=== PATIENT | female | born 1955 | race Caucasian/White ===

== ENCOUNTER 2016-09-01 08:02 | Day surgery (SDC) | payer OTHER ==
[~2016-09-01] VITALS: Ht 172.7 cm; Wt 133.0 kg
[~2016-09-01 08:02] MED LIST: ATEN-51 PO; BENA40TA41 PO; CLON0.3T PO; DOCU-159 PO
[2016-09-01 08:53] VITALS: Ht 172.7 cm; Wt 133.0 kg
--- NOTE | 2016-09-01 12:07 | CONS ---
DATE OF ADMISSION: 09/01/2016 DATE OF CONSULTATION: 09/01/2016 HISTORY OF PRESENT ILLNESS: The patient is a 61-year-old female who was referred to the office for a colonoscopy. She had a strong family history of colon cancer and also personal history of colon p olyp. The patient is overweight and has high blood pressure; however, when I interviewed her and e anesthesiologist assessed the patient, patient states she was short of breath for the last 1 week even at rest. We examined the patient, she was alert, awake, sitting comfortably. LUNGS: Had bronchi and alpha bases. ABDOMEN: Benign. EXTREMITIES: There was no edema. CENTRAL NERVOUS SYSTEM: Grossly within normal limits. IMPRESSION: 1. Shortness of breath even at rest, as per the patient. 2. Obesity. 3. Hypertension. 4. Strong family history of colon cancer. 5. Personal history of colon polyp. 6. Obesity. PLAN: Because patient is short of breath at rest, the anesthesiologist and myself felt that the ris k was high to sedate this patient for both EGD and colonoscopy. We discussed with the father and to ld them to take the patient to the emergency room immediately. Patient had this same complaint 1 we ek ago and had gone to the primary care. Primary care had told the patient that they would do a ch est x-ray, but nothing was done or followed up on. Once the patient's condition is stable, then we will proceed with both EGD and colonoscopy. This is an elective procedure and not an emergency, so patient needs to be stabilized. Dictated By: THOMAS ROD/JOSH Conf#: [id number] DID#: [id number]
== END 2016-09-02 08:18 | disposition home or self-care (01) ==
LOC: GIL 08:02
PROVIDERS: ATTEND Internal Medicine Gastroenterology
DX: Z86.010 Personal history of colon polyps (principal); Z53.9 Procedure and treatment not carried out, unspecified reason; I10 Essential (primary) hypertension; Z80.0 Family history of malignant neoplasm of digestive organs; R06.02 Shortness of breath; E66.9 Obesity, unspecified; Z68.41 Body mass index [BMI] 40.0-44.9, adult

== ENCOUNTER 2016-09-01 09:14 | Inpatient (IN) | payer OTHER ==
[~2016-09-01] VITALS: Ht 172.7 cm; Wt 131.8 kg
[2016-09-01] VITALS (13 sets, daily range): BP systolic 129–220; BP diastolic 66–115; PULSE 62–83; RESP 18–24; TEMP 98.1; Ht 172.7 cm; Wt 131.8 kg
[2016-09-01] MEDS ORDERED: FUROSEMIDE 100 MG INJ IV STA (12:12)
[2016-09-01 12:32] LABS: AADO2 Arterial 30.7 mmHg (7.0-24.0); Allen Test ACCEPTAB; Arterial Base Excess 2.3 mmol/L (-3.0-3); Arterial COHb 0.8 % (0.0-3.0); Arterial Fraction of Oxyhgb 91.9 % (93.0-99.0); Arterial HCO3 26.8 mmol/L (22.0-26.0); Arterial MetHb 0.2 % (0.0-1.5); Arterial Total Hemglobin 12.1 g/dl (12.0-18.0); MODE ROOM AIR
[2016-09-01 13:01] LABS: BASOPHIL # 0.1 10^3/ul (0.0-0.1); BASOPHILS % 1.3 % (0.0-2.0); EOSINOPHILS # 0.1 10^3/ul (0.0-0.5); EOSINOPHILS % 1.2 % (0.0-7.0); HEMATOCRIT 37.1 % (37.0-47.0); HEMOGLOBIN 11.9 g/dl (12.0-16.0); LYMPHOCYTES # 1.5 10^3/ul (0.8-2.9); LYMPHOCYTES % 22.1 % (15.0-51.0); MEAN CORPUSCULAR HEMOGLOBIN 28.3 pg (29.0-33.0); MEAN CORPUSCULAR HGB CONC 32.2 g/dl (32.0-37.0); MEAN PLATELET VOLUME 8.2 fl (7.4-10.4); MONOCYTE # 0.4 10^3/ul (0.3-0.9); MONOCYTES % 6.1 % (0.0-11.0); NEUTROPHIL # 4.7 10^3/ul (1.6-7.5); NEUTROPHILS % 69.3 % (39.0-77.0); PLATELET COUNT 263 10^3/UL (140-440); RED BLOOD COUNT 4.21 10^6/ul (4.20-5.40); RED CELL DISTRIBUTION WIDTH 17.1 % (11.5-14.5); UNCORRECTED WBC 6.8 10^3/ul (4.8-10.8); WHITE BLOOD COUNT 6.8 10^3/ul (4.8-10.8)
[2016-09-01 13:05] LABS: CONDITION 1; LH ANALYZER COMMENTS 1
[2016-09-01 13:09] LABS: INR 1.09; PROTIME 14.1 Sec (12.2-14.2); PT RATIO 1.1
[2016-09-01 13:10] LABS: ALBUMIN 3.5 g/dl (3.3-4.9); CHLORIDE 99 mmol/L (97-110)
[2016-09-01 13:10] LABS: PARTIAL THROMBOPLASTIN TIME 34.9 Sec (25.0-35.0)
[2016-09-01 13:11] LABS: POTASSIUM 4.5 mmol/L (3.5-5.1); SODIUM 138 mmol/L (135-144)
[2016-09-01 13:13] LABS: ALBUMIN/GLOBULIN RATIO 0.94; ANION GAP 17 (8-16); ASPARTATE AMINO TRANSFERASE 26 IU/L (15-46); BILIRUBIN,INDIRECT 0.7 mg/dl (0-1.1); BILIRUBIN,TOTAL 0.7 mg/dl (0.2-1.3); CARBON DIOXIDE 27 mmol/L (21-31); CREATININE 1.08 mg/dl (0.44-1.00); TOTAL PROTEIN 7.2 g/dl (6.1-8.1)
[2016-09-01 13:14] LABS: ALANINE AMINOTRANSFERASE 15 IU/L (13-69); ALKALINE PHOSPHATASE 86 IU/L (42-121); BLOOD UREA NITROGEN 17 mg/dl (7-20); GLUCOSE 179 mg/dl (70-220)
--- NOTE | 2016-09-01 13:25 | ERA ---
ER Documentation Chief Complaint Date/Time DATE: 09/01/16 TIME: 13:21 Chief Complaint SOB AND COUGH FOR THE PAST 2 WKS. NO FEVERS. HPI Patient is a 61-year-old female who reports that she was drinking her GI prep all night last night for her colonoscopy today. She says she went to have her colonoscopy done and when the stock replenisher asked her if she was "breathing." She says that she told the stock replenisher she was not breathing and the stock replenisher told her to come to the emergency department to be admitted in the hospital. She says she has been short of breath and coughing for the last 2 weeks. She says the cough is nonproductive and she has not had a fever. She says she has had chronic chest pain ongoing for the last 2 weeks that has been constant and unchanged. It is in the center of her chest and does not radiate, nothing makes it better or worse. She denies any sputum production, sore throat, otalgia, rhinorrhea, dizziness, syncope, abdominal pain, vomiting, diarrhea, dysuria, or hematuria. Patient initially complained of lower extremity swelling: However, when I pointed out the chronic skin changes and asked her how long it had actually been there, she admitted it has been there for 5 years. The remainder of the systems are negative. ROS All systems reviewed and are negative except as per history of present illness. Medications Home Meds Reported Medications Clonidine Hcl* (Clonidine Hcl*) 0.3 Mg Tablet, 0.3 MG PO Q8, TAB 10/18/14 Atenolol* (Atenolol*) 25 Mg Tablet, 25 MG PO BID, TAB 10/18/14 Benazepril Hcl* (Benazepril Hcl*) 40 Mg Tablet, 40 MG PO DAILY 07/29/12 Docusate Sodium* (Docusate Sodium*) 100 Mg Capsule, 100 MG PO DAILY 07/29/12 Allergies Allergies: Coded Allergies: amlodipine (Verified Allergy, Mild, rash/nausea/vomiting., 09/01/16) codeine (Verified Allergy, Unknown, RASH, 09/01/16) milk (Verified Allergy, Unknown, RASH, 03/05/14) PMhx/Soc Medical and Surgical Hx: pt denies Surgical Hx History of Surgery: No Anesthesia Reaction: No Hx Neurological Disorder: No Hx Respiratory Disorders: No Hx Cardiac Disorders: Yes (HTN, edema ) Hx Psychiatric Problems: No Hx Miscellaneous Medical Probl: Yes (HTN, uterine CA, colon CA) Hx Alcohol Use: No Hx Substance Use: No Hx Tobacco Use: Yes (Quit 20 years ago ) Smoking Status: Former smoker FmHx Family History: coronary disease, diabetes Physical Exam Vitals Vital Signs Date Time Temp Pulse Resp B/P Pulse Ox O2 Delivery O2 Flow Rate FiO2 09/01/16 12:48 Nasal Cannula 2 09/01/16 09:23 98.5 66 20 177/89 99 Physical Exam Const: [] Well-developed morbidly obese female lying on the bed without any evidence for respiratory distress, speaking in full sentences. Head: Atraumatic normocephalic Eyes: Normal Conjunctiva ENT: Normal External Ears, Nose and Mouth. Neck: Full range of motion..~ No meningismus. Resp: Clear to auscultation bilaterally, no wheezing, or crackles Cardio: Regular rate and rhythm, no murmurs Abd: Soft, non tender, non distended. Normal bowel sounds Skin: No petechiae or rashes Back: No midline or flank tenderness Ext: No cyanosis, bilateral chronic lower extremity lymphedema which is symmetric Neur: Awake and alert oriented 3, GCS equals 15, ambulatory, moves all extremities equally Psych: Normal Mood and Affect, pleasant Result Diagram: 09/01/16 1240 09/01/16 1347 Results 24 hrs Laboratory Tests Test 09/01/16 12:12 09/01/16 12:40 09/01/16 13:47 Arterial Blood HCO3 26.8mmol/L Arterial Blood Base Excess 2.3mmol/L Arterial Blood Oxygen Saturation 92.8mmHG Giorgio Test ACCEPTAB Arterial Blood Gas Puncture Site Right Radial Arterial Blood Carboxyhemoglobin 0.8% Arterial Blood Date Drawn 09/01/2016 12:25:56 PM Arterial Blood Methemoglobin 0.2% Arterial Blood pCO2 (Temp correct) 41.2mmhg Arterial Blood pH (Temp corrected) 7.431 Arterial Blood pO2 (Temp corrected) 69.7mmHG Blood Gas A-a O2 Differential 30.7mmHg Blood Gas Modality ROOM AIR Blood Gas Notified Time 09/01/2016 12:32:43 PM Blood Gas Notified Whom ENRICO Blood Gas Specimen Source Blood arterial Blood Gas Temperature 37.0C FiO2 21.0% Oxyhemoglobin Percent 91.9% Total Hemoglobin 12.1g/dl Activated Partial Thromboplast Time 34.9Sec Basophils # 0.110^3/ul Basophils % 1.3% Blood Morphology Comment Eosinophils # 0.110^3/ul Eosinophils % 1.2% Hematocrit 37.1% Hemoglobin 11.9g/dl INR International Normalized Ratio 1.09 Lymphocytes # 1.510^3/ul Lymphocytes % 22.1% Mean Corpuscular Hemoglobin 28.3pg Mean Corpuscular Hemoglobin Concent 32.2g/dl Mean Corpuscular Volume 88.0fl Mean Platelet Volume 8.2fl Monocytes # 0.410^3/ul Monocytes % 6.1% Neutrophils # 4.710^3/ul Neutrophils % 69.3% Nucleated Red Blood Cells # 0.010^3/ul Nucleated Red Blood Cells % 0.0/100WBC Platelet Count 18449^3/UL Prothrombin Time 14.1Sec Prothrombin Time Ratio 1.1 Red Blood Count 4.2110^6/ul Red Cell Distribution Width 17.1% White Blood Count 6.810^3/ul Alanine Aminotransferase (ALT/SGPT) 15IU/L Albumin 3.5g/dl Albumin/Globulin Ratio 0.94 Alkaline Phosphatase 86IU/L Anion Gap 17 Aspartate Amino Transf (AST/SGOT) 26IU/L B-Type Natriuretic Peptide 5440PG/ML Blood Urea Nitrogen 17mg/dl Calcium Level 9.0mg/dl Carbon Dioxide Level 27mmol/L Chloride Level 99mmol/L Creatinine 1.08mg/dl Direct Bilirubin 0.00mg/dl Globulin 3.70g/dl Glucose Level 179mg/dl Indirect Bilirubin 0.7mg/dl Potassium Level 4.5mmol/L Sodium Level 138mmol/L Total Bilirubin 0.7mg/dl Total Protein 7.2g/dl Troponin I < 0.012ng/ml Current Medications Medications (Trade) Dose Ordered Sig/Alvarado Route PRN Reason Start Time Stop Time Status Last Admin Dose Admin Furosemide (Lasix) 80 mg ONCE STAT IV 09/01/16 12:12 09/01/16 12:16 DC 09/01/16 13:02 Procedures/[facility] EKG shows atrial fibrillation at 60 bpm, nonspecific ST-T wave flattening diffusely, poor R-wave progression across the precordium, Q waves noted in leads V1 V2 and V3, no evidence for acute ischemia noted, no old EKG available for comparison. Chest x-ray shows vascular congestion with pulmonary edema. 1500: Patient is beginning to diurese. There is no significant change in her examination. 1500: I have consulted the hospitalist for admission for further evaluation and treatment of her congestive heart failure. Departure Diagnosis: Primary Impression: Cough Additional Impressions: Congestive heart failure Qualified Code: I50.43 - Acute on chronic combined systolic and diastolic congestive heart failure Lymphedema of both lower extremities Hypertension Qualified Code: I10 - Essential hypertension Obesities, morbid Qualified Code: E66.01 - Morbid obesity, unspecified obesity type Condition: MICK Nance Sep 01, 2016 13:25
[2016-09-01 14:17] LABS: B-TYPE NATRIURETIC PEPTIDE 5440 PG/ML (0-125)
--- NOTE | 2016-09-01 14:18 | RADRPT ---
PROCEDURE: Chest Radiograph. CLINICAL INDICATION: Shortness of breath TECHNIQUE: Single frontal chest radiograph. COMPARISON: Chest radiograph 10/20/2014 FINDINGS: The patient is rotated which limits evaluation. Heart size is poorly evaluate. There is mild centr al vascular congestion. Diffuse interstitial opacities are nonspecific, though suggest pulmonary ed ede. Bibasilar opacities may represent atelectasis, infiltrates, or small effusions. The bones are intact IMPRESSION: 1. Suggested central vascular congestion and pulmonary edema. Recommend correlation with CHF. 2. Bibasilar opacities likely representing a combination of pleural fluid, atelectasis, and/or infi ltrates. RPTAT: KK .Rylan Campuzano MD, MD Date Time Electronically viewed and signed by .Rylan Campuzano MD, on 09/01/2016 14:18 .B/
[2016-09-01 14:35] LABS: TROPONIN-I < 0.012 ng/ml (0.00-0.12)
[2016-09-01] MEDS ORDERED: ACETAMINOPHEN 325 MG TAB PO PRN (15:30)
[2016-09-01] MEDS ORDERED: ONDANSETRON 4 MG INJ IV PRN (15:30)
[2016-09-01] MEDS ORDERED: NITROGLYCERIN (SL) 0.4 MG TAB SL PRN (16:00)
[2016-09-01] MEDS ORDERED: NACL 0.9% 3 ML SYG IV SCH ×2 (16:00)
[2016-09-01] MEDS ORDERED: ONDANSETRON 4 MG TAB PO PRN (16:00)
[2016-09-01] MEDS ORDERED: morphine 2 MG INJ IV ONE (16:00)
[2016-09-01] MEDS: NITROGLYCERIN 50 MG/D5W (PMX) 250 ML IV SCH ×2 (16:18→23:24)
[2016-09-01] MEDS ORDERED: IBUPROFEN 600 MG TAB PO ONE (18:00)
--- NOTE | 2016-09-01 18:44 | HP ---
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 CHIEF COMPLAINT: Shortness of breath and lower extremity edema. HISTORY OF PRESENT ILLNESS: This is a pleasant 61-year-old female with past medical history of esse ntial hypertension, lymphedema, morbid obesity, congestive heart failure who had an appointment for colonoscopy today with Dr. Cheney and patient was found to be fluid overloaded and the procedure was postponed. The patient was asked to come to the emergency room of [facility]. U genevieve evaluation in the ER, the patient was found to be fluid overloaded with lower extremity edema. Chest x-ray shows central vascular congestion and pulmonary edema, bibasilar opacities likely repres enting a combination of pleural fluid and atelectasis or infiltrate. The patient was also found to be in hypertensive urgency with blood pressure 234/103. She was treated with Lasix and morphine and has been placed on nitroglycerin drip at this time. The patient denies any chest pain, shortness o f breath. Positive for shortness of breath, difficulty breathing during ambulation and paroxysmal n octurnal dyspnea, lower extremity edema, difficulty with ambulation secondary to shortness of breath and weight gain. No dysuria, hematuria, urgency, incontinence. No neck pain, no restricted range of motion. No abdominal pain, no change in the color of stool or any other discomfort except what w as stated above. PAST MEDICAL AND SURGICAL HISTORY: As above per HPI. MEDICATIONS: 1. Atenolol. 2. Benazepril. 3. Clonidine. 4. Colace. ALLERGIES: 1. AMLODIPINE. 2. CODEINE. 3. MILK SOCIAL HISTORY: She lives alone and she has been having difficulty in ambulation secondary to disco mfort in her lower extremity. Negative x3 for smoking, alcohol, illicit drugs. REVIEW OF SYSTEMS: As above per HPI, otherwise 12 review of systems has been found to be negative. PHYSICAL EXAMINATION: VITAL SIGNS: Temperature 98.1, pulse 60, respirations 16, blood pressure 129/101, oxygen 99% on marsha m air. GENERAL APPEARANCE: The patient is lying in bed comfortably without any distress. She is not using any accessory muscles for breathing. Body habitus morbidly obese. EYES AND ENT: Conjunctivae and lids are normal. Pupils are normal. Extraocular normal. Hearing g rossly normal. Lips are normal. Oral mucosa is moist. NECK: Supple. Trachea is midline. No lymphadenopathy. RESPIRATORY: Effort is normal. Clear to auscultation bilaterally. CARDIOVASCULAR: Normal S1, S2. Regular rhythm and rate. No murmur, no bruits, no edema and periph eral pulses. Respiratory effort is normal. Decreased breath sounds bilateral lower lung field. CARDIOVASCULAR: Normal S1, S2. Regular rhythm and rate. Positive for lower extremity edema. GASTROINTESTINAL: Abdomen contour is morbidly obese. Bowel sounds present. No guarding, no reboun d. GENITOURINARY: Deferred. EXTREMITIES: Full range of motion. Upper extremities, decreased range of motion bilateral lower ex tremities secondary to severe lymphedema. NEUROLOGIC: Cranial nerves II through XII seem grossly normal. PSYCHIATRIC: She is awake, alert, oriented. LABORATORY WORK: WBC 6.8, hemoglobin 11.9, hematocrit 37.1, platelets 263. Sodium 138, potassium 4 .5, chloride 99, bicarbonate 27, BUN 17, creatinine 1.08. Glucose was 179. BNP 5540. ASSESSMENT AND PLAN: 1. Congestive heart failure exacerbation. The patient has been started on Lasix. We will continue benazepril and place the patient on Coreg. 2. Hypertension urgency. Restart patient's benazepril and clonidine. Place the patient on p.r.n. hydralazine. The patient has been started on nitroglycerin drip and was admitted to ICU, continue t o monitor. Cardiology has been consulted. 3. Morbid obesity. Low calorie diet has been recommended. 4. For gastrointestinal prophylaxis, the patient has been placed on Protonix. 5. For deep venous thrombosis prophylaxis on Lovenox. 5. Will continue to monitor patient closely. Further recommendations, management and treatment as per clinical course. Total amount of time was spent with patient and admission workup 40 minutes. Dictated By: AUGUSTO RICKS/JOSH Conf#: [id number] DID#: [id number]
[2016-09-01] MEDS ORDERED: BENAZEPRIL 40 MG TAB PO SCH (20:00)
--- NOTE | 2016-09-01 21:04 | CONS ---
DATE OF ADMISSION: 09/01/2016 DATE OF CONSULTATION: 09/01/2016 REASON FOR CONSULTATION: Hypertensive urgency/emergency as well as atrial fibrillation. REQUESTING PHYSICIAN: Augusto Riley MD, from the hospitalist service. HISTORY OF PRESENT ILLNESS: Ms. 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 Patient was sent here to the emerge ncy department where, upon arrival, has temperature of 98.5, blood pressure markedly elevated at 177 /89, increased to 249/101, pulse 66, respiratory rate 20, saturating 99%. The patient's labs reveal ed a white count of 6.8, hemoglobin 11.9, platelet count 263. Sodium 138, potassium 4.5, creatinine of 1.0, BUN 17, AST 26, ALT 15. BNP of 5,440; INR at 1.0. ABG revealing a pH of 7.431, PaO2 of 69 , a pCO2 of 41. Patient underwent a chest x-ray revealing central pulmonary vascular congestion and pulmonary edema, bibasilar opacities. The patient's electrocardiogram with atrial fibrillation, ra te of 62, with a left axis deviation, poor R-wave progression across the ____ leads, anteroseptal Q' s and nonspecific ST abnormalities diffusely. The patient in the emergency department has been jane aureliano with Lasix 80 mg IV x1, and then has been started on a nitroglycerin drip; continues to have crystal vated systolic blood pressure greater than 200. The patient, at this time, denies chest pain; state s she has mild shortness of breath. PAST MEDICAL HISTORY: As above in HPI. MEDICATIONS CURRENTLY IN HOSPITAL 1. Aspirin 81 mg daily. 2. Lovenox ____ subcutaneous daily. 3. Colace 100 mg a day. 4. Clonidine 0.3 mg p.o. q.8. 5. Carvedilol 3.125 mg p.o. b.i.d. 6. Benazepril 40 mg daily. 7. Lasix 20 mg p.o. b.i.d. 8. Protonix 40 mg p.o. b.i.d. 9. Hydralazine 10 mg IV q.8 p.r.n. ____ 10. Tylenol. 11. Zofran. ALLERGIES 1. NORVASC. 2. CODEINE. 3. MILK. SOCIAL HISTORY: No tobacco, EtOH, illicit drug use. FAMILY HISTORY: No history of sudden cardiac or early CAD. REVIEW OF SYSTEMS As above in HPI: CONSTITUTIONAL: No fevers, chills. PULMONARY: Positive for shortness breath. CARDIOVASCULAR: Congestive heart failure, uncontrolled systolic blood pressures. GASTROINTESTINAL: Abdominal pain. GENITOURINARY: No hematuria. MUSCULOSKELETAL: Degenerative joint disease. PSYCHIATRIC: Denies depression. NEUROLOGIC: No documented history of CVA. PHYSICAL EXAMINATION VITAL SIGNS: Temperature 98.1, blood pressure 249/101, pulse 60, respiratory rate 16, sating 95%. GENERAL: The patient is alert, awake, complaining of abdominal pain. NECK: JVP difficult to assess secondary to body habitus. HEART: Irregularly irregular, I/ systolic murmur, nondisplaced PMI. ABDOMEN: Positive bowel sounds, soft, obese. EXTREMITIES: Chronic lymphedema. Difficult to palpate distal pulses bilaterally, posterior tibial or dorsalis pedis. LABORATORIES: As above in HPI. No further labs for my review at this time. IMAGING STUDIES: As above in HPI. No further imaging studies for my review at this time. ELECTROCARDIOGRAM: As above in HPI. No further electrocardiograms for my review at this time. IMPRESSION 1. Hypertensive urgency/emergency. 2. Abnormal electrocardiogram, assess for acute coronary syndrome. 3. Atrial fibrillation. 4. Abdominal pain. 5. Increased BNP. 6. Congestive heart failure, question systolic versus diastolic, but acute given presentation. 7. Chronic lymphedema. 8. Mild anemia. RECOMMENDATIONS 1. At this time, would admit patient to telemetry monitoring versus ICU if patient remains on a nit roglycerin drip. 2. Would continue the patient's baseline antihypertensives with benazepril, carvedilol, clonidine, with up-titration as necessary to improve overall systolic blood pressure control. 3. Use IV push p.r.n. hydralazine and p.o. p.r.n. clonidine as necessary to improve systolic blood pressure control acutely. 4. Check a 2-D echo to further assess this patient's ejection fraction and wall motion to rule out any major valve abnormalities. 5. Continue patient's Lasix diuresis. 6. Continue the patient's aspirin and Lovenox for prevention of thromboembolic complications in the setting of atrial fibrillation at this time. 7. Check a fasting lipid panel for general risk stratification. Further workup and treatment of the patient's ongoing clinical issues, including abdominal pain per PMD and alternative consultations. Thank you for allowing me to take part in the care of this patient. I will continue to follow very closely with you, with further recommendations to be made as the patient progresses through her [facility] clinical course. Dictated By: ASHLEY ARSHAD/JOSH Conf#: [id number] DID#: [id number] CC: AUGUSTO RILEY MD;*End*
[2016-09-01] MEDS: FUROSEMIDE 20 MG TAB PO SCH (21:07)
[2016-09-01] MEDS: PANTOPRAZOLE (EC) 40 MG TAB PO SCH (21:07)
[2016-09-01] MEDS: ACETAMINOPHEN 325 MG TAB PO PRN (21:12)
[2016-09-01 21:23] LABS: CREATINE KINASE 22 IU/L (23-200)
[2016-09-01 21:31] LABS: CK-MB 0.68 ng/ml (0.0-2.4)
[2016-09-01 21:40] LABS: TROPONIN-I < 0.012 ng/ml (0.00-0.12)
[2016-09-01] MEDS: hydrALAzine 20 MG INJ IV PRN (21:48)
[2016-09-02] VITALS (44 sets, daily range): BP systolic 89–198; BP diastolic 52–89; PULSE 56–82; RESP 12–30
[2016-09-02 03:02] LABS: CK-MB 0.42 ng/ml (0.0-2.4)
[2016-09-02 03:06] LABS: TROPONIN-I 0.013 ng/ml (0.00-0.12)
[2016-09-02 06:28] LABS: BASOPHILS % 0.3 % (0.0-2.0); EOSINOPHILS % 0.2 % (0.0-7.0); HEMATOCRIT 31.2 % (37.0-47.0); HEMOGLOBIN 10.3 g/dl (12.0-16.0); LYMPHOCYTES # 1.2 10^3/ul (0.8-2.9); LYMPHOCYTES % 13.6 % (15.0-51.0); MEAN CORPUSCULAR HEMOGLOBIN 29.1 pg (29.0-33.0); MEAN CORPUSCULAR VOLUME 88.1 fl (82.0-101.0); MEAN PLATELET VOLUME 8.1 fl (7.4-10.4); MONOCYTE # 0.7 10^3/ul (0.3-0.9); MONOCYTES % 7.9 % (0.0-11.0); PLATELET COUNT 269 10^3/UL (140-440); RED BLOOD COUNT 3.54 10^6/ul (4.20-5.40); RED CELL DISTRIBUTION WIDTH 16.1 % (11.5-14.5)
[2016-09-02 06:31] LABS: POTASSIUM 3.6 mmol/L (3.5-5.1)
[2016-09-02 06:33] LABS: CREATININE 1.47 mg/dl (0.44-1.00)
[2016-09-02 06:34] LABS: CALCIUM 8.9 mg/dl (8.4-10.2); MAGNESIUM 1.9 mg/dl (1.7-2.5)
[2016-09-02] MEDS: PANTOPRAZOLE (EC) 40 MG TAB PO SCH ×2 (06:57→18:29)
[2016-09-02] MEDS: FUROSEMIDE 20 MG TAB PO SCH ×2 (06:57→18:30)
[2016-09-02 07:40] LABS: CONDITION 1; LH ANALYZER COMMENTS 1
[2016-09-02] MEDS: BENAZEPRIL 20 MG TAB PO SCH (08:28)
[2016-09-02] MEDS: ASPIRIN 81 MG TAB PO SCH (08:28)
[2016-09-02] MEDS: DOCUSATE SODIUM 100 MG CAP PO SCH (08:28)
[2016-09-02] MEDS: ACETAMINOPHEN 325 MG TAB PO PRN ×2 (08:29→20:39)
[2016-09-02] MEDS ORDERED: ENOXAPARIN 40 MG/0.4 ML SYG SC SCH (09:00)
--- NOTE | 2016-09-02 10:15 | PN ---
DATE: 09/02/2016 TIME OF EVALUATION: 9 a.m. SUBJECTIVE DATA: Breathing better. Heart rate controlled. Has multiple nonspecific complaints about dry skin, unhappiness about fluid restriction, etcetera. OBJECTIVE DATA: VITAL SIGNS: Temperature 98.1, pulse rate 58, respiratory rate 17, blood pressure 128/69, oxygen saturation 95% on 4 liters oxygen via nasal cannula. GENERAL: This is a notably obese female patient lying in bed, in no apparent distress. HEENT: Head normocephalic and atraumatic. Eyes, anicteric sclerae. Conjunctivae are clear. ENT: Nasal septum is midline. Oral mucosa is dry. NECK: Supple. No JVD noticed. RESPIRATORY: Bilaterally diminished breath sounds. No use of accessory muscles of respiration. CARDIAC: Irregularly irregular rhythm. ABDOMEN: Soft, nontender. Bowel sounds hypoactive in all 4 quadrants. GENITOURINARY: Deferred. EXTREMITIES: No cyanosis, no clubbing. Bilateral lower extremity lymphedema. Peripheral pulses are not palpable. NEUROLOGIC: The patient is awake, alert and oriented. Cranial nerves are grossly intact. LABORATORY AND DIAGNOSTIC DATA: WBC 9.0, hemoglobin 10.3, hematocrit 31.2, platelet count 269. Sodium 137, potassium 3.6, chloride 99, carbon dioxide 20, anion gap 13, BUN 20, creatinine 1.47, glucose 130, calcium 8.9, magnesium 1.9. ASSESSMENT AND PLAN: 1. Acute congestive heart failure exacerbation. Systolic versus diastolic. Continue diuresis. Cardiology is following. Continue supplemental oxygen. 2. Hypertensive urgency. Blood pressure is well controlled at this time. Cardiology is following. Status post nitroglycerin drip. 3. Atrial fibrillation. Rate controlled. Continue beta blockers. 4. Chronic lymphedema of the bilateral lower extremities. Monitor. 5. Acute kidney injury. Creatinine of 1.47, most probably secondary to over- diuresis. Will dose nephrotoxic medications cautiously. Will change the Lovenox to heparin. Holding the OPAL inhibitors will be deferred to cardiology. 6. Morbid obesity. Weight reduction will be advised. 7. Fluid, electrolytes and nutrition. Low cholesterol diet. Fluid restriction. 8. Deep venous thrombosis prophylaxis. Subcutaneous heparin. 9. Gastrointestinal prophylaxis. Proton pump inhibitors. PLAN: Continue the current care. Discontinue Lovenox. Start heparin because of worsening renal function. The patient may be moved out of the intensive care unit if cleared by consultants. The case was discussed with Dr. Macias. Critical care time: 35 minutes. URIEL MACIAS MD, AM/JOSH Conf#: [id number] DID#: [id number] MTDD
[2016-09-02 10:20] LABS: CK-MB 0.6 ng/ml (0.0-2.4)
[2016-09-02 10:23] LABS: TROPONIN-I 0.037 ng/ml (0.00-0.12)
[2016-09-02] MEDS ORDERED: PETROLATUM 5 GM OINT TOP SCH (11:00)
--- NOTE | 2016-09-02 11:02 | CONS ---
Date/Time of Note Date/Time of Note DATE: 09/02/16 TIME: 10:52 Assessment/Plan Assessment/Plan Chief Complaint/Hosp Course IMPRESSION 1. Hypertensive urgency/emergency-now improved on baseline oral anti- hypertensives 2. Abnormal electrocardiogram, assess for acute coronary syndrome.-negative troponin x 3 3. Atrial fibrillation-rate controlled at at times slow to high 40's 4. Abdominal pain. 5. Increased BNP. 6. Congestive heart failure, question systolic versus diastolic, but acute given presentation. 7. Chronic lymphedema. 8. Mild anemia. 9.ARF Recc: -Tele -Continue coreg/clonidine/ACEI -Continue asa -Continue lasix diuresis -OK to tele - Problems: Consultation Date/Type/Reason Admit Date/Time Sep 01, 2016 at 15:02 Initial Consult Date 09/01/2016 Type of Consultation: Cardiology Reason for Consultation CHF Referring Provider: DONOVAN MILLER MD Exam/Review of Systems Vital Signs Vitals Vital Signs Date Time Temp Pulse Resp B/P Pulse Ox O2 Delivery O2 Flow Rate FiO2 09/02/16 08:00 58 09/02/16 08:00 98.1 17 128/69 95 Nasal Cannula 4.0 Intake and Output 09/01/16 09/01/16 09/02/16 15:00 23:00 07:00 Intake Total 286 ml 270 ml Balance 286 ml 270 ml Exam Review of Systems: CONSTITUTIONAL: No fevers, chills. PULMONARY: mild sob CARDIOVASCULAR: No chest pain/palpitations GASTROINTESTINAL: No nausea/vomiting. GENITOURINARY: No hematuria/dysuria. MUSCULOSKELETAL: No myagias/arthalgias. PSYCHIATRIC: The patient denies depression. NEUROLOGIC: No weakness Constitutional: alert, oriented Psych: no complaints Head: normocephalic ENMT: mucosa pink and moist Neck: jvd (9-10 cm water), supple Respiratory: diminished breath sounds (at bases/B) Cardiovascular: regular rate and rhythm Gastrointestinal: non-tender, soft Musculoskeletal: muscle tone (normal) Extremities: edema (lymphedema) Neurological: other (No focal deficits) Results Result Diagram: 09/02/16 0535 09/02/16 0535 Results 24 hrs Laboratory Tests Test 09/01/16 12:12 09/01/16 12:40 09/01/16 13:47 09/01/16 20:45 Arterial Blood HCO3 26.8 H Arterial Blood Base Excess 2.3 Arterial Blood Oxygen Saturation 92.8 L Giorgio Test ACCEPTAB Arterial Blood Gas Puncture Site Right Radial Arterial Blood Carboxyhemoglobin 0.8 Arterial Blood Date Drawn 09/01/2016 12:25:56 PM Arterial Blood Methemoglobin 0.2 Arterial Blood pCO2 (Temp correct) 41.2 Arterial Blood pH (Temp corrected) 7.431 Arterial Blood pO2 (Temp corrected) 69.7 L Blood Gas A-a O2 Differential 30.7 H Blood Gas Modality ROOM AIR Blood Gas Notified Time 09/01/2016 12:32:43 PM Blood Gas [facility] Spec[facility] Source Blood arterial Blood Gas Temperature 37.0 FiO2 21.0 Oxyhemoglobin Percent 91.9 L Total Hemoglobin 12.1 Activated Partial Thromboplast Time 34.9 Basophils # 0.1 Basophils % 1.3 Blood Morphology Comment Eosinophils # 0.1 Eosinophils % 1.2 Hematocrit 37.1 # Hemoglobin 11.9 L INR International Normalized Ratio 1.09 Lymphocytes # 1.5 Lymphocytes % 22.1 Mean Corpuscular Hemoglobin 28.3 L Mean Corpuscular Hemoglobin Concent 32.2 Mean Corpuscular Volume 88.0 Mean Platelet Volume 8.2 # Monocytes # 0.4 Monocytes % 6.1 Neutrophils # 4.7 Neutrophils % 69.3 Nucleated Red Blood Cells # 0.0 Nucleated Red Blood Cells % 0.0 Platelet Count 263 # Prothrombin Time 14.1 Prothrombin Time Ratio 1.1 Red Blood Count 4.21 # Red Cell Distribution Width 17.1 H White Blood Count 6.8 # Alanine Aminotransferase (ALT/SGPT) 15 Albumin 3.5 Albumin/Globulin Ratio 0.94 Alkaline Phosphatase 86 Anion Gap 17 H Aspartate Amino Transf (AST/SGOT) 26 B-Type Natriuretic Peptide 5440 H Blood Urea Nitrogen 17 Calcium Level 9.0 Carbon Dioxide Level 27 Chloride Level 99 Creatinine 1.08 H Direct Bilirubin 0.00 Globulin 3.70 H Glucose Level 179 Indirect Bilirubin 0.7 Potassium Level 4.5 Sodium Level 138 Total Bilirubin 0.7 Total Protein 7.2 Troponin I < 0.012 < 0.012 Creatine Kinase 22 L Creatine Kinase Index 3.1 Creatinine Kinase MB (Mass) 0.68 Test 09/02/16 02:35 09/02/16 05:35 09/02/16 09:20 Creatine Kinase 37 27 Creatine Kinase Index 1.1 2.2 Creatinine Kinase MB (Mass) 0.42 0.60 Troponin I 0.013 0.037 Anion Gap 13 Basophils # 0.0 Basophils % 0.3 Blood Morphology Comment Blood Urea Nitrogen 20 Calcium Level 8.9 Carbon Dioxide Level 29 Chloride Level 99 Cholesterol Level 142 Cholesterol/HDL Ratio 4.0 Creatinine 1.47 H Eosinophils # 0.0 Eosinophils % 0.2 Glucose Level 134 # HDL Cholesterol 35 Hematocrit 31.2 L Hemoglobin 10.3 L LDL Cholesterol, Calculated 87 Lymphocytes # 1.2 Lymphocytes % 13.6 L Magnesium Level 1.9 Mean Corpuscular Hemoglobin 29.1 Mean Corpuscular Hemoglobin Concent 33.0 Mean Corpuscular Volume 88.1 Mean Platelet Volume 8.1 Monocytes # 0.7 Monocytes % 7.9 Neutrophils # 7.0 Neutrophils % 78.0 H Nucleated Red Blood Cells # 0.0 Nucleated Red Blood Cells % 0.0 Platelet Count 269 Potassium Level 3.6 Red Blood Count 3.54 L Red Cell Distribution Width 16.1 H Sodium Level 137 Triglycerides Level 98 White Blood Count 9.0 # Medications Medications Current Medications Nitroglycerin/ Dextrose (Nitroglycerin 50 Mg/D5W (Pmx)) 250 ml @ 1.5 mls/hr TITRATE IV Last administered on 09/01/16 23:24; Admin Dose 90 MLS/HR; Start 09/01/16 at 16:00 Ondansetron HCl (Zofran Tab) 4 mg Q6H PRN PO NAUSEA AND/OR VOMITING; Start 09/01 at 16:00 Aspirin (Aspirin) 81 mg DAILY PO Last administered on 09/02/16 08:28; Admin Dose 81 MG; Start 09/02/16 at 09:00 Nitroglycerin (Nitroglycerin (Sl Tab) 0.4 Mg) 1 tab Q5M PRN SL CHEST PAIN; Start 09/01/16 at 16:00 Acetaminophen (Tylenol Tab) 650 mg Q6H PRN PO PAIN LEVEL 1-3 OR FEVER Last administered on 09/02/16 08:29; Admin Dose 650 MG; Start 09/01/16 at 16:00 Clonidine (Catapres) 0.3 mg Q8 PO Last administered on 09/02/16 06:58; Admin Dose 0.3 MG; Start 09/01/16 at 22:00 Docusate Sodium (Colace) 100 mg DAILY PO Last administered on 09/02/16 08:28; Admin Dose 100 MG; Start 09/02/16 at 09:00 Hydralazine HCl (Apresoline) 10 mg Q8H PRN IV ELEVATED BLOOD PRESSURE Last administered on 09/01/16 21:48; Admin Dose 10 MG; Start 09/01/16 at 16:30 Carvedilol (Coreg) 3.125 mg BID PO Last administered on 09/02/16 08:28; Admin Dose 3.125 MG; Start 09/01/16 at 21:00 Pantoprazole (Protonix Tab) 40 mg BID@06,18 PO Last administered on 09/02/16 06 :57; Admin Dose 40 MG; Start 09/01/16 at 18:00 Clonidine (Catapres) 0.2 mg Q6H PRN PO SBP>170; Start 09/01/16 at 19:00 Benazepril HCl (Lotensin) 40 mg DAILY PO Last administered on 09/02/16 08:28; Admin Dose 40 MG; Start 09/02/16 at 09:00 Heparin Sodium (Porcine) (Heparin (5000 Units/0.5 ml)) 5,000 unit Q8 SC ; Start 09/02/16 at 14:00 Petrolatum (Vaseline) 1 ea DAILY TOP ; Start 09/02/16 at 11:00 Triamcinolone Acetonide (Kenalog 0.025% Lotion) 1 applic BID TOP ; Start at 11:00 Neomycin/ Polymyxin/ Bacitracin (Neosporin Topical Oint) 1 applic TID TOP ; Start 09/02/16 at 13:00 ASHLEY CONNOR Sep 02, 2016 11:02
[2016-09-02] MEDS: TRIAMCINOLONE ACET 0.025% 60 ML LOT TOP SCH ×2 (11:56→20:32)
[2016-09-02] MEDS: NEOMYC/POLYMYX/BACIT 30 GM OINT TOP SCH ×2 (13:32→14:59)
[2016-09-02] MEDS: HEPARIN 5,000 UNIT/0.5 ML SYG SC SCH ×2 (13:34→20:34)
--- NOTE | 2016-09-02 17:25 | RADRPT ---
Echocardiogram Report Patient Name: MARK HAUSER Gender: Female Date: 1955 Study Date: 02-Sep-2016 Physician'S Aide: Jesus Manuel Haas RDCS Location: I Ref. Physician: AUGUSTO RILEY Quality: Technically Difficult Study Procedures: Transthoracic echocardiogram with complete 2D, M-Mode, and doppler examination. Indications: Congential Heart Disease. 2D/M Mode Doppler Measurement Value Normal Ranges Measurement Value Normal Ranges LVIDd 2D 3.7 3.5 - 5.6 cm AV Peak Teja 1.5 m/sec LVIDs 2D 2.3 2.1 - 4.1 cm AV Peak PG 8.7 mmHg LVPWd 2D 1.6 0.6 - 1.1 cm LVOT Peak Teja 1.3 m/sec IVSd 2D 1.5 0.6 - 1.1 cm LVOT Peak PG 6.3 mmHg AoR Diam 2D 2.9 2.0 - 3.7 cm EDV 2D 56.9 cm3 ESV 2D 11.8 cm3 LA Dimen 2D 4.4 2.3 - 4.0 cm Findings Left Ventricle: Normal left ventricular systolic function. Normal left ventricular cavity size. Moderate concentric left ventricular hypertrophy. Ejection fraction is visually estimated at 65 %. Tissue Doppler/Mitral Doppler indices are consistent with impaired relaxation (Stage I diastolic dysfunction). Right Ventricle: Normal right ventricular size. Normal right ventricular systolic function. Left Atrium: There is mild enlargement of left atrium. Right Atrium: The right atrium is normal in size. Mitral Valve: Moderate mitral annular calcification. Trace mitral regurgitation. Aortic Valve: No significant aortic stenosis or insufficiency. Aortic cusps appear mildly calcified. Tricuspid Valve: Normal appearance and function of the tricuspid valve with trace physiologic regurgitation. Pericardium: Normal pericardium with no significant pericardial effusion. Left pleural effusion seen. Aorta: Normal aortic root. IVC: Dilated IVC without respiratory collapse consistent with elevated right atrial pressure. Conclusions 1.Normal left ventricular systolic function. Normal left ventricular cavity size. Moderate concentric left ventricular hypertrophy. Ejection fraction is visually estimated at 65 %. Tissue Doppler/Mitral Doppler indices are consistent with impaired relaxation (Stage I diastolic dysfunction). 2.There is mild enlargement of left atrium. 3.Moderate mitral annular calcification. Trace mitral regurgitation. 4.Normal appearance and function of the tricuspid valve with trace physiologic regurgitation. 5.Normal pericardium with no significant pericardial effusion. Left pleural effusion seen. Electronically Signed By: Scot Matos 02-Sep-2016 17:24:06 -0800 Patient Name: MARK HAUSER Study Date: 02-Sep-2016 [id number]
[2016-09-02] MEDS: hydrALAzine 20 MG INJ IV PRN (20:40)
[2016-09-02] MEDS: IBUPROFEN 600 MG TAB GTB PRN (22:08)
[2016-09-03] VITALS (12 sets, daily range): BP systolic 138–177; BP diastolic 62–90; PULSE 40–76; RESP 16–21
[2016-09-03] MEDS: MENTHOL/METH SALICYLATE 30 GM OINT TOP PRN (02:09)
[2016-09-03] MEDS: PANTOPRAZOLE (EC) 40 MG TAB PO SCH ×2 (05:53→17:55)
[2016-09-03] MEDS: FUROSEMIDE 20 MG TAB PO SCH ×2 (05:54→17:55)
[2016-09-03] MEDS: HEPARIN 5,000 UNIT/0.5 ML SYG SC SCH ×3 (05:56→21:45)
[2016-09-03] MEDS: ACETAMINOPHEN 325 MG TAB PO PRN ×2 (06:14→21:49)
[2016-09-03 07:32] LABS: ALBUMIN 2.7 g/dl (3.3-4.9); MAGNESIUM 1.9 mg/dl (1.7-2.5); PHOSPHORUS 4.5 mg/dl (2.5-4.9)
[2016-09-03 07:33] LABS: POTASSIUM 3.7 mmol/L (3.5-5.1)
[2016-09-03 07:35] LABS: BILIRUBIN,INDIRECT 0.4 mg/dl (0-1.1); BILIRUBIN,TOTAL 0.4 mg/dl (0.2-1.3); CREATININE 2.36 mg/dl (0.44-1.00)
[2016-09-03 07:36] LABS: ALBUMIN/GLOBULIN RATIO 0.9; CALCIUM 8.5 mg/dl (8.4-10.2); TOTAL PROTEIN 5.7 g/dl (6.1-8.1)
[2016-09-03] MEDS: ASPIRIN 81 MG TAB PO SCH (08:44)
[2016-09-03] MEDS: NEOMYC/POLYMYX/BACIT 30 GM OINT TOP SCH ×3 (08:44→21:43)
[2016-09-03] MEDS: DOCUSATE SODIUM 100 MG CAP PO SCH (08:44)
[2016-09-03] MEDS: IBUPROFEN 600 MG TAB GTB PRN (08:44)
[2016-09-03] MEDS: BENAZEPRIL 20 MG TAB PO SCH (08:44)
[2016-09-03] MEDS: TRIAMCINOLONE ACET 0.025% 60 ML LOT TOP SCH ×2 (08:44→21:43)
[2016-09-03] MEDS: VITAMIN A & D 5 GM OINT PACKET TOP SCH (08:45)
[2016-09-03 09:16] LABS: HEMATOCRIT 31.5 % (37.0-47.0); HEMOGLOBIN 9.6 g/dl (12.0-16.0); RED BLOOD COUNT 3.39 10^6/ul (4.20-5.40); WHITE BLOOD COUNT 7.1 10^3/ul (4.8-10.8)
[2016-09-03 09:17] LABS: BASOPHILS % 0.4 % (0.0-2.0); EOSINOPHILS % 2.4 % (0.0-7.0); LYMPHOCYTES # 1.4 10^3/ul (0.8-2.9); LYMPHOCYTES % 19.3 % (15.0-51.0); MEAN CORPUSCULAR HEMOGLOBIN 28.3 pg (29.0-33.0); MEAN CORPUSCULAR HGB CONC 30.5 g/dl (32.0-37.0); MEAN CORPUSCULAR VOLUME 92.9 fl (82.0-101.0); MEAN PLATELET VOLUME 10.6 fl (7.4-10.4); MONOCYTE # 0.6 10^3/ul (0.3-0.9); MONOCYTES % 8.4 % (0.0-11.0); NEUTROPHIL # 4.9 10^3/ul (1.6-7.5); NEUTROPHILS % 68.9 % (39.0-77.0); PLATELET COUNT 233 10^3/UL (140-440)
[2016-09-03 09:18] LABS: EOSINOPHILS # 0.2 10^3/ul (0.0-0.5)
[2016-09-03] MEDS: ALPRAZOLAM 0.5 MG TAB PO PRN (11:28)
[2016-09-03] MEDS: POLYETHYLENE GLYCOL 17 GM PACKET PO PRN (11:29)
[2016-09-03] MEDS: MINERAL OIL 30ML CUP PO PRN (11:29)
--- NOTE | 2016-09-03 17:59 | PN ---
Date/Time of Note Date/Time of Note DATE: 09/03/16 TIME: 17:56 Assessment/Plan VTE Prophylaxis VTE Prophylaxis Intervention: heparin Lines/Catheters IV [facility]ter [facility]from [facility] Saline Lock Urinary Cath still in place: No Assessment/Plan Chief Complaint/Hosp Course Assessment and plan 1. Acute CHF. Continue on diuretics. O2 as needed. Titrate down as tolerated. 2. Hypertensive urgency. Patient is status post nitro drip. Improved at present. Continue on antihypertensives 3. Atrial ablation. Continue on beta adalgisa. Supervising Bailiff following. Continue telemetry monitoring 4. History of chronic lymphedema on bilateral lower extremity is. Continue on diuretic 5. Acute kidney injury. Avoid nephrotoxic medications. Monitor renal panel. We' ll get computer technology teacher consultation 6. Morbid obesity. Weight reduction advised 7. Anxiety. We'll start on Xanax as needed Disposition and plan: We'll get nephrology consult for worsening renal function. Continue inpatient monitoring Discussed plan of care with Dr. Villalobos Problems: Subjective 24 Hr Interval Summary Free Text/Dictation Anxious. Does still have some shortness of breath Exam/Review of Systems Vital Signs Vitals Vital Signs Date Time Temp Pulse Resp B/P Pulse Ox O2 Delivery O2 Flow Rate FiO2 09/03/16 16:28 40 09/03/16 15:08 97.3 20 140/74 94 09/03/16 08:00 Nasal Cannula 2.0 Intake and Output 09/02/16 09/02/16 09/03/16 15:00 23:00 07:00 Intake Total 480 ml 220 ml 120 ml Output Total 10 ml 600 ml Balance 470 ml 220 ml -480 ml Exam General: Anxious Eyes: pupils equal round, Anicteric sclera Neck: Supple nontender, no JVD Cardiac: S1, S2 auscultated, regular rhythm and rate Pulmonary: No coarse rhonchi or breathing auscultated GI: Abdomen soft nontender nondistended, bowel sounds active Extremities: Edema bilateral lower extremities Skin: Clean dry and intact Neurologic: Alert to person place and time and situation Results Result Diagram: 09/03/16 0545 09/03/16 0545 Results 24 hrs Laboratory Tests Test 09/03/16 05:45 Alanine Aminotransferase (ALT/SGPT) 19 Albumin 2.7 L Albumin/Globulin Ratio 0.90 Alkaline Phosphatase 78 Anion Gap 16 Aspartate Amino Transf (AST/SGOT) 17 Basophils # 3.0 H Basophils % 0.4 Blood Urea Nitrogen 32 #H Calcium Level 8.5 Carbon Dioxide Level 27 Chloride Level 98 Creatinine 2.36 H Direct Bilirubin 0.00 Eosinophils # 0.2 Eosinophils % 2.4 Globulin 3.00 Glucose Level 137 Hematocrit 31.5 L Hemoglobin 9.6 L Indirect Bilirubin 0.4 Lymphocytes # 1.4 Lymphocytes % 19.3 Magnesium Level 1.9 Mean Corpuscular Hemoglobin 28.3 L Mean Corpuscular Hemoglobin Concent 30.5 L Mean Corpuscular Volume 92.9 Mean Platelet Volume 10.6 #H Monocytes # 0.6 Monocytes % 8.4 Neutrophils # 4.9 Neutrophils % 68.9 Nucleated Red Blood Cells # 0.0 Nucleated Red Blood Cells % 0.0 Phosphorus Level 4.5 Platelet Count 233 Potassium Level 3.7 Red Blood Count 3.39 L Red Cell Distribution Width 16.0 H Sodium Level 137 Total Bilirubin 0.4 Total Protein 5.7 #L White Blood Count 7.1 # Medications Medications Current Medications Nitroglycerin/ Dextrose (Nitroglycerin 50 Mg/D5W (Pmx)) 250 ml @ 1.5 mls/hr TITRATE IV Last administered on 09/01/16 23:24; Admin Dose 90 MLS/HR; Start 09/01/16 at 16:00 Ondansetron HCl (Zofran Tab) 4 mg Q6H PRN PO NAUSEA AND/OR VOMITING; Start 09/01 at 16:00 Aspirin (Aspirin) 81 mg DAILY PO Last administered on 09/03/16 08:44; Admin Dose 81 MG; Start 09/02/16 at 09:00 Nitroglycerin (Nitroglycerin (Sl Tab) 0.4 Mg) 1 tab Q5M PRN SL CHEST PAIN; Start 09/01/16 at 16:00 Acetaminophen (Tylenol Tab) 650 mg Q6H PRN PO PAIN LEVEL 1-3 OR FEVER Last administered on 09/03/16 06:14; Admin Dose 650 MG; Start 09/01/16 at 16:00 Clonidine (Catapres) 0.3 mg Q8 PO Last administered on 09/03/16 12:46; Admin Dose 0.3 MG; Start 09/01/16 at 22:00 Docusate Sodium (Colace) 100 mg DAILY PO Last administered on 09/03/16 08:44; Admin Dose 100 MG; Start 09/02/16 at 09:00 Hydralazine HCl (Apresoline) 10 mg Q8H PRN IV ELEVATED BLOOD PRESSURE Last administered on 09/02/16 20:40; Admin Dose 10 MG; Start 09/01/16 at 16:30 Carvedilol (Coreg) 3.125 mg BID PO Last administered on 09/03/16 08:44; Admin Dose 3.125 MG; Start 09/01/16 at 21:00 Pantoprazole (Protonix Tab) 40 mg BID@06,18 PO Last administered on 09/03/16 05 :53; Admin Dose 40 MG; Start 09/01/16 at 18:00 Clonidine (Catapres) 0.2 mg Q6H PRN PO SBP>170; Start 09/01/16 at 19:00 Benazepril HCl (Lotensin) 40 mg DAILY PO Last administered on 09/03/16 08:44; Admin Dose 40 MG; Start 09/02/16 at 09:00 Heparin Sodium (Porcine) (Heparin (5000 Units/0.5 ml)) 5,000 unit Q8 SC Last administered on 09/03/16 13:14; Admin Dose 5,000 UNIT; Start 09/02/16 at 14:00 Triamcinolone Acetonide (Kenalog 0.025% Lotion) 1 applic BID TOP Last administered on 09/03/16 08:44; Admin Dose 1 APPLIC; Start 09/02/16 at 11:00 Neomycin/ Polymyxin/ Bacitracin (Neosporin Topical Oint) 1 applic TID TOP Last administered on 09/03/16 12:28; Admin Dose 1 APPLIC; Start 09/02/16 at 13:00 Vitamin A/Vitamin D (Vitamin A & D Oint) 1 applic DAILY TOP Last administered on 09/03/16 08:45; Admin Dose 1 APPLIC; Start 09/03/16 at 09:00 Ibuprofen (Motrin) 600 mg Q6H PRN GTB PAIN Last administered on 09/03/16 08:44 ; Admin Dose 600 MG; Start 09/02/16 at 22:00 Menthol/Methyl Salicylate (Melchor Dupont) 1 applic QID PRN TOP PAIN Last administered on 09/03/16 02:09; Admin Dose 1 APPLIC; Start 09/03/16 at 02:00 Mineral Oil (Mineral Oil) 30 ml DAILY PRN PO CONSTIPATION Last administered on 09/03/16 11:29; Admin Dose 30 ML; Start 09/03/16 at 10:30 Alprazolam (Xanax) 0.5 mg Q8H PRN PO ANXIETY Last administered on 09/03/16 11: 28; Admin Dose 0.5 MG; Start 09/03/16 at 10:30 Polyethylene Glycol (Miralax) 17 gm BID PRN PO CONSTIPATION Last administered on 09/03/16 11:29; Admin Dose 17 GM; Start 09/03/16 at 11:00 LOAN TIRADO Sep 03, 2016 17:59
[2016-09-04] VITALS (14 sets, daily range): BP systolic 125–208; BP diastolic 67–108; PULSE 58–85; RESP 18
[2016-09-04] MEDS: PANTOPRAZOLE (EC) 40 MG TAB PO SCH ×2 (06:27→18:09)
[2016-09-04] MEDS: FUROSEMIDE 20 MG TAB PO SCH ×2 (06:27→18:10)
[2016-09-04] MEDS: HEPARIN 5,000 UNIT/0.5 ML SYG SC SCH ×4 (06:37→21:48)
[2016-09-04] MEDS: DOCUSATE SODIUM 100 MG CAP PO SCH (08:29)
[2016-09-04] MEDS: IBUPROFEN 600 MG TAB GTB PRN (08:29)
[2016-09-04] MEDS: ASPIRIN 81 MG TAB PO SCH (08:29)
[2016-09-04] MEDS: BENAZEPRIL 20 MG TAB PO SCH (08:30)
[2016-09-04] MEDS: NEOMYC/POLYMYX/BACIT 30 GM OINT TOP SCH ×3 (08:31→21:35)
[2016-09-04] MEDS: VITAMIN A & D 5 GM OINT PACKET TOP SCH (08:31)
[2016-09-04] MEDS: TRIAMCINOLONE ACET 0.025% 60 ML LOT TOP SCH ×2 (08:32→21:36)
[2016-09-04] MEDS: hydrALAzine 20 MG INJ IV PRN ×3 (08:33→16:16)
--- NOTE | 2016-09-04 09:01 | CONS ---
Date/Time of Note Date/Time of Note DATE: 09/04/16 TIME: 08:53 Assessment/Plan Assessment/Plan Chief Complaint/Hosp Course 1. Renal Failure- possible cardiorenal with increasing creat secondary to diuresis and acei. At this time will cont. to treat CHF, check echo to eval EF, cont aggressive BP control and tolerate high bun/creat with above. -will check urine studies, check for proteinuria given low albumin, r/o GN..will send Rf, MIKA, ANCA, UA, Urine eosinophils. -adjust all other meds, avoid contrast or NSAIDS. -will get renal US to r/o obstruction and eval chronicity and kidney size. -SPEP will be sent as well. 2. HTN- urgency, adjust meds, cont diuresis and afterload reduction. 3. lymphedema 4. Constipation 5. poss chf-? diastolic, carsd c.s noted Problems: Consultation Date/Type/Reason Admit Date/Time Sep 01, 2016 at 15:02 Date of Consultation: Sep 04, 2016 Reason for Consultation 61 y/o female with morbid obesity, HTN, came to ER for increasing sob,wheezing, increasing leg edema. Pt. states she has had edema x long time, poorly controlled HTN and feels like meds and colonscopy prep last week made her get sob. She was never told she has cardiac or renal problems. Says her UOP has been normal. Denies new rashes, joint pains, fevers or chills. Appetite has been normal. In er given lasix and creat has risen last few days. Constitutional: improved Eyes: no complaints ENT: no complaints Respiratory: shortness of breath, wheezing Cardiovascular: edema, orthopenea Gastrointestinal: constipation Genitourinary: no complaints Musculoskeletal: no complaints Neurologic: no complaints Endocrine: no complaints Lymphatic: lymphadema Psychological: no complaints, No anxiety, No confusion, No depression, No nl mood/affect, No other, No suicidal Immunologic: No immunodeficiency, No no complaints, No other, No pruritis, No rhinitis, No urticaria Past Medical History HTN Obesity Poss CKD Leg Lymphedema Social History Smoking Status: Former smoker Exam/Review of Systems Vital Signs Vitals Vital Signs Date Time Temp Pulse Resp B/P Pulse Ox O2 Delivery O2 Flow Rate FiO2 09/04/16 08:51 83 09/04/16 08:18 98.0 18 208/108 98 09/03/16 08:00 Nasal Cannula 2.0 Intake and Output 09/03/16 09/03/16 09/04/16 15:00 23:00 07:00 Intake Total 820 ml 300 ml Balance 820 ml 300 ml Exam Constitutional: obese, oriented Psych: No anxiety, No confusion, No depression, No nl mood/affect, No no complaints, No other, No suicidal Head: atraumatic, normocephalic Eyes: EOMI, PERRL, nl conjunctiva, nl lids, nl sclera ENMT: nl external ears & nose, nl lips & teeth, nl nasal mucosa & septum Neck: non-tender, supple Respiratory: diminished breath sounds Cardiovascular: nl pulses, regular rate and rhythm Gastrointestinal: bowel sounds, nl liver, spleen, non-tender, soft Genitourinary - Female: No CMT, No CVA tenderness, No nl adnexae, No nl external genitalia, No other, No uterus Musculoskeletal: nl extremities to inspection, nl gait and stance Extremities: calf tenderness, edema, pitting pedal edema Neurological: HAIR WEAVER II-XII intact, nl mental status, nl speech, nl strength Skin: nl turgor, No rash or lesions Results Result Diagram: 09/03/16 0545 09/03/1645 Medications Medications Current Medications Nitroglycerin/ Dextrose (Nitroglycerin 50 Mg/D5W (Pmx)) 250 ml @ 1.5 mls/hr TITRATE IV Last administered on 09/01/16 23:24; Admin Dose 90 MLS/HR; Start 09/01/16 at 16:00 Ondansetron HCl (Zofran Tab) 4 mg Q6H PRN PO NAUSEA AND/OR VOMITING; Start 09/01 at 16:00 Aspirin (Aspirin) 81 mg DAILY PO Last administered on 09/04/16 08:29; Admin Dose 81 MG; Start 09/02/16 at 09:00 Nitroglycerin (Nitroglycerin (Sl Tab) 0.4 Mg) 1 tab Q5M PRN SL CHEST PAIN; Start 09/01/16 at 16:00 Acetaminophen (Tylenol Tab) 650 mg Q6H PRN PO PAIN LEVEL 1-3 OR FEVER Last administered on 09/03/16 21:49; Admin Dose 650 MG; Start 09/01/16 at 16:00 Clonidine (Catapres) 0.3 mg Q8 PO Last administered on 09/04/16 06:27; Admin Dose 0.3 MG; Start 09/01/16 at 22:00 Docusate Sodium (Colace) 100 mg DAILY PO Last administered on 09/04/16 08:29; Admin Dose 100 MG; Start 09/02/16 at 09:00 Hydralazine HCl (Apresoline) 10 mg Q8H PRN IV ELEVATED BLOOD PRESSURE Last administered on 09/04/16 08:33; Admin Dose 10 MG; Start 09/01/16 at 16:30 Carvedilol (Coreg) 3.125 mg BID PO Last administered on 09/04/16 08:31; Admin Dose 3.125 MG; Start 09/01/16 at 21:00 Pantoprazole (Protonix Tab) 40 mg BID@18 PO Last administered on 09/04/16 06 :27; Admin Dose 40 MG; Start 09/01/16 at 18:00 Clonidine (Catapres) 0.2 mg Q6H PRN PO SBP>170; Start 09/01/16 at 19:00 Benazepril HCl (Lotensin) 40 mg DAILY PO Last administered on 09/04/16 08:30; Admin Dose 40 MG; Start 09/02/16 at 09:00 Heparin Sodium (Porcine) (Heparin (5000 Units/0.5 ml)) 5,000 unit Q8 SC Last administered on 09/04/16 06:37; Admin Dose 5,000 UNIT; Start 09/02/16 at 14:00 Triamcinolone Acetonide (Kenalog 0.025% Lotion) 1 applic BID TOP Last administered on 09/04/16 08:32; Admin Dose 1 APPLIC; Start 09/02/16 at 11:00 Neomycin/ Polymyxin/ Bacitracin (Neosporin Topical Oint) 1 applic TID TOP Last administered on 09/04/16 08:31; Admin Dose 1 APPLIC; Start 09/02/16 at 13:00 Vitamin A/Vitamin D (Vitamin A & D Oint) 1 applic DAILY TOP Last administered on 09/04/16 08:31; Admin Dose 1 APPLIC; Start 09/03/16 at 09:00 Ibuprofen (Motrin) 600 mg Q6H PRN GTB PAIN Last administered on 09/04/16 08:29 ; Admin Dose 600 MG; Start 09/02/16 at 22:00 Menthol/Methyl Salicylate (Melchor Dupont) 1 applic QID PRN TOP PAIN Last administered on 09/03/16 02:09; Admin Dose 1 APPLIC; Start 09/03/16 at 02:00 Mineral Oil (Mineral Oil) 30 ml DAILY PRN PO CONSTIPATION Last administered on 09/03/16 11:29; Admin Dose 30 ML; Start 09/03/16 at 10:30 Alprazolam (Xanax) 0.5 mg Q8H PRN PO ANXIETY Last administered on 09/03/16 11: 28; Admin Dose 0.5 MG; Start 09/03/16 at 10:30 Polyethylene Glycol (Miralax) 17 gm BID PRN PO CONSTIPATION Last administered on 09/03/16 11:29; Admin Dose 17 GM; Start 09/03/16 at 11:00 JOSE MARIA SANCHEZ MD Sep 04, 2016 09:01
[2016-09-04 09:21] LABS: ALBUMIN 3.1 g/dl (3.3-4.9); POTASSIUM 3.7 mmol/L (3.5-5.1)
[2016-09-04 09:23] LABS: ALBUMIN/GLOBULIN RATIO 0.93; BASOPHILS % 0.4 % (0.0-2.0); BILIRUBIN,INDIRECT 0.3 mg/dl (0-1.1); BILIRUBIN,TOTAL 0.3 mg/dl (0.2-1.3); CREATININE 2.37 mg/dl (0.44-1.00); EOSINOPHILS # 0.1 10^3/ul (0.0-0.5); EOSINOPHILS % 2.2 % (0.0-7.0); HEMATOCRIT 30.8 % (37.0-47.0); HEMOGLOBIN 10.1 g/dl (12.0-16.0); LYMPHOCYTES # 1.1 10^3/ul (0.8-2.9); LYMPHOCYTES % 16.9 % (15.0-51.0); MEAN CORPUSCULAR HEMOGLOBIN 28.8 pg (29.0-33.0); MEAN CORPUSCULAR HGB CONC 32.8 g/dl (32.0-37.0); MEAN CORPUSCULAR VOLUME 87.9 fl (82.0-101.0); MEAN PLATELET VOLUME 8.4 fl (7.4-10.4); MONOCYTE # 0.5 10^3/ul (0.3-0.9); MONOCYTES % 7.5 % (0.0-11.0); NEUTROPHIL # 4.9 10^3/ul (1.6-7.5); PLATELET COUNT 249 10^3/UL (140-440); RED BLOOD COUNT 3.51 10^6/ul (4.20-5.40); RED CELL DISTRIBUTION WIDTH 16.7 % (11.5-14.5); TOTAL PROTEIN 6.4 g/dl (6.1-8.1); UNCORRECTED WBC 6.7 10^3/ul (4.8-10.8); WHITE BLOOD COUNT 6.7 10^3/ul (4.8-10.8)
[2016-09-04 09:24] LABS: CALCIUM 8.7 mg/dl (8.4-10.2); CONDITION 1; LH ANALYZER COMMENTS 1
[2016-09-04 10:10] LABS: CK-MB 0.55 ng/ml (0.0-2.4)
[2016-09-04 10:32] LABS: THYROID STIMULATING HORMONE 0.343 MIU/L (0.465-4.680)
[2016-09-04 11:07] LABS: CREATINE KINASE < 20 IU/L (23-200)
[2016-09-04 11:19] LABS: TROPONIN-I 0.021 ng/ml (0.00-0.12)
--- NOTE | 2016-09-04 11:48 | RADRPT ---
PROCEDURE: Renal US. CLINICAL INDICATION: Acute renal failure. TECHNIQUE: Multiple sonographic images of the kidneys were obtained. The images were reviewed on a PACS workstation. COMPARISON: No. FINDINGS: The kidneys are well visualized. The right kidney measures 10.1 cm sagittal by 5.6 cm AP by 5.2 cm t ransverse. There is moderate hydronephrosis of the right kidney. The left kidney measures 10.1 cm sagittal by 6 cm AP by 6.4 cm transverse. The left renal cortex is of normal thickness. There are no focal areas of abnormal echogenicity involving the left kidney. T here is no evidence for obstructive involving the left kidney uropathy. A postvoid film was not performed as the patient recently voided. IMPRESSION: 1. Moderate hydronephrosis of the right kidney with normal blood flow noted on Doppler imaging. 2. No evidence of a solid mass or hydronephrosis involving the left kidney. RPTAT:AAJJ Physician Gloria Date Time Electronically viewed and signed by Physician Gloria on 09/04/2016 11:47 MATI/
[2016-09-04 12:00] LABS: ADD UMIC YES; URINE BILIRUBIN (Dip) NEGATIVE (NEGATIVE); URINE BLOOD (Dip) 3+ (NEGATIVE); URINE COLOR LT. YELLOW (YELLOW); URINE GLUCOSE (Dip) NEGATIVE (NEGATIVE); URINE KETONES (Dip) NEGATIVE (NEGATIVE); URINE LEUKOCYTE ESTERASE (Dip) 1+ (NEGATIVE); URINE NITRITE (Dip) NEGATIVE (NEGATIVE); URINE TOTAL PROTEIN (Dip) NEGATIVE (NEGATIVE); URINE UROBILINOGEN (Dip) 0.2 E.U./dL (0.1-1.0)
[2016-09-04 12:19] LABS: BACTERIA,URINE FEW; SQUAMOUS EPITHELIAL CELL,UR FEW
[2016-09-04] MEDS: ALPRAZOLAM 0.5 MG TAB PO PRN (12:35)
--- NOTE | 2016-09-04 13:59 | PN ---
Date/Time of Note Date/Time of Note DATE: 09/04/16 TIME: 13:56 Assessment/Plan VTE Prophylaxis VTE Prophylaxis Intervention: heparin Lines/Catheters IV Catheter Type (from [facility]): Saline Lock Urinary Cath still in place: No Assessment/Plan Chief Complaint/Hosp Course Assessment and plan 1. Acute CHF. Continue on diuretics per can capper for conditions. O2 as needed. Titrate down as tolerated. 2. Hypertensive urgency. Patient is status post nitro drip. Improved at present. Continue on antihypertensives. We'll adjust as needed 3. Atrial ablation. Continue on beta adalgisa. [employer] following. Continue telemetry monitoring 4. History of chronic lymphedema on bilateral lower extremity is. Continue on diuretic with careful monitoring of renal panel 5. Acute kidney injury. Avoid nephrotoxic medications. Monitor renal panel. 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 Morbid obesity. Weight reduction advised 7. Anxiety. We'll start on Xanax as needed Disposition and plan: Drawbridge [employer] following for worsening renal function. Continue renal workup. Discharge him medically stable and cleared by consultants Discussed plan of care with Dr. Villalobos Problems: Subjective 24 Hr Interval Summary Free Text/Dictation Anxious. No other specific complaints Exam/Review of Systems Vital Signs Vitals Vital Signs Date Time Temp Pulse Resp B/P Pulse Ox O2 Delivery O2 Flow Rate FiO2 09/04/16 13:17 85 09/04/16 12:48 98.0 18 178/90 98 09/03/16 08:00 Nasal Cannula 2.0 Intake and Output 09/03/16 09/03/16 09/04/16 14:59 22:59 06:59 Intake Total 820 ml 300 ml Balance 820 ml 300 ml Exam General: Anxious Eyes: pupils equal round, Anicteric sclera Neck: Supple nontender, no JVD Cardiac: S1, S2 auscultated, regular rhythm and rate Pulmonary: No coarse rhonchi or breathing auscultated GI: Abdomen soft nontender nondistended, bowel sounds active Extremities: Edema bilateral lower extremities Skin: Clean dry and intact Neurologic: Alert to person place and time and situation Results Result Diagram: 09/04/16 0825 09/04/16 0825 Results 24 hrs Laboratory Tests Test 09/04/16 08:25 09/04/16 11:15 Alanine Aminotransferase (ALT/SGPT) 19 Albumin 3.1 L Albumin/Globulin Ratio 0.93 Alkaline Phosphatase 85 Anion Gap 15 Aspartate Amino Transf (AST/SGOT) 17 Basophils # 0.0 Basophils % 0.4 Blood Morphology Comment Blood Urea Nitrogen 39 H Calcium Level 8.7 Carbon Dioxide Level 27 Chloride Level 97 Creatine Kinase < 20 L Creatine Kinase Index Creatinine 2.37 H Creatinine Kinase MB (Mass) 0.55 Direct Bilirubin 0.00 Eosinophils # 0.1 Eosinophils % 2.2 Globulin 3.30 H Glucose Level 198 Hematocrit 30.8 L Hemoglobin 10.1 L Indirect Bilirubin 0.3 Lymphocytes # 1.1 Lymphocytes % 16.9 Magnesium Level 1.9 Mean Corpuscular Hemoglobin 28.8 L Mean Corpuscular Hemoglobin Concent 32.8 Mean Corpuscular Volume 87.9 Mean Platelet Volume 8.4 # Monocytes # 0.5 Monocytes % 7.5 Neutrophils # 4.9 Neutrophils % 73.0 Nucleated Red Blood Cells # 0.0 Nucleated Red Blood Cells % 0.0 Platelet Count 249 Potassium Level 3.7 Red Blood Count 3.51 L Red Cell Distribution Width 16.7 H Sodium Level 135 Thyroid Stimulating Hormone (TSH) 0.343 L Total Bilirubin 0.3 Total Protein 6.4 Troponin I 0.021 White Blood Count 6.7 Urine Bacteria FEW Urine Bilirubin NEGATIVE Urine Clarity CLEAR Urine Color LT. YELLOW Urine Glucose NEGATIVE Urine Hemoglobin 3+ H Urine Ketones NEGATIVE Urine Leukocyte Esterase 1+ H Urine Microscopic RBC 2-5 Urine Microscopic WBC 5-10 Urine Nitrite NEGATIVE Urine Random Creatinine 27.59 Urine Random Sodium 20 L Urine Specific [place] <=1.005 L Urine Squamous Epithelial Cells FEW Urine Total Protein NEGATIVE Urine Urobilinogen 0.2 E.U./dL Urine pH 5.5 Medications Medications Current Medications Nitroglycerin/ Dextrose (Nitroglycerin 50 Mg/D5W (Pmx)) 250 ml @ 1.5 mls/hr TITRATE IV Last administered on 09/01/16 23:24; Admin Dose 90 MLS/HR; Start 09/01/16 at 16:00 Ondansetron HCl (Zofran Tab) 4 mg Q6H PRN PO NAUSEA AND/OR VOMITING; Start 09/01 at 16:00 Aspirin (Aspirin) 81 mg DAILY PO Last administered on 09/04/16 08:29; Admin Dose 81 MG; Start 09/02/16 at 09:00 Nitroglycerin (Nitroglycerin (Sl Tab) 0.4 Mg) 1 tab Q5M PRN SL CHEST PAIN; Start 09/01/16 at 16:00 Acetaminophen (Tylenol Tab) 650 mg Q6H PRN PO PAIN LEVEL 1-3 OR FEVER Last administered on 09/03/16 21:49; Admin Dose 650 MG; Start 09/01/16 at 16:00 Clonidine (Catapres) 0.3 mg Q8 PO Last administered on 09/04/16 06:27; Admin Dose 0.3 MG; Start 09/01/16 at 22:00 Docusate Sodium (Colace) 100 mg DAILY PO Last administered on 09/04/16 08:29; Admin Dose 100 MG; Start 09/02/16 at 09:00 Hydralazine HCl (Apresoline) 10 mg Q8H PRN IV ELEVATED BLOOD PRESSURE Last administered on 09/04/16 08:33; Admin Dose 10 MG; Start 09/01/16 at 16:30 Carvedilol (Coreg) 3.125 mg BID PO Last administered on 09/04/16 08:31; Admin Dose 3.125 MG; Start 09/01/16 at 21:00 Pantoprazole (Protonix Tab) 40 mg BID@06,18 PO Last administered on 09/04/16 06 :27; Admin Dose 40 MG; Start 09/01/16 at 18:00 Clonidine (Catapres) 0.2 mg Q6H PRN PO SBP>170; Start 09/01/16 at 19:00 Benazepril HCl (Lotensin) 40 mg DAILY PO Last administered on 09/04/16 08:30; Admin Dose 40 MG; Start 09/02/16 at 09:00 Heparin Sodium (Porcine) (Heparin (5000 Units/0.5 ml)) 5,000 unit Q8 SC Last administered on 09/04/16 06:37; Admin Dose 5,000 UNIT; Start 09/02/16 at 14:00 Triamcinolone Acetonide (Kenalog 0.025% Lotion) 1 applic BID TOP Last administered on 09/04/16 08:32; Admin Dose 1 APPLIC; Start 09/02/16 at 11:00 Neomycin/ Polymyxin/ Bacitracin (Neosporin Topical Oint) 1 applic TID TOP Last administered on 09/04/16 12:35; Admin Dose 1 APPLIC; Start 09/02/16 at 13:00 Vitamin A/Vitamin D (Vitamin A & D Oint) 1 applic DAILY TOP Last administered on 09/04/16 08:31; Admin Dose 1 APPLIC; Start 09/03/16 at 09:00 Menthol/Methyl Salicylate (Melchor Dupont) 1 applic QID PRN TOP PAIN Last administered on 09/03/16 02:09; Admin Dose 1 APPLIC; Start 09/03/16 at 02:00 Mineral Oil (Mineral Oil) 30 ml DAILY PRN PO CONSTIPATION Last administered on 09/03/16 11:29; Admin Dose 30 ML; Start 09/03/16 at 10:30 Alprazolam (Xanax) 0.5 mg Q8H PRN PO ANXIETY Last administered on 09/04/16 12: 35; Admin Dose 0.5 MG; Start 09/03/16 at 10:30 Polyethylene Glycol (Miralax) 17 gm BID PRN PO CONSTIPATION Last administered on 09/03/16 11:29; Admin Dose 17 GM; Start 09/03/16 at 11:00 Acetaminophen/ Butalbital/ Caffeine (Fioricet) 2 tab Q4H PRN PO PAIN; Start 09/04/16 at 12:00 LOAN TIRADO Sep 04, 2016 13:59
[2016-09-04] MEDS: ACET/BUTAL/CAFF TAB PO PRN (14:20)
[2016-09-04] MEDS: MINERAL OIL 30ML CUP PO PRN (14:31)
[2016-09-04] MEDS: POLYETHYLENE GLYCOL 17 GM PACKET PO PRN (14:31)
--- NOTE | 2016-09-04 18:33 | CONS ---
Date/Time of Note Date/Time of Note DATE: 09/04/16 TIME: 18:30 Assessment/Plan Assessment/Plan Additional Assessment/Plan Hypertensive urgency/emergency with abnormal electrocardiogram, atrial fibrillation, CHF. Anemia, ARF, lymphedema Hypertensive Increased Coreg Continue Benazepril Started on Hydralazine Continue Lasix Avoid Volume overload Consultation Date/Type/Reason Admit Date/Time Sep 01, 2016 at 15:02 Initial Consult Date 09/04/16 Type of Consultation: Cardiology Referring Provider: DONOVAN MILLER MD Exam/Review of Systems Vital Signs Vitals Vital Signs Date Time Temp Pulse Resp B/P Pulse Ox O2 Delivery O2 Flow Rate FiO2 09/04/16 17:01 58 09/04/16 15:52 98.6 18 180/72 98 09/03/16 08:00 Nasal Cannula 2.0 Intake and Output 09/03/16 09/03/16 09/04/16 15:00 23:00 07:00 Intake Total 820 ml 300 ml Balance 820 ml 300 ml Exam Head: atraumatic, normocephalic Neck: non-tender, supple Respiratory: clear to auscultation Cardiovascular: irregular rhythm Gastrointestinal: nl liver, spleen, non-tender, soft Extremities: normal pulses Results Result Diagram: 09/04/16 0825 09/04/16 0825 Results 24 hrs Laboratory Tests Test 09/04/16 08:25 09/04/16 11:15 Alanine Aminotransferase (ALT/SGPT) 19 Albumin 3.1 L Albumin/Globulin Ratio 0.93 Alkaline Phosphatase 85 Anion Gap 15 Aspartate Amino Transf (AST/SGOT) 17 Basophils # 0.0 Basophils % 0.4 Blood Morphology Comment Blood Urea Nitrogen 39 H Calcium Level 8.7 Carbon Dioxide Level 27 Chloride Level 97 Creatine Kinase < 20 L Creatine Kinase Index Creatinine 2.37 H Creatinine Kinase MB (Mass) 0.55 Direct Bilirubin 0.00 Eosinophils # 0.1 Eosinophils % 2.2 Globulin 3.30 H Glucose Level 198 Hematocrit 30.8 L Hemoglobin 10.1 L Indirect Bilirubin 0.3 Lymphocytes # 1.1 Lymphocytes % 16.9 Magnesium Level 1.9 Mean Corpuscular Hemoglobin 28.8 L Mean Corpuscular Hemoglobin Concent 32.8 Mean Corpuscular Volume 87.9 Mean Platelet Volume 8.4 # Monocytes # 0.5 Monocytes % 7.5 Neutrophils # 4.9 Neutrophils % 73.0 Nucleated Red Blood Cells # 0.0 Nucleated Red Blood Cells % 0.0 Platelet Count 249 Potassium Level 3.7 Red Blood Count 3.51 L Red Cell Distribution Width 16.7 H Sodium Level 135 Thyroid Stimulating Hormone (TSH) 0.343 L Total Bilirubin 0.3 Total Protein 6.4 Troponin I 0.021 White Blood Count 6.7 Urine Bacteria FEW Urine Bilirubin NEGATIVE Urine Clarity CLEAR Urine Color LT. YELLOW Urine Glucose NEGATIVE Urine Hemoglobin 3+ H Urine Ketones NEGATIVE Urine Leukocyte Esterase 1+ H Urine Microscopic RBC 2-5 Urine Microscopic WBC 5-10 Urine Nitrite NEGATIVE Urine Random Creatinine 27.59 Urine Random Sodium 20 L Urine Specific [place] <=1.005 L Urine Squamous Epithelial Cells FEW Urine Total Protein NEGATIVE Urine Urobilinogen 0.2 E.U./dL Urine pH 5.5 Medications Medications Current Medications Nitroglycerin/ Dextrose (Nitroglycerin 50 Mg/D5W (Pmx)) 250 ml @ 1.5 mls/hr TITRATE IV Last administered on 09/01/16 23:24; Admin Dose 90 MLS/HR; Start 09/01/16 at 16:00 Ondansetron HCl (Zofran Tab) 4 mg Q6H PRN PO NAUSEA AND/OR VOMITING; Start 09/01 at 16:00 Aspirin (Aspirin) 81 mg DAILY PO Last administered on 09/04/16 08:29; Admin Dose 81 MG; Start 09/02/16 at 09:00 Nitroglycerin (Nitroglycerin (Sl Tab) 0.4 Mg) 1 tab Q5M PRN SL CHEST PAIN; Start 09/01/16 at 16:00 Acetaminophen (Tylenol Tab) 650 mg Q6H PRN PO PAIN LEVEL 1-3 OR FEVER Last administered on 09/03/16 21:49; Admin Dose 650 MG; Start 09/01/16 at 16:00 Clonidine (Catapres) 0.3 mg Q8 PO Last administered on 09/04/16 14:20; Admin Dose 0.3 MG; Start 09/01/16 at 22:00 Docusate Sodium (Colace) 100 mg DAILY PO Last administered on 09/04/16 08:29; Admin Dose 100 MG; Start 09/02/16 at 09:00 Hydralazine HCl (Apresoline) 10 mg Q8H PRN IV ELEVATED BLOOD PRESSURE Last administered on 09/04/16 16:16; Admin Dose 10 MG; Start 09/01/16 at 16:30 Carvedilol (Coreg) 3.125 mg BID PO Last administered on 09/04/16 08:31; Admin Dose 3.125 MG; Start 09/01/16 at 21:00 Pantoprazole (Protonix Tab) 40 mg BID@06,18 PO Last administered on 09/04/16 18 :09; Admin Dose 40 MG; Start 09/01/16 at 18:00 Clonidine (Catapres) 0.2 mg Q6H PRN PO SBP>170; Start 09/01/16 at 19:00 Benazepril HCl (Lotensin) 40 mg DAILY PO Last administered on 09/04/16 08:30; Admin Dose 40 MG; Start 09/02/16 at 09:00 Heparin Sodium (Porcine) (Heparin (5000 Units/0.5 ml)) 5,000 unit Q8 SC Last administered on 09/04/16 06:37; Admin Dose 5,000 UNIT; Start 09/02/16 at 14:00 Triamcinolone Acetonide (Kenalog 0.025% Lotion) 1 applic BID TOP Last administered on 09/04/16 08:32; Admin Dose 1 APPLIC; Start 09/02/16 at 11:00 Neomycin/ Polymyxin/ Bacitracin (Neosporin Topical Oint) 1 applic TID TOP Last administered on 09/04/16 12:35; Admin Dose 1 APPLIC; Start 09/02/16 at 13:00 Vitamin A/Vitamin D (Vitamin A & D Oint) 1 applic DAILY TOP Last administered on 09/04/16 08:31; Admin Dose 1 APPLIC; Start 09/03/16 at 09:00 Menthol/Methyl Salicylate (Melchor Dupont) 1 applic QID PRN TOP PAIN Last administered on 09/03/16 02:09; Admin Dose 1 APPLIC; Start 09/03/16 at 02:00 Mineral Oil (Mineral Oil) 30 ml DAILY PRN PO CONSTIPATION Last administered on 09/04/16 14:31; Admin Dose 30 ML; Start 09/03/16 at 10:30 Alprazolam (Xanax) 0.5 mg Q8H PRN PO ANXIETY Last administered on 09/04/16 12: 35; Admin Dose 0.5 MG; Start 09/03/16 at 10:30; Stop 09/04/16 at 18:30 Polyethylene Glycol (Miralax) 17 gm BID PRN PO CONSTIPATION Last administered on 09/04/16 14:31; Admin Dose 17 GM; Start 09/03/16 at 11:00 Acetaminophen/ Butalbital/ Caffeine (Fioricet) 2 tab Q4H PRN PO PAIN Last administered on 09/04/16 14:20; Admin Dose 2 TAB; Start 09/04/16 at 12:00 Alprazolam (Xanax) 0.5 mg TID PO ; Start 09/04/16 at 21:00 SARITA DING M.D. Sep 04, 2016 18:33
[2016-09-04] MEDS: ALPRAZOLAM 0.5 MG TAB PO SCH (21:33)
[2016-09-05] VITALS (11 sets, daily range): BP systolic 131–184; BP diastolic 68–85; PULSE 60–76; RESP 18–20
[2016-09-05] MEDS: PANTOPRAZOLE (EC) 40 MG TAB PO SCH (04:53)
[2016-09-05] MEDS: FUROSEMIDE 20 MG TAB PO SCH (04:54)
[2016-09-05] MEDS: HEPARIN 5,000 UNIT/0.5 ML SYG SC SCH ×2 (05:07→15:03)
[2016-09-05 08:27] LABS: BASOPHILS % 0.3 % (0.0-2.0); EOSINOPHILS # 0.1 10^3/ul (0.0-0.5); HEMATOCRIT 31.5 % (37.0-47.0); HEMOGLOBIN 10.4 g/dl (12.0-16.0); LYMPHOCYTES # 1.1 10^3/ul (0.8-2.9); LYMPHOCYTES % 15.6 % (15.0-51.0); MEAN CORPUSCULAR VOLUME 87.9 fl (82.0-101.0); MEAN PLATELET VOLUME 8.7 fl (7.4-10.4); MONOCYTE # 0.5 10^3/ul (0.3-0.9); MONOCYTES % 7.6 % (0.0-11.0); NEUTROPHILS % 74.5 % (39.0-77.0); PLATELET COUNT 252 10^3/UL (140-440); RED BLOOD COUNT 3.58 10^6/ul (4.20-5.40); RED CELL DISTRIBUTION WIDTH 17.2 % (11.5-14.5); UNCORRECTED WBC 6.8 10^3/ul (4.8-10.8); WHITE BLOOD COUNT 6.8 10^3/ul (4.8-10.8)
[2016-09-05 08:29] LABS: CONDITION 1; LH ANALYZER COMMENTS 1
[2016-09-05 08:30] LABS: ALBUMIN 3.1 g/dl (3.3-4.9)
[2016-09-05 08:31] LABS: POTASSIUM 4.3 mmol/L (3.5-5.1)
[2016-09-05 08:33] LABS: ALBUMIN/GLOBULIN RATIO 0.91; BILIRUBIN,INDIRECT 0.2 mg/dl (0-1.1); BILIRUBIN,TOTAL 0.2 mg/dl (0.2-1.3); CREATININE 2.05 mg/dl (0.44-1.00); TOTAL PROTEIN 6.5 g/dl (6.1-8.1)
[2016-09-05] MEDS: POLYETHYLENE GLYCOL 17 GM PACKET PO PRN (09:35)
[2016-09-05] MEDS: ASPIRIN 81 MG TAB PO SCH (09:36)
[2016-09-05] MEDS: DOCUSATE SODIUM 100 MG CAP PO SCH (09:36)
[2016-09-05] MEDS: MINERAL OIL 30ML CUP PO PRN (09:36)
[2016-09-05] MEDS: ALPRAZOLAM 0.5 MG TAB PO SCH ×2 (09:37→12:57)
[2016-09-05] MEDS: NEOMYC/POLYMYX/BACIT 30 GM OINT TOP SCH ×2 (09:38→12:58)
[2016-09-05] MEDS: ACET/BUTAL/CAFF TAB PO PRN (09:38)
[2016-09-05] MEDS: MENTHOL/METH SALICYLATE 30 GM OINT TOP PRN (09:39)
[2016-09-05] MEDS: VITAMIN A & D 5 GM OINT PACKET TOP SCH (09:39)
[2016-09-05] MEDS: TRIAMCINOLONE ACET 0.025% 60 ML LOT TOP SCH (09:42)
--- NOTE | 2016-09-05 10:16 | PN ---
DATE: 09/05/2016 SUBJECTIVE: The patient is clinically stable, no acute events overnight. No fevers, chills, nausea , vomiting. The patient is asking to go home. OBJECTIVE: VITAL SIGNS: Blood pressure is 131/85, respiratory rate 20, pulse 86, temperature 98.2. I's AND O'S: The patient's I's and O's not recorded. HEENT: Head is normocephalic. NECK: Supple. HEART: Regular rate. LUNGS: Show diminished breath sounds at base. ABDOMEN: Soft, nontender to palpation without rebound or guarding. EXTREMITIES: Negative for clubbing, cyanosis. Positive edema. DERMATOLOGIC: No rashes. MUSCULOSKELETAL: No joint effusions. NEUROLOGIC: No change in exam. MEDICATIONS: The patient's medications have been reviewed. LABORATORY DATA: From this morning is pending. The patient's renal ultrasound reviewed. Urinalys is reviewed. ASSESSMENT AND PLAN: 1. Nonoliguric acute kidney injury on top of chronic kidney disease with baseline creatinine around 1.0 mg/dL. Etiology of current acute kidney injury is likely secondary to hemodynamics, OPAL inhibi tor effect, possible cardiorenal syndrome. The patient's urinalysis shows bland sediment with a FEN a less than 1%. These findings are consistent with a decreased effective arterial volume state, whi ch can be seen in hypovolemia and/or cardiorenal syndrome. The patient's renal ultrasound does show evidence of moderate right-sided hydronephrosis and therefore possible component of obstructive uro carli can be a contributing factor. Plan at this point would be to hold OPAL inhibitor in the settin g of acute kidney injury. We will follow up renal panel today. Would continue gentle diuretic ther apy due to the patient's underlying congestive heart failure. I would also consider urologic evalua tion for the right-sided hydronephrosis, as well as a CT scan of the abdomen and pelvis. Otherwise, continue supportive care, renally dose all medications, avoid nephrotoxins. 2. Hypertensive urgency. Blood pressure is improved. Continue current medical management with Cor eg, clonidine, hydralazine. Consider adding calcium channel adalgisa if needed. Hold OPAL inhibitor in the setting of acute kidney injury. 3. Volume overload secondary to acute diastolic heart failure. Continue current medical management . Continue gentle diuretic therapy at this time. 4. Mineral bone disorder, monitor calcium, phosphorus levels. No need for phosphate binders. 5. Anemia. Continue to monitor hemoglobin and hematocrit levels. 6. Lymph edema. We will continue to monitor, chronic. 7. Anxiety disorder. Continue Xanax. Dictated By: OPAL REDDY/JOSH Conf#: [id number] DID#: [id number]
[2016-09-05 10:25] LABS: FREE T3 3.55 pg/ml (2.77-5.27)
[2016-09-05] MEDS: ACETAMINOPHEN 325 MG TAB PO PRN (11:05)
--- NOTE | 2016-09-05 11:10 | PDOCDIS ---
Discharge Instructions CONDITION Patient Condition: Stable HOME CARE INSTRUCTIONS: Special Diet: LOW FAT/CHOLES 2GM NA ACTIVITY: Activity Restrictions: Slowly Increase Activity Rest between Activity Avoid heavy lifting Keep Limb Elevated FOLLOW UP/APPOINTMENTS Appointments Follow up with PCP in 3-4 days Follow up with Nephrology in 1-2 weeks Follow up with GI in 2-3 weeks AUGUSTO RILEY MD Sep 05, 2016 11:10
--- NOTE | 2016-09-05 11:14 | CONS ---
Date/Time of Note Date/Time of Note DATE: 09/05/16 TIME: 11:07 Assessment/Plan Assessment/Plan Chief Complaint/Hosp Course IMPRESSION 1. Hypertensive urgency/emergency-somewhat labile BP 2. Abnormal electrocardiogram, assess for acute coronary syndrome.-negative troponin x 3 3. Atrial fibrillation-rate controlled at at times slow to high 40's 4. Abdominal pain. 5. Increased BNP. 6. Congestive heart failure, diastolic, acute given presentation. 7. Chronic lymphedema. 8. Mild anemia. 9.ARF Recc: -Tele -Continue coreg/clonidine -ACEI held in setting of renal failure -Add CCB to improve SBP control -Continue asa -Continue lasix diuresis Problems: Consultation Date/Type/Reason Admit Date/Time Sep 01, 2016 at 15:02 Initial Consult Date 09/01/2016 Type of Consultation: Cardiology Reason for Consultation HTN/CHF Referring Provider: DONOVAN MILLER MD Exam/Review of Systems Vital Signs Vitals Vital Signs Date Time Temp Pulse Resp B/P Pulse Ox O2 Delivery O2 Flow Rate FiO2 09/05/16 09:19 76 09/05/16 08:31 98.0 18 184/82 98 09/03/16 08:00 Nasal Cannula 2.0 Intake and Output 09/04/16 09/04/16 09/05/16 15:00 23:00 07:00 Intake Total 500 ml Balance 500 ml Exam Review of Systems: CONSTITUTIONAL: No fevers, chills. PULMONARY: No sob CARDIOVASCULAR: No chest pain/palpitations GASTROINTESTINAL: No nausea/vomiting. GENITOURINARY: No hematuria/dysuria. MUSCULOSKELETAL: No myagias/arthalgias. PSYCHIATRIC: The patient denies depression. NEUROLOGIC: Mild generalized weakness Constitutional: alert, oriented Psych: no complaints Head: normocephalic ENMT: mucosa pink and moist Neck: supple Respiratory: diminished breath sounds Cardiovascular: regular rate and rhythm Gastrointestinal: non-tender, soft Musculoskeletal: muscle tone, No muscle weakness Extremities: edema (None) Neurological: other (No focal deficits) Skin: other (No focal deficits) Results Result Diagram: 09/05/16 0750 09/05/16 0750 Results 24 hrs Laboratory Tests Test 09/04/16 11:15 09/05/16 07:50 Urine Bacteria FEW Urine Bilirubin NEGATIVE Urine Clarity CLEAR Urine Color LT. YELLOW Urine Glucose NEGATIVE Urine Hemoglobin 3+ H Urine Ketones NEGATIVE Urine Leukocyte Esterase 1+ H Urine Microscopic RBC 2-5 Urine Microscopic WBC 5-10 Urine Nitrite NEGATIVE Urine Random Creatinine 27.59 Urine Random Sodium 20 L Urine Specific [place] <=1.005 L Urine Squamous Epithelial Cells FEW Urine Total Protein NEGATIVE Urine Urobilinogen 0.2 E.U./dL Urine pH 5.5 Alanine Aminotransferase (ALT/SGPT) 21 Albumin 3.1 L Albumin/Globulin Ratio 0.91 Alkaline Phosphatase 92 Anion Gap 16 Aspartate Amino Transf (AST/SGOT) 16 Basophils # 0.0 Basophils % 0.3 Blood Morphology Comment Blood Urea Nitrogen 42 H Calcium Level 9.0 Carbon Dioxide Level 30 Chloride Level 96 L Creatinine 2.05 H Direct Bilirubin 0.00 Eosinophils # 0.1 Eosinophils % 2.0 Free Thyroxine 1.29 Free Triiodothyronine (T3) pg/mL 3.55 Globulin 3.40 H Glucose Level 180 Hematocrit 31.5 L Hemoglobin 10.4 L Indirect Bilirubin 0.2 Lymphocytes # 1.1 Lymphocytes % 15.6 Magnesium Level 1.9 Mean Corpuscular Hemoglobin 29.0 Mean Corpuscular Hemoglobin Concent 33.0 Mean Corpuscular Volume 87.9 Mean Platelet Volume 8.7 Monocytes # 0.5 Monocytes % 7.6 Neutrophils # 5.0 Neutrophils % 74.5 Nucleated Red Blood Cells # 0.0 Nucleated Red Blood Cells % 0.0 Phosphorus Level 3.4 Platelet Count 252 Potassium Level 4.3 Red Blood Count 3.58 L Red Cell Distribution Width 17.2 H Sodium Level 138 Thyroxine (T4) 7.1 Total Bilirubin 0.2 Total Protein 6.5 Total Triiodothyronine 1.00 White Blood Count 6.8 Medications Medications Current Medications Nitroglycerin/ Dextrose (Nitroglycerin 50 Mg/D5W (Pmx)) 250 ml @ 1.5 mls/hr TITRATE IV Last administered on 09/01/16 23:24; Admin Dose 90 MLS/HR; Start 09/01/16 at 16:00 Ondansetron HCl (Zofran Tab) 4 mg Q6H PRN PO NAUSEA AND/OR VOMITING; Start 09/01 at 16:00 Aspirin (Aspirin) 81 mg DAILY PO Last administered on 09/05/16 09:36; Admin Dose 81 MG; Start 09/02/16 at 09:00 Nitroglycerin (Nitroglycerin (Sl Tab) 0.4 Mg) 1 tab Q5M PRN SL CHEST PAIN; Start 09/01/16 at 16:00 Acetaminophen (Tylenol Tab) 650 mg Q6H PRN PO PAIN LEVEL 1-3 OR FEVER Last administered on 09/05/16 11:05; Admin Dose 650 MG; Start 09/01/16 at 16:00 Clonidine (Catapres) 0.3 mg Q8 PO Last administered on 09/05/16 04:53; Admin Dose 0.3 MG; Start 09/01/16 at 22:00 Docusate Sodium (Colace) 100 mg DAILY PO Last administered on 09/05/16 09:36; Admin Dose 100 MG; Start 09/02/16 at 09:00 Hydralazine HCl (Apresoline) 10 mg Q8H PRN IV ELEVATED BLOOD PRESSURE Last administered on 09/04/16 16:16; Admin Dose 10 MG; Start 09/01/16 at 16:30 Pantoprazole (Protonix Tab) 40 mg BID@06,18 PO Last administered on 09/05/16 04 :53; Admin Dose 40 MG; Start 09/01/16 at 18:00 Clonidine (Catapres) 0.2 mg Q6H PRN PO SBP>170 Last administered on 09/04/16 18 :51; Admin Dose 0.2 MG; Start 09/01/16 at 19:00 Benazepril HCl (Lotensin) 40 mg DAILY PO Last administered on 09/04/16 08:30; Admin Dose 40 MG; Start 09/02/16 at 09:00; Status Future Hold Heparin Sodium (Porcine) (Heparin (5000 Units/0.5 ml)) 5,000 unit Q8 SC Last administered on 09/05/16 05:07; Admin Dose 5,000 UNIT; Start 09/02/16 at 14:00 Triamcinolone Acetonide (Kenalog 0.025% Lotion) 1 applic BID TOP Last administered on 09/05/16 09:42; Admin Dose 1 APPLIC; Start 09/02/16 at 11:00 Neomycin/ Polymyxin/ Bacitracin (Neosporin Topical Oint) 1 applic TID TOP Last administered on 09/05/16 09:38; Admin Dose 1 APPLIC; Start 09/02/16 at 13:00 Vitamin A/Vitamin D (Vitamin A & D Oint) 1 applic DAILY TOP Last administered on 09/05/16 09:39; Admin Dose 1 APPLIC; Start 09/03/16 at 09:00 Menthol/Methyl Salicylate (Melchor Dupont) 1 applic QID PRN TOP PAIN Last administered on 09/05/16 09:39; Admin Dose 1 APPLIC; Start 09/03/16 at 02:00 Mineral Oil (Mineral Oil) 30 ml DAILY PRN PO CONSTIPATION Last administered on 09/05/16 09:36; Admin Dose 30 ML; Start 09/03/16 at 10:30 Polyethylene Glycol (Miralax) 17 gm BID PRN PO CONSTIPATION Last administered on 09/05/16 09:35; Admin Dose 17 GM; Start 09/03/16 at 11:00 Acetaminophen/ Butalbital/ Caffeine (Fioricet) 2 tab Q4H PRN PO PAIN Last administered on 09/05/16 09:38; Admin Dose 2 TAB; Start 09/04/16 at 12:00 Alprazolam (Xanax) 0.5 mg TID PO Last administered on 09/05/16 09:37; Admin Dose 0.5 MG; Start 09/04/16 at 21:00 Hydralazine HCl (Apresoline) 100 mg Q8 PO Last administered on 09/05/16 04:54; Admin Dose 100 MG; Start 09/04/16 at 22:00 Carvedilol (Coreg) 25 mg BID PO Last administered on 09/05/16 09:38; Admin Dose 25 MG; Start 09/04/16 at 21:00 ASHLEY CONNOR Sep 05, 2016 11:14
[2016-09-05] MEDS ORDERED: LAS20 PO (11:16)
[2016-09-05] MEDS ORDERED: APR50 PO (11:16)
[2016-09-05] MEDS ORDERED: BENA40TA41 PO (11:16)
[2016-09-05] MEDS ORDERED: SENN-53 PO (11:16)
[2016-09-05] MEDS ORDERED: POLY17PO6 PO (11:16)
[2016-09-05] MEDS ORDERED: CLON0.3T PO (11:16)
[2016-09-05] MEDS ORDERED: CARV25TA79 PO (11:16)
[2016-09-05] MEDS ORDERED: ASPI81TA3 PO (11:16)
[2016-09-05] MEDS ORDERED: DOCU-144 PO (11:16)
[2016-09-05] MEDS ORDERED: DOCU-216 PO (11:16)
[2016-09-05] MEDS: hydrALAzine 20 MG INJ IV PRN (12:58)
[2016-09-05 14:29] LABS: PROTEIN, TOTAL 6.1 g/dL (6.1-8.1)
--- NOTE | 2016-09-06 00:30 | DS ---
DATE OF ADMISSION: 09/01/2016 DATE OF DISCHARGE: 09/05/2016 CONSULTANTS: 1. Cardiology. 2. Nephrology. DISCHARGE DIAGNOSES: 1. Hypertensive urgency. 2. History of chronic lymphedema, bilateral lower extremities. 3. Acute renal insufficiency. 4. Anxiety. 5. Morbid obesity. 6. Volume overload secondary to acute diastolic heart failure. 7. Anemia of chronic disease. 8. Chronic constipation. MEDICATIONS: 1. Aspirin 81 mg. 2. Coreg 25 mg p.o. b.i.d. 3. Colace 100 mg p.o. daily. 4. Lasix 20 mg p.o. b.i.d. 5. Hydralazine 50 mg p.o. t.i.d. 6. MiraLax 17 grams p.o. daily p.r.n. 7. Senna 1 tablet p.o. daily. 8. Benazepril 40 mg daily. 9. Clonidine 0.3 mg p.o. t.i.d. ALLERGIES: 1. AMLODIPINE. 2. CODEINE. 3. MILK. PROCEDURE: A 2D echocardiogram which demonstrated normal left ventricle systolic function. Normal left ventricle cavity size. Moderate concentric left ventricular hypertrophy. Ejection fraction 65 %. Stage I diastolic dysfunction. Mild enlargement of left atrium. Mild mitral annular calcificat ion. LABORATORY: WBC 6.8, hemoglobin 10.4, hematocrit 31.5, platelets 252. Sodium 138, potassium 4.3, c hloride 96, bicarbonate 30, BUN 42, creatinine 2.05, glucose 180, calcium 9.0, magnesium 1.9. TSH 0 .343, free T4 7.1, free T3 3.55. HOSPITAL COURSE: This is a 61-year-old female, past medical history of essential hypertension, lymp hedema, morbid obesity, congestive heart failure, chronic constipation who was seen and evaluated by dry mill worker and was prepared for colonoscopy as outpatient, although on 09/01/2016, patient was found to be fluid overloaded and procedure was postponed. The patient was asked to come to [facility] Emergency Room for further evaluation. Upon evaluation in ER, the patient was found to be fluid overloaded with lower extremity edema, although patient does have a history of chronic lymphedema. The patient was also found to have hypertensive urgency with blood pressure 234/103. T he patient was placed on nitroglycerin drip and was admitted to the ICU. Her home medication, benaz epril, clonidine, was continued, and the patient was placed on IV Lasix. The following day, patient was found to have increase in renal panel from 1.08 to 1.47 and then 2.36. This was likely seconda ry to diuresis-induced renal insufficiency. Nephrology was consulted. The patient was also seen an d evaluated by Cardiology. A 2D echocardiogram was obtained which showed normal ejection fraction w ith stage I diastolic dysfunction. She was continued on medical management. Her hypertension medic ation was evaluated by the radiation oncologist and Nephrology, and secondary to her history and new finding of acute renal insufficiency, her medication was adjusted. This morning her creatinine has been im proving mildly at 2.05, BUN of 42. The patient at this time at medical standpoint, cardiology stand point and nephrology standpoint is cleared to be discharged home with close followup with Nephrology as outpatient. The patient also has been adamant that she wants to go home because her dog is not eating well and she is worried about her dog. I have discussed the importance of close followup wit h Nephrology. I also have offered for patient to stay for another day at the hospital for re-evalua tion of her kidney panel, although she is adamant to be discharged home. Therefore, the prescriptio n has been provided. Her vital signs as follows: Temperature 98.2, pulse 87, respirations 20. Blo od pressure 131/85, also she had 1 episode at 184/82. Pulse oximetry is 96% in room air. CONDITION AT TIME OF DISCHARGE: Stable. Total amount of time spent for evaluation of patient and discharge workup was 40 minutes. Dictated By: AUGUSTO RICKS/JOSH Conf#: [id number] DID#: [id number]
[2016-09-06 14:21] LABS: ANA SCREEN POSITIVE (NEGATIVE); ANA TITER 1:40 titer
[2016-09-06 16:58] LABS: MYELOPEROXIDASE ANTIBODY <1.0 AI; PROTEINASE-3 ANTIBODY <1.0 AI
[2016-09-07 00:08] LABS: ABNORMAL PROTEIN BAND 1 0.8 g/dL (NONE DETECTED); ALBUMIN 2.8 g/dL (3.8-4.8)
== END 2016-09-05 18:25 | disposition home health service (06) | DRG 291 ==
LOC: E/R 09:14 → ICU 15:02 → TEL 09-02 14:26
PROVIDERS: ADMIT Family Medicine; ATTEND Family Medicine
DX: I13.0 Hypertensive heart and chronic kidney disease with heart failure and stage 1 through stage 4 chronic kidney disease, or unspecified chronic kidney disease (principal); I50.33 Acute on chronic diastolic (congestive) heart failure; N17.9 Acute kidney failure, unspecified; Z68.41 Body mass index [BMI] 40.0-44.9, adult; E83.9 Disorder of mineral metabolism, unspecified; I16.0 Hypertensive urgency; N18.9 Chronic kidney disease, unspecified; E66.01 Morbid (severe) obesity due to excess calories; I48.91 Unspecified atrial fibrillation; I89.0 Lymphedema, not elsewhere classified; K59.00 Constipation, unspecified; F41.9 Anxiety disorder, unspecified; D63.8 Anemia in other chronic diseases classified elsewhere
CPT/HCPCS: 36415; 36600; 71010; 76775; 80048; 80053; 80061; 81001; 81003; 82550; 82553; 82803; 83735; 83880; 84100; 84155; 84165; 84300; 84436; 84439; 84443; 84480; 84481; 84484; 85025; 85610; 85730; 86021; 86038; 87081; 93005; 93306; 96365; 96366; 96375; 97116; 97162; 97530; J0360; J1650; J2270; J2405

== ENCOUNTER 2017-02-10 19:07 | Inpatient (IN) | payer OTHER ==
[~2017-02-10] VITALS: Ht 172.7 cm; Wt 121.0 kg
[~2017-02-10 19:07] MED LIST changes: +ASPI81TA3 PO; -ATEN-51 PO; +CARV25TA79 PO; +DOCU-144 PO; -DOCU-159 PO; +DOCU-216 PO; +HYDR-3672 PO; +LAS20 PO; +POLY17PO6 PO; +SENN-53 PO
[2017-02-11] VITALS (22 sets, daily range): BP systolic 122–194; BP diastolic 63–90; PULSE 61–138; RESP 16–24; Ht 172.7 cm; Wt 121.0 kg
[2017-02-11] MEDS ORDERED: ALBUTEROL/IPRATROPIUM (NEB) 3 ML AMP HHN PRN (01:30)
[2017-02-11 02:18] LABS: AADO2 Arterial 122.7 mmHg (7.0-24.0); Allen Test ACCEPTAB; Arterial Base Excess 4.3 mmol/L (-3.0-3); Arterial COHb 0.2 % (0.0-3.0); Arterial Fraction of Oxyhgb 97.2 % (93.0-99.0); Arterial HCO3 28.6 mmol/L (22.0-26.0); Arterial MetHb 0.3 % (0.0-1.5); Blood Gas IEPAP 15/5; Blood Gas PS 10; MODE MASK - BIPAP
[2017-02-11] MEDS: ALBUTEROL/IPRATROPIUM (NEB) 3 ML AMP HHN SCH ×4 (02:26→19:59)
[2017-02-11] MEDS ORDERED: NACL 0.9% 3 ML SYG IV SCH (03:30)
[2017-02-11 03:51] LABS: ADD SCAN DIFF NO
[2017-02-11 03:55] LABS: BASOPHILS % 0.4 % (0.0-2.0); EOSINOPHILS # 0.1 10^3/ul (0.0-0.5); EOSINOPHILS % 1.6 % (0.0-7.0); HEMATOCRIT 30.5 % (37.0-47.0); HEMOGLOBIN 9.4 g/dl (12.0-16.0); LYMPHOCYTES # 1.1 10^3/ul (0.8-2.9); LYMPHOCYTES % 14.5 % (15.0-51.0); MEAN CORPUSCULAR HEMOGLOBIN 27.7 pg (29.0-33.0); MEAN CORPUSCULAR HGB CONC 30.8 g/dl (32.0-37.0); MEAN PLATELET VOLUME 10.6 fl (7.4-10.4); MONOCYTE # 0.8 10^3/ul (0.3-0.9); MONOCYTES % 10.3 % (0.0-11.0); NEUTROPHIL # 5.6 10^3/ul (1.6-7.5); NEUTROPHILS % 72.7 % (39.0-77.0); PLATELET COUNT 221 10^3/UL (140-415); RED BLOOD COUNT 3.39 10^6/ul (4.20-5.40); RED CELL DISTRIBUTION WIDTH 17.4 % (11.5-14.5); WHITE BLOOD COUNT 7.6 10^3/ul (4.8-10.8)
[2017-02-11 04:24] LABS: BILIRUBIN,INDIRECT 0.4 mg/dl (0-1.1); BILIRUBIN,TOTAL 0.4 mg/dl (0.2-1.3); CALCIUM 8.7 mg/dl (8.4-10.2); CREATININE 1.44 mg/dl (0.44-1.00); MAGNESIUM 2.1 mg/dl (1.7-2.5); POTASSIUM 3.6 mmol/L (3.5-5.1)
[2017-02-11 04:54] LABS: THYROID STIMULATING HORMONE 0.288 MIU/L (0.465-4.680)
[2017-02-11] MEDS: PANTOPRAZOLE 40 MG INJ IV SCH (05:18)
[2017-02-11] MEDS: HEPARIN 5,000 UNIT/0.5 ML VIAL SC SCH ×3 (05:30→21:52)
--- NOTE | 2017-02-11 06:42 | HP ---
Date/Time of Note Date/Time of Note DATE: 02/11/17 TIME: 06:28 Assessment/Plan VTE Prophylaxis VTE Prophylaxis Intervention: heparin Lines/Catheters IV Catheter Type (from [facility]): PICC Line Central line still needed: Yes (abx) Urinary Cath still in place: Yes (diuresis) Reason Cath still needed: other (indicate) (diuresis) Assessment/Plan Chief Complaint/Hosp Course This is a 61-year-old female being admitted to the telemetry floor for: #1 acute respiratory distress: This likely appears to be multifactorial secondary to patient's diastolic CHF and chronic lymphedema. Patient was diuresed approximately 8 L of fluid at [facility] while on a Lasix drip. Her echocardiogram showed an ejection fraction of 60-65%, did show diastolic dysfunction as well as severe pulmonary hypertension. At the current time we will consult cardiology for further evaluation. We will also consult pulmonology. #2 chronic kidney disease: Patient's latest creatinine at the transferring facility was noted to be 1.73. Will assess kidney function with repeat BMP in the a.m. Will consult nephrology for further recommendations. #3 severe pulmonary hypertension: This likely is also playing a factor in patient's acute respiratory distress as well as her issues with fluid overload. Will consult pulmonology for further treatment strategy. #4 chronic lymphedema: The etiology of this is not known at this time we will consult vascular surgery for further input and any possible treatment/ management recommendations. #6 Coagulase-negative bacteremia: Patient was treated with antibiotics however it was thought that this likely could have been a contaminant. Also she was found to have a possible vegetation during echocardiogram. Will recheck a set of blood cultures. We will also consult cardiology to see whether they would like to order a ALEXSANDRA. She does not have any fevers or orders hypotensive or has any other criteria right now that would indicate endocarditis so. #7 morbid obesity: We will check a TSH level and hemoglobin A1c #8 hypertension: We will continue patient's home medications, will hold Lasix for right now secondary to massive diuresis. Will restart as per cardio and nephro. #9 DVT and GI prophylaxis: Heparin, Protonix Further treatment strategy will be implemented as per the clinical course. Problems: HPI/ROS Admit Date/Time Admit Date/Time Feb 11, 2017 at 00:44 Hx of Present Illness Chief complaint: Shortness of breath, CHF exacerbation, possible bacteremia This is a 61-year-old female who was transferred over from [facility] after being treated for hypertensive emergency diastolic heart failure acute respiratory failure and possible bacteremia. Patient was admitted proximally on the for shortness of breath, dry cough, orthopnea 1 week. She had a complicated hospital course there which entailed her being taken to the ICU to be put on a nitro drip secondary to hypertensive emergency as well as a Lasix drip secondary to volume overload. Patient also was found to have coagulase-negative staph and was on a course of antibiotics however it was later thought that this may be could have been a contaminant. Patient also had thoracic ultrasound performed which showed an ejection fraction of 60-65% with moderate concentric hypertrophy. Of note patient also was found to have a small echodensity in the with independent motion attached to the base of the anterior mitral valve leaflet along the ventricular surface this is thought maybe to be a vegetation or calcification. Also of note patient was noted to have an R VSP at 60-65% consistent with severe pulmonary hypertension. Her blood pressure was subsequently stabilized though she remained on BiPAP. Patient was deemed stable to transfer and she was sent to [facility]. Of note patient also diuresed approximately 8 L of fluid as per [facility] documentation. At the current time patient is on BiPAP. She does not appear in any acute respiratory distress. She does have a history of chronic lymphedema for which she does not know the cause of. She does state that she previously has surgeries however this lymphedema was prior to her surgeries. Her previous surgeries consisted of hysterectomy and colon cancer tumor removal. Allergies: Amlodipine, codeine, Medications: See TYSON KOHLER Const: As per HPI Eyes : No pain discharge or redness or change in visual acuity ENT: No pain, sore throat, congestion, congestion, dysphagia or discharge Respiratory: As per HPI Cardiovascular: No chest pain, palpitation, PND, or edema GI : no change in appetite, abdominal pain, nausea, vomiting, diarrhea, constipation, or change in the color his stool Genitourinary: No dysuria, hematuria, flank pain , discharge or CVA tenderness Musculoskeletal: No joint pain, back pain, neck pain, restricted range of motion in neck or joints Skin: No rash, bruising or hives Extremities: As per HPI Neuro: No headache, dizziness, syncope, seizure, focal weakness Endocrine: No polyuria, polydipsia, temperature intolerance Psych: No hallucination, depression, anxiety or suicidal ideation PMH/Family/Social Past Medical History Diastolic heart failure, colon cancer, chronic lymphedema Past Surgical History Hysterectomy, colon tumor removal Family History Significant Family History: diabetes, hypertension Social History Alcohol Use: none Smoking Status: Former smoker (Half pack per year 11 years, she quit 20 years ago) Drug Use: none Exam/Review of Systems Vital Signs Vitals Vital Signs Date Time Temp Pulse Resp B/P Pulse Ox O2 Delivery O2 Flow Rate FiO2 02/11/17 05:26 69 25 40 02/11/17 04:45 97.9 16 138/65 02/11/17 04:12 3.0 Intake and Output 02/10/17 02/10/17 02/11/17 15:00 23:00 07:00 Intake Total 1000 ml Output Total 600 ml Balance 400 ml Exam Exam General: Patient is a morbidly obese female in no acute distress. She is currently on the BiPAP. HEENT: Atraumatic, normocephalic. The pupils are equal, round and reactive. Extraocular motor are intact, on BiPAP Neck: Supple with full range of motion. No rigidity or meningismus Lungs: Clear to auscultation bilaterally no crackles rales or wheezing Heart: Normal S1-S2, Regular rhythm and rate. No overt murmur appreciated. Abdomen: Soft , nontender, nondistended , bowel sounds are present. No guarding no rebound tenderness , No masses or organomegaly. No costovertebral temporal angle mass Extremities: Extensive elephantiasis of the bilateral lower extremities Neurologic: Normal mental status, speech normal, cranial nerves II through XII are intact, motor and sensory are intact, no focal weakness Additional Comments Please refer to HPI as well as transfer documentation for further lab work and imaging study. Labs Result Diagram: 02/11/17 0342 02/11/17 0342 Medications Medications Current Medications Acetaminophen (Tylenol Tab) 650 mg Q6H PRN PO PAIN LEVEL 1-3 OR FEVER; Start at 03:30 Pantoprazole (Protonix Iv) 40 mg DAILY@06 IV Last administered on 02/11/17t 05: 18; Admin Dose 40 MG; Start 02/11/17 at 06:00 Heparin Sodium (Porcine) (Heparin (5000 Units/0.5 ml)) 5,000 unit Q8 SC Last administered on 02/11/17t 05:30; Admin Dose 5,000 UNIT; Start 02/11/17 at 06:00 Phenol (Cepastat Lozenge) 1 lozenge Q2H PRN MT THROATE IRRITATION; Start at 04:30 REYES JUAN Feb 11, 2017 06:42
--- NOTE | 2017-02-11 10:40 | QN ---
Documentation Comment PROCEDURE: Chest Radiograph. CLINICAL INDICATION: Shortness of breath TECHNIQUE: Single frontal chest radiograph. COMPARISON: Chest radiograph 10/20/2014 FINDINGS: The patient is rotated which limits evaluation. Heart size is poorly evaluate. There is mild central vascular congestion. Diffuse interstitial opacities are nonspecific, though suggest pulmonary edema. Bibasilar opacities may represent atelectasis, infiltrates, or small effusions. The bones are intact IMPRESSION: 1. Suggested central vascular congestion and pulmonary edema. Recommend correlation with CHF. 2. Bibasilar opacities likely representing a combination of pleural fluid, atelectasis, and/or infiltrates. RPTAT: KK .Rylan Campuzano MD, MD Date Time Electronically viewed and signed by .Rylan Campuzano MD, MD on 2016 14:18 .B/ CC: MICK HIGUERA PROBLEMS: 1. Acute on chronic CHF diastolic 2. ?Subclinical hypothyroidism 3. Diffuse bronchoconstriction / wheezing: ?COPD vs asthma vs cardiac asthma 4. Obesity 5. Peripheral edema (lympheedema) Plan: Consults notifieed, meds adjusted, continue current mgt. KYLEE MORALES Feb 11, 2017 10:40
[2017-02-11] MEDS ORDERED: HYPOGLYCEMIA PROTOCOL when Glucose is <70 mg/dL or symptomatic <90 mg/dL. XX ONE (11:00)
[2017-02-11] MEDS ORDERED: GLUCOSE GEL 15 GRAM TUBE BUCCAL PRN (11:00)
[2017-02-11] MEDS ORDERED: Discontinue current oral sulfonylureas (glyburide, glipizide, and/or glimepiride) prior to XX ONE (11:00)
[2017-02-11] MEDS ORDERED: DEXTROSE 50% 50 ML SYRINGE IV PRN ×2 (11:00)
[2017-02-11] MEDS ORDERED: GLUCOSE GEL 15 GRAM TUBE PO PRN ×2 (11:00)
[2017-02-11] MEDS ORDERED: GLUCAGON 1 MG INJ IM PRN (11:00)
[2017-02-11] MEDS: FUROSEMIDE 40 MG INJ IV SCH ×2 (11:22→17:38)
--- NOTE | 2017-02-11 11:39 | CONS ---
Date/Time of Note Date/Time of Note DATE: 02/11/17 TIME: 11:24 Assessment/Plan Assessment/Plan Chief Complaint/Hosp Course #1 JOSE GUADALUPE- nonoliguric. improving despite agressive diuresis. on underlying ckd with unclear baseline. may need to tolerate some azotemia to achieve euvolemia. all meds dosed ok. avoid nephroxins. monitor serial labs. no indication for hd. #2 acute respiratory distress: This likely appears to be multifactorial secondary to patient's diastolic CHF and chronic lymphedema. Patient was diuresed approximately 8 L of fluid at [facility] while on a Lasix drip. Her echocardiogram showed an ejection fraction of 60-65%, did show diastolic dysfunction as well as severe pulmonary hypertension. At the current time we will consult cardiology for further evaluation. We will also consult pulmonology. #3 severe pulmonary hypertension: This likely is also playing a factor in patient's acute respiratory distress as well as her issues with fluid overload. Will consult pulmonology for further treatment strategy. #4 chronic lymphedema: The etiology of this is not known at this time we will consult vascular surgery for further input and any possible treatment/ management recommendations. #6 Coagulase-negative bacteremia: Patient was treated with antibiotics however it was thought that this likely could have been a contaminant. Also she was found to have a possible vegetation during echocardiogram. Will recheck a set of blood cultures. We will also consult cardiology to see whether they would like to order a ALEXSANDRA. She does not have any fevers or orders hypotensive or has any other criteria right now that would indicate endocarditis so. #7 morbid obesity: We will check a TSH level and hemoglobin A1c #8 hypertension: We will continue patient's home medications, will hold Lasix for right now secondary to massive diuresis. Will restart as per cardio and nephro. #9 DVT and GI prophylaxis: Heparin, Protonix #10 CHF #11 Subclinical hypothyroidism #12 Diffuse bronchoconstriction / wheezing: ?COPD vs asthma vs cardiac asthma #13 Obesity #14 hyponatremia- hypervolemic. mild. likely related to chf. monitor. Problems: Consultation Date/Type/Reason Admit Date/Time Feb 11, 2017 at 00:44 Hx of Present Illness Chief complaint: Shortness of breath, CHF exacerbation, possible bacteremia This is a 61-year-old female who was transferred over from [facility] after being treated for hypertensive emergency diastolic heart failure acute respiratory failure and possible bacteremia. Patient was admitted proximally on the for shortness of breath, dry cough, orthopnea 1 week. She had a complicated hospital course there which entailed her being taken to the ICU to be put on a nitro drip secondary to hypertensive emergency as well as a Lasix drip secondary to volume overload. Patient also was found to have coagulase-negative staph and was on a course of antibiotics however it was later thought that this may be could have been a contaminant. Patient also had thoracic ultrasound performed which showed an ejection fraction of 60-65% with moderate concentric hypertrophy. Of note patient also was found to have a small echodensity in the with independent motion attached to the base of the anterior mitral valve leaflet along the ventricular surface this is thought maybe to be a vegetation or calcification. Also of note patient was noted to have an R VSP at 60-65% consistent with severe pulmonary hypertension. Her blood pressure was subsequently stabilized though she remained on BiPAP. Patient was deemed stable to transfer and she was sent to [facility]. Of note patient also diuresed approximately 8 L of fluid as per [facility] documentation. At the current time patient is on BiPAP. She does not appear in any acute respiratory distress. She does have a history of chronic lymphedema for which she does not know the cause of. She does state that she previously has surgeries however this lymphedema was prior to her surgeries. Her previous surgeries consisted of hysterectomy and colon cancer tumor removal. Allergies: Amlodipine, codeine, Medications: See TYSON KOHLER Const: As per HPI Eyes : No pain discharge or redness or change in visual acuity ENT: No pain, sore throat, congestion, congestion, dysphagia or discharge Respiratory: As per HPI Cardiovascular: No chest pain, palpitation, PND, or edema GI : no change in appetite, abdominal pain, nausea, vomiting, diarrhea, constipation, or change in the color his stool Genitourinary: No dysuria, hematuria, flank pain , discharge or CVA tenderness Musculoskeletal: No joint pain, back pain, neck pain, restricted range of motion in neck or joints Skin: No rash, bruising or hives Extremities: As per HPI Neuro: No headache, dizziness, syncope, seizure, focal weakness Endocrine: No polyuria, polydipsia, temperature intolerance Psych: No hallucination, depression, anxiety or suicidal ideation PMH/Family/Social Past Medical History Diastolic heart failure, colon cancer, chronic lymphedema Past Surgical History Hysterectomy, colon tumor removal Family History Significant Family History: diabetes, hypertension Social History Alcohol Use: none Smoking Status: Former smoker (Half pack per year 11 years, she quit 20 years ago) drug use: none Social History Alcohol Use: none Smoking Status: Former smoker (Half pack per year 11 years, she quit 20 years ago) Drug Use: none Exam/Review of Systems Vital Signs Vitals Vital Signs Date Time Temp Pulse Resp B/P Pulse Ox O2 Delivery O2 Flow Rate FiO2 02/11/17 08:13 61 02/11/17 08:01 98.0 18 159/80 98 02/11/17 07:20 3.0 02/11/17 07:11 40 Intake and Output 02/10/17 02/10/17 02/11/17 15:00 23:00 07:00 Intake Total 1000 ml Output Total 600 ml Balance 400 ml Exam General: Patient is a morbidly obese female in no acute distress. She is currently on the BiPAP. HEENT: Atraumatic, normocephalic. The pupils are equal, round and reactive. Extraocular motor are intact, on BiPAP Neck: Supple with full range of motion. No rigidity or meningismus Lungs: Clear to auscultation bilaterally no crackles rales or wheezing Heart: Normal S1-S2, Regular rhythm and rate. No overt murmur appreciated. Abdomen: Soft , nontender, nondistended , bowel sounds are present. No guarding no rebound tenderness , No masses or organomegaly. No costovertebral temporal angle mass Extremities: Extensive elephantiasis of the bilateral lower extremities Neurologic: Normal mental status, speech normal, cranial nerves II through XII are intact, motor and sensory are intact, no focal weakness Results Result Diagram: 02/11/17 0342 02/11/17 0342 Results 24 hrs Laboratory Tests Test 02/11/17 02:30 02/11/17 03:42 Blood Gas Specimen Source Blood arterial Arterial Blood Date Drawn 02/11/2017 2:07:38 AM Arterial Blood pH (Temp corrected) 7.455 H Arterial Blood pCO2 (Temp correct) 41.6 Arterial Blood pO2 (Temp corrected) 114.7 H Arterial Blood HCO3 28.6 H Arterial Blood Base Excess 4.3 H Arterial Blood Oxygen Saturation 97.7 Giorgio Test ACCEPTAB Arterial Blood Gas Puncture Site Left Radial Arterial Blood Carboxyhemoglobin 0.2 Arterial Blood Methemoglobin 0.3 Blood Gas A-a O2 Differential 122.7 H Oxyhemoglobin Percent 97.2 Total Hemoglobin 11.0 L Blood Gas Temperature 37.0 Blood Gas Respiration Rate 18.0 Blood Gas Actual Respiration Rate 21 Blood Gas Modality MASK - BIPAP FiO2 40.0 Blood Gas Pressure Support 10 Blood Gas IPAP/EPAP Ratio 15/5 Blood Gas Notified Whom LW Blood Gas Notified Time 02/11/2017 2:18:14 AM White Blood Count 7.6 Red Blood Count 3.39 L Hemoglobin 9.4 L Hematocrit 30.5 L Mean Corpuscular Volume 90.0 Mean Corpuscular Hemoglobin 27.7 L Mean Corpuscular Hemoglobin Concent 30.8 L Red Cell Distribution Width 17.4 H Platelet Count 221 Mean Platelet Volume 10.6 #H Neutrophils % 72.7 Lymphocytes % 14.5 L Monocytes % 10.3 Eosinophils % 1.6 Basophils % 0.4 Nucleated Red Blood Cells % 0.0 Neutrophils # 5.6 Lymphocytes # 1.1 Monocytes # 0.8 Eosinophils # 0.1 Basophils # 0.0 Nucleated Red Blood Cells # 0.0 Sodium Level 131 L Potassium Level 3.6 Chloride Level 87 L Carbon Dioxide Level 33 H Anion Gap 15 Blood Urea Nitrogen 49 H Creatinine 1.44 H Glucose Level 150 Hemoglobin A1c 7.1 H Calcium Level 8.7 Magnesium Level 2.1 Total Bilirubin 0.4 Direct Bilirubin 0.00 Indirect Bilirubin 0.4 Aspartate Amino Transf (AST/SGOT) 14 L Alanine Aminotransferase (ALT/SGPT) 22 Alkaline Phosphatase 72 B-Type Natriuretic Peptide 5140 H Total Protein 6.0 L Albumin 3.0 L Globulin 3.00 Albumin/Globulin Ratio 1.00 Thyroid Stimulating Hormone (TSH) 0.288 L Medications Medications Current Medications Acetaminophen (Tylenol Tab) 650 mg Q6H PRN PO PAIN LEVEL 1-3 OR FEVER; Start at 03:30 Pantoprazole (Protonix Iv) 40 mg DAILY@06 IV Last administered on 02/11/17 05: 18; Admin Dose 40 MG; Start 02/11/17 at 06:00 Heparin Sodium (Porcine) (Heparin (5000 Units/0.5 ml)) 5,000 unit Q8 SC Last administered on 02/11/17 05:30; Admin Dose 5,000 UNIT; Start 02/11/17 at 06:00 Phenol (Cepastat Lozenge) 1 lozenge Q2H PRN MT THROATE IRRITATION; Start at 04:30 Diagnostic Test (Pha) (Accu-Chek) 1 ea 02 XX ; Start 02/12/17 at 02:00 Diagnostic Test (Pha) (Accu-Chek) 1 ea 02 XX ; Start 02/12/17 at 02:00 Miscellaneous Information 1 ea NOTE XX ; Start 02/11/17 at 11:00 Glucose (Glutose) 15 gm Q15M PRN PO DECREASED GLUCOSE; Start 02/11/17 at 11:00 Glucose (Glutose) 22.5 gm Q15M PRN PO DECREASED GLUCOSE; Start 02/11/17 at 11: 00 Dextrose (D50w Syringe) 25 ml Q15M PRN IV DECREASED GLUCOSE; Start 02/11/17 at 11:00 Dextrose (D50w Syringe) 50 ml Q15M PRN IV DECREASED GLUCOSE; Start 02/11/17 at 11:00 Glucagon (Glucagen) 1 mg Q15M PRN IM DECREASED GLUCOSE; Start 02/11/17 at 11:00 Glucose (Glutose) 15 gm Q15M PRN BUCCAL DECREASED GLUCOSE; Start 02/11/17 at 11 :00 JH MIRZA MD Feb 11, 2017 11:37
[2017-02-11] MEDS: INSULIN ASPART [NOVOLOG] 3 ML PEN SC SCH ×3 (12:37→21:52)
[2017-02-11] MEDS: CEPASTAT LOZENGE MT PRN ×2 (12:46→17:37)
[2017-02-11] MEDS: ACETAMINOPHEN 325 MG TAB PO PRN ×2 (12:51→17:38)
--- NOTE | 2017-02-11 13:01 | CONS ---
Date/Time of Note Date/Time of Note DATE: 02/11/17 TIME: 12:56 Assessment/Plan Assessment/Plan Chief Complaint/Hosp Course Assessment 1. Hypoxemic respiratory failure Multifactorial likely secondary to diastolic dysfunction with pulmonary edema and underlying pulmonary hypertension. Cardiology consult. 2. Chronic kidney disease with unclear etiology Renal recommendations. 3. Severe pulmonary hypertension likely combination of sleep apnea and possible valvular heart disease. Unlikely primary pulmonary hypertension. 4. Coag negative bacteremia currently on antibiotics consider ID consult. 5. DVT GI prophylaxis Problems: Consultation Date/Type/Reason Admit Date/Time Feb 11, 2017 at 00:44 Date of Consultation: Feb 11, 2017 Type of Consultation: Pulmonary Reason for Consultation Hypoxemic respiratory failure Hx of Present Illness 61-year-old lady transferred from [facility] where she was admitted for hypertensive urgency requiring emergent diuresis for diastolic heart failure. In addition she was treated for hypoxemia with noninvasive positive pressure ventilation. Her course was complicated by severe persistent hypertension which required management in the intensive care unit with nitroglycerin intravenously. She has a preserved ejection fraction on echocardiogram and severe pulmonary hypertension. Upon arrival from [facility] she remains BiPAP dependent. This morning she is awake and alert on BiPAP however desaturates quickly off noninvasive positive pressure ventilation. Past Medical History Diastolic heart failure Pulmonary hypertension Probable obstructive sleep apnea Hypoxemic respiratory failure Social History Alcohol Use: none Smoking Status: Former smoker (Half pack per year 11 years, she quit 20 years ago) Drug Use: none Exam/Review of Systems Vital Signs Vitals Vital Signs Date Time Temp Pulse Resp B/P Pulse Ox O2 Delivery O2 Flow Rate FiO2 02/11/17 12:14 98.0 72 18 194/90 98 02/11/17 07:20 3.0 02/11/17 07:11 40 Intake and Output 02/10/17 02/10/17 02/11/17 15:00 23:00 07:00 Intake Total 1000 ml Output Total 600 ml Balance 400 ml Exam GENERAL: Morbidly obese lady on BiPAP. VITAL SIGNS: per chart NECK: Supple. No JVD or lymphadenopathy. CARDIAC EXAM: S1, S2. No added sounds or murmurs. CHEST: Diminished air entry bilaterally ABDOMEN: Soft, nontender. No guarding or rebound. EXTREMITIES: No cyanosis, clubbing or edema. NEUROLOGIC: Generalized weakness. No focal deficits. Results Result Diagram: 02/11/17 0342 02/11/17 034 Results 24 hrs Laboratory Tests Test 02/11/17 02:30 02/11/17 03:42 02/11/17 12:18 Blood Gas Specimen Source Blood arterial Arterial Blood Date Drawn 02/11/2017 2:07:38 AM Arterial Blood pH (Temp corrected) 7.455 H Arterial Blood pCO2 (Temp correct) 41.6 Arterial Blood pO2 (Temp corrected) 114.7 H Arterial Blood HCO3 28.6 H Arterial Blood Base Excess 4.3 H Arterial Blood Oxygen Saturation 97.7 Giorgio Test ACCEPTAB Arterial Blood Gas Puncture Site Left Radial Arterial Blood Carboxyhemoglobin 0.2 Arterial Blood Methemoglobin 0.3 Blood Gas A-a O2 Differential 122.7 H Oxyhemoglobin Percent 97.2 Total Hemoglobin 11.0 L Blood Gas Temperature 37.0 Blood Gas Respiration Rate 18.0 Blood Gas Actual Respiration Rate 21 Blood Gas Modality MASK - BIPAP FiO2 40.0 Blood Gas Pressure Support 10 Blood Gas IPAP/EPAP Ratio 15 Blood Gas Notified Whom LW Blood Gas Notified Time 02/11/2017 2:18:14 AM White Blood Count 7.6 Red Blood Count 3.39 L Hemoglobin 9.4 L Hematocrit 30.5 L Mean Corpuscular Volume 90.0 Mean Corpuscular Hemoglobin 27.7 L Mean Corpuscular Hemoglobin Concent 30.8 L Red Cell Distribution Width 17.4 H Platelet Count 221 Mean Platelet Volume 10.6 #H Neutrophils % 72.7 Lymphocytes % 14.5 L Monocytes % 10.3 Eosinophils % 1.6 Basophils % 0.4 Nucleated Red Blood Cells % 0.0 Neutrophils # 5.6 Lymphocytes # 1.1 Monocytes # 0.8 Eosinophils # 0.1 Basophils # 0.0 Nucleated Red Blood Cells # 0.0 Sodium Level 131 L Potassium Level 3.6 Chloride Level 87 L Carbon Dioxide Level 33 H Anion Gap 15 Blood Urea Nitrogen 49 H Creatinine 1.44 H Glucose Level 150 Hemoglobin A1c 7.1 H Calcium Level 8.7 Magnesium Level 2.1 Total Bilirubin 0.4 Direct Bilirubin 0.00 Indirect Bilirubin 0.4 Aspartate Amino Transf (AST/SGOT) 14 L Alanine Aminotransferase (ALT/SGPT) 22 Alkaline Phosphatase 72 B-Type Natriuretic Peptide 5140 H Total Protein 6.0 L Albumin 3.0 L Globulin 3.00 Albumin/Globulin Ratio 1.00 Thyroid Stimulating Hormone (TSH) 0.288 L Bedside Glucose 187 Medications Medications Current Medications Acetaminophen (Tylenol Tab) 650 mg Q6H PRN PO PAIN LEVEL 1-3 OR FEVER Last administered on 02/11/17 12:51; Admin Dose 650 MG; Start 02/11/17 at 03:30 Pantoprazole (Protonix Iv) 40 mg DAILY@06 IV Last administered on 02/11/17 05: 18; Admin Dose 40 MG; Start 02/11/17 at 06:00 Heparin Sodium (Porcine) (Heparin (5000 Units/0.5 ml)) 5,000 unit Q8 SC Last administered on 02/11/17 05:30; Admin Dose 5,000 UNIT; Start 02/11/17 at 06:00 Phenol (Cepastat Lozenge) 1 lozenge Q2H PRN MT THROATE IRRITATION Last administered on 02/11/17 12:46; Admin Dose 1 LOZENGE; Start 02/11/17 at 04:30 Diagnostic Test (Pha) (Accu-Chek) 1 ea 02 XX ; Start 02/12/17 at 02:00 Diagnostic Test (Pha) (Accu-Chek) 1 ea 02 XX ; Start 02/12/17 at 02:00 Miscellaneous Information 1 ea NOTE XX ; Start 02/11/17 at 11:00 Glucose (Glutose) 15 gm Q15M PRN PO DECREASED GLUCOSE; Start 02/11/17 at 11:00 Glucose (Glutose) 22.5 gm Q15M PRN PO DECREASED GLUCOSE; Start 02/11/17 at 11: 00 Dextrose (D50w Syringe) 25 ml Q15M PRN IV DECREASED GLUCOSE; Start 02/11/17 at 11:00 Dextrose (D50w Syringe) 50 ml Q15M PRN IV DECREASED GLUCOSE; Start 02/11/17 at 11:00 Glucagon (Glucagen) 1 mg Q15M PRN IM DECREASED GLUCOSE; Start 02/11/17 at 11:00 Glucose (Glutose) 15 gm Q15M PRN BUCCAL DECREASED GLUCOSE; Start 02/11/17 at 11 :00 GLEN BUSTILLOS MD[facility] Feb 11, 2017 13:01
[2017-02-11] MEDS ORDERED: NITROGLYCERIN (SL) 0.4 MG TAB SL PRN (14:30)
[2017-02-11] MEDS: hydrALAzine 20 MG INJ IV PRN ×2 (15:19→23:28)
[2017-02-11] MEDS ORDERED: CLONIDINE 0.2 MG/24 HR PATCH TRANSDERM SCH (16:00)
[2017-02-11] MEDS ORDERED: POLYETHYLENE GLYCOL 3350 119 GM POWDER PO ONE (17:00)
[2017-02-11] MEDS: DOCUSATE SODIUM 100 MG CAP PO SCH (17:37)
[2017-02-11 19:35] LABS: ADD UMIC YES; UR ASCORBIC ACID NEGATIVE (NEGATIVE); UR BACTERIA FEW /HPF (NONE SEEN); UR BILIRUBIN (Dip) NEGATIVE (NEGATIVE); UR BLOOD (Dip) 2+ mg/dL (NEGATIVE); UR CLARITY CLEAR (CLEAR); UR COLOR STRAW (YELLOW); UR GLUCOSE (Dip) NEGATIVE (NEGATIVE); UR KETONES (Dip) NEGATIVE (NEGATIVE); UR LEUKOCYTE ESTERASE (Dip) 1+ Leu/ul (NEGATIVE); UR NITRITE (Dip) NEGATIVE (NEGATIVE); UR RBC 5 /HPF (0-5); UR SPECIFIC GRAVITY (Dip) 1.004 (1.003-1.030); UR SQUAMOUS EPITHELIAL CELL FEW /HPF (FEW); UR TOTAL PROTEIN (Dip) NEGATIVE (NEGATIVE); UR UROBILINOGEN (Dip) NEGATIVE (NEGATIVE)
[2017-02-11 19:47] LABS: CREATINE KINASE < 20 IU/L (23-200)
[2017-02-11 19:58] LABS: CK-MB 0.37 ng/ml (0.0-2.4); TROPONIN-I 0.014 ng/ml (0.00-0.12)
[2017-02-12] VITALS (28 sets, daily range): BP systolic 157–222; BP diastolic 77–107; PULSE 75–97; RESP 18–24
[2017-02-12] MEDS: HYDROCODONE/APAP (5/325) TAB PO PRN ×4 (00:13→21:55)
[2017-02-12] MEDS: ALBUTEROL/IPRATROPIUM (NEB) 3 ML AMP HHN SCH ×4 (01:53→19:18)
[2017-02-12] MEDS ORDERED: ACCU-CHEK XX SCH (02:00)
[2017-02-12] MEDS: ACCU-CHEK XX SCH (02:00)
[2017-02-12 02:03] LABS: CREATINE KINASE < 20 IU/L (23-200)
[2017-02-12 02:14] LABS: CK-MB 0.51 ng/ml (0.0-2.4); TROPONIN-I 0.032 ng/ml (0.00-0.12)
[2017-02-12] MEDS: FUROSEMIDE 40 MG INJ IV SCH ×2 (05:17→17:23)
[2017-02-12] MEDS: PANTOPRAZOLE 40 MG INJ IV SCH (05:17)
[2017-02-12] MEDS: HEPARIN 5,000 UNIT/0.5 ML VIAL SC SCH ×3 (05:18→21:10)
[2017-02-12 07:24] LABS: ADD SCAN DIFF NO
[2017-02-12 07:27] LABS: BASOPHILS % 0.4 % (0.0-2.0); EOSINOPHILS % 0.5 % (0.0-7.0); HEMATOCRIT 35.3 % (37.0-47.0); HEMOGLOBIN 10.7 g/dl (12.0-16.0); LYMPHOCYTES # 0.9 10^3/ul (0.8-2.9); LYMPHOCYTES % 12.2 % (15.0-51.0); MEAN CORPUSCULAR HEMOGLOBIN 27.5 pg (29.0-33.0); MEAN CORPUSCULAR HGB CONC 30.3 g/dl (32.0-37.0); MEAN CORPUSCULAR VOLUME 90.7 fl (82.0-101.0); MEAN PLATELET VOLUME 10.8 fl (7.4-10.4); MONOCYTE # 0.9 10^3/ul (0.3-0.9); MONOCYTES % 12.3 % (0.0-11.0); NEUTROPHIL # 5.4 10^3/ul (1.6-7.5); NEUTROPHILS % 74.1 % (39.0-77.0); PLATELET COUNT 252 10^3/UL (140-415); RED BLOOD COUNT 3.89 10^6/ul (4.20-5.40); RED CELL DISTRIBUTION WIDTH 17.5 % (11.5-14.5); WHITE BLOOD COUNT 7.3 10^3/ul (4.8-10.8)
[2017-02-12] MEDS: hydrALAzine 20 MG INJ IV PRN ×3 (07:27→22:54)
[2017-02-12 07:38] LABS: CREATINE KINASE < 20 IU/L (23-200)
[2017-02-12 07:42] LABS: CHOL/HDL RATIO 4.4 RATIO
[2017-02-12 07:47] LABS: CALCIUM 9.2 mg/dl (8.4-10.2); CREATININE 1.27 mg/dl (0.44-1.00); MAGNESIUM 2.1 mg/dl (1.7-2.5); POTASSIUM 3.5 mmol/L (3.5-5.1)
[2017-02-12 07:49] LABS: TROPONIN-I 0.033 ng/ml (0.00-0.12)
[2017-02-12] MEDS: INSULIN ASPART [NOVOLOG] 3 ML PEN SC SCH ×4 (08:20→20:58)
[2017-02-12] MEDS: DOCUSATE SODIUM 100 MG CAP PO SCH (08:21)
[2017-02-12] MEDS: ACETAMINOPHEN 325 MG TAB PO PRN (08:21)
--- NOTE | 2017-02-12 09:48 | CONS ---
Date/Time of Note Date/Time of Note DATE: 02/12/17 TIME: 09:39 Consult Date/Type/Reason Admit Date/Time Feb 11, 2017 at 00:44 Initial Consult Date 02/11/17 Type of Consultation: neph Subjective This is a 61-year-old female who was transferred over from [facility] after being treated for hypertensive emergency diastolic heart failure acute respiratory failure and possible bacteremia. Patient was admitted proximally on the for shortness of breath, dry cough, orthopnea 1 week. She had a complicated hospital course there which entailed her being taken to the ICU to be put on a nitro drip secondary to hypertensive emergency as well as a Lasix drip secondary to volume overload. Patient also was found to have coagulase-negative staph and was on a course of antibiotics however it was later thought that this may be could have been a contaminant. Patient also had thoracic ultrasound performed which showed an ejection fraction of 60-65% with moderate concentric hypertrophy. Of note patient also was found to have a small echodensity in the with independent motion attached to the base of the anterior mitral valve leaflet along the ventricular surface this is thought maybe to be a vegetation or calcification. Also of note patient was noted to have an R VSP at 60-65% consistent with severe pulmonary hypertension. Her blood pressure was subsequently stabilized though she remained on BiPAP. Patient was deemed stable to transfer and she was sent to [facility]. Of note patient also diuresed approximately 8 L of fluid as per [facility] documentation. At the current time patient is on BiPAP. She does not appear in any acute respiratory distress. She does have a history of chronic lymphedema for which she does not know the cause of. she co joint pains. noted severe hypertension. Allergies: Amlodipine, codeine, Medications: reviewed ROS Const: As per HPI Eyes : No pain discharge or redness or change in visual acuity ENT: No pain, sore throat, congestion, congestion, dysphagia or discharge Respiratory: As per HPI Cardiovascular: No chest pain, palpitation, PND, or edema GI : no change in appetite, abdominal pain, nausea, vomiting, diarrhea, constipation, or change in the color his stool Genitourinary: No dysuria, hematuria, flank pain , discharge or CVA tenderness Musculoskeletal: No joint pain, back pain, neck pain, restricted range of motion in neck or joints Skin: No rash, bruising or hives Extremities: As per HPI Neuro: No headache, dizziness, syncope, seizure, focal weakness Endocrine: No polyuria, polydipsia, temperature intolerance Psych: No hallucination, depression, anxiety or suicidal ideation PMH/Family/Social Past Medical History Diastolic heart failure, colon cancer, chronic lymphedema Exam General: Patient is a morbidly obese female in no acute distress. She is currently on the BiPAP. HEENT: Atraumatic, normocephalic. The pupils are equal, round and reactive. Extraocular motor are intact, on BiPAP Neck: Supple with full range of motion. No rigidity or meningismus Lungs: Clear to auscultation bilaterally no crackles rales or wheezing Heart: Normal S1-S2, Regular rhythm and rate. No overt murmur appreciated. Abdomen: Soft , nontender, nondistended , bowel sounds are present. No guarding no rebound tenderness , No masses or organomegaly. No costovertebral temporal angle mass Extremities: Extensive elephantiasis of the bilateral lower extremities Neurologic: Normal mental status, speech normal, cranial nerves II through XII are intact, motor and sensory are intact, no focal weakness Objective Vital Signs Date Time Temp Pulse Resp B/P Pulse Ox O2 Delivery O2 Flow Rate FiO2 02/12/17 08:50 217/91 02/12/17 08:19 98.5 82 24 98 02/12/17 07:56 40 02/12/17 07:54 Nasal Cannula 4.0 Intake and Output 02/11/17 02/11/17 02/12/17 15:00 23:00 07:00 Intake Total 750 ml 700 ml Output Total 2300 ml 2100 ml Balance -1550 ml -1400 ml Results/Medications Result Diagram: 02/12/17 0639 02/12/17 0641 Results 24 hrs Laboratory Tests Test 02/11/17 12:18 02/11/17 15:45 02/11/17 17:24 02/11/17 18:37 Bedside Glucose 187 165 Urine Color STRAW Urine Clarity CLEAR Urine pH 6.0 Urine Specific [place] 1.004 Urine Ketones NEGATIVE Urine Nitrite NEGATIVE Urine Bilirubin NEGATIVE Urine Urobilinogen NEGATIVE Urine Leukocyte Esterase 1+ H Urine Microscopic RBC 5 Urine Microscopic WBC 7 H Urine Squamous Epithelial Cells FEW Urine Bacteria FEW A Urine Eosinophils % 0.0 Urine Hemoglobin 2+ H Urine Random Creatinine 17.62 L Urine Random Sodium 13 L Urine Glucose NEGATIVE Urine Total Protein 40.0 H Creatine Kinase < 20 L Creatine Kinase Index Creatinine Kinase MB (Mass) 0.37 Troponin I 0.014 Test 02/11/17 21:25 02/12/17 00:38 02/12/17 02:16 02/12/17 06:39 Bedside Glucose 186 180 Creatine Kinase < 20 L < 20 L Creatine Kinase Index Creatinine Kinase MB (Mass) 0.51 0.60 Troponin I 0.032 0.033 White Blood Count 7.3 Red Blood Count 3.89 L Hemoglobin 10.7 L Hematocrit 35.3 L Mean Corpuscular Volume 90.7 Mean Corpuscular Hemoglobin 27.5 L Mean Corpuscular Hemoglobin Concent 30.3 L Red Cell Distribution Width 17.5 H Platelet Count 252 Mean Platelet Volume 10.8 H Neutrophils % 74.1 Lymphocytes % 12.2 L Monocytes % 12.3 H Eosinophils % 0.5 Basophils % 0.4 Nucleated Red Blood Cells % 0.0 Neutrophils # 5.4 Lymphocytes # 0.9 Monocytes # 0.9 Eosinophils # 0.0 Basophils # 0.0 Nucleated Red Blood Cells # 0.0 Test 02/12/17 06:40 02/12/17 06:41 02/12/17 08:19 Triglycerides Level 93 Cholesterol Level 151 LDL Cholesterol, Calculated 98 HDL Cholesterol 34 L Cholesterol/HDL Ratio 4.4 Sodium Level 138 Potassium Level 3.5 Chloride Level 89 L Carbon Dioxide Level 33 H Anion Gap 20 H Blood Urea Nitrogen 42 H Creatinine 1.27 H Glucose Level 159 Calcium Level 9.2 Phosphorus Level 4.0 Magnesium Level 2.1 Bedside Glucose 168 Medications Current Medications Acetaminophen (Tylenol Tab) 650 mg Q6H PRN PO PAIN LEVEL 1-3 OR FEVER Last administered on 02/12/17 08:21; Admin Dose 650 MG; Start 02/11/17 at 03:30 Pantoprazole (Protonix Iv) 40 mg DAILY@06 IV Last administered on 02/12/17 05: 17; Admin Dose 40 MG; Start 02/11/17 at 06:00 Heparin Sodium (Porcine) (Heparin (5000 Units/0.5 ml)) 5,000 unit Q8 SC Last administered on 02/12/17 05:18; Admin Dose 5,000 UNIT; Start 02/11/17 at 06:00 Phenol (Cepastat Lozenge) 1 lozenge Q2H PRN MT THROATE IRRITATION Last administered on 02/11/17 17:37; Admin Dose 1 LOZENGE; Start 02/11/17 at 04:30 Diagnostic Test (Pha) (Accu-Chek) 1 ea 02 XX ; Start 02/12/17 at 02:00 Diagnostic Test (Pha) (Accu-Chek) 1 ea 02 XX ; Start 02/12/17 at 02:00 Miscellaneous Information 1 ea NOTE XX ; Start 02/11/17 at 11:00 Glucose (Glutose) 15 gm Q15M PRN PO DECREASED GLUCOSE; Start 02/11/17 at 11:00 Glucose (Glutose) 22.5 gm Q15M PRN PO DECREASED GLUCOSE; Start 02/11/17 at 11: 00 Dextrose (D50w Syringe) 25 ml Q15M PRN IV DECREASED GLUCOSE; Start 02/11/17 at 11:00 Dextrose (D50w Syringe) 50 ml Q15M PRN IV DECREASED GLUCOSE; Start 02/11/17 at 11:00 Glucagon (Glucagen) 1 mg Q15M PRN IM DECREASED GLUCOSE; Start 02/11/17 at 11:00 Glucose (Glutose) 15 gm Q15M PRN BUCCAL DECREASED GLUCOSE; Start 02/11/17 at 11 :00 Hydralazine HCl (Apresoline) 25 mg Q8 PO Last administered on 02/12/17 05:17; Admin Dose 25 MG; Start 02/11/17 at 14:00 Clonidine HCl (Catapres-Tts 2 Patch) 1 patch Q7D TRANSDERM Last administered on 02/11/17 15:42; Admin Dose 1 PATCH; Start 02/11/17 at 16:00 Nitroglycerin (Nitroglycerin (Sl Tab) 0.4 Mg) 1 tab Q5M PRN SL CHEST PAIN; Start 02/11/17 at 14:30 Hydralazine HCl (Apresoline) 20 mg Q6H PRN IV ELEVATED BLOOD PRESSURE Last administered on 02/12/17 07:27; Admin Dose 20 MG; Start 02/11/17 at 15:00 Docusate Sodium (Colace) 100 mg DAILY PO Last administered on 02/12/17 08:21; Admin Dose 100 MG; Start 02/11/17 at 16:30 Acetaminophen/ Hydrocodone Bitart ([place] (5/325)) 1 tab Q6H PRN PO PAIN LEVEL 8 -10 Last administered on 02/12/17t 06:40; Admin Dose 1 TAB; Start 02/12/17 at 00 :30 Assessment/Plan Chief Complaint/Hosp Course #1 JOSE GUADALUPE- nonoliguric. improving despite agressive diuresis. on underlying ckd with unclear baseline. may need to tolerate some azotemia to achieve euvolemia. all meds dosed ok. avoid nephroxins. monitor serial labs. no indication for hd. ok to restart brendan inhibitor. #2 acute respiratory distress: This likely appears to be multifactorial secondary to patient's diastolic CHF and chronic lymphedema. Patient was diuresed approximately 8 L of fluid at [facility] while on a Lasix drip. Her echocardiogram showed an ejection fraction of 60-65%, did show diastolic dysfunction as well as severe pulmonary hypertension. At the current time we will consult cardiology for further evaluation. We will also consult pulmonology. #3 severe pulmonary hypertension: This likely is also playing a factor in patient's acute respiratory distress as well as her issues with fluid overload. Will consult pulmonology for further treatment strategy. #4 chronic lymphedema: The etiology of this is not known at this time we will consult vascular surgery for further input and any possible treatment/ management recommendations. #6 Coagulase-negative bacteremia: Patient was treated with antibiotics however it was thought that this likely could have been a contaminant. Also she was found to have a possible vegetation during echocardiogram. Will recheck a set of blood cultures. We will also consult cardiology to see whether they would like to order a ALEXSANDRA. She does not have any fevers or orders hypotensive or has any other criteria right now that would indicate endocarditis so. #7 morbid obesity: We will check a TSH level and hemoglobin A1c #8 hypertension: markedly elevated. We will continue patient's home medications , will diurese aggressively. noted ccb allergy. add nitrate. #9 DVT and GI prophylaxis: Heparin, Protonix #10 CHF #11 Subclinical hypothyroidism #12 Diffuse bronchoconstriction / wheezing: ?COPD vs asthma vs cardiac asthma #13 Obesity #14 hyponatremia- hypervolemic. mild. likely related to chf. monitor. Problems: JH MIRZA MD Feb 12, 2017 09:47
[2017-02-12] MEDS: LISINOPRIL 10 MG TAB PO SCH (09:57)
[2017-02-12] MEDS ORDERED: ISOSORBIDE MONONITRATE(SR)30 MG TAB PO SCH (10:00)
--- NOTE | 2017-02-12 10:05 | RADRPT ---
PROCEDURE: XR Chest. CLINICAL INDICATION: Shortness of breath. TECHNIQUE: Single frontal view. COMPARISON: 09/01/2016. FINDINGS: The right arm PICC line is in satisfactory position with the tip in the lower superior vena cava. T here is bilateral interstitial pulmonary disease and right basilar atelectasis, unchanged. The heart is enlarged. There is calcification in the aorta consistent with atherosclerosis. There are small bilateral pleural effusions. There is no pneumothorax. IMPRESSION: 1. Right arm PICC line in satisfactory position. 2. Unchanged appearance of the lungs. RPTAT: QQ .Avinash Kinney MD, MD Date Time Electronically viewed and signed by .Avinash Kinney MD, MD on 02/12/2017 10:05 .R/
--- NOTE | 2017-02-12 10:40 | PN ---
Date/Time of Note Date/Time of Note DATE: 02/12/17 TIME: 10:23 Assessment/Plan VTE Prophylaxis VTE Prophylaxis Intervention: heparin Lines/Catheters IV Catheter Type (from Nrsg): PICC Line Central line still needed: Yes Urinary Cath still in place: Yes Reason Cath still needed: other (indicate) Assessment/Plan Assessment/Plan 61 yo F transferred from [place] for continued mgt for SOB. Was in the ICU there for a few days and transferred once stable. 1. Acute respiratory failure secondary to #2 on bipap 2. Acute severe diastolic congestive heart failure 3. Reported severe pulmonary hypertension ?cause, ?primary or secondary 4. Chronic kidney disease rule out AKA 5. Coagulase-negative bacteremia per reports with report with possible vegetation on echo 6. Morbid obesity 7. Possible sleep apnea versus OHS 8. Resistant hypertension 9. Chronic lymphedema ?cause 9. Subclinical hypothyroidism 10. Diffuse bronchoconstriction / wheezing: ?COPD vs asthma vs cardiac asthma PLAN: * Continue resp support with bipap and scheduled bronchodilator therapy * Continue aggressive diuresis with lasix / appreciate Nephrology input / CXR still showing congestion * try to obtain cultures and last echo report from [place], if not consider repeat Echo here * Chest CT still pending, patient would have benfitted from contrast CT, but unable to do that 2/2 renal function * Aggressively manage BP and continue to titrate for improved control * Await endocrinology recs regarding consistently low TSH * Continue to patient financial counselor on need for weight loss once stable * Continue supportive care * Further interventions per clinical course Prophylaxis: Heparin / PPI Subjective 24 Hr Interval Summary Free Text/Dictation patient still requiring bipap No chest pain case discussed in depth with nephrology Exam/Review of Systems Vital Signs Vitals Vital Signs Date Time Temp Pulse Resp B/P Pulse Ox O2 Delivery O2 Flow Rate FiO2 02/12/17 09:55 90 96 40 02/12/17 08:50 217/91 02/12/17 08:19 98.5 24 02/12/17 07:54 Nasal Cannula 4.0 Intake and Output 02/11/17 02/11/17 02/12/17 15:00 23:00 07:00 Intake Total 750 ml 700 ml Output Total 2300 ml 2100 ml Balance -1550 ml -1400 ml Exam Constitutional: alert, obese, oriented, other (Bipap mask) Psych: anxiety Head: normocephalic Eyes: PERRL Respiratory: diminished breath sounds, wheezing (improved), No crackles/rales Cardiovascular: irregular rhythm, murmurs/extra sounds Gastrointestinal: bowel sounds, non-tender, other (obese), soft Extremities: edema (severe chronic bilateral lymphedema) Results Result Diagram: 02/12/17 0639 02/12/17 0641 Results 24 hrs Laboratory Tests Test 02/11/17 12:18 02/11/17 15:45 02/11/17 17:24 02/11/17 18:37 Bedside Glucose 187 165 Urine Color STRAW Urine Clarity CLEAR Urine pH 6.0 Urine Specific [place] 1.004 Urine Ketones NEGATIVE Urine Nitrite NEGATIVE Urine Bilirubin NEGATIVE Urine Urobilinogen NEGATIVE Urine Leukocyte Esterase 1+ H Urine Microscopic RBC 5 Urine Microscopic WBC 7 H Urine Squamous Epithelial Cells FEW Urine Bacteria FEW A Urine Eosinophils % 0.0 Urine Hemoglobin 2+ H Urine Random Creatinine 17.62 L Urine Random Sodium 13 L Urine Glucose NEGATIVE Urine Total Protein 40.0 H Creatine Kinase < 20 L Creatine Kinase Index Creatinine Kinase MB (Mass) 0.37 Troponin I 0.014 Test 02/11/17 21:25 02/12/17 00:38 02/12/17 02:16 02/12/17 06:39 Bedside Glucose 186 180 Creatine Kinase < 20 L < 20 L Creatine Kinase Index Creatinine Kinase MB (Mass) 0.51 0.60 Troponin I 0.032 0.033 White Blood Count 7.3 Red Blood Count 3.89 L Hemoglobin 10.7 L Hematocrit 35.3 L Mean Corpuscular Volume 90.7 Mean Corpuscular Hemoglobin 27.5 L Mean Corpuscular Hemoglobin Concent 30.3 L Red Cell Distribution Width 17.5 H Platelet Count 252 Mean Platelet Volume 10.8 H Neutrophils % 74.1 Lymphocytes % 12.2 L Monocytes % 12.3 H Eosinophils % 0.5 Basophils % 0.4 Nucleated Red Blood Cells % 0.0 Neutrophils # 5.4 Lymphocytes # 0.9 Monocytes # 0.9 Eosinophils # 0.0 Basophils # 0.0 Nucleated Red Blood Cells # 0.0 Test 02/12/17 06:40 02/12/17 06:41 02/12/17 08:19 Triglycerides Level 93 Cholesterol Level 151 LDL Cholesterol, Calculated 98 HDL Cholesterol 34 L Cholesterol/HDL Ratio 4.4 Sodium Level 138 Potassium Level 3.5 Chloride Level 89 L Carbon Dioxide Level 33 H Anion Gap 20 H Blood Urea Nitrogen 42 H Creatinine 1.27 H Glucose Level 159 Calcium Level 9.2 Phosphorus Level 4.0 Magnesium Level 2.1 Bedside Glucose 168 Medications Medications Current Medications Acetaminophen (Tylenol Tab) 650 mg Q6H PRN PO PAIN LEVEL 1-3 OR FEVER Last administered on 02/12/17 08:21; Admin Dose 650 MG; Start 02/11/17 at 03:30 Pantoprazole (Protonix Iv) 40 mg DAILY@06 IV Last administered on 02/12/17 05: 17; Admin Dose 40 MG; Start 02/11/17 at 06:00 Heparin Sodium (Porcine) (Heparin (5000 Units/0.5 ml)) 5,000 unit Q8 SC Last administered on 02/12/17 05:18; Admin Dose 5,000 UNIT; Start 02/11/17 at 06:00 Phenol (Cepastat Lozenge) 1 lozenge Q2H PRN MT THROATE IRRITATION Last administered on 02/11/17 17:37; Admin Dose 1 LOZENGE; Start 02/11/17 at 04:30 Diagnostic Test (Pha) (Accu-Chek) 1 ea 02 XX ; Start 02/12/17 at 02:00 Miscellaneous Information 1 ea NOTE XX ; Start 02/11/17 at 11:00 Glucose (Glutose) 15 gm Q15M PRN PO DECREASED GLUCOSE; Start 02/11/17 at 11:00 Glucose (Glutose) 22.5 gm Q15M PRN PO DECREASED GLUCOSE; Start 02/11/17 at 11: 00 Dextrose (D50w Syringe) 25 ml Q15M PRN IV DECREASED GLUCOSE; Start 02/11/17 at 11:00 Dextrose (D50w Syringe) 50 ml Q15M PRN IV DECREASED GLUCOSE; Start 02/11/17 at 11:00 Glucagon (Glucagen) 1 mg Q15M PRN IM DECREASED GLUCOSE; Start 02/11/17 at 11:00 Glucose (Glutose) 15 gm Q15M PRN BUCCAL DECREASED GLUCOSE; Start 02/11/17 at 11 :00 Clonidine HCl (Catapres-Tts 2 Patch) 1 patch Q7D TRANSDERM Last administered on 02/11/17 15:42; Admin Dose 1 PATCH; Start 02/11/17 at 16:00 Nitroglycerin (Nitroglycerin (Sl Tab) 0.4 Mg) 1 tab Q5M PRN SL CHEST PAIN; Start 02/11/17 at 14:30 Hydralazine HCl (Apresoline) 20 mg Q6H PRN IV ELEVATED BLOOD PRESSURE Last administered on 02/12/17 07:27; Admin Dose 20 MG; Start 02/11/17 at 15:00 Docusate Sodium (Colace) 100 mg DAILY PO Last administered on 02/12/17 08:21; Admin Dose 100 MG; Start 02/11/17 at 16:30 Acetaminophen/ Hydrocodone Bitart ([place] (5/325)) 1 tab Q6H PRN PO PAIN LEVEL 8 -10 Last administered on 02/12/17 06:40; Admin Dose 1 TAB; Start 02/12/17 at 00 :30 Hydralazine HCl (Apresoline) 50 mg Q8 PO ; Start 02/12/17 at 14:00 Isosorbide Mononitrate (Imdur) 30 mg BID PO Last administered on 02/12/17 09: 56; Admin Dose 30 MG; Start 02/12/17 at 10:00 Lisinopril (Zestril) 10 mg DAILY PO Last administered on 02/12/17 09:57; Admin Dose 10 MG; Start 02/12/17 at 10:00 Clonidine (Catapres) 0.1 mg Q4H PRN PO ELEVATED SYSTOLIC BP; Start 02/12/17 at 11:00 Procedures Procedures Echocardiogram Report Patient Name: MARK HAUSER Gender: Female Date: 1955 Study Date: 02-Sep-2016 Principal Bioinformatics Specialist: Jesus Manuel Haas RDCS Location: I Ref. Physician: AUGUSTO RILEY Quality: Technically Difficult Study Procedures: Transthoracic echocardiogram with complete 2D, M-Mode, and doppler examination. Indications: Congential Heart Disease. 2D/M Mode Doppler Measurement Value Normal Ranges Measurement Value Normal Ranges LVIDd 2D 3.7 3.5 - 5.6 cm AV Peak Teja 1.5 m/sec LVIDs 2D 2.3 2.1 - 4.1 cm AV Peak PG 8.7 mmHg LVPWd 2D 1.6 0.6 - 1.1 cm LVOT Peak Teja 1.3 m/sec IVSd 2D 1.5 0.6 - 1.1 cm LVOT Peak PG 6.3 mmHg AoR Diam 2D 2.9 2.0 - 3.7 cm EDV 2D 56.9 cm3 ESV 2D 11.8 cm3 LA Dimen 2D 4.4 2.3 - 4.0 cm Findings Left Ventricle: Normal left ventricular systolic function. Normal left ventricular cavity size. Moderate concentric left ventricular hypertrophy. Ejection fraction is visually estimated at 65 %. Tissue Doppler/Mitral Doppler indices are consistent with impaired relaxation (Stage I diastolic dysfunction). Right Ventricle: Normal right ventricular size. Normal right ventricular systolic function. Left Atrium: There is mild enlargement of left atrium. Right Atrium: The right atrium is normal in size. Mitral Valve: Moderate mitral annular calcification. Trace mitral regurgitation. Aortic Valve: No significant aortic stenosis or insufficiency. Aortic cusps appear mildly calcified. Tricuspid Valve: Normal appearance and function of the tricuspid valve with trace physiologic regurgitation. Pericardium: Normal pericardium with no significant pericardial effusion. Left pleural effusion seen. Aorta: Normal aortic root. IVC: Dilated IVC without respiratory collapse consistent with elevated right atrial pressure. Conclusions 1. Normal left ventricular systolic function. Normal left ventricular cavity size. Moderate concentric left ventricular hypertrophy. Ejection fraction is visually estimated at 65 %. Tissue Doppler/Mitral Doppler indices are consistent with impaired relaxation (Stage I diastolic dysfunction). 2. There is mild enlargement of left atrium. 3. Moderate mitral annular calcification. Trace mitral regurgitation. 4. Normal appearance and function of the tricuspid valve with trace physiologic regurgitation. 5. Normal pericardium with no significant pericardial effusion. Left pleural effusion seen. Electronically Signed By: Scot Matos 02-Sep-2016 17:24:06 -0800 Patient Name: MARK HAUSER Study Date: 02-Sep-2016 [id number] ROCEDURE: XR Chest. CLINICAL INDICATION: Shortness of breath. TECHNIQUE: Single frontal view. COMPARISON: 09/01/2016. FINDINGS: The right arm PICC line is in satisfactory position with the tip in the lower superior vena cava. There is bilateral interstitial pulmonary disease and right basilar atelectasis, unchanged. The heart is enlarged. There is calcification in the aorta consistent with atherosclerosis. There are small bilateral pleural effusions. There is no pneumothorax. IMPRESSION: 1. Right arm PICC line in satisfactory position. 2. Unchanged appearance of the lungs. RPTAT: QQ .Avinash Kinney MD, MD Date Time Electronically viewed and signed by .Avinash Kinney MD, MD on 02/12/2017 10:05 .R/ CC: GLEN BUSTILLOS MD, [facility] KYLEE MORALES Feb 12, 2017 10:37
[2017-02-12 12:22] LABS: AADO2 Arterial 140.8 mmHg (7.0-24.0); Allen Test ACCEPTAB; Arterial Base Excess 6.3 mmol/L (-3.0-3); Arterial COHb 0.6 % (0.0-3.0); Arterial Fraction of Oxyhgb 96.2 % (93.0-99.0); Arterial HCO3 30.7 mmol/L (22.0-26.0); Arterial MetHb 0 % (0.0-1.5); Arterial Total Hemglobin 12.3 g/dl (12.0-18.0); Blood Gas IEPAP 15/5; MODE MASK - BIPAP
--- NOTE | 2017-02-12 13:18 | CONS ---
Date/Time of Note Date/Time of Note DATE: 02/12/17 TIME: :17 Consult Date/Type/Reason Admit Date/Time Feb 11, 2017 at 00:44 Initial Consult Date 02/11/17 Type of Consultation: Pulmonary Subjective Off BiPAP this morning appears comfortable at rest no acute distress still has significant shortness of breath on minimal exertion Objective Vital Signs Date Time Temp Pulse Resp B/P Pulse Ox O2 Delivery O2 Flow Rate FiO2 02/12/17 12:56 222/98 02/12/17 12:16 86 02/12/17 11:58 98.2 21 97 02/12/17 09:55 40 02/12/17 07:54 Nasal Cannula 4.0 Intake and Output 02/11/17 02/11/17 02/12/17 15:00 23:00 07:00 Intake Total 750 ml 700 ml Output Total 2300 ml 2100 ml Balance -1550 ml -1400 ml Exam GENERAL: Morbidly obese lady on nasal cannula oxygen VITAL SIGNS: per chart NECK: Supple. No JVD or lymphadenopathy. CARDIAC EXAM: S1, S2. No added sounds or murmurs. CHEST: Diminished air entry bilaterally ABDOMEN: Soft, nontender. No guarding or rebound. EXTREMITIES: No cyanosis, clubbing or edema. NEUROLOGIC: Generalized weakness. No focal deficits. Results/Medications Result Diagram: 02/12/17 0639 02/12/17 0641 Results 24 hrs Laboratory Tests Test 02/11/17 15:45 02/11/17 17:24 02/11/17 18:37 02/11/17 21:25 Urine Color STRAW Urine Clarity CLEAR Urine pH 6.0 Urine Specific [place] 1.004 Urine Ketones NEGATIVE Urine Nitrite NEGATIVE Urine Bilirubin NEGATIVE Urine Urobilinogen NEGATIVE Urine Leukocyte Esterase 1+ H Urine Microscopic RBC 5 Urine Microscopic WBC 7 H Urine Squamous Epithelial Cells FEW Urine Bacteria FEW A Urine Eosinophils % 0.0 Urine Hemoglobin 2+ H Urine Random Creatinine 17.62 L Urine Random Sodium 13 L Urine Glucose NEGATIVE Urine Total Protein 40.0 H Bedside Glucose 165 186 Creatine Kinase < 20 L Creatine Kinase Index Creatinine Kinase MB (Mass) 0.37 Troponin I 0.014 Test 02/12/17 00:38 02/12/17 02:16 02/12/17 06:39 02/12/17 06:40 Creatine Kinase < 20 L < 20 L Creatine Kinase Index Creatinine Kinase MB (Mass) 0.51 0.60 Troponin I 0.032 0.033 Bedside Glucose 180 White Blood Count 7.3 Red Blood Count 3.89 L Hemoglobin 10.7 L Hematocrit 35.3 L Mean Corpuscular Volume 90.7 Mean Corpuscular Hemoglobin 27.5 L Mean Corpuscular Hemoglobin Concent 30.3 L Red Cell Distribution Width 17.5 H Platelet Count 252 Mean Platelet Volume 10.8 H Neutrophils % 74.1 Lymphocytes % 12.2 L Monocytes % 12.3 H Eosinophils % 0.5 Basophils % 0.4 Nucleated Red Blood Cells % 0.0 Neutrophils # 5.4 Lymphocytes # 0.9 Monocytes # 0.9 Eosinophils # 0.0 Basophils # 0.0 Nucleated Red Blood Cells # 0.0 Triglycerides Level 93 Cholesterol Level 151 LDL Cholesterol, Calculated 98 HDL Cholesterol 34 L Cholesterol/HDL Ratio 4.4 Test 02/12/17 06:41 02/12/17 07:00 02/12/17 08:19 02/12/17 12:12 Sodium Level 138 Potassium Level 3.5 Chloride Level 89 L Carbon Dioxide Level 33 H Anion Gap 20 H Blood Urea Nitrogen 42 H Creatinine 1.27 H Glucose Level 159 Calcium Level 9.2 Phosphorus Level 4.0 Magnesium Level 2.1 Blood Gas Specimen Source Blood arterial Arterial Blood Date Drawn 02/12/2017 8:21:08 AM Arterial Blood pH (Temp corrected) 7.464 H Arterial Blood pCO2 (Temp correct) 43.8 Arterial Blood pO2 (Temp corrected) 94.0 Arterial Blood HCO3 30.7 H Arterial Blood Base Excess 6.3 H Arterial Blood Oxygen Saturation 96.8 Giorgio Test ACCEPTAB Arterial Blood Gas Puncture Site Right Radial Arterial Blood Carboxyhemoglobin 0.6 Arterial Blood Methemoglobin 0 Blood Gas A-a O2 Differential 140.8 H Oxyhemoglobin Percent 96.2 Total Hemoglobin 12.3 Blood Gas Temperature 37.0 Blood Gas Respiration Rate 18.0 Blood Gas Actual Respiration Rate 32 Blood Gas Modality MASK - BIPAP FiO2 40.0 Blood Gas IPAP/EPAP Ratio 12/12 Blood Gas Notified Whom SM Blood Gas Notified Time 02/12/2017 8:26:47 AM Bedside Glucose 168 186 Medications Current Medications Acetaminophen (Tylenol Tab) 650 mg Q6H PRN PO PAIN LEVEL 1-3 OR FEVER Last administered on 02/12/17t 08:21; Admin Dose 650 MG; Start 02/11/17 at 03:30 Pantoprazole (Protonix Iv) 40 mg DAILY@06 IV Last administered on 02/12/17 05: 17; Admin Dose 40 MG; Start 02/11/17 at 06:00 Heparin Sodium (Porcine) (Heparin (5000 Units/0.5 ml)) 5,000 unit Q8 SC Last administered on 02/12/17 05:18; Admin Dose 5,000 UNIT; Start 02/11/17 at 06:00 Phenol (Cepastat Lozenge) 1 lozenge Q2H PRN MT THROATE IRRITATION Last administered on 02/11/17 17:37; Admin Dose 1 LOZENGE; Start 02/11/17 at 04:30 Diagnostic Test (Pha) (Accu-Chek) 1 ea 02 XX ; Start 02/12/17 at 02:00 Miscellaneous Information 1 ea NOTE XX ; Start 02/11/17 at 11:00 Glucose (Glutose) 15 gm Q15M PRN PO DECREASED GLUCOSE; Start 02/11/17 at 11:00 Glucose (Glutose) 22.5 gm Q15M PRN PO DECREASED GLUCOSE; Start 02/11/17 at 11: 00 Dextrose (D50w Syringe) 25 ml Q15M PRN IV DECREASED GLUCOSE; Start 02/11/17 at 11:00 Dextrose (D50w Syringe) 50 ml Q15M PRN IV DECREASED GLUCOSE; Start 02/11/17 at 11:00 Glucagon (Glucagen) 1 mg Q15M PRN IM DECREASED GLUCOSE; Start 02/11/17 at 11:00 Glucose (Glutose) 15 gm Q15M PRN BUCCAL DECREASED GLUCOSE; Start 02/11/17 at 11 :00 Clonidine HCl (Catapres-Tts 2 Patch) 1 patch Q7D TRANSDERM Last administered on 02/11/17 15:42; Admin Dose 1 PATCH; Start 02/11/17 at 16:00 Nitroglycerin (Nitroglycerin (Sl Tab) 0.4 Mg) 1 tab Q5M PRN SL CHEST PAIN; Start 02/11/17 at 14:30 Docusate Sodium (Colace) 100 mg DAILY PO Last administered on 02/12/17 08:21; Admin Dose 100 MG; Start 02/11/17 at 16:30 Acetaminophen/ Hydrocodone Bitart ([place] (5/325)) 1 tab Q6H PRN PO PAIN LEVEL 8 -10 Last administered on 02/12/17 06:40; Admin Dose 1 TAB; Start 02/12/17 at 00 :30 Isosorbide Mononitrate (Imdur) 30 mg BID PO Last administered on 02/12/17 09: 56; Admin Dose 30 MG; Start 02/12/17 at 10:00 Lisinopril (Zestril) 10 mg DAILY PO Last administered on 02/12/17 09:57; Admin Dose 10 MG; Start 02/12/17 at 10:00 Clonidine (Catapres) 0.1 mg Q4H PRN PO ELEVATED SYSTOLIC BP Last administered on 02/12/17 11:09; Admin Dose 0.1 MG; Start 02/12/17 at 11:00 Hydralazine HCl (Apresoline) 75 mg Q8 PO ; Start 02/12/17 at 14:00 Hydralazine HCl (Apresoline) 10 mg Q4H PRN IV ELEVATED BLOOD PRESSURE Last administered on 02/12/17 12:08; Admin Dose 10 MG; Start 02/12/17 at 13:00 Enalaprilat (Vasotec Iv) 1.25 mg ONCE ONCE IV ; Start 02/12/17 at 13:30; Stop 02/12/17 at 13:31 Assessment/Plan Chief Complaint/Hosp Course Assessment 1. Hypoxemic respiratory failure Multifactorial likely secondary to diastolic dysfunction with pulmonary edema and underlying pulmonary hypertension. Cardiology consult. Trial of BiPAP as tolerated 2. Chronic kidney disease with unclear etiology Renal recommendations. 3. Severe pulmonary hypertension likely combination of sleep apnea and possible valvular heart disease. Unlikely primary pulmonary hypertension. 4. Coag negative bacteremia currently on antibiotics consider ID consult. 5. Severe systemic hypertension. Blood pressure continues to remain significantly elevated. Patient may require transfer to intensive care unit for intravenous therapy. We will defer to cardiology. Problems: GLEN BUSTILLOS MD, [facility] Feb 12, 2017 13:18
[2017-02-12] MEDS ORDERED: ENALAPRILAT 1.25 MG INJ IV ONE (13:30)
--- NOTE | 2017-02-12 15:06 | CONS ---
Date/Time of Note Date/Time of Note DATE: 02/12/17 TIME: 14:58 Assessment/Plan Assessment/Plan Chief Complaint/Hosp Course IMP: 1.CHF-Diastolic acute on chronic by most recent echo 2.PHTN 3.Resp failure on BIPAP 4. Bacteremia at OSH. Bld cultures thus far here negative 5.lymphedema 6.chest pain-negative trop x 3 7. AF-mainly rate controlled 8. HTN-urgency/emergency-? component of discomfort REcc: -Tele -serial ecg's -Will f/u echo to assess for any possible vegetations and reassess EF -Continue abx's and f/u cx data -Continue hydralazine/clonidine TTS/zestril with uptitration to improve overall BP control -Use PRN anti-hypertensives as necessary -Contnue lasix diuresis and follow creatnine closely -Continue BIPAP as necessary Problems: Consultation Date/Type/Reason Admit Date/Time Feb 11, 2017 at 00:44 Initial Consult Date 02/11/17 Type of Consultation: cardiology Reason for Consultation HTN/CHF Referring Provider: KYLEE MORALES Exam/Review of Systems Vital Signs Vitals Vital Signs Date Time Temp Pulse Resp B/P Pulse Ox O2 Delivery O2 Flow Rate FiO2 02/12/17 14:31 97 186/77 02/12/17 13:54 97 40 02/12/17 13:45 24 Nasal Cannula 4.0 02/12/17 11:58 98.2 Intake and Output 02/11/17 02/11/17 02/12/17 15:00 23:00 07:00 Intake Total 750 ml 700 ml Output Total 2300 ml 2100 ml Balance -1550 ml -1400 ml Exam Review of Systems: CONSTITUTIONAL: No fevers, chills. PULMONARY: No sob CARDIOVASCULAR: No chest pain/palpitations GASTROINTESTINAL: No nausea/vomiting. GENITOURINARY: No hematuria/dysuria. MUSCULOSKELETAL: No myagias/arthalgias. PSYCHIATRIC: The patient denies depression. NEUROLOGIC: No weakness Constitutional: alert Psych: no complaints Head: normocephalic ENMT: mucosa pink and moist Neck: jvd (9 cm water), supple Respiratory: other (upper airway rhoncherous sounds on BIPAP) Cardiovascular: regular rate and rhythm Gastrointestinal: non-tender, soft Musculoskeletal: muscle tone (normal) Extremities: edema (none) Neurological: other (NO focal deficits) Results Result Diagram: 02/12/17 0639 02/12/17 0641 Results 24 hrs Laboratory Tests Test 02/11/17 15:45 02/11/17 17:24 02/11/17 18:37 02/11/17 21:25 Urine Color STRAW Urine Clarity CLEAR Urine pH 6.0 Urine Specific [place] 1.004 Urine Ketones NEGATIVE Urine Nitrite NEGATIVE Urine Bilirubin NEGATIVE Urine Urobilinogen NEGATIVE Urine Leukocyte Esterase 1+ H Urine Microscopic RBC 5 Urine Microscopic WBC 7 H Urine Squamous Epithelial Cells FEW Urine Bacteria FEW A Urine Eosinophils % 0.0 Urine Hemoglobin 2+ H Urine Random Creatinine 17.62 L Urine Random Sodium 13 L Urine Glucose NEGATIVE Urine Total Protein 40.0 H Bedside Glucose 165 186 Creatine Kinase < 20 L Creatine Kinase Index Creatinine Kinase MB (Mass) 0.37 Troponin I 0.014 Test 02/12/17 00:38 02/12/17 02:16 02/12/17 06:39 02/12/17 06:40 Creatine Kinase < 20 L < 20 L Creatine Kinase Index Creatinine Kinase MB (Mass) 0.51 0.60 Troponin I 0.032 0.033 Bedside Glucose 180 White Blood Count 7.3 Red Blood Count 3.89 L Hemoglobin 10.7 L Hematocrit 35.3 L Mean Corpuscular Volume 90.7 Mean Corpuscular Hemoglobin 27.5 L Mean Corpuscular Hemoglobin Concent 30.3 L Red Cell Distribution Width 17.5 H Platelet Count 252 Mean Platelet Volume 10.8 H Neutrophils % 74.1 Lymphocytes % 12.2 L Monocytes % 12.3 H Eosinophils % 0.5 Basophils % 0.4 Nucleated Red Blood Cells % 0.0 Neutrophils # 5.4 Lymphocytes # 0.9 Monocytes # 0.9 Eosinophils # 0.0 Basophils # 0.0 Nucleated Red Blood Cells # 0.0 Triglycerides Level 93 Cholesterol Level 151 LDL Cholesterol, Calculated 98 HDL Cholesterol 34 L Cholesterol/HDL Ratio 4.4 Test 02/12/17 06:41 02/12/17 07:00 02/12/17 08:19 02/12/17 12:12 Sodium Level 138 Potassium Level 3.5 Chloride Level 89 L Carbon Dioxide Level 33 H Anion Gap 20 H Blood Urea Nitrogen 42 H Creatinine 1.27 H Glucose Level 159 Calcium Level 9.2 Phosphorus Level 4.0 Magnesium Level 2.1 Blood Gas Specimen Source Blood arterial Arterial Blood Date Drawn 02/12/2017 8:21:08 AM Arterial Blood pH (Temp corrected) 7.464 H Arterial Blood pCO2 (Temp correct) 43.8 Arterial Blood pO2 (Temp corrected) 94.0 Arterial Blood HCO3 30.7 H Arterial Blood Base Excess 6.3 H Arterial Blood Oxygen Saturation 96.8 Giorgio Test ACCEPTAB Arterial Blood Gas Puncture Site Right Radial Arterial Blood Carboxyhemoglobin 0.6 Arterial Blood Methemoglobin 0 Blood Gas A-a O2 Differential 140.8 H Oxyhemoglobin Percent 96.2 Total Hemoglobin 12.3 Blood Gas Temperature 37.0 Blood Gas Respiration Rate 18.0 Blood Gas Actual Respiration Rate 32 Blood Gas Modality MASK - BIPAP FiO2 40.0 Blood Gas IPAP/EPAP Ratio 12/12 Blood Gas Notified Whom SM Blood Gas Notified Time 02/12/2017 8:26:47 AM Bedside Glucose 168 186 Medications Medications Current Medications Acetaminophen (Tylenol Tab) 650 mg Q6H PRN PO PAIN LEVEL 1-3 OR FEVER Last administered on 02/12/17 08:21; Admin Dose 650 MG; Start 02/11/17 at 03:30 Pantoprazole (Protonix Iv) 40 mg DAILY@06 IV Last administered on 02/12/17 05: 17; Admin Dose 40 MG; Start 02/11/17 at 06:00 Heparin Sodium (Porcine) (Heparin (5000 Units/0.5 ml)) 5,000 unit Q8 SC Last administered on 02/12/17 13:18; Admin Dose 5,000 UNIT; Start 02/11/17 at 06:00 Phenol (Cepastat Lozenge) 1 lozenge Q2H PRN MT THROATE IRRITATION Last administered on 02/11/17 17:37; Admin Dose 1 LOZENGE; Start 02/11/17 at 04:30 Diagnostic Test (Pha) (Accu-Chek) 1 ea 02 XX ; Start 02/12/17 at 02:00 Miscellaneous Information 1 ea NOTE XX ; Start 02/11/17 at 11:00 Glucose (Glutose) 15 gm Q15M PRN PO DECREASED GLUCOSE; Start 02/11/17 at 11:00 Glucose (Glutose) 22.5 gm Q15M PRN PO DECREASED GLUCOSE; Start 02/11/17 at 11: 00 Dextrose (D50w Syringe) 25 ml Q15M PRN IV DECREASED GLUCOSE; Start 02/11/17 at 11:00 Dextrose (D50w Syringe) 50 ml Q15M PRN IV DECREASED GLUCOSE; Start 02/11/17 at 11:00 Glucagon (Glucagen) 1 mg Q15M PRN IM DECREASED GLUCOSE; Start 02/11/17 at 11:00 Glucose (Glutose) 15 gm Q15M PRN BUCCAL DECREASED GLUCOSE; Start 02/11/17 at 11 :00 Clonidine HCl (Catapres-Tts 2 Patch) 1 patch Q7D TRANSDERM Last administered on 02/11/17 15:42; Admin Dose 1 PATCH; Start 02/11/17 at 16:00 Nitroglycerin (Nitroglycerin (Sl Tab) 0.4 Mg) 1 tab Q5M PRN SL CHEST PAIN; Start 02/11/17 at 14:30 Docusate Sodium (Colace) 100 mg DAILY PO Last administered on 02/12/17 08:21; Admin Dose 100 MG; Start 02/11/17 at 16:30 Acetaminophen/ Hydrocodone Bitart ([place] (5/325)) 1 tab Q6H PRN PO PAIN LEVEL 8 -10 Last administered on 02/12/17 13:17; Admin Dose 1 TAB; Start 02/12/17 at 00 :30 Isosorbide Mononitrate (Imdur) 30 mg BID PO Last administered on 02/12/17 09: 56; Admin Dose 30 MG; Start 02/12/17 at 10:00 Lisinopril (Zestril) 10 mg DAILY PO Last administered on 02/12/17 09:57; Admin Dose 10 MG; Start 02/12/17 at 10:00 Clonidine (Catapres) 0.1 mg Q4H PRN PO ELEVATED SYSTOLIC BP Last administered on 02/12/17 11:09; Admin Dose 0.1 MG; Start 02/12/17 at 11:00 Hydralazine HCl (Apresoline) 75 mg Q8 PO Last administered on 02/12/17 13:18; Admin Dose 75 MG; Start 02/12/17 at 14:00 Hydralazine HCl (Apresoline) 10 mg Q4H PRN IV ELEVATED BLOOD PRESSURE Last administered on 02/12/17 12:08; Admin Dose 10 MG; Start 02/12/17 at 13:00 ASHLEY CONNOR Feb 12, 2017 15:06
--- NOTE | 2017-02-12 16:00 | RADRPT ---
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 Physician: KYLEE MORALES Quality: Technically Difficult Study Procedures: Transthoracic echocardiogram with complete 2D, M-Mode, and doppler examination. Indications: Congestive Heart Failure. 2D/M Mode Doppler Measurement Value Normal Ranges Measurement Value Normal Ranges LVIDd 2D 4.3 3.5 - 5.6 cm ALMA Vmax 1.7 cm2 LVIDs 2D 2.7 2.1 - 4.1 cm ALMA VTI 1.8 cm2 FS 2D 36.5 % AV Mean Teja 1.7 m/sec LVPWd 2D 1.6 0.6 - 1.1 cm AV Mean PG 14.0 mmHg IVSd 2D 1.6 0.6 - 1.1 cm AV Peak Teja 2.5 m/sec IVS/LVPW 2D 1.0 AV Peak PG 24.0 mmHg AoR Diam 2D 3.0 2.0 - 3.7 cm AV VTI 36.2 cm LA/Ao 2D 2 0 - 1 LVOT Peak Teja 1.9 m/sec EDV 2D 77.9 cm3 LVOT Peak PG 14.0 mmHg ESV 2D 19.9 cm3 MV E Peak Teja 1.6 m/sec LA Dimen 2D 4.5 2.3 - 4.0 cm MV PHT 72.0 msec LVOT Diam 1.7 cm MV Peak Teja 1.5 m/sec LVOT Area 2.3 cm2 MV Peak PG 9.0 mmHg RVOT Diam 1.8 cm MV Mean Teja 1.0 m/sec MV Mean PG 5.0 mmHg MV Decel Morrill 6 MV PHT Peak Teja 1.5 m/sec MV PHT 72.0 msec MV VTI 39.0 cm MVA PHT 3.1 cm2 MVA VTI 1.7 cm TR Peak Teja 2.7 m/sec TR Peak PG 28.0 mmHg Findings Left Ventricle: Normal left ventricular systolic function. Normal left ventricular cavity size. Moderate concentric left ventricular hypertrophy. Ejection fraction is visually estimated at 60 %. Abnormal Diastolic Function. Right Ventricle: Normal right ventricular size. Normal right ventricular systolic function. Left Atrium: There is mild enlargement of left atrium. Right Atrium: The right atrium is normal in size. Mitral Valve: Mitral valve leaflets appear moderately thickened. Moderate mitral annular calcification. Trace mitral regurgitation. Mild to moderate mitral stenosis. Mitral valve Max Velocity 1.50 m/sec. MaxPG 9.00 mmHg. MeanPG 5.00 mmHg. Mitral Valve Area by PHT3.06 cm2. Mitral Valve Area by Continuity1.71 cm2. Aortic Valve: Mild aortic stenosis. Mean PG 14.0 mmHg. Aortic valve area 1.84 cm2. Tricuspid Valve: Normal appearance of the tricuspid valve. Estimated peak PA systolic pressure 28 mmHg. There is mild tricuspid regurgitation. Pulmonic Valve: Pulmonic valve not well visualized. There is trace pulmonic regurgitation. Pericardium: Normal pericardium with no significant pericardial effusion. Aorta: Normal aortic root. IVC: Dilated IVC without respiratory collapse consistent with elevated right atrial pressure. Conclusions 1.Normal left ventricular systolic function. Normal left ventricular cavity size. Moderate concentric left ventricular hypertrophy. Ejection fraction is visually estimated at 60-65 %. Abnormal Diastolic Function. 2.There is mild enlargement of left atrium. 3.Mitral valve leaflets appear moderately thickened. Moderate mitral annular calcification. Trace mitral regurgitation. Mild to moderate mitral stenosis. mmHg. MeanPG 5.00 mmHg. Mitral Valve Area by Continuity1.71 cm2. 4.There is mild tricuspid regurgitation. 5.There is trace pulmonic regurgitation. 6.Normal pericardium with no significant pericardial effusion. 7.Mild aortic stenosis. Electronically Signed By: Scot Matos 12-Feb-2017 16:00:05 -0700 Patient Name: MARK HAUSER Study Date: 12-Feb-2017 [id number]
[2017-02-12] MEDS: CLONIDINE 0.3 MG/24 HR PATCH TRANSDERM SCH (16:44)
[2017-02-13] VITALS (25 sets, daily range): BP systolic 136–233; BP diastolic 65–102; PULSE 69–105; RESP 19–20
[2017-02-13] MEDS: ALBUTEROL/IPRATROPIUM (NEB) 3 ML AMP HHN SCH ×4 (01:00→19:39)
[2017-02-13] MEDS: ACCU-CHEK XX SCH (02:00)
[2017-02-13] MEDS: PANTOPRAZOLE 40 MG INJ IV SCH (05:30)
[2017-02-13] MEDS: FUROSEMIDE 40 MG INJ IV SCH ×3 (05:30→22:45)
[2017-02-13] MEDS: HYDROCODONE/APAP (5/325) TAB PO PRN ×3 (05:31→20:14)
[2017-02-13] MEDS: HEPARIN 5,000 UNIT/0.5 ML VIAL SC SCH ×2 (05:32→14:18)
[2017-02-13 07:36] LABS: ADD SCAN DIFF NO
[2017-02-13 07:39] LABS: BASOPHILS % 0.4 % (0.0-2.0); EOSINOPHILS # 0.1 10^3/ul (0.0-0.5); EOSINOPHILS % 0.9 % (0.0-7.0); HEMOGLOBIN 10.9 g/dl (12.0-16.0); MEAN CORPUSCULAR HEMOGLOBIN 28.2 pg (29.0-33.0); MEAN CORPUSCULAR HGB CONC 30.3 g/dl (32.0-37.0); MEAN CORPUSCULAR VOLUME 93.3 fl (82.0-101.0); MEAN PLATELET VOLUME 10.9 fl (7.4-10.4); MONOCYTE # 0.9 10^3/ul (0.3-0.9); MONOCYTES % 11.5 % (0.0-11.0); NEUTROPHIL # 5.9 10^3/ul (1.6-7.5); NEUTROPHILS % 73.6 % (39.0-77.0); PLATELET COUNT 275 10^3/UL (140-415); RED BLOOD COUNT 3.86 10^6/ul (4.20-5.40); RED CELL DISTRIBUTION WIDTH 17.2 % (11.5-14.5)
[2017-02-13 07:55] LABS: CALCIUM 9.3 mg/dl (8.4-10.2); CREATININE 1.22 mg/dl (0.44-1.00); POTASSIUM 3.3 mmol/L (3.5-5.1)
[2017-02-13] MEDS: ISOSORBIDE MONONITRATE(SR)60 MG TAB PO SCH (08:05)
[2017-02-13] MEDS: LISINOPRIL 10 MG TAB PO SCH (08:05)
[2017-02-13] MEDS: DOCUSATE SODIUM 100 MG CAP PO SCH (08:05)
[2017-02-13] MEDS: INSULIN ASPART [NOVOLOG] 3 ML PEN SC SCH ×4 (08:51→20:26)
[2017-02-13] MEDS: hydrALAzine 20 MG INJ IV PRN ×2 (10:08→16:45)
[2017-02-13] MEDS ORDERED: POTASSIUM CHLORIDE (SR) 20 MEQ TAB PO STA (10:46)
--- NOTE | 2017-02-13 10:55 | PN ---
Date/Time of Note Date/Time of Note DATE: 02/13/17 TIME: 10:46 Assessment/Plan VTE Prophylaxis VTE Prophylaxis Intervention: other Lines/Catheters IV Catheter Type (from Nrs): PICC Line Central line still needed: Yes Urinary Cath still in place: Yes Reason Cath still needed: other (indicate) Assessment/Plan Chief Complaint/Hosp Course Nonoliguric acute kidney with baseline creatinine of 1.0 mg/dL -Etiology of AK likely hemodynamics, questionable obstructive uropathy -Renal ultrasound shows right-sided hydronephrosis -Recommend getting urology evaluation CT scan of the abdomen pelvis Renal function has been improving with supportive care Continue current treatment plan, renally dose all meds Hypokalemia -We will replace with potassium chloride acute respiratory distress: This likely appears to be multifactorial secondary to patient's diastolic CHF -Continue diuretic regimen -Continue BiPAP #3 severe pulmonary hypertension: -Follow-up with pulmonary #4 chronic lymphedema: The etiology of this is not known at this time we will consult vascular surgery for further input and any possible treatment/ management recommendations. #6 Coagulase-negative bacteremia: Patient was treated with antibiotics -Cultures reviewed #7 morbid obesity: We will check a TSH level and hemoglobin A1c #8 hypertension: markedly elevated. -Continue medical management. -Medications being adjusted by cardiology #9 DVT and GI prophylaxis: Heparin, Protonix #10 CHF #11 Subclinical hypothyroidism #12 Diffuse bronchoconstriction / wheezing: ?COPD vs asthma vs cardiac asthma #13 Obesity Problems: Subjective 24 Hr Interval Summary Free Text/Dictation Patient hypertensive this morning Patient scheduled for CT scan of the chest Exam/Review of Systems Vital Signs Vitals Vital Signs Date Time Temp Pulse Resp B/P Pulse Ox O2 Delivery O2 Flow Rate FiO2 02/13/17 08:05 89 98 40 02/13/17 08:01 98.4 19 208/98 02/12/17 23:00 4.0 02/12/17 19:19 Nasal Cannula Intake and Output 02/12/17 02/12/17 02/13/17 15:00 23:00 07:00 Intake Total 840 ml 800 ml Output Total 900 ml 550 ml 950 ml Balance -900 ml 290 ml -150 ml Exam General: Patient is a morbidly obese female in no acute distress. HEENT: Atraumatic, normocephalic. The pupils are equal, round and reactive. Neck: Supple with full range of motion. No rigidity or meningismus Lungs: Clear to auscultation bilaterally no crackles rales or wheezing Heart: Normal S1-S2, Regular rhythm and rate. No overt murmur appreciated. Abdomen: Soft , nontender, nondistended , bowel sounds are present. No guarding no rebound tenderness , No masses or organomegaly. No costovertebral temporal angle mass Extremities: Extensive elephantiasis of the bilateral lower extremities Neurologic: Normal mental status, speech normal, cranial nerves II through XII are intact, motor and sensory are intact, no focal weakness Results Result Diagram: 02/13/17 0610 02/13/17609 Results 24 hrs Laboratory Tests Test 02/12/17 12:12 02/12/17 17:22 02/12/17 20:56 02/13/17 06:07 Bedside Glucose 186 173 180 Phosphorus Level 4.0 Magnesium Level 2.0 Test 02/13/17 06:10 02/13/17 08:08 White Blood Count 8.0 Red Blood Count 3.86 L Hemoglobin 10.9 L Hematocrit 36.0 L Mean Corpuscular Volume 93.3 Mean Corpuscular Hemoglobin 28.2 L Mean Corpuscular Hemoglobin Concent 30.3 L Red Cell Distribution Width 17.2 H Platelet Count 275 Mean Platelet Volume 10.9 H Neutrophils % 73.6 Lymphocytes % 13.0 L Monocytes % 11.5 H Eosinophils % 0.9 Basophils % 0.4 Nucleated Red Blood Cells % 0.0 Neutrophils # 5.9 Lymphocytes # 1.0 Monocytes # 0.9 Eosinophils # 0.1 Basophils # 0.0 Nucleated Red Blood Cells # 0.0 Sodium Level 139 Potassium Level 3.3 L Chloride Level 90 L Carbon Dioxide Level 34 H Anion Gap 18 H Blood Urea Nitrogen 41 H Creatinine 1.22 H Glucose Level 156 Calcium Level 9.3 Bedside Glucose 177 Medications Medications Current Medications Acetaminophen (Tylenol Tab) 650 mg Q6H PRN PO PAIN LEVEL 1-3 OR FEVER Last administered on 02/12/17 08:21; Admin Dose 650 MG; Start 02/11/17 at 03:30 Pantoprazole (Protonix Iv) 40 mg DAILY@06 IV Last administered on 02/13/17 05: 30; Admin Dose 40 MG; Start 02/11/17 at 06:00 Heparin Sodium (Porcine) (Heparin (5000 Units/0.5 ml)) 5,000 unit Q8 SC Last administered on 02/13/17 05:32; Admin Dose 5,000 UNIT; Start 02/11/17 at 06:00 Phenol (Cepastat Lozenge) 1 lozenge Q2H PRN MT THROATE IRRITATION Last administered on 02/11/17 17:37; Admin Dose 1 LOZENGE; Start 02/11/17 at 04:30 Diagnostic Test (Pha) (Accu-Chek) 1 ea 02 XX ; Start 02/12/17 at 02:00 Miscellaneous Information 1 ea NOTE XX ; Start 02/11/17 at 11:00 Glucose (Glutose) 15 gm Q15M PRN PO DECREASED GLUCOSE; Start 02/11/17 at 11:00 Glucose (Glutose) 22.5 gm Q15M PRN PO DECREASED GLUCOSE; Start 02/11/17 at 11: 00 Dextrose (D50w Syringe) 25 ml Q15M PRN IV DECREASED GLUCOSE; Start 02/11/17 at 11:00 Dextrose (D50w Syringe) 50 ml Q15M PRN IV DECREASED GLUCOSE; Start 02/11/17 at 11:00 Glucagon (Glucagen) 1 mg Q15M PRN IM DECREASED GLUCOSE; Start 02/11/17 at 11:00 Glucose (Glutose) 15 gm Q15M PRN BUCCAL DECREASED GLUCOSE; Start 02/11/17 at 11 :00 Nitroglycerin (Nitroglycerin (Sl Tab) 0.4 Mg) 1 tab Q5M PRN SL CHEST PAIN; Start 02/11/17 at 14:30 Docusate Sodium (Colace) 100 mg DAILY PO Last administered on 02/13/17 08:05; Admin Dose 100 MG; Start 02/11/17 at 16:30 Acetaminophen/ Hydrocodone Bitart ([place] (5/325)) 1 tab Q6H PRN PO PAIN LEVEL 8 -10 Last administered on 02/13/17 05:31; Admin Dose 1 TAB; Start 02/12/17 at 00 :30 Lisinopril (Zestril) 10 mg DAILY PO Last administered on 02/13/17 08:05; Admin Dose 10 MG; Start 02/12/17 at 10:00 Hydralazine HCl (Apresoline) 10 mg Q4H PRN IV ELEVATED BLOOD PRESSURE Last administered on 02/13/17 10:08; Admin Dose 10 MG; Start 02/12/17 at 13:00 Hydralazine HCl (Apresoline) 100 mg Q8 PO Last administered on 02/13/17 05:31 ; Admin Dose 100 MG; Start 02/12/17 at 22:00 Clonidine HCl (Catapres-Tts 3 Patch) 1 patch Q7D TRANSDERM Last administered on 02/12/17 16:44; Admin Dose 1 PATCH; Start 02/12/17 at 17:00 Clonidine (Catapres) 0.2 mg Q4H PRN PO ELEVATED SYSTOLIC BP; Start 02/12/17 at 19:00 Isosorbide Mononitrate (Imdur) 60 mg DAILY PO Last administered on 02/13/17 08 :05; Admin Dose 60 MG; Start 02/13/17 at 09:00 OPAL ESCALANTE DO Feb 13, 2017 10:55
[2017-02-13] MEDS ORDERED: LORAZEPAM 2 MG INJ IM ONE (11:30)
[2017-02-13] MEDS ORDERED: KETOROLAC 15 MG INJ IV PRN (11:30)
[2017-02-13] MEDS ORDERED: VITAMIN A & D 5 GM OINT PACKET TOP ONE (11:58)
[2017-02-13] MEDS ORDERED: KETOROLAC 30 MG INJ IV PRN (14:00)
--- NOTE | 2017-02-13 14:12 | PN ---
Date/Time of Note Date/Time of Note DATE: 02/13/17 TIME: 13:59 Assessment/Plan VTE Prophylaxis VTE Prophylaxis Intervention: heparin Assessment/Plan Chief Complaint/Hosp Course 1. Acute respiratory failure secondary to #2 and deconditioning- bipap as needed 2. Acute severe diastolic congestive heart failure 3. Reported severe pulmonary hypertension 4. Chronic kidney disease rule out AKA 5. Coagulase-negative bacteremia per reports with report with possible vegetation on echo 6. Morbid obesity with debility 7. Possible sleep apnea versus OHS 8. Resistant hypertension 9. Chronic lymphedema ?cause 9. Subclinical hypothyroidism 10. Diffuse bronchoconstriction / wheezing: ?COPD vs asthma PLAN: * Continue resp support with bipap and scheduled bronchodilator therapy * Continue aggressive diuresis with lasix / appreciate Nephrology input / CXR still showing congestion * try to obtain cultures and last echo report from [place], if not consider repeat Echo here * Chest CT still pending, patient would have benfitted from contrast CT, but unable to do that 2/2 renal function * Aggressively manage BP and continue to titrate for improved control, resume home Coreg and start Procardia, continue lisinopril, Imdur hydralazine and clonidine * Continue to senior counsel on need for weight loss once stable * Continue supportive care * Further interventions per clinical course Prophylaxis: Heparin / PPI Problems: Subjective 24 Hr Interval Summary Neurologic: headache Exam/Review of Systems Vital Signs Vitals Vital Signs Date Time Temp Pulse Resp B/P Pulse Ox O2 Delivery O2 Flow Rate FiO2 02/13/17 12:31 97.6 99 19 211/98 98 02/13/17 08:05 40 02/12/17 23:00 4.0 02/12/17 19:19 Nasal Cannula Intake and Output 02/12/17 02/12/17 02/13/17 15:00 23:00 07:00 Intake Total 840 ml 800 ml Output Total 900 ml 550 ml 950 ml Balance -900 ml 290 ml -150 ml Exam Constitutional: alert Respiratory: clear to auscultation Cardiovascular: regular rate and rhythm Gastrointestinal: soft, No distended Musculoskeletal: No nl extremities to inspection Results Result Diagram: 02/13/17 0610 02/13/17 0610 Results 24 hrs Laboratory Tests Test 02/12/17 17:22 02/12/17 20:56 02/13/17 06:07 02/13/17 06:10 Bedside Glucose 173 180 Phosphorus Level 4.0 Magnesium Level 2.0 White Blood Count 8.0 Red Blood Count 3.86 L Hemoglobin 10.9 L Hematocrit 36.0 L Mean Corpuscular Volume 93.3 Mean Corpuscular Hemoglobin 28.2 L Mean Corpuscular Hemoglobin Concent 30.3 L Red Cell Distribution Width 17.2 H Platelet Count 275 Mean Platelet Volume 10.9 H Neutrophils % 73.6 Lymphocytes % 13.0 L Monocytes % 11.5 H Eosinophils % 0.9 Basophils % 0.4 Nucleated Red Blood Cells % 0.0 Neutrophils # 5.9 Lymphocytes # 1.0 Monocytes # 0.9 Eosinophils # 0.1 Basophils # 0.0 Nucleated Red Blood Cells # 0.0 Sodium Level 139 Potassium Level 3.3 L Chloride Level 90 L Carbon Dioxide Level 34 H Anion Gap 18 H Blood Urea Nitrogen 41 H Creatinine 1.22 H Glucose Level 156 Calcium Level 9.3 Test 02/13/17 08:08 02/13/17 11:56 Bedside Glucose 177 176 Medications Medications Current Medications Acetaminophen (Tylenol Tab) 650 mg Q6H PRN PO PAIN LEVEL 1-3 OR FEVER Last administered on 02/12/17 08:21; Admin Dose 650 MG; Start 02/11/17 at 03:30 Pantoprazole (Protonix Iv) 40 mg DAILY@06 IV Last administered on 02/13/17 05: 30; Admin Dose 40 MG; Start 02/11/17 at 06:00 Heparin Sodium (Porcine) (Heparin (5000 Units/0.5 ml)) 5,000 unit Q8 SC Last administered on 02/13/17 05:32; Admin Dose 5,000 UNIT; Start 02/11/17 at 06:00 Phenol (Cepastat Lozenge) 1 lozenge Q2H PRN MT THROATE IRRITATION Last administered on 02/11/17 17:37; Admin Dose 1 LOZENGE; Start 02/11/17 at 04:30 Diagnostic Test (Pha) (Accu-Chek) 1 ea 02 XX ; Start 02/12/17 at 02:00 Miscellaneous Information 1 ea NOTE XX ; Start 02/11/17 at 11:00 Glucose (Glutose) 15 gm Q15M PRN PO DECREASED GLUCOSE; Start 02/11/17 at 11:00 Glucose (Glutose) 22.5 gm Q15M PRN PO DECREASED GLUCOSE; Start 02/11/17 at 11: 00 Dextrose (D50w Syringe) 25 ml Q15M PRN IV DECREASED GLUCOSE; Start 02/11/17 at 11:00 Dextrose (D50w Syringe) 50 ml Q15M PRN IV DECREASED GLUCOSE; Start 02/11/17 at 11:00 Glucagon (Glucagen) 1 mg Q15M PRN IM DECREASED GLUCOSE; Start 02/11/17 at 11:00 Glucose (Glutose) 15 gm Q15M PRN BUCCAL DECREASED GLUCOSE; Start 02/11/17 at 11 :00 Nitroglycerin (Nitroglycerin (Sl Tab) 0.4 Mg) 1 tab Q5M PRN SL CHEST PAIN; Start 02/11/17 at 14:30 Docusate Sodium (Colace) 100 mg DAILY PO Last administered on 02/13/17 08:05; Admin Dose 100 MG; Start 02/11/17 at 16:30 Acetaminophen/ Hydrocodone Bitart ([place] (5/325)) 1 tab Q6H PRN PO PAIN LEVEL 8 -10 Last administered on 02/13/17 11:17; Admin Dose 1 TAB; Start 02/12/17 at 00 :30 Lisinopril (Zestril) 10 mg DAILY PO Last administered on 02/13/17 08:05; Admin Dose 10 MG; Start 02/12/17 at 10:00 Hydralazine HCl (Apresoline) 10 mg Q4H PRN IV ELEVATED BLOOD PRESSURE Last administered on 02/13/17 10:08; Admin Dose 10 MG; Start 02/12/17 at 13:00 Hydralazine HCl (Apresoline) 100 mg Q8 PO Last administered on 02/13/17 05:31 ; Admin Dose 100 MG; Start 02/12/17 at 22:00 Clonidine HCl (Catapres-Tts 3 Patch) 1 patch Q7D TRANSDERM Last administered on 02/12/17 16:44; Admin Dose 1 PATCH; Start 02/12/17 at 17:00 Clonidine (Catapres) 0.2 mg Q4H PRN PO ELEVATED SYSTOLIC BP Last administered on 02/13/17 11:38; Admin Dose 0.2 MG; Start 02/12/17 at 19:00 Isosorbide Mononitrate (Imdur) 60 mg DAILY PO Last administered on 02/13/17t 08 :05; Admin Dose 60 MG; Start 02/13/17 at 09:00 Ketorolac Tromethamine (Toradol) 15 mg Q6H PRN IV PAIN; Start 02/13/17 at 14:00 ; Stop 02/16/17 at 13:59 BENOIT PARISI Feb 13, 2017 14:09
[2017-02-13] MEDS ORDERED: ONDANSETRON 4 MG INJ IV PRN (15:00)
--- NOTE | 2017-02-13 15:25 | CONS ---
Date/Time of Note Date/Time of Note DATE: 02/13/17 TIME: 15:20 Consult Date/Type/Reason Admit Date/Time Feb 11, 2017 at 00:44 Initial Consult Date 02/11/17 Type of Consultation: Pulmonary Ordering Provider: KYLEE MORALES Subjective Patient better this morning off BiPAP saturating well on 6 L nasal cannula. No respiratory distress. Still has significant anxiety improved with Ativan. Objective Vital Signs Date Time Temp Pulse Resp B/P Pulse Ox O2 Delivery O2 Flow Rate FiO2 02/13/17 14:23 100 191/99 02/13/17 12:31 97.6 19 98 02/13/17 09:30 40 02/12/17 23:00 4.0 02/12/17 19:19 Nasal Cannula Intake and Output 02/12/17 02/12/17 02/13/17 14:59 22:59 06:59 Intake Total 840 ml 800 ml Output Total 900 ml 550 ml 950 ml Balance -900 ml 290 ml -150 ml Exam GENERAL: Morbidly obese lady on nasal cannula oxygen VITAL SIGNS: per chart NECK: Supple. No JVD or lymphadenopathy. CARDIAC EXAM: S1, S2. No added sounds or murmurs. CHEST: Diminished air entry bilaterally ABDOMEN: Soft, nontender. No guarding or rebound. EXTREMITIES: No cyanosis, clubbing or edema. NEUROLOGIC: Generalized weakness. No focal deficits. Results/Medications Result Diagram: 02/13/17 0610 02/13/17 0610 Results 24 hrs Laboratory Tests Test 02/12/17 17:22 02/12/17 20:56 02/13/17 06:07 02/13/17 06:10 Bedside Glucose 173 180 Phosphorus Level 4.0 Magnesium Level 2.0 White Blood Count 8.0 Red Blood Count 3.86 L Hemoglobin 10.9 L Hematocrit 36.0 L Mean Corpuscular Volume 93.3 Mean Corpuscular Hemoglobin 28.2 L Mean Corpuscular Hemoglobin Concent 30.3 L Red Cell Distribution Width 17.2 H Platelet Count 275 Mean Platelet Volume 10.9 H Neutrophils % 73.6 Lymphocytes % 13.0 L Monocytes % 11.5 H Eosinophils % 0.9 Basophils % 0.4 Nucleated Red Blood Cells % 0.0 Neutrophils # 5.9 Lymphocytes # 1.0 Monocytes # 0.9 Eosinophils # 0.1 Basophils # 0.0 Nucleated Red Blood Cells # 0.0 Sodium Level 139 Potassium Level 3.3 L Chloride Level 90 L Carbon Dioxide Level 34 H Anion Gap 18 H Blood Urea Nitrogen 41 H Creatinine 1.22 H Glucose Level 156 Calcium Level 9.3 Test 02/13/17 08:08 02/13/17 11:56 Bedside Glucose 177 176 Medications Current Medications Acetaminophen (Tylenol Tab) 650 mg Q6H PRN PO PAIN LEVEL 1-3 OR FEVER Last administered on 02/12/17 08:21; Admin Dose 650 MG; Start 02/11/17 at 03:30 Pantoprazole (Protonix Iv) 40 mg DAILY@06 IV Last administered on 02/13/17 05: 30; Admin Dose 40 MG; Start 02/11/17 at 06:00 Heparin Sodium (Porcine) (Heparin (5000 Units/0.5 ml)) 5,000 unit Q8 SC Last administered on 02/13/17 14:18; Admin Dose 5,000 UNIT; Start 02/11/17 at 06:00 Phenol (Cepastat Lozenge) 1 lozenge Q2H PRN MT THROATE IRRITATION Last administered on 02/11/17 17:37; Admin Dose 1 LOZENGE; Start 02/11/17 at 04:30 Diagnostic Test (Pha) (Accu-Chek) 1 ea 02 XX ; Start 02/12/17 at 02:00 Miscellaneous Information 1 ea NOTE XX ; Start 02/11/17 at 11:00 Glucose (Glutose) 15 gm Q15M PRN PO DECREASED GLUCOSE; Start 02/11/17 at 11:00 Glucose (Glutose) 22.5 gm Q15M PRN PO DECREASED GLUCOSE; Start 02/11/17 at 11: 00 Dextrose (D50w Syringe) 25 ml Q15M PRN IV DECREASED GLUCOSE; Start 02/11/17 at 11:00 Dextrose (D50w Syringe) 50 ml Q15M PRN IV DECREASED GLUCOSE; Start 02/11/17 at 11:00 Glucagon (Glucagen) 1 mg Q15M PRN IM DECREASED GLUCOSE; Start 02/11/17 at 11:00 Glucose (Glutose) 15 gm Q15M PRN BUCCAL DECREASED GLUCOSE; Start 02/11/17 at 11 :00 Nitroglycerin (Nitroglycerin (Sl Tab) 0.4 Mg) 1 tab Q5M PRN SL CHEST PAIN; Start 02/11/17 at 14:30 Docusate Sodium (Colace) 100 mg DAILY PO Last administered on 02/13/17 08:05; Admin Dose 100 MG; Start 02/11/17 at 16:30 Acetaminophen/ Hydrocodone Bitart ([place] (5/325)) 1 tab Q6H PRN PO PAIN LEVEL 8 -10 Last administered on 02/13/17 11:17; Admin Dose 1 TAB; Start 02/12/17 at 00 :30 Lisinopril (Zestril) 10 mg DAILY PO Last administered on 02/13/17 08:05; Admin Dose 10 MG; Start 02/12/17 at 10:00 Hydralazine HCl (Apresoline) 10 mg Q4H PRN IV ELEVATED BLOOD PRESSURE Last administered on 02/13/17 10:08; Admin Dose 10 MG; Start 02/12/17 at 13:00 Hydralazine HCl (Apresoline) 100 mg Q8 PO Last administered on 02/13/17 14:13 ; Admin Dose 100 MG; Start 02/12/17 at 22:00 Clonidine HCl (Catapres-Tts 3 Patch) 1 patch Q7D TRANSDERM Last administered on 02/12/17 16:44; Admin Dose 1 PATCH; Start 02/12/17 at 17:00 Clonidine (Catapres) 0.2 mg Q4H PRN PO ELEVATED SYSTOLIC BP Last administered on 02/13/17 11:38; Admin Dose 0.2 MG; Start 02/12/17 at 19:00 Isosorbide Mononitrate (Imdur) 60 mg DAILY PO Last administered on 02/13/17 08 :05; Admin Dose 60 MG; Start 02/13/17 at 09:00 Ketorolac Tromethamine (Toradol) 15 mg Q6H PRN IV PAIN Last administered on 14:12; Admin Dose 15 MG; Start 02/13/17 at 14:00; Stop 02/16/17 at 13:59 Carvedilol (Coreg) 25 mg BID PO Last administered on 02/13/17 14:22; Admin Dose 25 MG; Start 02/13/17 at 14:30 Nifedipine (Procardia Xl) 30 mg BID PO ; Start 7/17/17 at 21:00 Ondansetron HCl (Zofran Inj) 4 mg Q6H PRN IV NAUSEA AND/OR VOMITING; Start at 15:00 Assessment/Plan Chief Complaint/Hosp Course Assessment 1. Hypoxemic respiratory failure Multifactorial likely secondary to diastolic dysfunction with pulmonary edema and underlying pulmonary hypertension. Cardiology consult. Remain off BiPAP for possible Outpatient sleep study Outpatient pulmonary function testing 2. Chronic kidney disease with unclear etiology Renal recommendations. 3. Severe pulmonary hypertension likely combination of sleep apnea and possible valvular heart disease. Unlikely primary pulmonary hypertension. Will discuss with cardiology consider trial of sildenafil. 4. Coag negative bacteremia currently on antibiotics consider ID consult. 5. Severe systemic hypertension. Blood pressure continues to remain significantly elevated. Patient may require transfer to intensive care unit for intravenous therapy. We will defer to cardiology. Problems: GLEN BUSTILLOS MD, [facility] Feb 13, 2017 15:25
--- NOTE | 2017-02-13 18:33 | CONS ---
Date/Time of Note Date/Time of Note DATE: 02/13/17 TIME: 18:23 Assessment/Plan Assessment/Plan Chief Complaint/Hosp Course IMP: 1.CHF-Diastolic acute on chronic by most recent echo 2.PHTN 3.Resp failure on BIPAP 4. Bacteremia at OSH. Bld cultures thus far here negative. No definite vegetations by echo done here this admit 5.lymphedema 6.chest pain-negative trop x 3 7. AF-mainly rate controlled 8. HTN-urgency/emergency-? component of discomfort 9. H/O PHTN-not significantly elevated by most recent echo REcc: -Tele -serial ecg's -Continue abx's and f/u cx data -Continue hydralazine/clonidine TTS/zestril -Now also started procardia xl/coreg-? allergy to CCB as has one to norvasc -Use PRN anti-hypertensives as necessary -Contnue lasix diuresis with slight increase and follow creatnine closely -Continue BIPAP as necessary -F/U Chest CT Problems: Consultation Date/Type/Reason Admit Date/Time Feb 11, 2017 at 00:44 Initial Consult Date 02/11/17 Type of Consultation: cardiology Reason for Consultation HTN Referring Provider: KYLEE MORALES Exam/Review of Systems Vital Signs Vitals Vital Signs Date Time Temp Pulse Resp B/P Pulse Ox O2 Delivery O2 Flow Rate FiO2 02/13/17 17:07 4.0 02/13/17 16:40 100 199/97 02/13/17 15:51 97.5 19 97 Room Air 02/13/17 09:30 40 Intake and Output 02/12/17 02/12/17 02/13/17 15:00 23:00 07:00 Intake Total 840 ml 800 ml Output Total 900 ml 550 ml 950 ml Balance -900 ml 290 ml -150 ml Exam Review of Systems: CONSTITUTIONAL: No fevers, chills. PULMONARY: No sob CARDIOVASCULAR: No chest pain/palpitations GASTROINTESTINAL: No nausea/vomiting. GENITOURINARY: No hematuria/dysuria. MUSCULOSKELETAL: No myagias/arthalgias. PSYCHIATRIC: The patient denies depression. NEUROLOGIC: No weakness Constitutional: alert, oriented Psych: no complaints Head: normocephalic ENMT: mucosa pink and moist Neck: jvd (9 cm water), supple Respiratory: diminished breath sounds (at bases/B) Cardiovascular: irregular rhythm Gastrointestinal: non-tender, soft Musculoskeletal: muscle weakness (generalized) Extremities: other (Lymphedema) Neurological: other (lethargic) Results Result Diagram: 02/13/17 0610 02/13/17 0610 Results 24 hrs Laboratory Tests Test 02/12/17 20:56 02/13/17 06:07 02/13/17 06:10 02/13/17 08:08 Bedside Glucose 180 177 Phosphorus Level 4.0 Magnesium Level 2.0 White Blood Count 8.0 Red Blood Count 3.86 L Hemoglobin 10.9 L Hematocrit 36.0 L Mean Corpuscular Volume 93.3 Mean Corpuscular Hemoglobin 28.2 L Mean Corpuscular Hemoglobin Concent 30.3 L Red Cell Distribution Width 17.2 H Platelet Count 275 Mean Platelet Volume 10.9 H Neutrophils % 73.6 Lymphocytes % 13.0 L Monocytes % 11.5 H Eosinophils % 0.9 Basophils % 0.4 Nucleated Red Blood Cells % 0.0 Neutrophils # 5.9 Lymphocytes # 1.0 Monocytes # 0.9 Eosinophils # 0.1 Basophils # 0.0 Nucleated Red Blood Cells # 0.0 Sodium Level 139 Potassium Level 3.3 L Chloride Level 90 L Carbon Dioxide Level 34 H Anion Gap 18 H Blood Urea Nitrogen 41 H Creatinine 1.22 H Glucose Level 156 Calcium Level 9.3 Test 02/13/17 11:56 02/13/17 16:59 Bedside Glucose 176 176 Medications Medications Current Medications Acetaminophen (Tylenol Tab) 650 mg Q6H PRN PO PAIN LEVEL 1-3 OR FEVER Last administered on 02/12/17 08:21; Admin Dose 650 MG; Start 02/11/17 at 03:30 Pantoprazole (Protonix Iv) 40 mg DAILY@06 IV Last administered on 02/13/17 05: 30; Admin Dose 40 MG; Start 02/11/17 at 06:00 Heparin Sodium (Porcine) (Heparin (5000 Units/0.5 ml)) 5,000 unit Q8 SC Last administered on 02/13/17 14:18; Admin Dose 5,000 UNIT; Start 02/11/17 at 06:00 Phenol (Cepastat Lozenge) 1 lozenge Q2H PRN MT THROATE IRRITATION Last administered on 02/11/17 17:37; Admin Dose 1 LOZENGE; Start 02/11/17 at 04:30 Diagnostic Test (Pha) (Accu-Chek) 1 ea 02 XX ; Start 02/12/17 at 02:00 Miscellaneous Information 1 ea NOTE XX ; Start 02/11/17 at 11:00 Glucose (Glutose) 15 gm Q15M PRN PO DECREASED GLUCOSE; Start 02/11/17 at 11:00 Glucose (Glutose) 22.5 gm Q15M PRN PO DECREASED GLUCOSE; Start 02/11/17 at 11: 00 Dextrose (D50w Syringe) 25 ml Q15M PRN IV DECREASED GLUCOSE; Start 02/11/17 at 11:00 Dextrose (D50w Syringe) 50 ml Q15M PRN IV DECREASED GLUCOSE; Start 02/11/17 at 11:00 Glucagon (Glucagen) 1 mg Q15M PRN IM DECREASED GLUCOSE; Start 02/11/17 at 11:00 Glucose (Glutose) 15 gm Q15M PRN BUCCAL DECREASED GLUCOSE; Start 02/11/17 at 11 :00 Nitroglycerin (Nitroglycerin (Sl Tab) 0.4 Mg) 1 tab Q5M PRN SL CHEST PAIN; Start 02/11/17 at 14:30 Docusate Sodium (Colace) 100 mg DAILY PO Last administered on 02/13/17 08:05; Admin Dose 100 MG; Start 02/11/17 at 16:30 Acetaminophen/ Hydrocodone Bitart ([place] (5/325)) 1 tab Q6H PRN PO PAIN LEVEL 8 -10 Last administered on 02/13/17 11:17; Admin Dose 1 TAB; Start 02/12/17 at 00 :30 Lisinopril (Zestril) 10 mg DAILY PO Last administered on 02/13/17 08:05; Admin Dose 10 MG; Start 02/12/17 at 10:00 Hydralazine HCl (Apresoline) 10 mg Q4H PRN IV ELEVATED BLOOD PRESSURE Last administered on 02/13/17 16:45; Admin Dose 10 MG; Start 02/12/17 at 13:00 Hydralazine HCl (Apresoline) 100 mg Q8 PO Last administered on 02/13/17 14:13 ; Admin Dose 100 MG; Start 02/12/17 at 22:00 Clonidine HCl (Catapres-Tts 3 Patch) 1 patch Q7D TRANSDERM Last administered on 02/12/17 16:44; Admin Dose 1 PATCH; Start 02/12/17 at 17:00 Clonidine (Catapres) 0.2 mg Q4H PRN PO ELEVATED SYSTOLIC BP Last administered on 02/13/17 11:38; Admin Dose 0.2 MG; Start 02/12/17 at 19:00 Isosorbide Mononitrate (Imdur) 60 mg DAILY PO Last administered on 02/13/17 08 :05; Admin Dose 60 MG; Start 02/13/17 at 09:00 Ketorolac Tromethamine (Toradol) 15 mg Q6H PRN IV PAIN Last administered on 14:12; Admin Dose 15 MG; Start 02/13/17 at 14:00; Stop 02/16/17 at 13:59 Carvedilol (Coreg) 25 mg BID PO Last administered on 02/13/17 14:22; Admin Dose 25 MG; Start 02/13/17 at 14:30 Nifedipine (Procardia Xl) 30 mg BID PO ; Start 02/13/17 at 21:00 Ondansetron HCl (Zofran Inj) 4 mg Q6H PRN IV NAUSEA AND/OR VOMITING; Start at 15:00 ASHLEY CONNOR Feb 13, 2017 18:33
[2017-02-13] MEDS: NIFEdipine (XL) 30 MG TAB PO SCH (20:14)
[2017-02-13] MEDS: ENOXAPARIN 60 MG/0.6 ML SYG SC SCH (20:18)
--- NOTE | 2017-02-13 23:29 | RADRPT ---
PROCEDURE: CT Chest without contrast. CLINICAL INDICATION: Respiratory failure. Shortness of breath. TECHNIQUE: Helical axial sections were obtained through the chest without intravenous contrast enh ancement. Coronal and sagittal reformatted images were obtained from the axial source images. Total exam DLP is 655.28 mGy-cm. CTDIvol is 16.60 mGy. One or more of the following dose reduction roderick hniques were used: Automated exposure control, adjustment of the mA and/or kV according to patient s ize, use of iterative reconstruction technique. COMPARISON: Chest x-ray dated 02/12/2017. FINDINGS: There is extensive bilateral pulmonary interstitial disease consistent with pulmonary edema. Atelec tasis is present bilaterally in the mid and lower lung zones posteriorly. Superimposed pneumonia ca nnot be excluded. There is no pulmonary nodule or mass lesion. There is enlargement of the right lobe of thyroid and a right lobe partially calcified nodule is not ed measuring 3.2 cm. There is a superior anterior right mediastinal lymphadenopathy measuring 2.3 x 2.2 cm. Multiple sma ller mediastinal lymph nodes are noted with the left para-aortic lymph nodes measuring 1.3 x 1.5 cm and right paratracheal lymph nodes measuring up to 2.2 x 2.7 cm. Precarinal lymphadenopathy measure s up to 2.3 x 2.0 cm. There is no axillary, supraclavicular, or internal mammary lymphadenopathy. The thoracic aorta is not dilated. There is calcification in the aorta consistent with atherosclero sis. The central pulmonary arteries are enlarged consistent with pulmonary artery hypertension. The heart is mildly enlarged. There is extensive calcification of the mitral valve annulus. There are moderate bilateral pleural effusions. There is no pericardial effusion. Images through the upper abdomen demonstrate normal visualized portions of the liver, spleen, and ad renals. There are degenerative changes of the spine. There is no fracture or lytic lesion. There is mild t horacic scoliosis convex right. IMPRESSION: 1. Extensive bilateral pulmonary edema and atelectasis in the mid and lower lung zones posteriorly. Superimposed pneumonia cannot be excluded. 2. Enlarged right lobe of thyroid. Right lobe thyroid nodule measuring 3.2 cm. 3. Anterior and middle mediastinal lymphadenopathy which may be reactive or neoplastic. 4. Mild cardiomegaly. 5. Extensive calcification of the mitral valve annulus. 6. Degenerative changes of the spine. 7. Mild thoracic scoliosis convex right. RPTAT: QQ .Avinash Kinney MD, MD Date Time Electronically viewed and signed by .Avinash Kinney MD, MD on 02/13/2017 23:29 .R/
[2017-02-14] VITALS (21 sets, daily range): BP systolic 126–173; BP diastolic 60–79; PULSE 74–154; RESP 18–21
[2017-02-14] MEDS: ALBUTEROL/IPRATROPIUM (NEB) 3 ML AMP HHN SCH ×4 (01:18→20:00)
[2017-02-14] MEDS: ACCU-CHEK XX SCH (01:36)
[2017-02-14] MEDS ORDERED: VITAMIN A & D 5 GM OINT PACKET TOP ONE (01:57)
[2017-02-14] MEDS: ACETAMINOPHEN 325 MG TAB PO PRN ×2 (01:58→20:53)
[2017-02-14] MEDS: PANTOPRAZOLE 40 MG INJ IV SCH (06:09)
[2017-02-14] MEDS: FUROSEMIDE 40 MG INJ IV SCH ×2 (06:10→13:14)
[2017-02-14] MEDS: CEPASTAT LOZENGE MT PRN (06:29)
[2017-02-14 07:59] LABS: ADD SCAN DIFF NO
[2017-02-14 08:17] LABS: CALCIUM 9.5 mg/dl (8.4-10.2); CREATININE 1.28 mg/dl (0.44-1.00); POTASSIUM 3.4 mmol/L (3.5-5.1)
[2017-02-14 08:36] LABS: PHOSPHORUS 3.8 mg/dl (2.5-4.9)
[2017-02-14] MEDS: INSULIN ASPART [NOVOLOG] 3 ML PEN SC SCH ×4 (08:43→20:51)
[2017-02-14] MEDS ORDERED: POTASSIUM CHLORIDE (SR) 20 MEQ TAB PO STA (09:32)
[2017-02-14] MEDS: LISINOPRIL 10 MG TAB PO SCH (09:46)
[2017-02-14] MEDS: DOCUSATE SODIUM 100 MG CAP PO SCH ×2 (09:46→20:52)
[2017-02-14] MEDS: ISOSORBIDE MONONITRATE(SR)60 MG TAB PO SCH (09:46)
[2017-02-14] MEDS: NIFEdipine (XL) 30 MG TAB PO SCH ×2 (09:46→20:52)
[2017-02-14] MEDS: ENOXAPARIN 60 MG/0.6 ML SYG SC SCH ×2 (09:47→20:55)
[2017-02-14 10:10] LABS: BASOPHIL # 0.1 10^3/ul (0.0-0.1); BASOPHILS % 0.8 % (0.0-2.0); EOSINOPHILS # 0.1 10^3/ul (0.0-0.5); EOSINOPHILS % 1.6 % (0.0-7.0); HEMATOCRIT 37.9 % (37.0-47.0); HEMOGLOBIN 11.3 g/dl (12.0-16.0); LYMPHOCYTES # 1.1 10^3/ul (0.8-2.9); LYMPHOCYTES % 14.5 % (15.0-51.0); MEAN CORPUSCULAR HEMOGLOBIN 27.6 pg (29.0-33.0); MEAN CORPUSCULAR HGB CONC 29.8 g/dl (32.0-37.0); MEAN CORPUSCULAR VOLUME 92.7 fl (82.0-101.0); MEAN PLATELET VOLUME 10.7 fl (7.4-10.4); MONOCYTE # 0.7 10^3/ul (0.3-0.9); MONOCYTES % 9.3 % (0.0-11.0); NEUTROPHIL # 5.4 10^3/ul (1.6-7.5); PLATELET COUNT 277 10^3/UL (140-415); RED BLOOD COUNT 4.09 10^6/ul (4.20-5.40); RED CELL DISTRIBUTION WIDTH 17.2 % (11.5-14.5); WHITE BLOOD COUNT 7.4 10^3/ul (4.8-10.8)
[2017-02-14] MEDS: CEFTRIAXONE 1 GM/50 ML (PMX) 50 ML IVPB SCH (12:40)
--- NOTE | 2017-02-14 13:47 | RADRPT ---
Vent Rate: 77 bpm RR Interval: 0 msec VT Interval: 0 msec QRS Duration: 110 msec QT Interval: 420 msec QTC Interval: 475 msec P-R-T [place]: 0 - -3 - 7 degrees Atrial fibrillation Anterior infarct , age undetermined Abnormal ECG Electronically Signed By: Johnnie Roca [id number]
--- NOTE | 2017-02-14 13:51 | RADRPT ---
Vent Rate: 91 bpm RR Interval: 0 msec SD Interval: 0 msec QRS Duration: 110 msec QT Interval: 376 msec QTC Interval: 462 msec P-R-T [place]: 0 - -35 - 80 degrees Atrial fibrillation Left axis deviation Anterior infarct , age undetermined Abnormal ECG Electronically Signed By: Johnnie Roca [id number]
--- NOTE | 2017-02-14 15:27 | CONS ---
Date/Time of Note Date/Time of Note DATE: 02/14/17 TIME: 15:26 Consult Date/Type/Reason Admit Date/Time Feb 11, 2017 at 00:44 Initial Consult Date 02/11/17 Type of Consultation: Pulmonary Ordering Provider: KYLEE MORALES Subjective Patient better today sitting up in chair on nasal cannula no respiratory distress Objective Vital Signs Date Time Temp Pulse Resp B/P Pulse Ox O2 Delivery O2 Flow Rate FiO2 02/14/17 13:34 4.0 02/14/17 13:34 96 20 96 Nasal Cannula 02/14/17 11:43 98.5 167/79 02/14/17 05:10 40 Intake and Output 02/13/17 02/13/17 02/14/17 14:59 22:59 06:59 Intake Total 420 ml Output Total 1420 ml Balance -1000 ml Exam GENERAL: Morbidly obese lady on nasal cannula oxygen VITAL SIGNS: per chart NECK: Supple. No JVD or lymphadenopathy. CARDIAC EXAM: S1, S2. No added sounds or murmurs. CHEST: Diminished air entry bilaterally ABDOMEN: Soft, nontender. No guarding or rebound. EXTREMITIES: No cyanosis, clubbing or edema. NEUROLOGIC: Generalized weakness. No focal deficits. Results/Medications Result Diagram: 02/14/17 0702 02/14/17 0702 Results 24 hrs Laboratory Tests Test 02/13/17 16:59 02/13/17 20:25 02/14/17 07:02 02/14/17 08:37 Bedside Glucose 176 165 163 White Blood Count 7.4 Red Blood Count 4.09 L Hemoglobin 11.3 L Hematocrit 37.9 Mean Corpuscular Volume 92.7 Mean Corpuscular Hemoglobin 27.6 L Mean Corpuscular Hemoglobin Concent 29.8 L Red Cell Distribution Width 17.2 H Platelet Count 277 Mean Platelet Volume 10.7 H Neutrophils % 73.0 Lymphocytes % 14.5 L Monocytes % 9.3 Eosinophils % 1.6 Basophils % 0.8 Nucleated Red Blood Cells % 0.0 Neutrophils # 5.4 Lymphocytes # 1.1 Monocytes # 0.7 Eosinophils # 0.1 Basophils # 0.1 Nucleated Red Blood Cells # 0.0 Sodium Level 137 Potassium Level 3.4 L Chloride Level 89 L Carbon Dioxide Level 33 H Anion Gap 18 H Blood Urea Nitrogen 47 H Creatinine 1.28 H Glucose Level 143 Calcium Level 9.5 Phosphorus Level 3.8 Magnesium Level 2.0 Test 02/14/17 12:01 Bedside Glucose 174 Medications Current Medications Acetaminophen (Tylenol Tab) 650 mg Q6H PRN PO PAIN LEVEL 1-3 OR FEVER Last administered on 02/14/17 01:58; Admin Dose 650 MG; Start 02/11/17 at 03:30 Pantoprazole (Protonix Iv) 40 mg DAILY@06 IV Last administered on 02/14/17 06: 09; Admin Dose 40 MG; Start 02/11/17 at 06:00 Phenol (Cepastat Lozenge) 1 lozenge Q2H PRN MT THROATE IRRITATION Last administered on 02/14/17 06:29; Admin Dose 1 LOZENGE; Start 02/11/17 at 04:30 Diagnostic Test (Pha) (Accu-Chek) 1 ea 02 XX ; Start 02/12/17 at 02:00 Miscellaneous Information 1 ea NOTE XX ; Start 02/11/17 at 11:00 Glucose (Glutose) 15 gm Q15M PRN PO DECREASED GLUCOSE; Start 02/11/17 at 11:00 Glucose (Glutose) 22.5 gm Q15M PRN PO DECREASED GLUCOSE; Start 02/11/17 at 11: 00 Dextrose (D50w Syringe) 25 ml Q15M PRN IV DECREASED GLUCOSE; Start 02/11/17 at 11:00 Dextrose (D50w Syringe) 50 ml Q15M PRN IV DECREASED GLUCOSE; Start 02/11/17 at 11:00 Glucagon (Glucagen) 1 mg Q15M PRN IM DECREASED GLUCOSE; Start 02/11/17 at 11:00 Glucose (Glutose) 15 gm Q15M PRN BUCCAL DECREASED GLUCOSE; Start 02/11/17 at 11 :00 Nitroglycerin (Nitroglycerin (Sl Tab) 0.4 Mg) 1 tab Q5M PRN SL CHEST PAIN; Start 02/11/17 at 14:30 Docusate Sodium (Colace) 100 mg DAILY PO Last administered on 02/14/17 09:46; Admin Dose 100 MG; Start 02/11/17 at 16:30 Acetaminophen/ Hydrocodone Bitart ([place] (5/325)) 1 tab Q6H PRN PO PAIN LEVEL 8 -10 Last administered on 02/13/17 20:14; Admin Dose 1 TAB; Start 02/12/17 at 00 :30 Hydralazine HCl (Apresoline) 10 mg Q4H PRN IV ELEVATED BLOOD PRESSURE Last administered on 02/13/17 16:45; Admin Dose 10 MG; Start 02/12/17 at 13:00 Hydralazine HCl (Apresoline) 100 mg Q8 PO Last administered on 02/14/17 13:13 ; Admin Dose 100 MG; Start 02/12/17 at 22:00 Clonidine HCl (Catapres-Tts 3 Patch) 1 patch Q7D TRANSDERM Last administered on 02/12/17 16:44; Admin Dose 1 PATCH; Start 02/12/17 at 17:00 Clonidine (Catapres) 0.2 mg Q4H PRN PO ELEVATED SYSTOLIC BP Last administered on 02/13/17 11:38; Admin Dose 0.2 MG; Start 02/12/17 at 19:00 Isosorbide Mononitrate (Imdur) 60 mg DAILY PO Last administered on 02/14/17 09 :46; Admin Dose 60 MG; Start 02/13/17 at 09:00 Ketorolac Tromethamine (Toradol) 15 mg Q6H PRN IV PAIN Last administered on 14:12; Admin Dose 15 MG; Start 02/13/17 at 14:00; Stop 02/16/17 at 13:59 Carvedilol (Coreg) 25 mg BID PO Last administered on 02/14/17 09:46; Admin Dose 25 MG; Start 02/13/17 at 14:30 Nifedipine (Procardia Xl) 30 mg BID PO Last administered on 02/14/17 09:46; Admin Dose 30 MG; Start 02/13/17 at 21:00 Ondansetron HCl (Zofran Inj) 4 mg Q6H PRN IV NAUSEA AND/OR VOMITING; Start at 15:00 Furosemide (Lasix) 40 mg Q8 IV Last administered on 02/14/17 13:14; Admin Dose 40 MG; Start 02/13/17 at 22:00 Enoxaparin Sodium 60 mg 60 mg BID SC Last administered on 02/14/17 09:47; Admin Dose 60 MG; Start 02/13/17 at 21:00 Ceftriaxone Sodium (Rocephin) 50 ml @ 100 mls/hr Q24H IVPB Last administered on 02/14/17t 12:40; Admin Dose 100 MLS/HR; Start 02/14/17 at 11:00 Lisinopril (Zestril) 20 mg DAILY PO ; Start 02/15/17 at 09:00 Lisinopril (Zestril) 10 mg ONCE ONCE PO ; Start 02/14/17 at 15:30; Stop at 15:31 Assessment/Plan Chief Complaint/Hosp Course assessment 1. Hypoxemic respiratory failure Multifactorial likely secondary to diastolic dysfunction with pulmonary edema and underlying pulmonary hypertension. Cardiology consult. Remain off BiPAP for possible Outpatient sleep study Outpatient pulmonary function testing 2. Chronic kidney disease with unclear etiology Renal recommendations. Creatinine currently stable 3. Severe pulmonary hypertension likely combination of sleep apnea and possible valvular heart disease. Unlikely primary pulmonary hypertension. Will discuss with cardiology consider trial of sildenafil. 4. Coag negative bacteremia currently on antibiotics 5. Severe systemic hypertension. Blood pressure continues to remain significantly elevated. Patient may require transfer to intensive care unit for intravenous therapy. We will defer to cardiology. Improved at present. Will likely need alf facility. Problems: GLEN BUSTILLOS MD, [facility] Feb 14, 2017 15:27
[2017-02-14] MEDS ORDERED: LISINOPRIL 10 MG TAB PO ONE (15:30)
--- NOTE | 2017-02-14 15:33 | PN ---
Date/Time of Note Date/Time of Note DATE: 02/14/17 TIME: 15:11 Assessment/Plan VTE Prophylaxis VTE Prophylaxis Intervention: heparin Assessment/Plan Chief Complaint/Hosp Course 1. Acute respiratory failure secondary to pulmonary edema from normal and deconditioning- bipap as needed CT chest does show extensive bilateral pulmonary edema, continue diuresis Pulmonology and cardiology following 2. Acute severe decompensated diastolic congestive heart failure Echo shows normal EF Continue diuresis 3. Reported severe pulmonary hypertension 4. Acute kidney injury secondary to possible obstructive uropathy Patient has history of hematuria but left AMA prior to cystoscopy in 2014, patient also has a history of hydronephrosis of the right kidney noted on ultrasound in August of this year Reconsult Dr. Cadet CT abdomen pelvis without contrast to evaluate for possible bladder cancer and hydronephrosis Renal following 5. Constipation Start Colace and senna 6. Morbid obesity with debility and likely sleep apnea Lifestyle changes advised Pulmonology following 7. Thyroid nodule noted on CT chest Follow-up and ultrasound of thyroid 8. Resistant hypertension-BP still elevated Increase lisinopril dose as creatinine stable, continue Coreg, Procardia, Imdur hydralazine and clonidine Cardiology and nephrology following 9. Chronic lymphedema secondary to obesity and deconditioning 9. Subclinical hypothyroidism 10. Diffuse bronchoconstriction / wheezing-resolved Prophylaxis: Heparin / PPI Problems: Subjective 24 Hr Interval Summary Respiratory: shortness of breath Gastrointestinal: constipation Exam/Review of Systems Vital Signs Vitals Vital Signs Date Time Temp Pulse Resp B/P Pulse Ox O2 Delivery O2 Flow Rate FiO2 02/14/17 13:34 4.0 02/14/17 13:34 96 20 96 Nasal Cannula 02/14/17 11:43 98.5 167/79 02/14/17 05:10 40 Intake and Output 02/13/17 02/13/17 02/14/17 15:00 23:00 07:00 Intake Total 420 ml Output Total 1420 ml Balance -1000 ml Exam Constitutional: alert Respiratory: clear to auscultation Cardiovascular: regular rate and rhythm Gastrointestinal: soft, No distended Musculoskeletal: No nl extremities to inspection Results Result Diagram: 02/14/17 0702 02/14/17 0702 Results 24 hrs Laboratory Tests Test 02/13/17 16:59 02/13/17 20:25 02/14/17 07:02 02/14/17 08:37 Bedside Glucose 176 165 163 White Blood Count 7.4 Red Blood Count 4.09 L Hemoglobin 11.3 L Hematocrit 37.9 Mean Corpuscular Volume 92.7 Mean Corpuscular Hemoglobin 27.6 L Mean Corpuscular Hemoglobin Concent 29.8 L Red Cell Distribution Width 17.2 H Platelet Count 277 Mean Platelet Volume 10.7 H Neutrophils % 73.0 Lymphocytes % 14.5 L Monocytes % 9.3 Eosinophils % 1.6 Basophils % 0.8 Nucleated Red Blood Cells % 0.0 Neutrophils # 5.4 Lymphocytes # 1.1 Monocytes # 0.7 Eosinophils # 0.1 Basophils # 0.1 Nucleated Red Blood Cells # 0.0 Sodium Level 137 Potassium Level 3.4 L Chloride Level 89 L Carbon Dioxide Level 33 H Anion Gap 18 H Blood Urea Nitrogen 47 H Creatinine 1.28 H Glucose Level 143 Calcium Level 9.5 Phosphorus Level 3.8 Magnesium Level 2.0 Test 02/14/17 12:01 Bedside Glucose 174 Medications Medications Current Medications Acetaminophen (Tylenol Tab) 650 mg Q6H PRN PO PAIN LEVEL 1-3 OR FEVER Last administered on 02/14/17 01:58; Admin Dose 650 MG; Start 02/11/17 at 03:30 Pantoprazole (Protonix Iv) 40 mg DAILY@06 IV Last administered on 02/14/17 06: 09; Admin Dose 40 MG; Start 02/11/17 at 06:00 Phenol (Cepastat Lozenge) 1 lozenge Q2H PRN MT THROATE IRRITATION Last administered on 02/14/17 06:29; Admin Dose 1 LOZENGE; Start 02/11/17 at 04:30 Diagnostic Test (Pha) (Accu-Chek) 1 ea 02 XX ; Start 02/12/17 at 02:00 Miscellaneous Information 1 ea NOTE XX ; Start 02/11/17 at 11:00 Glucose (Glutose) 15 gm Q15M PRN PO DECREASED GLUCOSE; Start 02/11/17 at 11:00 Glucose (Glutose) 22.5 gm Q15M PRN PO DECREASED GLUCOSE; Start 02/11/17 at 11: 00 Dextrose (D50w Syringe) 25 ml Q15M PRN IV DECREASED GLUCOSE; Start 02/11/17 at 11:00 Dextrose (D50w Syringe) 50 ml Q15M PRN IV DECREASED GLUCOSE; Start 02/11/17 at 11:00 Glucagon (Glucagen) 1 mg Q15M PRN IM DECREASED GLUCOSE; Start 02/11/17 at 11:00 Glucose (Glutose) 15 gm Q15M PRN BUCCAL DECREASED GLUCOSE; Start 02/11/17 at 11 :00 Nitroglycerin (Nitroglycerin (Sl Tab) 0.4 Mg) 1 tab Q5M PRN SL CHEST PAIN; Start 02/11/17 at 14:30 Docusate Sodium (Colace) 100 mg DAILY PO Last administered on 02/14/17 09:46; Admin Dose 100 MG; Start 02/11/17 at 16:30 Acetaminophen/ Hydrocodone Bitart ([place] (5/325)) 1 tab Q6H PRN PO PAIN LEVEL 8 -10 Last administered on 02/13/17 20:14; Admin Dose 1 TAB; Start 02/12/17 at 00 :30 Lisinopril (Zestril) 10 mg DAILY PO Last administered on 02/14/17 09:46; Admin Dose 10 MG; Start 02/12/17 at 10:00 Hydralazine HCl (Apresoline) 10 mg Q4H PRN IV ELEVATED BLOOD PRESSURE Last administered on 02/13/17 16:45; Admin Dose 10 MG; Start 02/12/17 at 13:00 Hydralazine HCl (Apresoline) 100 mg Q8 PO Last administered on 02/14/17 13:13 ; Admin Dose 100 MG; Start 02/12/17 at 22:00 Clonidine HCl (Catapres-Tts 3 Patch) 1 patch Q7D TRANSDERM Last administered on 02/12/17 16:44; Admin Dose 1 PATCH; Start 02/12/17 at 17:00 Clonidine (Catapres) 0.2 mg Q4H PRN PO ELEVATED SYSTOLIC BP Last administered on 02/13/17 11:38; Admin Dose 0.2 MG; Start 02/12/17 at 19:00 Isosorbide Mononitrate (Imdur) 60 mg DAILY PO Last administered on 02/14/17 09 :46; Admin Dose 60 MG; Start 02/13/17 at 09:00 Ketorolac Tromethamine (Toradol) 15 mg Q6H PRN IV PAIN Last administered on 7/ 17/17at 14:12; Admin Dose 15 MG; Start 02/13/17 at 14:00; Stop 02/16/17 at 13:59 Carvedilol (Coreg) 25 mg BID PO Last administered on 02/14/17 09:46; Admin Dose 25 MG; Start 02/13/17 at 14:30 Nifedipine (Procardia Xl) 30 mg BID PO Last administered on 02/14/17 09:46; Admin Dose 30 MG; Start 02/13/17 at 21:00 Ondansetron HCl (Zofran Inj) 4 mg Q6H PRN IV NAUSEA AND/OR VOMITING; Start at 15:00 Furosemide (Lasix) 40 mg Q8 IV Last administered on 02/14/17 13:14; Admin Dose 40 MG; Start 02/13/17 at 22:00 Enoxaparin Sodium 60 mg 60 mg BID SC Last administered on 02/14/17 09:47; Admin Dose 60 MG; Start 02/13/17 at 21:00 Ceftriaxone Sodium (Rocephin) 50 ml @ 100 mls/hr Q24H IVPB Last administered on 02/14/17 12:40; Admin Dose 100 MLS/HR; Start 02/14/17 at 11:00 BENOIT PARISI Feb 14, 2017 15:22
[2017-02-14] MEDS ORDERED: MAGNESIUM HYDROXIDE 30ML CUP PO PRN (16:00)
--- NOTE | 2017-02-14 16:49 | CONS ---
Date/Time of Note Date/Time of Note DATE: 02/14/17 TIME: 16:46 Assessment/Plan Assessment/Plan Chief Complaint/Hosp Course IMP: 1.CHF-Diastolic acute on chronic by most recent echo 2.PHTN 3.Resp failure on BIPAP 4. Bacteremia at OSH. Bld cultures thus far here negative. No definite vegetations by echo done here this admit 5.lymphedema 6.chest pain-negative trop x 3 7. AF-mainly rate controlled 8. HTN-urgency/emergency-? component of discomfort-improving on oral anti- hypertensives 9. H/O PHTN-not significantly elevated by most recent echo REcc: -Tele -serial ecg's -Continue abx's and f/u cx data -Continue hydralazine/clonidine TTS/zestril -Continue hydralazine -Now also started procardia xl follow for side effects -Use PRN anti-hypertensives as necessary -Continue lasix diuresis with slight increase and follow creatnine closely -Continue BIPAP as necessary Problems: Consultation Date/Type/Reason Admit Date/Time Feb 11, 2017 at 00:44 Initial Consult Date 02/11/17 Type of Consultation: cardiology Reason for Consultation CHF Referring Provider: KYLEE MORALES Exam/Review of Systems Vital Signs Vitals Vital Signs Date Time Temp Pulse Resp B/P Pulse Ox O2 Delivery O2 Flow Rate FiO2 02/14/17 16:23 89 02/14/17 16:14 97.9 18 136/66 98 02/14/17 13:34 4.0 02/14/17 13:34 Nasal Cannula 02/14/17 05:10 40 Intake and Output 02/13/17 02/13/17 02/14/17 15:00 23:00 07:00 Intake Total 420 ml Output Total 1420 ml Balance -1000 ml Exam Review of Systems: CONSTITUTIONAL: No fevers, chills. PULMONARY: moderate sob CARDIOVASCULAR: No chest pain/palpitations GASTROINTESTINAL: No nausea/vomiting. GENITOURINARY: No hematuria/dysuria. MUSCULOSKELETAL: No myagias/arthalgias. PSYCHIATRIC: The patient denies depression. NEUROLOGIC: No weakness Constitutional: alert Psych: no complaints Head: normocephalic ENMT: mucosa pink and moist Neck: jvd (10 cm water), supple Respiratory: diminished breath sounds (at bases/B) Cardiovascular: regular rate and rhythm Gastrointestinal: non-tender, soft Musculoskeletal: muscle weakness (generalized) Extremities: edema (Lymphedema bilateral) Results Result Diagram: 02/14/17 0702 02/14/17 0702 Results 24 hrs Laboratory Tests Test 02/13/17 16:59 02/13/17 20:25 02/14/17 07:02 02/14/17 08:37 Bedside Glucose 176 165 163 White Blood Count 7.4 Red Blood Count 4.09 L Hemoglobin 11.3 L Hematocrit 37.9 Mean Corpuscular Volume 92.7 Mean Corpuscular Hemoglobin 27.6 L Mean Corpuscular Hemoglobin Concent 29.8 L Red Cell Distribution Width 17.2 H Platelet Count 277 Mean Platelet Volume 10.7 H Neutrophils % 73.0 Lymphocytes % 14.5 L Monocytes % 9.3 Eosinophils % 1.6 Basophils % 0.8 Nucleated Red Blood Cells % 0.0 Neutrophils # 5.4 Lymphocytes # 1.1 Monocytes # 0.7 Eosinophils # 0.1 Basophils # 0.1 Nucleated Red Blood Cells # 0.0 Sodium Level 137 Potassium Level 3.4 L Chloride Level 89 L Carbon Dioxide Level 33 H Anion Gap 18 H Blood Urea Nitrogen 47 H Creatinine 1.28 H Glucose Level 143 Calcium Level 9.5 Phosphorus Level 3.8 Magnesium Level 2.0 Test 02/14/17 12:01 Bedside Glucose 174 Medications Medications Current Medications Acetaminophen (Tylenol Tab) 650 mg Q6H PRN PO PAIN LEVEL 1-3 OR FEVER Last administered on 02/14/17 01:58; Admin Dose 650 MG; Start 02/11/17 at 03:30 Pantoprazole (Protonix Iv) 40 mg DAILY@06 IV Last administered on 02/14/17 06: 09; Admin Dose 40 MG; Start 02/11/17 at 06:00 Phenol (Cepastat Lozenge) 1 lozenge Q2H PRN MT THROATE IRRITATION Last administered on 02/14/17 06:29; Admin Dose 1 LOZENGE; Start 02/11/17 at 04:30 Diagnostic Test (Pha) (Accu-Chek) 1 ea 02 XX ; Start 02/12/17 at 02:00 Miscellaneous Information 1 ea NOTE XX ; Start 02/11/17 at 11:00 Glucose (Glutose) 15 gm Q15M PRN PO DECREASED GLUCOSE; Start 02/11/17 at 11:00 Glucose (Glutose) 22.5 gm Q15M PRN PO DECREASED GLUCOSE; Start 02/11/17 at 11: 00 Dextrose (D50w Syringe) 25 ml Q15M PRN IV DECREASED GLUCOSE; Start 02/11/17 at 11:00 Dextrose (D50w Syringe) 50 ml Q15M PRN IV DECREASED GLUCOSE; Start 02/11/17 at 11:00 Glucagon (Glucagen) 1 mg Q15M PRN IM DECREASED GLUCOSE; Start 02/11/17 at 11:00 Glucose (Glutose) 15 gm Q15M PRN BUCCAL DECREASED GLUCOSE; Start 02/11/17 at 11 :00 Nitroglycerin (Nitroglycerin (Sl Tab) 0.4 Mg) 1 tab Q5M PRN SL CHEST PAIN; Start 02/11/17 at 14:30 Acetaminophen/ Hydrocodone Bitart ([place] (5/325)) 1 tab Q6H PRN PO PAIN LEVEL 8 -10 Last administered on 02/13/17 20:14; Admin Dose 1 TAB; Start 02/12/17 at 00 :30 Hydralazine HCl (Apresoline) 10 mg Q4H PRN IV ELEVATED BLOOD PRESSURE Last administered on 02/13/17 16:45; Admin Dose 10 MG; Start 02/12/17 at 13:00 Hydralazine HCl (Apresoline) 100 mg Q8 PO Last administered on 02/14/17 13:13 ; Admin Dose 100 MG; Start 02/12/17 at 22:00 Clonidine HCl (Catapres-Tts 3 Patch) 1 patch Q7D TRANSDERM Last administered on 02/12/17 16:44; Admin Dose 1 PATCH; Start 02/12/17 at 17:00 Clonidine (Catapres) 0.2 mg Q4H PRN PO ELEVATED SYSTOLIC BP Last administered on 02/13/17 11:38; Admin Dose 0.2 MG; Start 02/12/17 at 19:00 Isosorbide Mononitrate (Imdur) 60 mg DAILY PO Last administered on 02/14/17 09 :46; Admin Dose 60 MG; Start 02/13/17 at 09:00 Ketorolac Tromethamine (Toradol) 15 mg Q6H PRN IV PAIN Last administered on 14:12; Admin Dose 15 MG; Start 02/13/17 at 14:00; Stop 02/16/17 at 13:59 Carvedilol (Coreg) 25 mg BID PO Last administered on 02/14/17 09:46; Admin Dose 25 MG; Start 02/13/17 at 14:30 Nifedipine (Procardia Xl) 30 mg BID PO Last administered on 02/14/17 09:46; Admin Dose 30 MG; Start 02/13/17 at 21:00 Ondansetron HCl (Zofran Inj) 4 mg Q6H PRN IV NAUSEA AND/OR VOMITING; Start at 15:00 Furosemide (Lasix) 40 mg Q8 IV Last administered on 02/14/17 13:14; Admin Dose 40 MG; Start 02/13/17 at 22:00 Enoxaparin Sodium 60 mg 60 mg BID SC Last administered on 02/14/17 09:47; Admin Dose 60 MG; Start 02/13/17 at 21:00 Ceftriaxone Sodium (Rocephin) 50 ml @ 100 mls/hr Q24H IVPB Last administered on 02/14/17 12:40; Admin Dose 100 MLS/HR; Start 02/14/17 at 11:00 Lisinopril (Zestril) 20 mg DAILY PO ; Start 02/15/17 at 09:00 Docusate Sodium (Colace) 200 mg BID PO ; Start 02/14/17 at 21:00 Senna (Senokot) 1 tab BID PO ; Start 02/14/17 at 21:00 Magnesium Hydroxide (Milk Of Mag) 30 ml DAILY PRN PO CONSTIPATION; Start at 16:00 ASHLEY CONNOR Feb 14, 2017 16:49
--- NOTE | 2017-02-14 17:28 | RADRPT ---
PROCEDURE: Renal US. CLINICAL INDICATION: Hydronephrosis. TECHNIQUE: Multiple sonographic images of the kidneys and urinary bladder were obtained. The imag es were reviewed on a PACS workstation. COMPARISON: Renal ultrasound dated 09/04/2016. FINDINGS: The right kidney measures 10.7 x 5.0 x 4.6 cm. The left kidney measures 10.1 x 5.1 x 5.7 cm. There is no renal mass. There is severe right hydronephrosis and thinning of the right renal parenchyma. There is no left h ydronephrosis. Left renal parenchyma is normal. There is no renal calculus. Echogenicity is normal bilaterally. The perirenal regions are normal with no fluid collection or mass. There is a Benjamin catheter in the urinary bladder. IMPRESSION: 1. Severe right hydronephrosis and thinning of the right renal parenchyma. 2. No left hydronephrosis. Normal left kidney. 3. Benjamin catheter in the bladder. RPTAT: QQ .Avinash Kinney MD, MD Date Time Electronically viewed and signed by .Avinash Kinney MD, MD on 02/14/2017 17:28 .R/
--- NOTE | 2017-02-14 17:44 | RADRPT ---
PROCEDURE: US Thyroid. CLINICAL INDICATION: Enlarged thyroid. TECHNIQUE: High-resolution sonography of the thyroid was performed in the axial and sagittal plane s. COMPARISON: None. FINDINGS: The right lobe measures 8.0 x 4.2 x 4.7 cm. The left lobe measures 4.5 x 2.2 x 1.5 cm. The isthmus measures 0.5 cm. The thyroid is enlarged and diffusely heterogeneous. On the right side, there is a mass measuring 3.4 x 3.0 x 5.2 cm. In the left lobe, there is a benig n cystic nodule measuring 0.4 x 0.3 x 0.5 cm. There is no other thyroid nodule. IMPRESSION: 1. Large mass in the right lobe measuring 3.4 x 3.0 x 5.2 cm. Ultrasound-guided biopsy should be c onsidered. 2. Benign cyst in the left lobe measuring 0.5 cm. 3. Enlarged thyroid. 4. Otherwise unremarkable study. RPTAT: QQ .Avinash Kinney MD, MD Date Time Electronically viewed and signed by .Avinash Kinney MD, on 02/14/2017 17:44 .R/
--- NOTE | 2017-02-14 19:34 | CONS ---
Date/Time of Note Date/Time of Note DATE: 02/14/17 TIME: 19:11 Assessment/Plan Assessment/Plan Chief Complaint/Hosp Course 61-year-old female morbidly obese has severe right hydronephrosis which is chronic. Prior CT scan in 2014 showed the kidney to be dilated and the upper ureter dilated down to the L5 level. Patient does have multiple other significant medical problems consistent of acute respiratory distress severe pulmonary hypertension chronic lymphedema coagulase-negative bacteremia hypertension and morbid obesity. CT scan of the abdomen and pelvis has been ordered and is still pending Problems: Additional Assessment/Plan Severe right hydronephrosis with thinning of the renal parenchyma on the right side, normal left kidney. Patient is supposed to have CT scan of the abdomen and pelvis to check for any obstruction. If there is no obstructing lesion or stone most likely will leave her alone as the right kidney is unlikely to regain any additional function I will send urine for cytology 3 to check for. cancer cells in her urine Consultation Date/Type/Reason Admit Date/Time Feb 11, 2017 at 00:44 Date of Consultation: Feb 14, 2017 Type of Consultation: Urology Reason for Consultation Right renal hydronephrosis Hx of Present Illness 61-year-old female morbidly obese presented to [facility] because of shortness of breath, congestive heart failure and possible bacteremia. While at [place] she had hypertensive crisis and was treated for it. Once is stable the patient was transferred to [facility] because of her insurance. Patient is known to have a history of gross hematuria in 2014. At that time CT scan showed right hydronephrosis and the patient was supposed to have a cystoscopy to check for bladder tumor or obstruction but she left AGAINST MEDICAL ADVICE. The patient had renal ultrasound and that showed right hydronephrosis with thinning of the renal parenchyma. Therefore a urological consultation was requested. Patient denies any recent hematuria and denies any dysuria, she lives at home alone but she has in home services Constitutional: no complaints, requiring O2 Eyes: no complaints ENT: no complaints Respiratory: shortness of breath Cardiovascular: No chest pain Gastrointestinal: constipation, No nausea, No pain, No vomiting Genitourinary: No bleeding, No hematuria Musculoskeletal: no complaints Skin: no complaints Neurologic: headache Endocrine: no complaints Lymphatic: lymphadema Psychological: no complaints Past Medical History Medical History: cancer, congestive heart failure, hypertension, other (Right hydronephrosis, chronic kidney disease, pulmonary hypertension, morbid obesity) Past Surgical History Past Surgical Hx: bowel resection, other (Hysterectomy followed by radiation, colon resection for cancer) Family History Significant Family History: diabetes, hypertension Social History Alcohol Use: none Smoking Status: Former smoker (Half pack per year 11 years, she quit 20 years ago) Drug Use: none Exam/Review of Systems Vital Signs Vitals Vital Signs Date Time Temp Pulse Resp B/P Pulse Ox O2 Delivery O2 Flow Rate FiO2 02/14/17 16:23 89 02/14/17 16:14 97.9 18 136/66 98 02/14/17 13:34 4.0 02/14/17 13:34 Nasal Cannula 02/14/17 05:10 40 Intake and Output 02/13/17 02/13/17 02/14/17 15:00 23:00 07:00 Intake Total 420 ml Output Total 1420 ml Balance -1000 ml Exam Constitutional: alert, oriented Psych: no complaints Head: normocephalic Eyes: nl conjunctiva ENMT: nl external ears & nose Neck: supple Respiratory: normal air movement Cardiovascular: regular rate and rhythm Gastrointestinal: other (Very obese abdomen), soft, surgical scars Genitourinary - Female: other (Pelvic exam no mass no discharge no bleeding), uterus (Absent, patient status post hysterectomy), No CVA tenderness Musculoskeletal: other (Edema of lower extremities), swelling Extremities: edema, other (It appears the swelling of the lower extremities have decreased with the diuresis), No calf tenderness Skin: nl turgor Results Result Diagram: 02/14/17 0702 02/14/17 0702 Results 24 hrs Laboratory Tests Test 02/13/17 20:25 02/14/17 07:02 02/14/17 08:37 02/14/17 12:01 Bedside Glucose 165 163 174 White Blood Count 7.4 Red Blood Count 4.09 L Hemoglobin 11.3 L Hematocrit 37.9 Mean Corpuscular Volume 92.7 Mean Corpuscular Hemoglobin 27.6 L Mean Corpuscular Hemoglobin Concent 29.8 L Red Cell Distribution Width 17.2 H Platelet Count 277 Mean Platelet Volume 10.7 H Neutrophils % 73.0 Lymphocytes % 14.5 L Monocytes % 9.3 Eosinophils % 1.6 Basophils % 0.8 Nucleated Red Blood Cells % 0.0 Neutrophils # 5.4 Lymphocytes # 1.1 Monocytes # 0.7 Eosinophils # 0.1 Basophils # 0.1 Nucleated Red Blood Cells # 0.0 Sodium Level 137 Potassium Level 3.4 L Chloride Level 89 L Carbon Dioxide Level 33 H Anion Gap 18 H Blood Urea Nitrogen 47 H Creatinine 1.28 H Glucose Level 143 Calcium Level 9.5 Phosphorus Level 3.8 Magnesium Level 2.0 Test 02/14/17 17:04 Bedside Glucose 139 Medications Medications Current Medications Acetaminophen (Tylenol Tab) 650 mg Q6H PRN PO PAIN LEVEL 1-3 OR FEVER Last administered on 02/14/17 01:58; Admin Dose 650 MG; Start 02/11/17 at 03:30 Pantoprazole (Protonix Iv) 40 mg DAILY@06 IV Last administered on 02/14/17 06: 09; Admin Dose 40 MG; Start 02/11/17 at 06:00 Phenol (Cepastat Lozenge) 1 lozenge Q2H PRN MT THROATE IRRITATION Last administered on 02/14/17 06:29; Admin Dose 1 LOZENGE; Start 02/11/17 at 04:30 Diagnostic Test (Pha) (Accu-Chek) 1 ea 02 XX ; Start 02/12/17 at 02:00 Miscellaneous Information 1 ea NOTE XX ; Start 02/11/17 at 11:00 Glucose (Glutose) 15 gm Q15M PRN PO DECREASED GLUCOSE; Start 02/11/17 at 11:00 Glucose (Glutose) 22.5 gm Q15M PRN PO DECREASED GLUCOSE; Start 02/11/17 at 11: 00 Dextrose (D50w Syringe) 25 ml Q15M PRN IV DECREASED GLUCOSE; Start 02/11/17 at 11:00 Dextrose (D50w Syringe) 50 ml Q15M PRN IV DECREASED GLUCOSE; Start 02/11/17 at 11:00 Glucagon (Glucagen) 1 mg Q15M PRN IM DECREASED GLUCOSE; Start 02/11/17 at 11:00 Glucose (Glutose) 15 gm Q15M PRN BUCCAL DECREASED GLUCOSE; Start 02/11/17 at 11 :00 Nitroglycerin (Nitroglycerin (Sl Tab) 0.4 Mg) 1 tab Q5M PRN SL CHEST PAIN; Start 02/11/17 at 14:30 Acetaminophen/ Hydrocodone Bitart ([place] (5/325)) 1 tab Q6H PRN PO PAIN LEVEL 8 -10 Last administered on 02/13/17 20:14; Admin Dose 1 TAB; Start 02/12/17 at 00 :30 Hydralazine HCl (Apresoline) 10 mg Q4H PRN IV ELEVATED BLOOD PRESSURE Last administered on 02/13/17 16:45; Admin Dose 10 MG; Start 02/12/17 at 13:00 Hydralazine HCl (Apresoline) 100 mg Q8 PO Last administered on 02/14/17 13:13 ; Admin Dose 100 MG; Start 02/12/17 at 22:00 Clonidine HCl (Catapres-Tts 3 Patch) 1 patch Q7D TRANSDERM Last administered on 02/12/17 16:44; Admin Dose 1 PATCH; Start 02/12/17 at 17:00 Clonidine (Catapres) 0.2 mg Q4H PRN PO ELEVATED SYSTOLIC BP Last administered on 02/13/17 11:38; Admin Dose 0.2 MG; Start 02/12/17 at 19:00 Isosorbide Mononitrate (Imdur) 60 mg DAILY PO Last administered on 02/14/17 09 :46; Admin Dose 60 MG; Start 02/13/17 at 09:00 Ketorolac Tromethamine (Toradol) 15 mg Q6H PRN IV PAIN Last administered on 14:12; Admin Dose 15 MG; Start 02/13/17 at 14:00; Stop 02/16/17 at 13:59 Carvedilol (Coreg) 25 mg BID PO Last administered on 02/14/17 09:46; Admin Dose 25 MG; Start 02/13/17 at 14:30 Nifedipine (Procardia Xl) 30 mg BID PO Last administered on 02/14/17 09:46; Admin Dose 30 MG; Start 02/13/17 at 21:00 Ondansetron HCl (Zofran Inj) 4 mg Q6H PRN IV NAUSEA AND/OR VOMITING; Start at 15:00 Enoxaparin Sodium 60 mg 60 mg BID SC Last administered on 02/14/17 09:47; Admin Dose 60 MG; Start 02/13/17 at 21:00 Ceftriaxone Sodium (Rocephin) 50 ml @ 100 mls/hr Q24H IVPB Last administered on 02/14/17t 12:40; Admin Dose 100 MLS/HR; Start 02/14/17 at 11:00 Lisinopril (Zestril) 20 mg DAILY PO ; Start 02/15/17 at 09:00 Docusate Sodium (Colace) 200 mg BID PO ; Start 02/14/17 at 21:00 Senna (Senokot) 1 tab BID PO ; Start 02/14/17 at 21:00 Magnesium Hydroxide (Milk Of Mag) 30 ml DAILY PRN PO CONSTIPATION; Start at 16:00 Furosemide (Lasix) 60 mg Q8 IV ; Start 02/14/17 at 22:00 LAURA ZULETA MD Feb 14, 2017 19:23
[2017-02-14] MEDS: SENNA TAB PO SCH (20:52)
[2017-02-14] MEDS: FUROSEMIDE 20 MG INJ IV SCH (22:12)
[2017-02-15] VITALS (18 sets, daily range): BP systolic 122–152; BP diastolic 58–74; PULSE 60–112; RESP 19–20
[2017-02-15] MEDS: ALBUTEROL/IPRATROPIUM (NEB) 3 ML AMP HHN SCH ×4 (01:39→19:43)
[2017-02-15] MEDS: ACCU-CHEK XX SCH (02:00)
--- NOTE | 2017-02-15 03:43 | CONS ---
DATE OF ADMISSION: 02/11/2017 DATE OF CONSULTATION: 02/11/2017 Vascular Surgery Consultation Dear Doctors, Ms. Deleon is a 61-year-old female, whom was transferred over from [facility] secondary to having hypertensive emergency, in addition to having diastolic heart failure and acute respiratory failure. During her evaluation, patient has had also a long-standing history of bilateral lower extremity lymphedema, in which the right lower extremity is worse than the left. The patient currently on a Lasix drip and is on BiPAP, not able to fully communicate but we are asking her as many questions as possible. During our conversation the patient has had a long- standing history of her lymphedema for many years and has been ambulatory despite of that. She does not currently have any sort of conservative management or compression dressing recommendations other than having help with massage support. She currently denies chest pain. She does have shortness of breath. Denies lower extremity claudication or rest pain like symptoms. Denies nausea, vomiting. REVIEW OF SYSTEMS: Fourteen point review performed negative except as was mentioned in HPI. PAST MEDICAL HISTORY: 1. Morbidly obese. 2. Diastolic heart failure. 3. Colon cancer. 4. Chronic bilateral lower extremity lymphedema. 5. Hypertension. 6. Hypercholesterolemia. 7. History of bilateral lower extremity cellulitis. 8. BMI of 40.6. PAST SURGICAL HISTORY: 1. Hysterectomy. 2. History of colon resection. FAMILY HISTORY: Positive for diabetes and hypertension. SOCIAL HISTORY: Previous smoker for many years. Denies current tobacco, alcohol, or illicit drug use. PHYSICAL EXAMINATION: GENERAL APPEARANCE: She is alert, oriented x3. HEENT: Normocephalic, atraumatic. PERRLA. EOMI. Mucosa moist. NECK: Supple. No carotid bruit. LUNGS: Coarse breath sounds bilaterally with crackles at the bases. The patient currently on BiPAP. HEART: S1, S2 present. No murmurs. ABDOMEN: Soft, nontender, nondistended. Bowel sounds positive. Large truncal obesity. Large pannus. EXTREMITIES: Unable to palpate a femoral pulse secondary to body habitus. Unable to palpate the pedal pulse secondary to edema. Motor and sensory seemed to be intact. Capillary refill about 3 seconds. The patient has bilateral large legs, near elephantiasis, and has edema that is 4+, extends all the way up to the thigh. ASSESSMENT AND PLAN: Bilateral lower extremity atherosclerosis: It seems the patient has some component of infrainguinal atherosclerotic disease, although the patient has significant edema it is difficult to ascertain her pedal pulses is contributed to that. We will plan to obtain arterial ultrasound to further evaluate our findings and for a possible vascular observation surveillance. Bilateral lower extremity lymphedema: It seems the patient has a chronic history of lymphedema, would like to further evaluate this as the patient may have venous insufficiency and would require further compression dressing changes. Will plan to provide a two-layer compression dressings, one extremity at a time, as the patient has congestive heart failure and would like to prevent making the matters worse. Optimize vascular status (blood pressure medications, diet, nutrition, exercise, sugar control, antiplatelets). Discussed findings, plan and management with the patient. She understands. Thank you for allowing us to partake in the care of your patient. Please call with any questions. Dictated By: Jordy Ford MD /liv/zane /Document#: [id number]
[2017-02-15] MEDS: PANTOPRAZOLE 40 MG INJ IV SCH (05:52)
[2017-02-15] MEDS: FUROSEMIDE 20 MG INJ IV SCH ×3 (05:53→20:41)
[2017-02-15] MEDS: ACETAMINOPHEN 325 MG TAB PO PRN (05:56)
[2017-02-15] MEDS: INSULIN ASPART [NOVOLOG] 3 ML PEN SC SCH ×4 (08:25→20:37)
[2017-02-15] MEDS: DOCUSATE SODIUM 100 MG CAP PO SCH ×2 (08:27→20:24)
[2017-02-15] MEDS: LISINOPRIL 20 MG TAB PO SCH (08:28)
[2017-02-15] MEDS: SENNA TAB PO SCH ×2 (08:29→20:28)
[2017-02-15] MEDS: NIFEdipine (XL) 30 MG TAB PO SCH ×2 (08:29→20:27)
[2017-02-15 08:31] LABS: ADD SCAN DIFF NO
[2017-02-15] MEDS: ENOXAPARIN 60 MG/0.6 ML SYG SC SCH ×2 (08:37→20:31)
[2017-02-15] MEDS: ISOSORBIDE MONONITRATE(SR)60 MG TAB PO SCH (08:40)
[2017-02-15 08:41] LABS: HEMATOCRIT 26.7 % (37.0-47.0); HEMOGLOBIN 8.1 g/dl (12.0-16.0); MEAN CORPUSCULAR HEMOGLOBIN 28.4 pg (29.0-33.0); MEAN CORPUSCULAR HGB CONC 30.3 g/dl (32.0-37.0); MEAN CORPUSCULAR VOLUME 93.7 fl (82.0-101.0); MEAN PLATELET VOLUME 11.6 fl (7.4-10.4); RED BLOOD COUNT 2.85 10^6/ul (4.20-5.40); WHITE BLOOD COUNT 5.5 10^3/ul (4.8-10.8)
[2017-02-15 08:54] LABS: PLATELET COUNT 133 10^3/UL (140-415)
[2017-02-15 09:12] LABS: CALCIUM 7.3 mg/dl (8.4-10.2); CREATININE 1.08 mg/dl (0.44-1.00); MAGNESIUM 1.6 mg/dl (1.7-2.5)
[2017-02-15 10:09] LABS: POTASSIUM 2.7 mmol/L (3.5-5.1)
[2017-02-15] MEDS: CEFTRIAXONE 1 GM/50 ML (PMX) 50 ML IVPB SCH (11:00)
[2017-02-15 12:36] LABS: BASOPHIL # 0.1 10^3/ul (0.0-0.1); EOSINOPHILS # 0.2 10^3/ul (0.0-0.5); LYMPHOCYTES # 1.3 10^3/ul (0.8-2.9); MONOCYTE # 0.3 10^3/ul (0.3-0.9); NEUTROPHIL # 3.7 10^3/ul (1.6-7.5); OVALOCYTES 1+; PLATELET ESTIMATE PLT APPEAR DECREASED
--- NOTE | 2017-02-15 14:25 | CONS ---
Date/Time of Note Date/Time of Note DATE: 02/15/17 TIME: 14:23 Consult Date/Type/Reason Admit Date/Time Feb 11, 2017 at 00:44 Initial Consult Date 02/11/17 Type of Consultation: Pulmonary Ordering Provider: KYLEE MORALES Subjective Patient remains stable no new events Objective Vital Signs Date Time Temp Pulse Resp B/P Pulse Ox O2 Delivery O2 Flow Rate FiO2 02/15/17 14:11 83 20 98 Nasal Cannula 4.0 02/15/17 11:50 98.0 135/62 02/15/17 05:20 40 Intake and Output 02/14/17 02/14/17 02/15/17 14:59 22:59 06:59 Intake Total 500 ml 1100 ml 600 ml Output Total 600 ml 1200 ml 700 ml Balance -100 ml -100 ml -100 ml Exam GENERAL: Morbidly obese lady on nasal cannula oxygen VITAL SIGNS: per chart NECK: Supple. No JVD or lymphadenopathy. CARDIAC EXAM: S1, S2. No added sounds or murmurs. CHEST: Diminished air entry bilaterally ABDOMEN: Soft, nontender. No guarding or rebound. EXTREMITIES: No cyanosis, clubbing or edema. NEUROLOGIC: Generalized weakness. No focal deficits. Results/Medications Result Diagram: 02/15/17 0749 02/15/17 0749 Results 24 hrs Laboratory Tests Test 02/14/17 17:04 02/14/17 20:50 02/15/17 07:49 02/15/17 08:22 Bedside Glucose 139 145 158 White Blood Count 5.5 # Red Blood Count 2.85 #L Hemoglobin 8.1 #L Hematocrit 26.7 #L Mean Corpuscular Volume 93.7 Mean Corpuscular Hemoglobin 28.4 L Mean Corpuscular Hemoglobin Concent 30.3 L Red Cell Distribution Width 17.0 H Platelet Count 133 #L Mean Platelet Volume 11.6 H Neutrophils % 67.0 Lymphocytes % 23.0 Monocytes % 6.0 Eosinophils % 3.0 Basophils % 1.0 Neutrophils # 3.7 Lymphocytes # 1.3 Monocytes # 0.3 Eosinophils # 0.2 Basophils # 0.1 Platelet Estimate PLT APPEAR DECREASED Ovalocytes 1+ Sodium Level 140 Potassium Level 2.7 *L Chloride Level 100 # Carbon Dioxide Level 29 Anion Gap 14 Blood Urea Nitrogen 42 H Creatinine 1.08 H Glucose Level 116 Calcium Level 7.3 L Phosphorus Level 3.0 Magnesium Level 1.6 L Test 02/15/17 12:27 Bedside Glucose 203 Medications Current Medications Acetaminophen (Tylenol Tab) 650 mg Q6H PRN PO PAIN LEVEL 1-3 OR FEVER Last administered on 02/15/17 05:56; Admin Dose 650 MG; Start 02/11/17 at 03:30 Pantoprazole (Protonix Iv) 40 mg DAILY@06 IV Last administered on 02/15/17 05: 52; Admin Dose 40 MG; Start 02/11/17 at 06:00 Phenol (Cepastat Lozenge) 1 lozenge Q2H PRN MT THROATE IRRITATION Last administered on 02/14/17 06:29; Admin Dose 1 LOZENGE; Start 02/11/17 at 04:30 Diagnostic Test (Pha) (Accu-Chek) 1 ea 02 XX ; Start 02/12/17 at 02:00 Miscellaneous Information 1 ea NOTE XX ; Start 02/11/17 at 11:00 Glucose (Glutose) 15 gm Q15M PRN PO DECREASED GLUCOSE; Start 02/11/17 at 11:00 Glucose (Glutose) 22.5 gm Q15M PRN PO DECREASED GLUCOSE; Start 02/11/17 at 11: 00 Dextrose (D50w Syringe) 25 ml Q15M PRN IV DECREASED GLUCOSE; Start 02/11/17 at 11:00 Dextrose (D50w Syringe) 50 ml Q15M PRN IV DECREASED GLUCOSE; Start 02/11/17 at 11:00 Glucagon (Glucagen) 1 mg Q15M PRN IM DECREASED GLUCOSE; Start 02/11/17 at 11:00 Glucose (Glutose) 15 gm Q15M PRN BUCCAL DECREASED GLUCOSE; Start 02/11/17 at 11 :00 Nitroglycerin (Nitroglycerin (Sl Tab) 0.4 Mg) 1 tab Q5M PRN SL CHEST PAIN; Start 02/11/17 at 14:30 Acetaminophen/ Hydrocodone Bitart ([place] (5/325)) 1 tab Q6H PRN PO PAIN LEVEL 8 -10 Last administered on 02/13/17 20:14; Admin Dose 1 TAB; Start 02/12/17 at 00 :30 Hydralazine HCl (Apresoline) 10 mg Q4H PRN IV ELEVATED BLOOD PRESSURE Last administered on 02/13/17 16:45; Admin Dose 10 MG; Start 02/12/17 at 13:00 Hydralazine HCl (Apresoline) 100 mg Q8 PO Last administered on 02/15/17 05:53 ; Admin Dose 100 MG; Start 02/12/17 at 22:00 Clonidine HCl (Catapres-Tts 3 Patch) 1 patch Q7D TRANSDERM Last administered on 02/12/17 16:44; Admin Dose 1 PATCH; Start 02/12/17 at 17:00 Clonidine (Catapres) 0.2 mg Q4H PRN PO ELEVATED SYSTOLIC BP Last administered on 02/13/17 11:38; Admin Dose 0.2 MG; Start 02/12/17 at 19:00 Isosorbide Mononitrate (Imdur) 60 mg DAILY PO Last administered on 02/15/17 08 :40; Admin Dose 60 MG; Start 02/13/17 at 09:00 Ketorolac Tromethamine (Toradol) 15 mg Q6H PRN IV PAIN Last administered on 14:12; Admin Dose 15 MG; Start 02/13/17 at 14:00; Stop 02/16/17 at 13:59 Carvedilol (Coreg) 25 mg BID PO Last administered on 02/15/17 08:29; Admin Dose 25 MG; Start 02/13/17 at 14:30 Nifedipine (Procardia Xl) 30 mg BID PO Last administered on 02/15/17 08:29; Admin Dose 30 MG; Start 02/13/17 at 21:00 Ondansetron HCl (Zofran Inj) 4 mg Q6H PRN IV NAUSEA AND/OR VOMITING; Start at 15:00 Enoxaparin Sodium 60 mg 60 mg BID SC Last administered on 02/15/17 08:37; Admin Dose 60 MG; Start 02/13/17 at 21:00 Ceftriaxone Sodium (Rocephin) 50 ml @ 100 mls/hr Q24H IVPB Last administered on 02/15/17 11:00; Admin Dose 100 MLS/HR; Start 02/14/17 at 11:00 Lisinopril (Zestril) 20 mg DAILY PO Last administered on 02/15/17 08:28; Admin Dose 20 MG; Start 02/15/17 at 09:00 Docusate Sodium (Colace) 200 mg BID PO Last administered on 02/15/17 08:27; Admin Dose 200 MG; Start 02/14/17 at 21:00 Senna (Senokot) 1 tab BID PO Last administered on 02/15/17 08:29; Admin Dose 1 TAB; Start 02/14/17 at 21:00 Magnesium Hydroxide (Milk Of Mag) 30 ml DAILY PRN PO CONSTIPATION; Start at 16:00 Furosemide 60 mg 60 mg Q8 IV Last administered on 02/15/17 05:53; Admin Dose 60 MG; Start 02/14/17 at 22:00 Potassium Chloride (KCl 40 MEQ/250 ML NS) 250 ml @ 62.5 mls/hr Q4H IVPB ; Start 02/15/17 at 14:30; Stop 02/15/17 at 22:29 Assessment/Plan Chief Complaint/Hosp Course assessment 1. Hypoxemic respiratory failure, clinically improved Multifactorial likely secondary to diastolic dysfunction with pulmonary edema and underlying pulmonary hypertension. Cardiology consult. Remain off BiPAP for possible Outpatient sleep study Outpatient pulmonary function testing 2. Chronic kidney disease with unclear etiology Renal recommendations. Creatinine currently stable, correct hypokalemia 3. Severe pulmonary hypertension likely combination of sleep apnea and possible valvular heart disease. Unlikely primary pulmonary hypertension. Likely multifactorial secondary to underlying chronic lung disease and obstructive sleep apnea in addition to structural heart disease. 4. Coag negative bacteremia currently on antibiotics consider de-escalation 5. Severe systemic hypertension. Blood pressure continues to remain significantly elevated. Patient may require transfer to intensive care unit for intravenous therapy. We will defer to cardiology. Improved at present. Patient requesting to go home with home health. Problems: GLEN BUSTILLOS MD, [facility] Feb 15, 2017 14:25
--- NOTE | 2017-02-15 14:48 | CONS ---
Date/Time of Note Date/Time of Note DATE: 02/15/17 TIME: 14:44 Assessment/Plan Assessment/Plan Chief Complaint/Hosp Course IMP: 1.CHF-Diastolic acute on chronic by most recent echo 2.PHTN 3.Resp failure on BIPAP 4. Bacteremia at OSH. Bld cultures thus far here negative. No definite vegetations by echo done here this admit 5.lymphedema 6.chest pain-negative trop x 3 7. AF-rate controlled 8. HTN-urgency/emergency-? component of discomfort-improving on oral anti- hypertensives 9. H/O PHTN-not significantly elevated by most recent echo 10.REnal failure -improving 11.hydronephrosis 12. NSVT-NL EF by echo REcc: -Tele -serial ecg's -Continue abx's and f/u cx data -Continue hydralazine/clonidine TTS/zestril -Now also started procardia xl follow for side effects -Use PRN anti-hypertensives as necessary -Continue lasix diuresis and follow creatnine closely -Continue BIPAP as necessary -Replete K>4.0 and mg>2.0 Problems: Consultation Date/Type/Reason Admit Date/Time Feb 11, 2017 at 00:44 Initial Consult Date 02/11/17 Type of Consultation: cardiology Reason for Consultation CHF Referring Provider: KYLEE MORALES Exam/Review of Systems Vital Signs Vitals Vital Signs Date Time Temp Pulse Resp B/P Pulse Ox O2 Delivery O2 Flow Rate FiO2 02/15/17 14:11 83 20 98 Nasal Cannula 4.0 02/15/17 11:50 98.0 135/62 02/15/17 05:20 40 Intake and Output 02/14/17 02/14/17 02/15/17 15:00 23:00 07:00 Intake Total 500 ml 1100 ml 600 ml Output Total 600 ml 1200 ml 700 ml Balance -100 ml -100 ml -100 ml Exam Review of Systems: CONSTITUTIONAL: No fevers, chills. PULMONARY: improving sob CARDIOVASCULAR: No chest pain/palpitations GASTROINTESTINAL: No nausea/vomiting. GENITOURINARY: No hematuria/dysuria. MUSCULOSKELETAL: No myagias/arthalgias. PSYCHIATRIC: The patient denies depression. NEUROLOGIC: No weakness Psych: no complaints Head: normocephalic ENMT: mucosa pink and moist Neck: jvd (9-10 cm water), supple Respiratory: diminished breath sounds (at bases/B) Cardiovascular: irregular rhythm Gastrointestinal: non-tender, soft Musculoskeletal: muscle weakness (generalized) Extremities: other (lymphedema) Neurological: other (No focal deficits) Results Result Diagram: 02/15/17 0749 02/15/17 0749 Results 24 hrs Laboratory Tests Test 02/14/17 17:04 02/14/17 20:50 02/15/17 07:49 02/15/17 08:22 Bedside Glucose 139 145 158 White Blood Count 5.5 # Red Blood Count 2.85 #L Hemoglobin 8.1 #L Hematocrit 26.7 #L Mean Corpuscular Volume 93.7 Mean Corpuscular Hemoglobin 28.4 L Mean Corpuscular Hemoglobin Concent 30.3 L Red Cell Distribution Width 17.0 H Platelet Count 133 #L Mean Platelet Volume 11.6 H Neutrophils % 67.0 Lymphocytes % 23.0 Monocytes % 6.0 Eosinophils % 3.0 Basophils % 1.0 Neutrophils # 3.7 Lymphocytes # 1.3 Monocytes # 0.3 Eosinophils # 0.2 Basophils # 0.1 Platelet Estimate PLT APPEAR DECREASED Ovalocytes 1+ Sodium Level 140 Potassium Level 2.7 *L Chloride Level 100 # Carbon Dioxide Level 29 Anion Gap 14 Blood Urea Nitrogen 42 H Creatinine 1.08 H Glucose Level 116 Calcium Level 7.3 L Phosphorus Level 3.0 Magnesium Level 1.6 L Test 02/15/17 12:27 Bedside Glucose 203 Medications Medications Current Medications Acetaminophen (Tylenol Tab) 650 mg Q6H PRN PO PAIN LEVEL 1-3 OR FEVER Last administered on 02/15/17 05:56; Admin Dose 650 MG; Start 02/11/17 at 03:30 Pantoprazole (Protonix Iv) 40 mg DAILY@06 IV Last administered on 02/15/17 05: 52; Admin Dose 40 MG; Start 02/11/17 at 06:00 Phenol (Cepastat Lozenge) 1 lozenge Q2H PRN MT THROATE IRRITATION Last administered on 02/14/17 06:29; Admin Dose 1 LOZENGE; Start 02/11/17 at 04:30 Diagnostic Test (Pha) (Accu-Chek) 1 ea 02 XX ; Start 02/12/17 at 02:00 Miscellaneous Information 1 ea NOTE XX ; Start 02/11/17 at 11:00 Glucose (Glutose) 15 gm Q15M PRN PO DECREASED GLUCOSE; Start 02/11/17 at 11:00 Glucose (Glutose) 22.5 gm Q15M PRN PO DECREASED GLUCOSE; Start 02/11/17 at 11: 00 Dextrose (D50w Syringe) 25 ml Q15M PRN IV DECREASED GLUCOSE; Start 02/11/17 at 11:00 Dextrose (D50w Syringe) 50 ml Q15M PRN IV DECREASED GLUCOSE; Start 02/11/17 at 11:00 Glucagon (Glucagen) 1 mg Q15M PRN IM DECREASED GLUCOSE; Start 02/11/17 at 11:00 Glucose (Glutose) 15 gm Q15M PRN BUCCAL DECREASED GLUCOSE; Start 02/11/17 at 11 :00 Nitroglycerin (Nitroglycerin (Sl Tab) 0.4 Mg) 1 tab Q5M PRN SL CHEST PAIN; Start 02/11/17 at 14:30 Acetaminophen/ Hydrocodone Bitart ([place] (5/325)) 1 tab Q6H PRN PO PAIN LEVEL 8 -10 Last administered on 02/13/17 20:14; Admin Dose 1 TAB; Start 02/12/17 at 00 :30 Hydralazine HCl (Apresoline) 10 mg Q4H PRN IV ELEVATED BLOOD PRESSURE Last administered on 02/13/17 16:45; Admin Dose 10 MG; Start 02/12/17 at 13:00 Hydralazine HCl (Apresoline) 100 mg Q8 PO Last administered on 02/15/17 05:53 ; Admin Dose 100 MG; Start 02/12/17 at 22:00 Clonidine HCl (Catapres-Tts 3 Patch) 1 patch Q7D TRANSDERM Last administered on 02/12/17 16:44; Admin Dose 1 PATCH; Start 02/12/17 at 17:00 Clonidine (Catapres) 0.2 mg Q4H PRN PO ELEVATED SYSTOLIC BP Last administered on 02/13/17 11:38; Admin Dose 0.2 MG; Start 02/12/17 at 19:00 Isosorbide Mononitrate (Imdur) 60 mg DAILY PO Last administered on 02/15/17 08 :40; Admin Dose 60 MG; Start 02/13/17 at 09:00 Ketorolac Tromethamine (Toradol) 15 mg Q6H PRN IV PAIN Last administered on 14:12; Admin Dose 15 MG; Start 02/13/17 at 14:00; Stop 02/16/17 at 13:59 Carvedilol (Coreg) 25 mg BID PO Last administered on 02/15/17 08:29; Admin Dose 25 MG; Start 02/13/17 at 14:30 Nifedipine (Procardia Xl) 30 mg BID PO Last administered on 02/15/17 08:29; Admin Dose 30 MG; Start 02/13/17 at 21:00 Ondansetron HCl (Zofran Inj) 4 mg Q6H PRN IV NAUSEA AND/OR VOMITING; Start at 15:00 Enoxaparin Sodium 60 mg 60 mg BID SC Last administered on 02/15/17 08:37; Admin Dose 60 MG; Start 02/13/17 at 21:00 Ceftriaxone Sodium (Rocephin) 50 ml @ 100 mls/hr Q24H IVPB Last administered on 02/15/17 11:00; Admin Dose 100 MLS/HR; Start 02/14/17 at 11:00 Lisinopril (Zestril) 20 mg DAILY PO Last administered on 02/15/17 08:28; Admin Dose 20 MG; Start 02/15/17 at 09:00 Docusate Sodium (Colace) 200 mg BID PO Last administered on 02/15/17 08:27; Admin Dose 200 MG; Start 02/14/17 at 21:00 Senna (Senokot) 1 tab BID PO Last administered on 02/15/17 08:29; Admin Dose 1 TAB; Start 02/14/17 at 21:00 Magnesium Hydroxide (Milk Of Mag) 30 ml DAILY PRN PO CONSTIPATION; Start at 16:00 Furosemide 60 mg 60 mg Q8 IV Last administered on 02/15/17 05:53; Admin Dose 60 MG; Start 02/14/17 at 22:00 Potassium Chloride (KCl 40 MEQ/250 ML NS) 250 ml @ 62.5 mls/hr Q4H IVPB ; Start 02/15/17 at 14:30; Stop 02/15/17 at 22:29 ASHLEY CONNOR 19, 2017 14:47
[2017-02-15] MEDS: POTASSIUM CHLORIDE 250 ML IVPB SCH ×2 (15:49→17:24)
[2017-02-15] MEDS ORDERED: MAGNESIUM SULFATE 3 GM in SOD CHLORIDE 0.9% 100 ML IVPB ONE (16:00)
--- NOTE | 2017-02-15 16:47 | RADRPT ---
PROCEDURE: CT Abdomen and Pelvis without contrast. CLINICAL INDICATION: Evaluate for bladder cancer and hydronephrosis. TECHNIQUE: CT scan of the abdomen and pelvis without contrast was performed on a multidetector hig h-resolution CT scanner. The patient was scanned without intravenous contrast. Coronal and sagittal reformatted images were obtained from the axial source images. Images were reviewed on a high-resol [employer] PACS workstation. The total exam CTDI equals 23.04 mGy and the total exam DLP equals 1393.81 m Gy-cm. One or more of the following dose reduction techniques were used: Automated exposure control. Adjustment of the mA and/or kV according to patient size. Use of iterative reconstruction technique. COMPARISON: CT chest 02/13/2017. Outside CT abdomen and pelvis 10/17/2014 FINDINGS: CT abdomen: The lung bases are remarkable for moderate to large right and small to moderate left pleural effusio ns . There is partial atelectasis of bilateral lower lobes. There has been interval improvement of i nterstitial edema with persistent patchy airspace disease in the anterior left lower lobe. There is subsegmental atelectasis in the posterior right middle lobe. The heart size is enlarged without per icardial thickening or effusion. There is mild hiatal hernia. Enlarged tubular structures are seen around the GE junction suggesting present pharyngeal/perigastric varices. There is severe right hydroureteronephrosis with diffuse co rtical thinning of the right kidney. There is hyperdense material in the proximal right ureter jan ures up to 2.2 cm in AP dimension. Mid distal ureter is not enlarged. Multiple surgical clips are s een in the retroperitoneal space. There is mildly enlarged aortocaval lymphadenopathy measures up t o 1.3 cm in short axis. The left kidney is unremarkable. There is no urolithiasis. There is a fat- containing small periumbilical hernia. The liver is normal in size and density without focal mass or intrahepatic biliary dilatation. The spleen is normal in size and homogeneous in density. The stomach is partially collapsed, but is curtis ssly unremarkable. The pancreas as visualized is normal. The gallbladder is unremarkable. There is no evidence for biliary dilatation. There is approximately 1.6 cm left adrenal adenoma, unchanged. The right adrenal gland is unremarkable. The aorta is of normal caliber. Aortic vascular calcifications are present. There is no retroperit walters lymphadenopathy. The will hepatis region is clear. The bowel and mesentery, as visualized, are equally unremarkable. CT pelvis: The small bowel loops situated within the pelvis are unremarkable. The urinary bladder is decompres sed with Benjamin catheter in place. The uterus is absent. The pelvic sidewalls and inguinal regions are clear. The sigmoid colon and rectum are unremarkable. No mass, lymphadenopathy, or free fluid is seen. No acute inflammation is seen. The surrounding osseous structures are remarkable for degen erative spondylosis of the spine. No osteolytic or osteoblastic lesion is detected. IMPRESSION: 1. Severe right hydroureteronephrosis with diffuse cortical thinning of the right kidney. Hyperden se material is identified in the right proximal ureter measures up to 2.2 cm in AP dimension. This could represent a mass versus hemorrhage. Mid/distal right ureter is not distended. Consider CT IV P for further evaluation. 2. Mildly enlarged aortocaval lymphadenopathy measures up to 1.3 cm in short axis. 3. Tubular structures at the GE junction suggesting para esophageal varices versus enlarged lymph n odes. This can also be further evaluated on the contrast study. 4. Unchanged left adrenal adenoma. 5. Fat containing periumbilical hernia. 6. Moderate to large right and small to moderate left pleural effusions with partial lower lobe ate lectasis. Improved interstitial pulmonary edema. Persistent patchy airspace disease in the anterio r left lower lobe which could represent resolving confluent pulmonary edema versus pneumonia. 7. Aortoiliac atherosclerosis. RPTAT: [facility] .Mychal Benson MD, MD Date Time Electronically viewed and signed by .Mychal Benson MD, on 02/15/2017 16:46 .O/
--- NOTE | 2017-02-15 17:10 | PN ---
Date/Time of Note Date/Time of Note DATE: 02/15/17 TIME: 17:06 Assessment/Plan VTE Prophylaxis VTE Prophylaxis Intervention: heparin Assessment/Plan Chief Complaint/Hosp Course 1. Acute respiratory failure secondary to pulmonary edema from normal and deconditioning- bipap as needed CT chest does show extensive bilateral pulmonary edema, continue diuresis Pulmonology and cardiology following 2. Acute severe decompensated diastolic congestive heart failure Echo shows normal EF Continue diuresis 3. Reported severe pulmonary hypertension 4. Acute kidney injury secondary to possible obstructive uropathy Patient has history of hematuria but left AMA prior to cystoscopy in 2014, patient also has a history of hydronephrosis of the right kidney noted on ultrasound in August of this year Consult with Dr. Cadet appreciated CT abdomen pelvis shows severe right-sided hydronephrosis, follow-up with urology recommendations Renal following 5. Constipation Continue Colace and senna 6. Morbid obesity with debility and likely sleep apnea Lifestyle changes advised Pulmonology following 7. Thyroid nodule noted on CT chest Ultrasound of thyroid shows mass recommendation is for biopsy, discuss option of biopsy with patient as she is not wanting to do any procedures at this time 8. Resistant hypertension-BP improved Continue lisinopril, Coreg, Procardia, Imdur hydralazine and clonidine Cardiology and nephrology following 9. Chronic lymphedema secondary to obesity and deconditioning 10. Subclinical hypothyroidism 11. Diffuse bronchoconstriction / wheezing-resolved Prophylaxis: Heparin / PPI Problems: Subjective 24 Hr Interval Summary Respiratory: shortness of breath Exam/Review of Systems Vital Signs Vitals Vital Signs Date Time Temp Pulse Resp B/P Pulse Ox O2 Delivery O2 Flow Rate FiO2 02/15/17 16:08 77 02/15/17 15:39 98.0 19 150/74 98 02/15/17 14:11 Nasal Cannula 4.0 02/15/17 05:20 40 Intake and Output 02/14/17 02/14/17 02/15/17 15:00 23:00 07:00 Intake Total 500 ml 1100 ml 600 ml Output Total 600 ml 1200 ml 700 ml Balance -100 ml -100 ml -100 ml Exam Constitutional: alert Respiratory: clear to auscultation Cardiovascular: regular rate and rhythm Gastrointestinal: soft, No distended Extremities: edema Results Result Diagram: 02/15/17 0749 02/15/17 0749 Results 24 hrs Laboratory Tests Test 02/14/17 20:50 02/15/17 07:49 02/15/17 08:22 02/15/17 12:27 Bedside Glucose 145 158 203 White Blood Count 5.5 # Red Blood Count 2.85 #L Hemoglobin 8.1 #L Hematocrit 26.7 #L Mean Corpuscular Volume 93.7 Mean Corpuscular Hemoglobin 28.4 L Mean Corpuscular Hemoglobin Concent 30.3 L Red Cell Distribution Width 17.0 H Platelet Count 133 #L Mean Platelet Volume 11.6 H Neutrophils % 67.0 Lymphocytes % 23.0 Monocytes % 6.0 Eosinophils % 3.0 Basophils % 1.0 Neutrophils # 3.7 Lymphocytes # 1.3 Monocytes # 0.3 Eosinophils # 0.2 Basophils # 0.1 Platelet Estimate PLT APPEAR DECREASED Ovalocytes 1+ Sodium Level 140 Potassium Level 2.7 *L Chloride Level 100 # Carbon Dioxide Level 29 Anion Gap 14 Blood Urea Nitrogen 42 H Creatinine 1.08 H Glucose Level 116 Calcium Level 7.3 L Phosphorus Level 3.0 Magnesium Level 1.6 L Medications Medications Current Medications Acetaminophen (Tylenol Tab) 650 mg Q6H PRN PO PAIN LEVEL 1-3 OR FEVER Last administered on 02/15/17 05:56; Admin Dose 650 MG; Start 02/11/17 at 03:30 Pantoprazole (Protonix Iv) 40 mg DAILY@06 IV Last administered on 02/15/17 05: 52; Admin Dose 40 MG; Start 02/11/17 at 06:00 Phenol (Cepastat Lozenge) 1 lozenge Q2H PRN MT THROATE IRRITATION Last administered on 02/14/17 06:29; Admin Dose 1 LOZENGE; Start 02/11/17 at 04:30 Diagnostic Test (Pha) (Accu-Chek) 1 ea 02 XX ; Start 02/12/17 at 02:00 Miscellaneous Information 1 ea NOTE XX ; Start 02/11/17 at 11:00 Glucose (Glutose) 15 gm Q15M PRN PO DECREASED GLUCOSE; Start 02/11/17 at 11:00 Glucose (Glutose) 22.5 gm Q15M PRN PO DECREASED GLUCOSE; Start 02/11/17 at 11: 00 Dextrose (D50w Syringe) 25 ml Q15M PRN IV DECREASED GLUCOSE; Start 02/11/17 at 11:00 Dextrose (D50w Syringe) 50 ml Q15M PRN IV DECREASED GLUCOSE; Start 02/11/17 at 11:00 Glucagon (Glucagen) 1 mg Q15M PRN IM DECREASED GLUCOSE; Start 02/11/17 at 11:00 Glucose (Glutose) 15 gm Q15M PRN BUCCAL DECREASED GLUCOSE; Start 02/11/17 at 11 :00 Nitroglycerin (Nitroglycerin (Sl Tab) 0.4 Mg) 1 tab Q5M PRN SL CHEST PAIN; Start 02/11/17 at 14:30 Acetaminophen/ Hydrocodone Bitart ([place] (5/325)) 1 tab Q6H PRN PO PAIN LEVEL 8 -10 Last administered on 02/13/17 20:14; Admin Dose 1 TAB; Start 02/12/17 at 00 :30 Hydralazine HCl (Apresoline) 10 mg Q4H PRN IV ELEVATED BLOOD PRESSURE Last administered on 02/13/17 16:45; Admin Dose 10 MG; Start 02/12/17 at 13:00 Hydralazine HCl (Apresoline) 100 mg Q8 PO Last administered on 02/15/17 15:51 ; Admin Dose 100 MG; Start 02/12/17 at 22:00 Clonidine HCl (Catapres-Tts 3 Patch) 1 patch Q7D TRANSDERM Last administered on 02/12/17 16:44; Admin Dose 1 PATCH; Start 02/12/17 at 17:00 Clonidine (Catapres) 0.2 mg Q4H PRN PO ELEVATED SYSTOLIC BP Last administered on 02/13/17 11:38; Admin Dose 0.2 MG; Start 02/12/17 at 19:00 Isosorbide Mononitrate (Imdur) 60 mg DAILY PO Last administered on 02/15/17 08 :40; Admin Dose 60 MG; Start 02/13/17 at 09:00 Ketorolac Tromethamine (Toradol) 15 mg Q6H PRN IV PAIN Last administered on 14:12; Admin Dose 15 MG; Start 02/13/17 at 14:00; Stop 02/16/17 at 13:59 Carvedilol (Coreg) 25 mg BID PO Last administered on 02/15/17 08:29; Admin Dose 25 MG; Start 02/13/17 at 14:30 Nifedipine (Procardia Xl) 30 mg BID PO Last administered on 02/15/17 08:29; Admin Dose 30 MG; Start 02/13/17 at 21:00 Ondansetron HCl (Zofran Inj) 4 mg Q6H PRN IV NAUSEA AND/OR VOMITING; Start at 15:00 Enoxaparin Sodium 60 mg 60 mg BID SC Last administered on 02/15/17 08:37; Admin Dose 60 MG; Start 02/13/17 at 21:00 Ceftriaxone Sodium (Rocephin) 50 ml @ 100 mls/hr Q24H IVPB Last administered on 02/15/17 11:00; Admin Dose 100 MLS/HR; Start 02/14/17 at 11:00 Lisinopril (Zestril) 20 mg DAILY PO Last administered on 02/15/17 08:28; Admin Dose 20 MG; Start 02/15/17 at 09:00 Docusate Sodium (Colace) 200 mg BID PO Last administered on 02/15/17 08:27; Admin Dose 200 MG; Start 02/14/17 at 21:00 Senna (Senokot) 1 tab BID PO Last administered on 02/15/17 08:29; Admin Dose 1 TAB; Start 02/14/17 at 21:00 Magnesium Hydroxide (Milk Of Mag) 30 ml DAILY PRN PO CONSTIPATION; Start at 16:00 Furosemide 60 mg 60 mg Q8 IV Last administered on 02/15/17 15:52; Admin Dose 60 MG; Start 02/14/17 at 22:00 Potassium Chloride 250 ml @ 62.5 mls/hr Q4H IVPB Last administered on 15:49; Admin Dose 62.5 MLS/HR; Start 02/15/17 at 14:30; Stop 02/15/17 at 22 :29 Magnesium Sulfate/ Sodium Chloride (Magnesium Sulfate/NS) 106 ml @ 35.333 mls/ hr ONCE ONCE IVPB ; Start 02/15/17 at 16:00; Stop 02/15/17 at 18:59 BENOIT PARISI Feb 15, 2017 17:10
--- NOTE | 2017-02-15 19:30 | PN ---
Date/Time of Note Date/Time of Note DATE: 02/15/17 TIME: 19:22 Assessment/Plan VTE Prophylaxis VTE Prophylaxis Intervention: LMWH Assessment/Plan Chief Complaint/Hosp Course 61-year-old female morbidly obese has severe right hydronephrosis which is chronic. Prior CT scan in 2014 showed the kidney to be dilated and the upper ureter dilated down to the L5 level. Patient does have multiple other significant medical problems consistent of acute respiratory distress ,severe pulmonary hypertension, chronic lymphedema , coagulase-negative bacteremia, hypertension and morbid obesity. CT scan of abdomen and pelvis: IMPRESSION: 1. Severe right hydroureteronephrosis with diffuse cortical thinning of the right kidney. Hyperdense material is identified in the right proximal ureter measures up to 2.2 cm in AP dimension. This could represent a mass versus hemorrhage. Mid/distal right ureter is not distended. Consider CT IVP for further evaluation. 2. Mildly enlarged aortocaval lymphadenopathy measures up to 1.3 cm in short axis. 3. Tubular structures at the GE junction suggesting para esophageal varices versus enlarged lymph nodes. This can also be further evaluated on the contrast study. 4. Unchanged left adrenal adenoma. 5. Fat containing periumbilical hernia. 6. Moderate to large right and small to moderate left pleural effusions with partial lower lobe atelectasis. Improved interstitial pulmonary edema. Persistent patchy airspace disease in the anterior left lower lobe which could represent resolving confluent pulmonary edema versus pneumonia. 7. Aortoiliac atherosclerosis. Problems: Subjective 24 Hr Interval Summary Free Text/Dictation Patient states she is feeling better. However she is asking about the dural effusions and if the fluid is going to be drained out Constitutional: no complaints Eyes: no complaints ENT: no complaints Respiratory: shortness of breath Cardiovascular: No chest pain, No edema Gastrointestinal: no complaints, No nausea, No vomiting Genitourinary: no complaints Musculoskeletal: no complaints Skin: no complaints Neurologic: No confusion, No headache, No syncope Endocrine: no complaints Lymphatic: no complaints Psychological: no complaints Exam/Review of Systems Vital Signs Vitals Vital Signs Date Time Temp Pulse Resp B/P Pulse Ox O2 Delivery O2 Flow Rate FiO2 02/15/17 16:08 77 02/15/17 15:39 98.0 19 150/74 98 02/15/17 14:11 Nasal Cannula 4.0 02/15/17 05:20 40 Intake and Output 02/14/17 02/14/17 02/15/17 15:00 23:00 07:00 Intake Total 500 ml 1100 ml 600 ml Output Total 600 ml 1200 ml 700 ml Balance -100 ml -100 ml -100 ml Exam Constitutional: alert, oriented Psych: no complaints Head: normocephalic Eyes: nl conjunctiva ENMT: nl external ears & nose Neck: non-tender, supple Respiratory: normal air movement Gastrointestinal: other (Very obese abdomen), soft Genitourinary - Female: No CVA tenderness Musculoskeletal: swelling Extremities: edema Skin: nl turgor Results CT scan of abdomen and pelvis without contrast: IMPRESSION: 1. Severe right hydroureteronephrosis with diffuse cortical thinning of the right kidney. Hyperdense material is identified in the right proximal ureter measures up to 2.2 cm in AP dimension. This could represent a mass versus hemorrhage. Mid/distal right ureter is not distended. Consider CT IVP for further evaluation. 2. Mildly enlarged aortocaval lymphadenopathy measures up to 1.3 cm in short axis. 3. Tubular structures at the GE junction suggesting para esophageal varices versus enlarged lymph nodes. This can also be further evaluated on the contrast study. 4. Unchanged left adrenal adenoma. 5. Fat containing periumbilical hernia. 6. Moderate to large right and small to moderate left pleural effusions with partial lower lobe atelectasis. Improved interstitial pulmonary edema. Persistent patchy airspace disease in the anterior left lower lobe which could represent resolving confluent pulmonary edema versus pneumonia. 7. Aortoiliac atherosclerosis. Result Diagram: 02/15/17 0749 02/15/17 0749 Results 24 hrs Laboratory Tests Test 02/14/17 20:50 02/15/17 07:49 02/15/17 08:22 02/15/17 12:27 Bedside Glucose 145 158 203 White Blood Count 5.5 # Red Blood Count 2.85 #L Hemoglobin 8.1 #L Hematocrit 26.7 #L Mean Corpuscular Volume 93.7 Mean Corpuscular Hemoglobin 28.4 L Mean Corpuscular Hemoglobin Concent 30.3 L Red Cell Distribution Width 17.0 H Platelet Count 133 #L Mean Platelet Volume 11.6 H Neutrophils % 67.0 Lymphocytes % 23.0 Monocytes % 6.0 Eosinophils % 3.0 Basophils % 1.0 Neutrophils # 3.7 Lymphocytes # 1.3 Monocytes # 0.3 Eosinophils # 0.2 Basophils # 0.1 Platelet Estimate PLT APPEAR DECREASED Ovalocytes 1+ Sodium Level 140 Potassium Level 2.7 *L Chloride Level 100 # Carbon Dioxide Level 29 Anion Gap 14 Blood Urea Nitrogen 42 H Creatinine 1.08 H Glucose Level 116 Calcium Level 7.3 L Phosphorus Level 3.0 Magnesium Level 1.6 L Test 02/15/17 17:19 Bedside Glucose 124 Medications Medications Current Medications Acetaminophen (Tylenol Tab) 650 mg Q6H PRN PO PAIN LEVEL 1-3 OR FEVER Last administered on 02/15/17 05:56; Admin Dose 650 MG; Start 02/11/17 at 03:30 Pantoprazole (Protonix Iv) 40 mg DAILY@06 IV Last administered on 02/15/17 05: 52; Admin Dose 40 MG; Start 02/11/17 at 06:00 Phenol (Cepastat Lozenge) 1 lozenge Q2H PRN MT THROATE IRRITATION Last administered on 02/14/17 06:29; Admin Dose 1 LOZENGE; Start 02/11/17 at 04:30 Diagnostic Test (Pha) (Accu-Chek) 1 ea 02 XX ; Start 02/12/17 at 02:00 Miscellaneous Information 1 ea NOTE XX ; Start 02/11/17 at 11:00 Glucose (Glutose) 15 gm Q15M PRN PO DECREASED GLUCOSE; Start 02/11/17 at 11:00 Glucose (Glutose) 22.5 gm Q15M PRN PO DECREASED GLUCOSE; Start 02/11/17 at 11: 00 Dextrose (D50w Syringe) 25 ml Q15M PRN IV DECREASED GLUCOSE; Start 02/11/17 at 11:00 Dextrose (D50w Syringe) 50 ml Q15M PRN IV DECREASED GLUCOSE; Start 02/11/17 at 11:00 Glucagon (Glucagen) 1 mg Q15M PRN IM DECREASED GLUCOSE; Start 02/11/17 at 11:00 Glucose (Glutose) 15 gm Q15M PRN BUCCAL DECREASED GLUCOSE; Start 02/11/17 at 11 :00 Nitroglycerin (Nitroglycerin (Sl Tab) 0.4 Mg) 1 tab Q5M PRN SL CHEST PAIN; Start 02/11/17 at 14:30 Acetaminophen/ Hydrocodone Bitart ([place] (5/325)) 1 tab Q6H PRN PO PAIN LEVEL 8 -10 Last administered on 02/13/17 20:14; Admin Dose 1 TAB; Start 02/12/17 at 00 :30 Hydralazine HCl (Apresoline) 10 mg Q4H PRN IV ELEVATED BLOOD PRESSURE Last administered on 02/13/17 16:45; Admin Dose 10 MG; Start 02/12/17 at 13:00 Hydralazine HCl (Apresoline) 100 mg Q8 PO Last administered on 02/15/17 15:51 ; Admin Dose 100 MG; Start 02/12/17 at 22:00 Clonidine HCl (Catapres-Tts 3 Patch) 1 patch Q7D TRANSDERM Last administered on 02/12/17 16:44; Admin Dose 1 PATCH; Start 02/12/17 at 17:00 Clonidine (Catapres) 0.2 mg Q4H PRN PO ELEVATED SYSTOLIC BP Last administered on 02/13/17 11:38; Admin Dose 0.2 MG; Start 02/12/17 at 19:00 Isosorbide Mononitrate (Imdur) 60 mg DAILY PO Last administered on 02/15/17 08 :40; Admin Dose 60 MG; Start 02/13/17 at 09:00 Ketorolac Tromethamine (Toradol) 15 mg Q6H PRN IV PAIN Last administered on 14:12; Admin Dose 15 MG; Start 02/13/17 at 14:00; Stop 02/16/17 at 13:59 Carvedilol (Coreg) 25 mg BID PO Last administered on 02/15/17 08:29; Admin Dose 25 MG; Start 02/13/17 at 14:30 Nifedipine (Procardia Xl) 30 mg BID PO Last administered on 02/15/17 08:29; Admin Dose 30 MG; Start 02/13/17 at 21:00 Ondansetron HCl (Zofran Inj) 4 mg Q6H PRN IV NAUSEA AND/OR VOMITING; Start at 15:00 Enoxaparin Sodium (Lovenox) 60 mg BID SC Last administered on 02/15/17 08:37; Admin Dose 60 MG; Start 02/13/17 at 21:00 Lisinopril (Zestril) 20 mg DAILY PO Last administered on 02/15/17 08:28; Admin Dose 20 MG; Start 02/15/17 at 09:00 Docusate Sodium (Colace) 200 mg BID PO Last administered on 02/15/17 08:27; Admin Dose 200 MG; Start 02/14/17 at 21:00 Senna (Senokot) 1 tab BID PO Last administered on 02/15/17 08:29; Admin Dose 1 TAB; Start 02/14/17 at 21:00 Magnesium Hydroxide (Milk Of Mag) 30 ml DAILY PRN PO CONSTIPATION; Start at 16:00 Furosemide 60 mg 60 mg Q8 IV Last administered on 02/15/17 15:52; Admin Dose 60 MG; Start 02/14/17 at 22:00 Potassium Chloride (KCl 40 MEQ/250 ML NS) 250 ml @ 62.5 mls/hr Q4H IVPB Last administered on 02/15/17 15:49; Admin Dose 62.5 MLS/HR; Start 02/15/17 at 14:30 ; Stop 02/15/17 at 22:29 LAURA ZULETA MD Feb 15, 2017 19:30
[2017-02-16] VITALS (18 sets, daily range): BP systolic 122–147; BP diastolic 59–72; PULSE 71–87; RESP 16–22
[2017-02-16] MEDS: ACCU-CHEK XX SCH (01:33)
[2017-02-16] MEDS: ALBUTEROL/IPRATROPIUM (NEB) 3 ML AMP HHN SCH ×4 (01:49→20:09)
[2017-02-16] MEDS: CEPASTAT LOZENGE MT PRN (04:54)
[2017-02-16] MEDS: FUROSEMIDE 20 MG INJ IV SCH ×3 (04:55→20:39)
[2017-02-16] MEDS: PANTOPRAZOLE 40 MG INJ IV SCH (04:57)
[2017-02-16 07:02] LABS: ADD SCAN DIFF NO
[2017-02-16 07:06] LABS: BASOPHILS % 0.5 % (0.0-2.0); EOSINOPHILS # 0.1 10^3/ul (0.0-0.5); EOSINOPHILS % 1.7 % (0.0-7.0); HEMATOCRIT 30.8 % (37.0-47.0); HEMOGLOBIN 9.4 g/dl (12.0-16.0); LYMPHOCYTES % 17.4 % (15.0-51.0); MEAN CORPUSCULAR HEMOGLOBIN 28.1 pg (29.0-33.0); MEAN CORPUSCULAR HGB CONC 30.5 g/dl (32.0-37.0); MEAN CORPUSCULAR VOLUME 92.2 fl (82.0-101.0); MONOCYTE # 0.6 10^3/ul (0.3-0.9); NEUTROPHILS % 69.1 % (39.0-77.0); PLATELET COUNT 244 10^3/UL (140-415); RED BLOOD COUNT 3.34 10^6/ul (4.20-5.40); WHITE BLOOD COUNT 5.8 10^3/ul (4.8-10.8)
[2017-02-16 07:34] LABS: CALCIUM 9.1 mg/dl (8.4-10.2); CREATININE 1.41 mg/dl (0.44-1.00); MAGNESIUM 2.3 mg/dl (1.7-2.5); PHOSPHORUS 3.5 mg/dl (2.5-4.9); POTASSIUM 3.8 mmol/L (3.5-5.1)
[2017-02-16] MEDS: DOCUSATE SODIUM 100 MG CAP PO SCH ×2 (08:30→20:35)
[2017-02-16] MEDS: SENNA TAB PO SCH ×2 (08:30→20:36)
[2017-02-16] MEDS: NIFEdipine (XL) 30 MG TAB PO SCH ×2 (08:31→20:37)
[2017-02-16] MEDS: LISINOPRIL 20 MG TAB PO SCH (08:32)
[2017-02-16] MEDS: ISOSORBIDE MONONITRATE(SR)60 MG TAB PO SCH (08:32)
[2017-02-16] MEDS: INSULIN ASPART [NOVOLOG] 3 ML PEN SC SCH ×4 (08:33→20:42)
[2017-02-16] MEDS: ENOXAPARIN 60 MG/0.6 ML SYG SC SCH ×2 (09:03→20:41)
--- NOTE | 2017-02-16 11:30 | CONS ---
Date/Time of Note Date/Time of Note DATE: 02/16/17 TIME: 11:27 Consult Date/Type/Reason Admit Date/Time Feb 11, 2017 at 00:44 Initial Consult Date 02/11/17 Type of Consultation: Pulmonary Ordering Provider: KYLEE MORALES Subjective Patient slowly improving. Still has shortness of breath on exertion. Objective Vital Signs Date Time Temp Pulse Resp B/P Pulse Ox O2 Delivery O2 Flow Rate FiO2 02/16/17 08:09 72 02/16/17 08:04 20 95 Nasal Cannula 4.0 02/16/17 08:02 97.9 147/71 02/16/17 07:20 40 Intake and Output 02/15/17 02/15/17 02/16/17 14:59 22:59 06:59 Intake Total 500 ml 600 ml Output Total 800 ml 1400 ml Balance -300 ml -800 ml Exam GENERAL: Morbidly obese lady on nasal cannula oxygen VITAL SIGNS: per chart NECK: Supple. No JVD or lymphadenopathy. CARDIAC EXAM: S1, S2. No added sounds or murmurs. CHEST: Diminished air entry bilaterally ABDOMEN: Soft, nontender. No guarding or rebound. EXTREMITIES: No cyanosis, clubbing or edema. NEUROLOGIC: Generalized weakness. No focal deficits. Results/Medications Result Diagram: 02/16/17 0630 02/16/[address] abdomen pelvis IMPRESSION: 1. Severe right hydroureteronephrosis with diffuse cortical thinning of the right kidney. Hyperdense material is identified in the right proximal ureter measures up to 2.2 cm in AP dimension. This could represent a mass versus hemorrhage. Mid/distal right ureter is not distended. Consider CT IVP for further evaluation. 2. Mildly enlarged aortocaval lymphadenopathy measures up to 1.3 cm in short axis. 3. Tubular structures at the GE junction suggesting para esophageal varices versus enlarged lymph nodes. This can also be further evaluated on the contrast study. 4. Unchanged left adrenal adenoma. 5. Fat containing periumbilical hernia. 6. Moderate to large right and small to moderate left pleural effusions with partial lower lobe atelectasis. Improved interstitial pulmonary edema. Persistent patchy airspace disease in the anterior left lower lobe which could represent resolving confluent pulmonary edema versus pneumonia. 7. Aortoiliac atherosclerosis. Laboratory Tests Test 02/15/17 12:27 02/15/17 17:19 02/15/17 20:36 02/16/17 06:30 Bedside Glucose 203 124 146 White Blood Count 5.8 Red Blood Count 3.34 L Hemoglobin 9.4 L Hematocrit 30.8 L Mean Corpuscular Volume 92.2 Mean Corpuscular Hemoglobin 28.1 L Mean Corpuscular Hemoglobin Concent 30.5 L Red Cell Distribution Width 17.0 H Platelet Count 244 # Mean Platelet Volume 11.0 H Neutrophils % 69.1 Lymphocytes % 17.4 Monocytes % 11.0 Eosinophils % 1.7 Basophils % 0.5 Nucleated Red Blood Cells % 0.0 Neutrophils # 4.0 Lymphocytes # 1.0 Monocytes # 0.6 Eosinophils # 0.1 Basophils # 0.0 Nucleated Red Blood Cells # 0.0 Sodium Level 137 Potassium Level 3.8 Chloride Level 90 #L Carbon Dioxide Level 33 H Anion Gap 18 H Blood Urea Nitrogen 49 H Creatinine 1.41 H Glucose Level 167 Calcium Level 9.1 Phosphorus Level 3.5 Magnesium Level 2.3 Test 02/16/17 08:28 Bedside Glucose 157 Medications Current Medications Acetaminophen (Tylenol Tab) 650 mg Q6H PRN PO PAIN LEVEL 1-3 OR FEVER Last administered on 02/15/17 05:56; Admin Dose 650 MG; Start 02/11/17 at 03:30 Pantoprazole (Protonix Iv) 40 mg DAILY@06 IV Last administered on 02/16/17 04: 57; Admin Dose 40 MG; Start 02/11/17 at 06:00 Phenol (Cepastat Lozenge) 1 lozenge Q2H PRN MT THROATE IRRITATION Last administered on 02/16/17 04:54; Admin Dose 1 LOZENGE; Start 02/11/17 at 04:30 Diagnostic Test (Pha) (Accu-Chek) 1 ea 02 XX ; Start 02/12/17 at 02:00 Miscellaneous Information 1 ea NOTE XX ; Start 02/11/17 at 11:00 Glucose (Glutose) 15 gm Q15M PRN PO DECREASED GLUCOSE; Start 02/11/17 at 11:00 Glucose (Glutose) 22.5 gm Q15M PRN PO DECREASED GLUCOSE; Start 02/11/17 at 11: 00 Dextrose (D50w Syringe) 25 ml Q15M PRN IV DECREASED GLUCOSE; Start 02/11/17 at 11:00 Dextrose (D50w Syringe) 50 ml Q15M PRN IV DECREASED GLUCOSE; Start 02/11/17 at 11:00 Glucagon (Glucagen) 1 mg Q15M PRN IM DECREASED GLUCOSE; Start 02/11/17 at 11:00 Glucose (Glutose) 15 gm Q15M PRN BUCCAL DECREASED GLUCOSE; Start 02/11/17 at 11 :00 Nitroglycerin (Nitroglycerin (Sl Tab) 0.4 Mg) 1 tab Q5M PRN SL CHEST PAIN; Start 02/11/17 at 14:30 Acetaminophen/ Hydrocodone Bitart ([place] (5/325)) 1 tab Q6H PRN PO PAIN LEVEL 8 -10 Last administered on 02/13/17 20:14; Admin Dose 1 TAB; Start 02/12/17 at 00 :30 Hydralazine HCl (Apresoline) 10 mg Q4H PRN IV ELEVATED BLOOD PRESSURE Last administered on 02/13/17 16:45; Admin Dose 10 MG; Start 02/12/17 at 13:00 Hydralazine HCl (Apresoline) 100 mg Q8 PO Last administered on 02/16/17 04:57 ; Admin Dose 100 MG; Start 02/12/17 at 22:00 Clonidine HCl (Catapres-Tts 3 Patch) 1 patch Q7D TRANSDERM Last administered on 02/12/17 16:44; Admin Dose 1 PATCH; Start 02/12/17 at 17:00 Clonidine (Catapres) 0.2 mg Q4H PRN PO ELEVATED SYSTOLIC BP Last administered on 02/13/17 11:38; Admin Dose 0.2 MG; Start 02/12/17 at 19:00 Isosorbide Mononitrate (Imdur) 60 mg DAILY PO Last administered on 02/16/17 08 :32; Admin Dose 60 MG; Start 02/13/17 at 09:00 Ketorolac Tromethamine (Toradol) 15 mg Q6H PRN IV PAIN Last administered on 14:12; Admin Dose 15 MG; Start 02/13/17 at 14:00; Stop 02/16/17 at 13:59 Carvedilol (Coreg) 25 mg BID PO Last administered on 02/16/17 08:31; Admin Dose 25 MG; Start 02/13/17 at 14:30 Nifedipine (Procardia Xl) 30 mg BID PO Last administered on 02/16/17 08:31; Admin Dose 30 MG; Start 02/13/17 at 21:00 Ondansetron HCl (Zofran Inj) 4 mg Q6H PRN IV NAUSEA AND/OR VOMITING; Start at 15:00 Enoxaparin Sodium (Lovenox) 60 mg BID SC Last administered on 02/16/17 09:03; Admin Dose 60 MG; Start 02/13/17 at 21:00 Lisinopril (Zestril) 20 mg DAILY PO Last administered on 02/16/17 08:32; Admin Dose 20 MG; Start 02/15/17 at 09:00 Docusate Sodium (Colace) 200 mg BID PO Last administered on 02/16/17 08:30; Admin Dose 200 MG; Start 02/14/17 at 21:00 Senna (Senokot) 1 tab BID PO Last administered on 02/16/17 08:30; Admin Dose 1 TAB; Start 02/14/17 at 21:00 Magnesium Hydroxide (Milk Of Mag) 30 ml DAILY PRN PO CONSTIPATION; Start at 16:00 Furosemide (Lasix) 60 mg Q8 IV Last administered on 02/16/17 04:55; Admin Dose 60 MG; Start 02/14/17 at 22:00 Assessment/Plan Chief Complaint/Hosp Course assessment 1. Hypoxemic respiratory failure, clinically improved Multifactorial likely secondary to diastolic dysfunction with pulmonary edema and underlying pulmonary hypertension. Cardiology consult. Remain off BiPAP for possible Outpatient sleep study Outpatient pulmonary function testing 2. Chronic kidney disease with unclear etiology Renal recommendations. Creatinine currently stable, correct hypokalemia 3. Severe pulmonary hypertension likely combination of sleep apnea and possible valvular heart disease. Unlikely primary pulmonary hypertension. Likely multifactorial secondary to underlying chronic lung disease and obstructive sleep apnea in addition to structural heart disease. 4. Coag negative bacteremia currently on antibiotics consider de-escalation 5. Severe systemic hypertension. Blood pressure continues to remain significantly elevated. Patient may require transfer to intensive care unit for intravenous therapy. We will defer to cardiology. Improved at present. 6. Severe obstructive uropathy. CT abdomen pelvis noted. Urology recommendations. Improved from pulmonary standpoint for urological procedures. Ultimately patient may require transfer to assisted facility when she stabilizes. Problems: GLEN BUSTILLOS MD, [facility] Feb 16, 2017 11:30
--- NOTE | 2017-02-16 12:36 | RADRPT ---
PROCEDURE: XR Chest 1 view. CLINICAL INDICATION: Shortness of breath. TECHNIQUE: AP views of the chest were obtained. COMPARISON: February 12, [address] February 13, 2017 FINDINGS: The heart is large. Calcified atherosclerosis is noted in the aorta. Right-sided PICC line is stabl e. Central pulmonary vascular congestion and interstitial prominence in both lungs is unchanged. P atchy infiltrates throughout both lungs, combined small to moderate pleural effusions are stable. T he osseous structures are stable. IMPRESSION: Cardiomegaly with calcified atherosclerosis in the aorta. Stable central pulmonary vascular congestion and interstitial prominence in both lungs. Stable patchy infiltrates in both lungs, combined with mild to moderate pleural effusions. RPTAT: AA .Jose Ramos MD, MD Date Time Electronically viewed and signed by .Jose Ramos MD, on 02/16/2017 12:36 .P/
--- NOTE | 2017-02-16 14:35 | PN ---
Date/Time of Note Date/Time of Note DATE: 02/16/17 TIME: 14:32 Assessment/Plan VTE Prophylaxis VTE Prophylaxis Intervention: heparin Assessment/Plan Chief Complaint/Hosp Course 1. Acute respiratory failure secondary to pulmonary edema from normal and deconditioning- bipap as needed CT chest does show extensive bilateral pulmonary edema, continue diuresis Pulmonology and cardiology following 2. Acute severe decompensated diastolic congestive heart failure Echo shows normal EF Continue diuresis 3. Reported severe pulmonary hypertension 4. Acute kidney injury secondary to possible obstructive uropathy Patient has history of hematuria but left AMA prior to cystoscopy in 2014, patient also has a history of hydronephrosis of the right kidney noted on ultrasound in August of this year Consult with Dr. Cadet appreciated, follow-up with recommendations Currently patient is anxious about any procedures being done CT abdomen pelvis shows severe right-sided hydronephrosis, follow-up with urology recommendations Renal following 5. Constipation Continue Colace and senna 6. Morbid obesity with debility and likely sleep apnea Lifestyle changes advised Pulmonology following 7. Thyroid nodule noted on CT chest Ultrasound of thyroid shows mass recommendation is for biopsy, discussed option of biopsy with patient states that she does not want any procedures done at this time, patient understands the risk that this mass may be a malignancy and hence the risk of but she still does not want to proceed with biopsy of the thyroid mass 8. Resistant hypertension-BP improved Continue lisinopril, Coreg, Procardia, Imdur hydralazine and clonidine Cardiology and nephrology following 9. Chronic lymphedema secondary to obesity and deconditioning 10. Subclinical hypothyroidism 11. Diffuse bronchoconstriction / wheezing-resolved Prophylaxis: Heparin / PPI Problems: Subjective 24 Hr Interval Summary Respiratory: shortness of breath Exam/Review of Systems Vital Signs Vitals Vital Signs Date Time Temp Pulse Resp B/P Pulse Ox O2 Delivery O2 Flow Rate FiO2 02/16/17 12:03 77 02/16/17 11:59 98.3 18 122/72 99 02/16/17 08:04 Nasal Cannula 4.0 02/16/17 07:20 40 Intake and Output 02/15/17 02/15/17 02/16/17 15:00 23:00 07:00 Intake Total 500 ml 600 ml Output Total 800 ml 1400 ml Balance -300 ml -800 ml Exam Constitutional: alert Respiratory: clear to auscultation Cardiovascular: regular rate and rhythm Gastrointestinal: soft, No distended Musculoskeletal: No nl extremities to inspection Results Result Diagram: 02/16/17 0630 02/16/17 0630 Results 24 hrs Laboratory Tests Test 02/15/17 17:19 02/15/17 20:36 02/16/17 06:30 02/16/17 08:28 Bedside Glucose 124 146 157 White Blood Count 5.8 Red Blood Count 3.34 L Hemoglobin 9.4 L Hematocrit 30.8 L Mean Corpuscular Volume 92.2 Mean Corpuscular Hemoglobin 28.1 L Mean Corpuscular Hemoglobin Concent 30.5 L Red Cell Distribution Width 17.0 H Platelet Count 244 # Mean Platelet Volume 11.0 H Neutrophils % 69.1 Lymphocytes % 17.4 Monocytes % 11.0 Eosinophils % 1.7 Basophils % 0.5 Nucleated Red Blood Cells % 0.0 Neutrophils # 4.0 Lymphocytes # 1.0 Monocytes # 0.6 Eosinophils # 0.1 Basophils # 0.0 Nucleated Red Blood Cells # 0.0 Sodium Level 137 Potassium Level 3.8 Chloride Level 90 #L Carbon Dioxide Level 33 H Anion Gap 18 H Blood Urea Nitrogen 49 H Creatinine 1.41 H Glucose Level 167 Calcium Level 9.1 Phosphorus Level 3.5 Magnesium Level 2.3 Test 02/16/17 12:03 Bedside Glucose 177 Medications Medications Current Medications Acetaminophen (Tylenol Tab) 650 mg Q6H PRN PO PAIN LEVEL 1-3 OR FEVER Last administered on 02/15/17 05:56; Admin Dose 650 MG; Start 02/11/17 at 03:30 Pantoprazole (Protonix Iv) 40 mg DAILY@06 IV Last administered on 02/16/17 04: 57; Admin Dose 40 MG; Start 02/11/17 at 06:00 Phenol (Cepastat Lozenge) 1 lozenge Q2H PRN MT THROATE IRRITATION Last administered on 02/16/17 04:54; Admin Dose 1 LOZENGE; Start 02/11/17 at 04:30 Diagnostic Test (Pha) (Accu-Chek) 1 ea 02 XX ; Start 02/12/17 at 02:00 Miscellaneous Information 1 ea NOTE XX ; Start 02/11/17 at 11:00 Glucose (Glutose) 15 gm Q15M PRN PO DECREASED GLUCOSE; Start 02/11/17 at 11:00 Glucose (Glutose) 22.5 gm Q15M PRN PO DECREASED GLUCOSE; Start 02/11/17 at 11: 00 Dextrose (D50w Syringe) 25 ml Q15M PRN IV DECREASED GLUCOSE; Start 02/11/17 at 11:00 Dextrose (D50w Syringe) 50 ml Q15M PRN IV DECREASED GLUCOSE; Start 02/11/17 at 11:00 Glucagon (Glucagen) 1 mg Q15M PRN IM DECREASED GLUCOSE; Start 02/11/17 at 11:00 Glucose (Glutose) 15 gm Q15M PRN BUCCAL DECREASED GLUCOSE; Start 02/11/17 at 11 :00 Nitroglycerin (Nitroglycerin (Sl Tab) 0.4 Mg) 1 tab Q5M PRN SL CHEST PAIN; Start 02/11/17 at 14:30 Acetaminophen/ Hydrocodone Bitart ([place] (5/325)) 1 tab Q6H PRN PO PAIN LEVEL 8 -10 Last administered on 02/13/17 20:14; Admin Dose 1 TAB; Start 02/12/17 at 00 :30 Hydralazine HCl (Apresoline) 10 mg Q4H PRN IV ELEVATED BLOOD PRESSURE Last administered on 02/13/17 16:45; Admin Dose 10 MG; Start 02/12/17 at 13:00 Hydralazine HCl (Apresoline) 100 mg Q8 PO Last administered on 02/16/17 04:57 ; Admin Dose 100 MG; Start 02/12/17 at 22:00 Clonidine HCl (Catapres-Tts 3 Patch) 1 patch Q7D TRANSDERM Last administered on 02/12/17 16:44; Admin Dose 1 PATCH; Start 02/12/17 at 17:00 Clonidine (Catapres) 0.2 mg Q4H PRN PO ELEVATED SYSTOLIC BP Last administered on 02/13/17 11:38; Admin Dose 0.2 MG; Start 02/12/17 at 19:00 Isosorbide Mononitrate (Imdur) 60 mg DAILY PO Last administered on 02/16/17 08 :32; Admin Dose 60 MG; Start 02/13/17 at 09:00 Carvedilol (Coreg) 25 mg BID PO Last administered on 02/16/17 08:31; Admin Dose 25 MG; Start 02/13/17 at 14:30 Nifedipine (Procardia Xl) 30 mg BID PO Last administered on 02/16/17 08:31; Admin Dose 30 MG; Start 02/13/17 at 21:00 Ondansetron HCl (Zofran Inj) 4 mg Q6H PRN IV NAUSEA AND/OR VOMITING; Start at 15:00 Enoxaparin Sodium (Lovenox) 60 mg BID SC Last administered on 02/16/17 09:03; Admin Dose 60 MG; Start 02/13/17 at 21:00 Lisinopril (Zestril) 20 mg DAILY PO Last administered on 02/16/17 08:32; Admin Dose 20 MG; Start 02/15/17 at 09:00 Docusate Sodium (Colace) 200 mg BID PO Last administered on 02/16/17 08:30; Admin Dose 200 MG; Start 02/14/17 at 21:00 Senna (Senokot) 1 tab BID PO Last administered on 02/16/17 08:30; Admin Dose 1 TAB; Start 02/14/17 at 21:00 Magnesium Hydroxide (Milk Of Mag) 30 ml DAILY PRN PO CONSTIPATION; Start at 16:00 Furosemide (Lasix) 60 mg Q8 IV Last administered on 02/16/17 04:55; Admin Dose 60 MG; Start 02/14/17 at 22:00 BENOIT PARISI Feb 16, 2017 14:35
--- NOTE | 2017-02-16 18:10 | CONS ---
Date/Time of Note Date/Time of Note DATE: 02/16/17 TIME: 18:07 Assessment/Plan Assessment/Plan Chief Complaint/Hosp Course IMP: 1.CHF-Diastolic acute on chronic by most recent echo 2.PHTN 3.Resp failure on BIPAP 4. Bacteremia at OSH. Bld cultures thus far here negative. No definite vegetations by echo done here this admit 5.lymphedema 6.chest pain-negative trop x 3 7. AF-rate controlled 8. HTN-urgency/emergency-? component of discomfort-improving on oral anti- hypertensives 9. H/O PHTN-not significantly elevated by most recent echo 10.REnal failure -improving 11.hydronephrosis 12. NSVT-NL EF by echo REcc: -Tele -serial ecg's -Continue abx's and f/u cx data -Continue hydralazine/clonidine TTS/zestril/procardia xl -Use PRN anti-hypertensives as necessary -Continue lasix diuresis and follow creatnine closely with eri need to decrease dose given creatnine starting to increase -Continue BIPAP as necessary -Replete K>4.0 and mg>2.0 Problems: Consultation Date/Type/Reason Admit Date/Time Feb 11, 2017 at 00:44 Initial Consult Date 02/11/17 Type of Consultation: cardiology Reason for Consultation CHF Referring Provider: KYLEE MORALES Exam/Review of Systems Vital Signs Vitals Vital Signs Date Time Temp Pulse Resp B/P Pulse Ox O2 Delivery O2 Flow Rate FiO2 02/16/17 16:04 79 02/16/17 15:48 98.0 16 124/59 97 02/16/17 15:42 40 02/16/17 14:53 4.0 02/16/17 14:52 Nasal Cannula Intake and Output 02/15/17 02/15/17 02/16/17 15:00 23:00 07:00 Intake Total 500 ml 600 ml Output Total 800 ml 1400 ml Balance -300 ml -800 ml Exam Review of Systems: CONSTITUTIONAL: No fevers, chills. PULMONARY: mild sob-improving CARDIOVASCULAR: No chest pain/palpitations GASTROINTESTINAL: No nausea/vomiting. GENITOURINARY: No hematuria/dysuria. MUSCULOSKELETAL: No myagias/arthalgias. PSYCHIATRIC: The patient denies depression. NEUROLOGIC: No weakness Constitutional: alert Psych: no complaints Head: normocephalic ENMT: mucosa pink and moist Neck: jvd (9 cm water), supple Respiratory: diminished breath sounds (at bases/B) Cardiovascular: regular rate and rhythm Gastrointestinal: non-tender, soft Musculoskeletal: muscle tone (normal) Extremities: edema (none) Neurological: other (No focal deficits) Results Result Diagram: 02/16/17 0630 02/16/17 0630 Results 24 hrs Laboratory Tests Test 02/15/17 20:36 02/16/17 06:30 02/16/17 08:28 02/16/17 12:03 Bedside Glucose 146 157 177 White Blood Count 5.8 Red Blood Count 3.34 L Hemoglobin 9.4 L Hematocrit 30.8 L Mean Corpuscular Volume 92.2 Mean Corpuscular Hemoglobin 28.1 L Mean Corpuscular Hemoglobin Concent 30.5 L Red Cell Distribution Width 17.0 H Platelet Count 244 # Mean Platelet Volume 11.0 H Neutrophils % 69.1 Lymphocytes % 17.4 Monocytes % 11.0 Eosinophils % 1.7 Basophils % 0.5 Nucleated Red Blood Cells % 0.0 Neutrophils # 4.0 Lymphocytes # 1.0 Monocytes # 0.6 Eosinophils # 0.1 Basophils # 0.0 Nucleated Red Blood Cells # 0.0 Sodium Level 137 Potassium Level 3.8 Chloride Level 90 #L Carbon Dioxide Level 33 H Anion Gap 18 H Blood Urea Nitrogen 49 H Creatinine 1.41 H Glucose Level 167 Calcium Level 9.1 Phosphorus Level 3.5 Magnesium Level 2.3 Test 02/16/17 17:21 Bedside Glucose 129 Medications Medications Current Medications Acetaminophen (Tylenol Tab) 650 mg Q6H PRN PO PAIN LEVEL 1-3 OR FEVER Last administered on 02/15/17 05:56; Admin Dose 650 MG; Start 02/11/17 at 03:30 Pantoprazole (Protonix Iv) 40 mg DAILY@06 IV Last administered on 02/16/17 04: 57; Admin Dose 40 MG; Start 02/11/17 at 06:00 Phenol (Cepastat Lozenge) 1 lozenge Q2H PRN MT THROATE IRRITATION Last administered on 02/16/17 04:54; Admin Dose 1 LOZENGE; Start 02/11/17 at 04:30 Diagnostic Test (Pha) (Accu-Chek) 1 ea 02 XX ; Start 02/12/17 at 02:00 Miscellaneous Information 1 ea NOTE XX ; Start 02/11/17 at 11:00 Glucose (Glutose) 15 gm Q15M PRN PO DECREASED GLUCOSE; Start 02/11/17 at 11:00 Glucose (Glutose) 22.5 gm Q15M PRN PO DECREASED GLUCOSE; Start 02/11/17 at 11: 00 Dextrose (D50w Syringe) 25 ml Q15M PRN IV DECREASED GLUCOSE; Start 02/11/17 at 11:00 Dextrose (D50w Syringe) 50 ml Q15M PRN IV DECREASED GLUCOSE; Start 02/11/17 at 11:00 Glucagon (Glucagen) 1 mg Q15M PRN IM DECREASED GLUCOSE; Start 02/11/17 at 11:00 Glucose (Glutose) 15 gm Q15M PRN BUCCAL DECREASED GLUCOSE; Start 02/11/17 at 11 :00 Nitroglycerin (Nitroglycerin (Sl Tab) 0.4 Mg) 1 tab Q5M PRN SL CHEST PAIN; Start 02/11/17 at 14:30 Acetaminophen/ Hydrocodone Bitart ([place] (5/325)) 1 tab Q6H PRN PO PAIN LEVEL 8 -10 Last administered on 02/13/17 20:14; Admin Dose 1 TAB; Start 02/12/17 at 00 :30 Hydralazine HCl (Apresoline) 10 mg Q4H PRN IV ELEVATED BLOOD PRESSURE Last administered on 02/13/17 16:45; Admin Dose 10 MG; Start 02/12/17 at 13:00 Hydralazine HCl (Apresoline) 100 mg Q8 PO Last administered on 02/16/17 14:48 ; Admin Dose 100 MG; Start 02/12/17 at 22:00 Clonidine HCl (Catapres-Tts 3 Patch) 1 patch Q7D TRANSDERM Last administered on 02/12/17 16:44; Admin Dose 1 PATCH; Start 02/12/17 at 17:00 Clonidine (Catapres) 0.2 mg Q4H PRN PO ELEVATED SYSTOLIC BP Last administered on 02/13/17 11:38; Admin Dose 0.2 MG; Start 02/12/17 at 19:00 Isosorbide Mononitrate (Imdur) 60 mg DAILY PO Last administered on 02/16/17 08 :32; Admin Dose 60 MG; Start 02/13/17 at 09:00 Carvedilol (Coreg) 25 mg BID PO Last administered on 02/16/17 08:31; Admin Dose 25 MG; Start 02/13/17 at 14:30 Nifedipine (Procardia Xl) 30 mg BID PO Last administered on 02/16/17 08:31; Admin Dose 30 MG; Start 02/13/17 at 21:00 Ondansetron HCl (Zofran Inj) 4 mg Q6H PRN IV NAUSEA AND/OR VOMITING; Start at 15:00 Enoxaparin Sodium (Lovenox) 60 mg BID SC Last administered on 02/16/17 09:03; Admin Dose 60 MG; Start 02/13/17 at 21:00 Lisinopril (Zestril) 20 mg DAILY PO Last administered on 02/16/17 08:32; Admin Dose 20 MG; Start 02/15/17 at 09:00 Docusate Sodium (Colace) 200 mg BID PO Last administered on 02/16/17 08:30; Admin Dose 200 MG; Start 02/14/17 at 21:00 Senna (Senokot) 1 tab BID PO Last administered on 02/16/17 08:30; Admin Dose 1 TAB; Start 02/14/17 at 21:00 Magnesium Hydroxide (Milk Of Mag) 30 ml DAILY PRN PO CONSTIPATION; Start at 16:00 Furosemide (Lasix) 60 mg Q8 IV Last administered on 02/16/17 14:49; Admin Dose 60 MG; Start 02/14/17 at 22:00 ASHLEY CONNOR Feb 16, 2017 18:09
[2017-02-16] MEDS: HYDROCODONE/APAP (5/325) TAB PO PRN (22:29)
[2017-02-17] VITALS (13 sets, daily range): BP systolic 125–164; BP diastolic 59–79; PULSE 65–87; RESP 16–19
[2017-02-17] MEDS: ACCU-CHEK XX SCH (01:22)
[2017-02-17] MEDS: ALBUTEROL/IPRATROPIUM (NEB) 3 ML AMP HHN SCH ×4 (01:39→20:17)
[2017-02-17] MEDS: PANTOPRAZOLE (EC) 40 MG TAB PO SCH (05:18)
[2017-02-17] MEDS: FUROSEMIDE 20 MG INJ IV SCH ×3 (05:19→20:58)
[2017-02-17 08:16] LABS: CALCIUM 9.3 mg/dl (8.4-10.2); CREATININE 1.38 mg/dl (0.44-1.00); MAGNESIUM 2.2 mg/dl (1.7-2.5); PHOSPHORUS 4.2 mg/dl (2.5-4.9); POTASSIUM 3.8 mmol/L (3.5-5.1)
[2017-02-17] MEDS: LISINOPRIL 20 MG TAB PO SCH (08:49)
[2017-02-17] MEDS: DOCUSATE SODIUM 100 MG CAP PO SCH ×2 (08:49→20:46)
[2017-02-17] MEDS: ISOSORBIDE MONONITRATE(SR)60 MG TAB PO SCH (08:50)
[2017-02-17] MEDS: SENNA TAB PO SCH ×2 (08:50→20:45)
[2017-02-17] MEDS: NIFEdipine (XL) 30 MG TAB PO SCH ×2 (08:50→20:46)
[2017-02-17] MEDS: ENOXAPARIN 60 MG/0.6 ML SYG SC SCH ×2 (08:51→20:48)
[2017-02-17] MEDS: INSULIN ASPART [NOVOLOG] 3 ML PEN SC SCH ×4 (08:54→20:50)
[2017-02-17] MEDS: CEPASTAT LOZENGE MT PRN (08:57)
[2017-02-17] MEDS: HYDROCODONE/APAP (5/325) TAB PO PRN ×3 (09:09→22:47)
--- NOTE | 2017-02-17 10:44 | PN ---
Date/Time of Note Date/Time of Note DATE: 02/17/17 TIME: 10:40 Assessment/Plan Lines/Catheters IV C[facility]ter Type (from [facility]): PICC Line Urinary Cath still in place: Yes Assessment/Plan Chief Complaint/Hosp Course Nonoliguric acute kidney with baseline creatinine of 1.0 mg/dL -Etiology of AK likely hemodynamics, obstructive uropathy -Renal ultrasound shows right-sided hydronephrosis Renal function has been fluctuating likely from diuretic therapy Urology's evaluated patient recommending eventual cystoscopy Continue current treatment plan, renally dose all meds Right-sided hydronephrosis Was evaluated by urology Pending cystoscopy once clinically stable Hypokalemia Improved Continue to monitor acute respiratory distress secondary CHF Improving Continue diuretics #3 severe pulmonary hypertension: -Follow-up with pulmonary #4 chronic lymphedema: T Continue medical manage #6 Coagulase-negative bacteremia: Patient was treated with antibiotics -Cultures reviewed #7 morbid obesity: #8 hypertension: -Continue medical management. -Medications being adjusted by cardiology #9 DVT and GI prophylaxis: Heparin, Protonix # Problems: Subjective 24 Hr Interval Summary Free Text/Dictation Patient seen and examined. No acute events overnight Patient continues to diurese well Exam/Review of Systems Vital Signs Vitals Vital Signs Date Time Temp Pulse Resp B/P Pulse Ox O2 Delivery O2 Flow Rate FiO2 02/17/17 08:28 76 18 98 Nasal Cannula 3.0 02/17/17 08:14 98.7 145/68 02/17/17 05:04 40 Intake and Output 02/16/17 02/16/17 02/17/17 15:00 23:00 07:00 Intake Total 1080 ml 600 ml Output Total 1450 ml 1800 ml Balance -370 ml -1200 ml Exam General: Patient is a morbidly obese female in no acute distress. HEENT: Atraumatic, normocephalic. The pupils are equal, round and reactive. Neck: Supple with full range of motion. No rigidity or meningismus Lungs: Clear to auscultation bilaterally no crackles rales or wheezing Heart: Normal S1-S2, Regular rhythm and rate. No overt murmur appreciated. Abdomen: Soft , nontender, nondistended , bowel sounds are present. No guarding no rebound tenderness , No masses or organomegaly. No costovertebral temporal angle mass Extremities: Extensive elephantiasis of the bilateral lower extremities Neurologic: Normal mental status, speech normal, cranial nerves II through XII are intact, motor and sensory are intact, no focal weakness Results Result Diagram: 02/16/17 0630 02/17/17 0658 Results 24 hrs Laboratory Tests Test 02/16/17 12:03 02/16/17 17:21 02/16/17 20:22 02/17/17 06:58 Bedside Glucose 177 129 165 Sodium Level 138 Potassium Level 3.8 Chloride Level 91 L Carbon Dioxide Level 34 H Anion Gap 17 H Blood Urea Nitrogen 52 H Creatinine 1.38 H Glucose Level 138 Calcium Level 9.3 Phosphorus Level 4.2 Magnesium Level 2.2 Test 02/17/17 07:47 Bedside Glucose 155 Medications Medications Current Medications Acetaminophen (Tylenol Tab) 650 mg Q6H PRN PO PAIN LEVEL 1-3 OR FEVER Last administered on 02/15/17 05:56; Admin Dose 650 MG; Start 02/11/17 at 03:30 Phenol (Cepastat Lozenge) 1 lozenge Q2H PRN MT THROATE IRRITATION Last administered on 02/17/17 08:57; Admin Dose 1 LOZENGE; Start 02/11/17 at 04:30 Diagnostic Test (Pha) (Accu-Chek) 1 ea 02 XX ; Start 02/12/17 at 02:00 Miscellaneous Information 1 ea NOTE XX ; Start 02/11/17 at 11:00 Glucose (Glutose) 15 gm Q15M PRN PO DECREASED GLUCOSE; Start 02/11/17 at 11:00 Glucose (Glutose) 22.5 gm Q15M PRN PO DECREASED GLUCOSE; Start 02/11/17 at 11: 00 Dextrose (D50w Syringe) 25 ml Q15M PRN IV DECREASED GLUCOSE; Start 02/11/17 at 11:00 Dextrose (D50w Syringe) 50 ml Q15M PRN IV DECREASED GLUCOSE; Start 02/11/17 at 11:00 Glucagon (Glucagen) 1 mg Q15M PRN IM DECREASED GLUCOSE; Start 02/11/17 at 11:00 Glucose (Glutose) 15 gm Q15M PRN BUCCAL DECREASED GLUCOSE; Start 02/11/17 at 11 :00 Nitroglycerin (Nitroglycerin (Sl Tab) 0.4 Mg) 1 tab Q5M PRN SL CHEST PAIN; Start 02/11/17 at 14:30 Acetaminophen/ Hydrocodone Bitart ([place] (5/325)) 1 tab Q6H PRN PO PAIN LEVEL 8 -10 Last administered on 02/17/17 09:09; Admin Dose 1 TAB; Start 02/12/17 at 00 :30 Hydralazine HCl (Apresoline) 10 mg Q4H PRN IV ELEVATED BLOOD PRESSURE Last administered on 02/13/17 16:45; Admin Dose 10 MG; Start 02/12/17 at 13:00 Hydralazine HCl (Apresoline) 100 mg Q8 PO Last administered on 02/17/17 05:19 ; Admin Dose 100 MG; Start 02/12/17 at 22:00 Clonidine HCl (Catapres-Tts 3 Patch) 1 patch Q7D TRANSDERM Last administered on 02/12/17 16:44; Admin Dose 1 PATCH; Start 02/12/17 at 17:00 Clonidine (Catapres) 0.2 mg Q4H PRN PO ELEVATED SYSTOLIC BP Last administered on 02/13/17 11:38; Admin Dose 0.2 MG; Start 02/12/17 at 19:00 Isosorbide Mononitrate (Imdur) 60 mg DAILY PO Last administered on 02/17/17 08 :50; Admin Dose 60 MG; Start 02/13/17 at 09:00 Carvedilol (Coreg) 25 mg BID PO Last administered on 02/17/17 08:50; Admin Dose 25 MG; Start 02/13/17 at 14:30 Nifedipine (Procardia Xl) 30 mg BID PO Last administered on 02/17/17 08:50; Admin Dose 30 MG; Start 02/13/17 at 21:00 Ondansetron HCl (Zofran Inj) 4 mg Q6H PRN IV NAUSEA AND/OR VOMITING; Start at 15:00 Enoxaparin Sodium (Lovenox) 60 mg BID SC Last administered on 02/17/17 08:51; Admin Dose 60 MG; Start 02/13/17 at 21:00 Lisinopril (Zestril) 20 mg DAILY PO Last administered on 02/17/17 08:49; Admin Dose 20 MG; Start 02/15/17 at 09:00 Docusate Sodium (Colace) 200 mg BID PO Last administered on 02/17/17 08:49; Admin Dose 200 MG; Start 02/14/17 at 21:00 Senna (Senokot) 1 tab BID PO Last administered on 02/17/17 08:50; Admin Dose 1 TAB; Start 02/14/17 at 21:00 Magnesium Hydroxide (Milk Of Mag) 30 ml DAILY PRN PO CONSTIPATION; Start at 16:00 Furosemide (Lasix) 60 mg Q8 IV Last administered on 02/17/17 05:19; Admin Dose 60 MG; Start 02/14/17 at 22:00 Pantoprazole (Protonix Tab) 40 mg DAILY@06 PO Last administered on 02/17/17 05 :18; Admin Dose 40 MG; Start 02/17/17 at 06:00 OPAL ESCALANTE DO Feb 17, 2017 10:43
--- NOTE | 2017-02-17 14:42 | CONS ---
Date/Time of Note Date/Time of Note DATE: 02/17/17 TIME: 14:40 Assessment/Plan Assessment/Plan Additional Assessment/Plan Assessment and recommendations; 1. Patient admitted for for CHF with interval improvement. 2. History of hypertension. 3. Renal insufficiency. 4. Possible underlying sleep apnea. 5. Improvement in oxygenation. 6. Right hydro-ureteronephrosis. Continue current supportive care. Consultation Date/Type/Reason Admit Date/Time Feb 11, 2017 at 00:44 Initial Consult Date 02/14/17 Type of Consultation: Pulmonary Referring Provider: KYLEE MORALES 24 HR Interval Summary Free Text/Dictation Patient condition is gradually improving. She still complains of shortness of breath but according to her that has improved over the last few days. Still complains of significant lower extremity swelling. Denies any chest pain, wheezing but complains of occasional cough. General exam; elderly woman, obese, currently in no distress. Awake and alert. Exam/Review of Systems Vital Signs Vitals Vital Signs Date Time Temp Pulse Resp B/P Pulse Ox O2 Delivery O2 Flow Rate FiO2 02/17/17 14:28 65 20 96 Nasal Cannula 4.0 02/17/17 12:06 98.7 125/59 02/17/17 05:04 40 Intake and Output 02/16/17 02/16/17 02/17/17 15:00 23:00 07:00 Intake Total 1080 ml 600 ml Output Total 1450 ml 1800 ml Balance -370 ml -1200 ml Exam HEENT exam; supple neck, positive JVD. No lymphadenopathy. Midline trachea. No thyromegaly. Patient has fair dentition. Pupils are midsize and reactive to light bilaterally. No thyromegaly. Chest exam; diminished breath on lung bases. Upper lobes are clear to auscultation. S1-S2 audible, no murmurs. Regular rhythm. Abdomen exam; protuberant. Nontender. No organomegaly. Bowel sounds audible. Extremity exam; 3+ pitting edema involving both lower extremities. SLACKLINE OPERATOR exam; no focal deficit. Results Result Diagram: 02/16/17 0630 02/17/17 0658 Results 24 hrs Laboratory Tests Test 02/16/17 17:21 02/16/17 20:22 02/17/17 06:58 02/17/17 07:47 Bedside Glucose 129 165 155 Sodium Level 138 Potassium Level 3.8 Chloride Level 91 L Carbon Dioxide Level 34 H Anion Gap 17 H Blood Urea Nitrogen 52 H Creatinine 1.38 H Glucose Level 138 Calcium Level 9.3 Phosphorus Level 4.2 Magnesium Level 2.2 Test 02/17/17 12:24 Bedside Glucose 199 Medications Medications Current Medications Acetaminophen (Tylenol Tab) 650 mg Q6H PRN PO PAIN LEVEL 1-3 OR FEVER Last administered on 02/15/17 05:56; Admin Dose 650 MG; Start 02/11/17 at 03:30 Phenol (Cepastat Lozenge) 1 lozenge Q2H PRN MT THROATE IRRITATION Last administered on 02/17/17 08:57; Admin Dose 1 LOZENGE; Start 02/11/17 at 04:30 Diagnostic Test (Pha) (Accu-Chek) 1 ea 02 XX ; Start 02/12/17 at 02:00 Miscellaneous Information 1 ea NOTE XX ; Start 02/11/17 at 11:00 Glucose (Glutose) 15 gm Q15M PRN PO DECREASED GLUCOSE; Start 02/11/17 at 11:00 Glucose (Glutose) 22.5 gm Q15M PRN PO DECREASED GLUCOSE; Start 02/11/17 at 11: 00 Dextrose (D50w Syringe) 25 ml Q15M PRN IV DECREASED GLUCOSE; Start 02/11/17 at 11:00 Dextrose (D50w Syringe) 50 ml Q15M PRN IV DECREASED GLUCOSE; Start 02/11/17 at 11:00 Glucagon (Glucagen) 1 mg Q15M PRN IM DECREASED GLUCOSE; Start 02/11/17 at 11:00 Glucose (Glutose) 15 gm Q15M PRN BUCCAL DECREASED GLUCOSE; Start 02/11/17 at 11 :00 Nitroglycerin (Nitroglycerin (Sl Tab) 0.4 Mg) 1 tab Q5M PRN SL CHEST PAIN; Start 02/11/17 at 14:30 Acetaminophen/ Hydrocodone Bitart ([place] (5/325)) 1 tab Q6H PRN PO PAIN LEVEL 8 -10 Last administered on 02/17/17 12:49; Admin Dose 1 TAB; Start 02/12/17 at 00 :30 Hydralazine HCl (Apresoline) 10 mg Q4H PRN IV ELEVATED BLOOD PRESSURE Last administered on 02/13/17 16:45; Admin Dose 10 MG; Start 02/12/17 at 13:00 Hydralazine HCl (Apresoline) 100 mg Q8 PO Last administered on 02/17/17 14:22 ; Admin Dose 100 MG; Start 02/12/17 at 22:00 Clonidine HCl (Catapres-Tts 3 Patch) 1 patch Q7D TRANSDERM Last administered on 02/12/17 16:44; Admin Dose 1 PATCH; Start 02/12/17 at 17:00 Clonidine (Catapres) 0.2 mg Q4H PRN PO ELEVATED SYSTOLIC BP Last administered on 02/13/17 11:38; Admin Dose 0.2 MG; Start 02/12/17 at 19:00 Isosorbide Mononitrate (Imdur) 60 mg DAILY PO Last administered on 02/17/17 08 :50; Admin Dose 60 MG; Start 02/13/17 at 09:00 Carvedilol (Coreg) 25 mg BID PO Last administered on 02/17/17 08:50; Admin Dose 25 MG; Start 02/13/17 at 14:30 Nifedipine (Procardia Xl) 30 mg BID PO Last administered on 02/17/17 08:50; Admin Dose 30 MG; Start 02/13/17 at 21:00 Ondansetron HCl (Zofran Inj) 4 mg Q6H PRN IV NAUSEA AND/OR VOMITING; Start at 15:00 Enoxaparin Sodium (Lovenox) 60 mg BID SC Last administered on 02/17/17 08:51; Admin Dose 60 MG; Start 02/13/17 at 21:00 Lisinopril (Zestril) 20 mg DAILY PO Last administered on 02/17/17 08:49; Admin Dose 20 MG; Start 02/15/17 at 09:00 Docusate Sodium (Colace) 200 mg BID PO Last administered on 02/17/17 08:49; Admin Dose 200 MG; Start 02/14/17 at 21:00 Senna (Senokot) 1 tab BID PO Last administered on 02/17/17 08:50; Admin Dose 1 TAB; Start 02/14/17 at 21:00 Magnesium Hydroxide (Milk Of Mag) 30 ml DAILY PRN PO CONSTIPATION; Start at 16:00 Furosemide (Lasix) 60 mg Q8 IV Last administered on 02/17/17 14:22; Admin Dose 60 MG; Start 02/14/17 at 22:00 Pantoprazole (Protonix Tab) 40 mg DAILY@06 PO Last administered on 02/17/17 05 :18; Admin Dose 40 MG; Start 02/17/17 at 06:00 SARA NATARAJAN Feb 17, 2017 14:42
--- NOTE | 2017-02-17 15:46 | PN ---
Date/Time of Note Date/Time of Note DATE: 02/17/17 TIME: 15:43 Assessment/Plan VTE Prophylaxis VTE Prophylaxis Intervention: heparin Assessment/Plan Chief Complaint/Hosp Course 1. Acute respiratory failure secondary to pulmonary edema from normal and deconditioning- bipap as needed CT chest does show extensive bilateral pulmonary edema, continue diuresis Pulmonology and cardiology following 2. Acute severe decompensated diastolic congestive heart failure Echo shows normal EF Continue diuresis 3. Reported severe pulmonary hypertension 4. Acute kidney injury secondary to possible obstructive uropathy Patient has history of hematuria but left AMA prior to cystoscopy in 2014, patient also has a history of hydronephrosis of the right kidney noted on ultrasound in August of this year Consult with Dr. Cadet appreciated, follow-up with recommendations Currently patient is anxious about any procedures being done CT abdomen pelvis shows severe right-sided hydronephrosis, follow-up with urology recommendations Renal following 5. Constipation Continue Colace and senna 6. Morbid obesity with debility and likely sleep apnea Lifestyle changes advised Pulmonology following 7. Thyroid nodule noted on CT chest Ultrasound of thyroid shows mass recommendation is for biopsy, discussed option of biopsy with patient states that she does not want any procedures done at this time, patient understands the risk that this mass may be a malignancy and hence the risk of but she still does not want to proceed with biopsy of the thyroid mass 8. Resistant hypertension-BP improved Continue lisinopril, Coreg, Procardia, Imdur hydralazine and clonidine Cardiology and nephrology following 9. Chronic lymphedema secondary to obesity and deconditioning 10. Subclinical hypothyroidism 11. Diffuse bronchoconstriction / wheezing-resolved Prophylaxis: Heparin / PPI Problems: Subjective 24 Hr Interval Summary Respiratory: shortness of breath Exam/Review of Systems Vital Signs Vitals Vital Signs Date Time Temp Pulse Resp B/P Pulse Ox O2 Delivery O2 Flow Rate FiO2 02/17/17 14:28 65 20 96 Nasal Cannula 4.0 02/17/17 12:06 98.7 125/59 02/17/17 05:04 40 Intake and Output 02/16/17 02/16/17 02/17/17 15:00 23:00 07:00 Intake Total 1080 ml 600 ml Output Total 1450 ml 1800 ml Balance -370 ml -1200 ml Exam Constitutional: alert Respiratory: clear to auscultation Cardiovascular: regular rate and rhythm Gastrointestinal: soft, No distended Musculoskeletal: nl extremities to inspection Results Result Diagram: 02/16/17 0630 02/17/17 0658 Results 24 hrs Laboratory Tests Test 02/16/17 17:21 02/16/17 20:22 02/17/17 06:58 02/17/17 07:47 Bedside Glucose 129 165 155 Sodium Level 138 Potassium Level 3.8 Chloride Level 91 L Carbon Dioxide Level 34 H Anion Gap 17 H Blood Urea Nitrogen 52 H Creatinine 1.38 H Glucose Level 138 Calcium Level 9.3 Phosphorus Level 4.2 Magnesium Level 2.2 Test 02/17/17 12:24 Bedside Glucose 199 Medications Medications Current Medications Acetaminophen (Tylenol Tab) 650 mg Q6H PRN PO PAIN LEVEL 1-3 OR FEVER Last administered on 02/15/17 05:56; Admin Dose 650 MG; Start 02/11/17 at 03:30 Phenol (Cepastat Lozenge) 1 lozenge Q2H PRN MT THROATE IRRITATION Last administered on 02/17/17 08:57; Admin Dose 1 LOZENGE; Start 02/11/17 at 04:30 Diagnostic Test (Pha) (Accu-Chek) 1 ea 02 XX ; Start 02/12/17 at 02:00 Miscellaneous Information 1 ea NOTE XX ; Start 02/11/17 at 11:00 Glucose (Glutose) 15 gm Q15M PRN PO DECREASED GLUCOSE; Start 02/11/17 at 11:00 Glucose (Glutose) 22.5 gm Q15M PRN PO DECREASED GLUCOSE; Start 02/11/17 at 11: 00 Dextrose (D50w Syringe) 25 ml Q15M PRN IV DECREASED GLUCOSE; Start 02/11/17 at 11:00 Dextrose (D50w Syringe) 50 ml Q15M PRN IV DECREASED GLUCOSE; Start 02/11/17 at 11:00 Glucagon (Glucagen) 1 mg Q15M PRN IM DECREASED GLUCOSE; Start 02/11/17 at 11:00 Glucose (Glutose) 15 gm Q15M PRN BUCCAL DECREASED GLUCOSE; Start 02/11/17 at 11 :00 Nitroglycerin (Nitroglycerin (Sl Tab) 0.4 Mg) 1 tab Q5M PRN SL CHEST PAIN; Start 02/11/17 at 14:30 Acetaminophen/ Hydrocodone Bitart ([place] (5/325)) 1 tab Q6H PRN PO PAIN LEVEL 8 -10 Last administered on 02/17/17 12:49; Admin Dose 1 TAB; Start 02/12/17 at 00 :30 Hydralazine HCl (Apresoline) 10 mg Q4H PRN IV ELEVATED BLOOD PRESSURE Last administered on 02/13/17 16:45; Admin Dose 10 MG; Start 02/12/17 at 13:00 Hydralazine HCl (Apresoline) 100 mg Q8 PO Last administered on 02/17/17 14:22 ; Admin Dose 100 MG; Start 02/12/17 at 22:00 Clonidine HCl (Catapres-Tts 3 Patch) 1 patch Q7D TRANSDERM Last administered on 02/12/17 16:44; Admin Dose 1 PATCH; Start 02/12/17 at 17:00 Clonidine (Catapres) 0.2 mg Q4H PRN PO ELEVATED SYSTOLIC BP Last administered on 02/13/17 11:38; Admin Dose 0.2 MG; Start 02/12/17 at 19:00 Isosorbide Mononitrate (Imdur) 60 mg DAILY PO Last administered on 02/17/17 08 :50; Admin Dose 60 MG; Start 02/13/17 at 09:00 Carvedilol (Coreg) 25 mg BID PO Last administered on 02/17/17 08:50; Admin Dose 25 MG; Start 02/13/17 at 14:30 Nifedipine (Procardia Xl) 30 mg BID PO Last administered on 02/17/17 08:50; Admin Dose 30 MG; Start 02/13/17 at 21:00 Ondansetron HCl (Zofran Inj) 4 mg Q6H PRN IV NAUSEA AND/OR VOMITING; Start at 15:00 Enoxaparin Sodium (Lovenox) 60 mg BID SC Last administered on 02/17/17 08:51; Admin Dose 60 MG; Start 02/13/17 at 21:00 Lisinopril (Zestril) 20 mg DAILY PO Last administered on 02/17/17 08:49; Admin Dose 20 MG; Start 02/15/17 at 09:00 Docusate Sodium (Colace) 200 mg BID PO Last administered on 02/17/17 08:49; Admin Dose 200 MG; Start 02/14/17 at 21:00 Senna (Senokot) 1 tab BID PO Last administered on 02/17/17 08:50; Admin Dose 1 TAB; Start 02/14/17 at 21:00 Magnesium Hydroxide (Milk Of Mag) 30 ml DAILY PRN PO CONSTIPATION; Start at 16:00 Furosemide (Lasix) 60 mg Q8 IV Last administered on 02/17/17 14:22; Admin Dose 60 MG; Start 02/14/17 at 22:00 Pantoprazole (Protonix Tab) 40 mg DAILY@06 PO Last administered on 02/17/17 05 :18; Admin Dose 40 MG; Start 02/17/17 at 06:00 BENOIT PARISI Feb 17, 2017 15:46
--- NOTE | 2017-02-17 17:52 | CONS ---
Date/Time of Note Date/Time of Note DATE: 02/17/17 TIME: 17:50 Assessment/Plan Assessment/Plan Chief Complaint/Hosp Course IMP: 1.CHF-Diastolic acute on chronic by most recent echo 2.PHTN 3.Resp failure on BIPAP 4. Bacteremia at OSH. Bld cultures thus far here negative. No definite vegetations by echo done here this admit 5.lymphedema 6.chest pain-negative trop x 3 7. AF-rate controlled 8. HTN-urgency/emergency-? component of discomfort-improving on oral anti- hypertensives 9. H/O PHTN-not significantly elevated by most recent echo 10.REnal failure -improving 11.hydronephrosis 12. NSVT-NL EF by echo REcc: -Tele -serial ecg's -Continue abx's and f/u cx data -Continue hydralazine/clonidine TTS/zestril/procardia xl -Use PRN anti-hypertensives as necessary -Continue lasix diuresis and follow creatnine closely -Continue BIPAP as necessary -Replete K>4.0 and mg>2.0 Problems: Consultation Date/Type/Reason Admit Date/Time Feb 11, 2017 at 00:44 Initial Consult Date 02/11/17 Type of Consultation: Cardiology Reason for Consultation CHF Referring Provider: KYLEE MORALES Exam/Review of Systems Vital Signs Vitals Vital Signs Date Time Temp Pulse Resp B/P Pulse Ox O2 Delivery O2 Flow Rate FiO2 02/17/17 16:00 73 02/17/17 15:48 98.1 18 135/69 92 02/17/17 14:28 Nasal Cannula 4.0 02/17/17 05:04 40 Intake and Output 02/16/17 02/16/17 02/17/17 15:00 23:00 07:00 Intake Total 1080 ml 600 ml Output Total 1450 ml 1800 ml Balance -370 ml -1200 ml Exam Review of Systems: CONSTITUTIONAL: No fevers, chills. PULMONARY: mild sob CARDIOVASCULAR: No chest pain/palpitations GASTROINTESTINAL: No nausea/vomiting. GENITOURINARY: No hematuria/dysuria. MUSCULOSKELETAL: No myagias/arthalgias. PSYCHIATRIC: The patient denies depression. NEUROLOGIC: No weakness Constitutional: alert Psych: no complaints Head: normocephalic ENMT: mucosa pink and moist Neck: jvd (9 cm water), supple Respiratory: diminished breath sounds Cardiovascular: regular rate and rhythm Gastrointestinal: non-tender, soft Musculoskeletal: muscle tone (normal) Extremities: edema (none) Neurological: lethargic Results Result Diagram: 02/16/17 0630 02/17/17 0658 Results 24 hrs Laboratory Tests Test 02/16/17 20:22 02/17/17 06:58 02/17/17 07:47 02/17/17 12:24 Bedside Glucose 165 155 199 Sodium Level 138 Potassium Level 3.8 Chloride Level 91 L Carbon Dioxide Level 34 H Anion Gap 17 H Blood Urea Nitrogen 52 H Creatinine 1.38 H Glucose Level 138 Calcium Level 9.3 Phosphorus Level 4.2 Magnesium Level 2.2 Test 02/17/17 17:08 Bedside Glucose 132 Medications Medications Current Medications Acetaminophen (Tylenol Tab) 650 mg Q6H PRN PO PAIN LEVEL 1-3 OR FEVER Last administered on 02/15/17 05:56; Admin Dose 650 MG; Start 02/11/17 at 03:30 Phenol (Cepastat Lozenge) 1 lozenge Q2H PRN MT THROATE IRRITATION Last administered on 02/17/17 08:57; Admin Dose 1 LOZENGE; Start 02/11/17 at 04:30 Diagnostic Test (Pha) (Accu-Chek) 1 ea 02 XX ; Start 02/12/17 at 02:00 Miscellaneous Information 1 ea NOTE XX ; Start 02/11/17 at 11:00 Glucose (Glutose) 15 gm Q15M PRN PO DECREASED GLUCOSE; Start 02/11/17 at 11:00 Glucose (Glutose) 22.5 gm Q15M PRN PO DECREASED GLUCOSE; Start 02/11/17 at 11: 00 Dextrose (D50w Syringe) 25 ml Q15M PRN IV DECREASED GLUCOSE; Start 02/11/17 at 11:00 Dextrose (D50w Syringe) 50 ml Q15M PRN IV DECREASED GLUCOSE; Start 02/11/17 at 11:00 Glucagon (Glucagen) 1 mg Q15M PRN IM DECREASED GLUCOSE; Start 02/11/17 at 11:00 Glucose (Glutose) 15 gm Q15M PRN BUCCAL DECREASED GLUCOSE; Start 02/11/17 at 11 :00 Nitroglycerin (Nitroglycerin (Sl Tab) 0.4 Mg) 1 tab Q5M PRN SL CHEST PAIN; Start 02/11/17 at 14:30 Acetaminophen/ Hydrocodone Bitart ([place] (5/325)) 1 tab Q6H PRN PO PAIN LEVEL 8 -10 Last administered on 02/17/17 12:49; Admin Dose 1 TAB; Start 02/12/17 at 00 :30 Hydralazine HCl (Apresoline) 10 mg Q4H PRN IV ELEVATED BLOOD PRESSURE Last administered on 02/13/17 16:45; Admin Dose 10 MG; Start 02/12/17 at 13:00 Hydralazine HCl (Apresoline) 100 mg Q8 PO Last administered on 02/17/17 14:22 ; Admin Dose 100 MG; Start 02/12/17 at 22:00 Clonidine HCl (Catapres-Tts 3 Patch) 1 patch Q7D TRANSDERM Last administered on 02/12/17 16:44; Admin Dose 1 PATCH; Start 02/12/17 at 17:00 Clonidine (Catapres) 0.2 mg Q4H PRN PO ELEVATED SYSTOLIC BP Last administered on 02/13/17 11:38; Admin Dose 0.2 MG; Start 02/12/17 at 19:00 Isosorbide Mononitrate (Imdur) 60 mg DAILY PO Last administered on 02/17/17 08 :50; Admin Dose 60 MG; Start 02/13/17 at 09:00 Carvedilol (Coreg) 25 mg BID PO Last administered on 02/17/17 08:50; Admin Dose 25 MG; Start 02/13/17 at 14:30 Nifedipine (Procardia Xl) 30 mg BID PO Last administered on 02/17/17 08:50; Admin Dose 30 MG; Start 02/13/17 at 21:00 Ondansetron HCl (Zofran Inj) 4 mg Q6H PRN IV NAUSEA AND/OR VOMITING; Start at 15:00 Enoxaparin Sodium (Lovenox) 60 mg BID SC Last administered on 02/17/17 08:51; Admin Dose 60 MG; Start 02/13/17 at 21:00 Lisinopril (Zestril) 20 mg DAILY PO Last administered on 02/17/17 08:49; Admin Dose 20 MG; Start 02/15/17 at 09:00 Docusate Sodium (Colace) 200 mg BID PO Last administered on 02/17/17 08:49; Admin Dose 200 MG; Start 02/14/17 at 21:00 Senna (Senokot) 1 tab BID PO Last administered on 02/17/17 08:50; Admin Dose 1 TAB; Start 02/14/17 at 21:00 Magnesium Hydroxide (Milk Of Mag) 30 ml DAILY PRN PO CONSTIPATION; Start at 16:00 Furosemide (Lasix) 60 mg Q8 IV Last administered on 02/17/17 14:22; Admin Dose 60 MG; Start 02/14/17 at 22:00 Pantoprazole (Protonix Tab) 40 mg DAILY@06 PO Last administered on 02/17/17 05 :18; Admin Dose 40 MG; Start 02/17/17 at 06:00 ASHLEY CONNOR Feb 17, 2017 17:52
--- NOTE | 2017-02-17 22:57 | PN ---
Date/Time of Note Date/Time of Note DATE: 02/17/17 TIME: 22:46 Assessment/Plan Lines/Catheters Benjamin in Place (from [facility]): Yes Assessment/Plan Chief Complaint/Hosp Course -Bilateral lower extremity atherosclerosis: It seems the patient has some component of infrainguinal atherosclerotic disease, although the patient has significant edema it is difficult to ascertain her pedal pulses is contributed to that. We will plan to obtain arterial ultrasound to further evaluate our findings and for a possible vascular observation surveillance. -Bilateral lower extremity lymphedema: It seems the patient has a chronic history of lymphedema, would like to further evaluate this as the patient may have venous insufficiency and would require reflux ultrasound. Will also plan to obtain CT Venogram -Will plan to provide a two-layer compression dressings to be changed every three to four days -Optimize vascular status (blood pressure medications, diet, nutrition, exercise , sugar control, antiplatelets). -Discussed findings, plan and management with the patient. She understands. -Thank you for allowing us to partake in the care of your patient. Please call with any questions. Problems: Subjective 24 Hr Interval Summary no new vascular events overnight, tolerating compression dressings Exam/Review of Systems Vital Signs Vitals Vital Signs Date Time Temp Pulse Resp B/P Pulse Ox O2 Delivery O2 Flow Rate FiO2 02/17/17 21:00 Nasal Cannula 4.0 02/17/17 20:23 97.2 80 16 164/79 96 02/17/17 05:04 40 Intake and Output 02/16/17 02/16/17 02/17/17 15:00 23:00 07:00 Intake Total 1080 ml 600 ml Output Total 1450 ml 1800 ml Balance -370 ml -1200 ml Exam Free Text/Dictation GENERAL: She is alert, oriented x3. LUNGS: Coarse breath sounds bilaterally with crackles at the bases. The patient currently on BiPAP. HEART: S1, S2 present ABDOMEN: Soft, nontender, nondistended. Bowel sounds positive. Large truncal obesity. Large pannus. EXTREMITIES: -RLE: Unable to palpate a femoral pulse secondary to body habitus. Unable to palpate the pedal pulse secondary to edema. Motor and sensory seemed to be intact. Capillary refill about 3 seconds. Bilateral large legs, near elephantiasis, and has edema that is 4+, extends all the way up to the thigh. Results Result Diagram: 02/16/17 0630 02/17/17 0658 LILIAN OATES MD Feb 17, 2017 22:57
[2017-02-18] VITALS (15 sets, daily range): BP systolic 137–168; BP diastolic 70–81; PULSE 63–95; RESP 16–21
[2017-02-18] MEDS: ACCU-CHEK XX SCH (02:00)
[2017-02-18] MEDS: ALBUTEROL/IPRATROPIUM (NEB) 3 ML AMP HHN SCH ×4 (03:55→20:53)
[2017-02-18] MEDS: FUROSEMIDE 20 MG INJ IV SCH ×3 (05:41→20:49)
[2017-02-18] MEDS: PANTOPRAZOLE (EC) 40 MG TAB PO SCH (05:42)
[2017-02-18 08:23] LABS: BASOPHILS % 0.6 % (0.0-2.0); EOSINOPHILS # 0.2 10^3/ul (0.0-0.5); EOSINOPHILS % 2.1 % (0.0-7.0); HEMATOCRIT 34.5 % (37.0-47.0); HEMOGLOBIN 10.3 g/dl (12.0-16.0); LYMPHOCYTES # 1.2 10^3/ul (0.8-2.9); MEAN CORPUSCULAR HEMOGLOBIN 27.6 pg (29.0-33.0); MEAN CORPUSCULAR HGB CONC 29.9 g/dl (32.0-37.0); MEAN CORPUSCULAR VOLUME 92.5 fl (82.0-101.0); MONOCYTE # 0.6 10^3/ul (0.3-0.9); MONOCYTES % 7.7 % (0.0-11.0); NEUTROPHIL # 5.1 10^3/ul (1.6-7.5); NEUTROPHILS % 72.2 % (39.0-77.0); PLATELET COUNT 249 10^3/UL (140-415); RED BLOOD COUNT 3.73 10^6/ul (4.20-5.40); RED CELL DISTRIBUTION WIDTH 16.9 % (11.5-14.5); WHITE BLOOD COUNT 7.1 10^3/ul (4.8-10.8)
[2017-02-18 08:41] LABS: CALCIUM 9.4 mg/dl (8.4-10.2); CREATININE 1.34 mg/dl (0.44-1.00); POTASSIUM 3.8 mmol/L (3.5-5.1)
[2017-02-18] MEDS: DOCUSATE SODIUM 100 MG CAP PO SCH ×2 (08:45→20:48)
[2017-02-18] MEDS: SENNA TAB PO SCH ×2 (08:45→20:50)
[2017-02-18] MEDS: LISINOPRIL 20 MG TAB PO SCH (08:46)
[2017-02-18] MEDS: ISOSORBIDE MONONITRATE(SR)60 MG TAB PO SCH (08:46)
[2017-02-18] MEDS: ENOXAPARIN 60 MG/0.6 ML SYG SC SCH ×2 (08:49→20:52)
[2017-02-18] MEDS: NIFEdipine (XL) 30 MG TAB PO SCH ×2 (08:50→20:49)
[2017-02-18] MEDS: INSULIN ASPART [NOVOLOG] 3 ML PEN SC SCH ×4 (08:51→20:53)
--- NOTE | 2017-02-18 12:39 | CONS ---
Date/Time of Note Date/Time of Note DATE: 02/18/17 TIME: 12:36 Assessment/Plan Assessment/Plan Additional Assessment/Plan Assessment recommendations; 1. Patient admitted for CHF with clinical improvement. 2. History of hypertension. 3. Renal insufficiency, 4. Possibly underlying sleep apnea. 5. Right hydroureteronephrosis. Continue current treatment. Patient responding well to current treatment regimen. Consultation Date/Type/Reason Admit Date/Time Feb 11, 2017 at 00:44 Initial Consult Date 02/14/17 Type of Consultation: Pulmonary Referring Provider: KYLEE MORALES 24 HR Interval Summary Free Text/Dictation Patient condition stable. Denies any shortness of breath at rest. Complains of minimal dyspnea on exertion. Denies any chest pain, wheezing cough or sputum production. General exam; elderly woman, awake alert currently in no distress. Exam/Review of Systems Vital Signs Vitals Vital Signs Date Time Temp Pulse Resp B/P Pulse Ox O2 Delivery O2 Flow Rate FiO2 02/18/17 12:09 63 02/18/17 12:07 97.8 19 154/77 98 02/18/17 08:36 Nasal Cannula 4.0 02/18/17 03:53 40 Intake and Output 02/17/17 02/17/17 02/18/17 15:00 23:00 07:00 Intake Total 1080 ml 800 ml Output Total 1800 ml 2100 ml Balance -720 ml -1300 ml Exam HEENT exam; supple neck, positive JVD. No lymphadenopathy. Midline trachea. No thyromegaly. Pupils are equal and reactive to light. Patient has fair dentition. Chest exam; clear to auscultation. S1-S2 audible, no murmurs. Regular rhythm. Abdomen exam; soft, no organomegaly. Bowel sounds audible. Extremity exam; no peripheral edema. Pulses 1+ bilaterally. Patient does have ecchymosis involving all 4 extremities. 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 Results Result Diagram: 02/18/17 0748 02/18/17 0748 Results 24 hrs Laboratory Tests Test 02/17/17 17:08 02/17/17 20:18 02/18/17 07:48 02/18/17 08:37 Bedside Glucose 132 198 151 White Blood Count 7.1 # Red Blood Count 3.73 L Hemoglobin 10.3 L Hematocrit 34.5 L Mean Corpuscular Volume 92.5 Mean Corpuscular Hemoglobin 27.6 L Mean Corpuscular Hemoglobin Concent 29.9 L Red Cell Distribution Width 16.9 H Platelet Count 249 Mean Platelet Volume 11.0 H Neutrophils % 72.2 Lymphocytes % 17.0 Monocytes % 7.7 Eosinophils % 2.1 Basophils % 0.6 Nucleated Red Blood Cells % 0.0 Neutrophils # 5.1 Lymphocytes # 1.2 Monocytes # 0.6 Eosinophils # 0.2 Basophils # 0.0 Nucleated Red Blood Cells # 0.0 Sodium Level 139 Potassium Level 3.8 Chloride Level 92 L Carbon Dioxide Level 34 H Anion Gap 17 H Blood Urea Nitrogen 48 H Creatinine 1.34 H Glucose Level 153 Calcium Level 9.4 Medications Medications Current Medications Acetaminophen (Tylenol Tab) 650 mg Q6H PRN PO PAIN LEVEL 1-3 OR FEVER Last administered on 02/15/17 05:56; Admin Dose 650 MG; Start 02/11/17 at 03:30 Phenol (Cepastat Lozenge) 1 lozenge Q2H PRN MT THROATE IRRITATION Last administered on 02/17/17 08:57; Admin Dose 1 LOZENGE; Start 02/11/17 at 04:30 Diagnostic Test (Pha) (Accu-Chek) 1 ea 02 XX ; Start 02/12/17 at 02:00 Miscellaneous Information 1 ea NOTE XX ; Start 02/11/17 at 11:00 Glucose (Glutose) 15 gm Q15M PRN PO DECREASED GLUCOSE; Start 02/11/17 at 11:00 Glucose (Glutose) 22.5 gm Q15M PRN PO DECREASED GLUCOSE; Start 02/11/17 at 11: 00 Dextrose (D50w Syringe) 25 ml Q15M PRN IV DECREASED GLUCOSE; Start 02/11/17 at 11:00 Dextrose (D50w Syringe) 50 ml Q15M PRN IV DECREASED GLUCOSE; Start 02/11/17 at 11:00 Glucagon (Glucagen) 1 mg Q15M PRN IM DECREASED GLUCOSE; Start 02/11/17 at 11:00 Glucose (Glutose) 15 gm Q15M PRN BUCCAL DECREASED GLUCOSE; Start 02/11/17 at 11 :00 Nitroglycerin (Nitroglycerin (Sl Tab) 0.4 Mg) 1 tab Q5M PRN SL CHEST PAIN; Start 02/11/17 at 14:30 Acetaminophen/ Hydrocodone Bitart ([place] (5/325)) 1 tab Q6H PRN PO PAIN LEVEL 8 -10 Last administered on 02/17/17 22:47; Admin Dose 1 TAB; Start 02/12/17 at 00 :30 Hydralazine HCl (Apresoline) 10 mg Q4H PRN IV ELEVATED BLOOD PRESSURE Last administered on 02/13/17 16:45; Admin Dose 10 MG; Start 02/12/17 at 13:00 Hydralazine HCl (Apresoline) 100 mg Q8 PO Last administered on 02/18/17 05:42 ; Admin Dose 100 MG; Start 02/12/17 at 22:00 Clonidine HCl (Catapres-Tts 3 Patch) 1 patch Q7D TRANSDERM Last administered on 02/12/17 16:44; Admin Dose 1 PATCH; Start 02/12/17 at 17:00 Clonidine (Catapres) 0.2 mg Q4H PRN PO ELEVATED SYSTOLIC BP Last administered on 02/13/17 11:38; Admin Dose 0.2 MG; Start 02/12/17 at 19:00 Isosorbide Mononitrate (Imdur) 60 mg DAILY PO Last administered on 02/18/17 08 :46; Admin Dose 60 MG; Start 02/13/17 at 09:00 Carvedilol (Coreg) 25 mg BID PO Last administered on 02/18/17 08:46; Admin Dose 25 MG; Start 02/13/17 at 14:30 Nifedipine (Procardia Xl) 30 mg BID PO Last administered on 02/18/17 08:50; Admin Dose 30 MG; Start 02/13/17 at 21:00 Ondansetron HCl (Zofran Inj) 4 mg Q6H PRN IV NAUSEA AND/OR VOMITING; Start at 15:00 Enoxaparin Sodium (Lovenox) 60 mg BID SC Last administered on 02/18/17 08:49; Admin Dose 60 MG; Start 02/13/17 at 21:00 Lisinopril (Zestril) 20 mg DAILY PO Last administered on 02/18/17 08:46; Admin Dose 20 MG; Start 02/15/17 at 09:00 Docusate Sodium (Colace) 200 mg BID PO Last administered on 02/18/17 08:45; Admin Dose 200 MG; Start 02/14/17 at 21:00 Senna (Senokot) 1 tab BID PO Last administered on 02/18/17 08:45; Admin Dose 1 TAB; Start 02/14/17 at 21:00 Magnesium Hydroxide (Milk Of Mag) 30 ml DAILY PRN PO CONSTIPATION; Start at 16:00 Furosemide (Lasix) 60 mg Q8 IV Last administered on 02/18/17 05:41; Admin Dose 60 MG; Start 02/14/17 at 22:00 Pantoprazole (Protonix Tab) 40 mg DAILY@06 PO Last administered on 02/18/17 05 :42; Admin Dose 40 MG; Start 02/17/17 at 06:00 SARA NATARAJAN Feb 18, 2017 12:38
--- NOTE | 2017-02-18 12:59 | PN ---
Date/Time of Note Date/Time of Note DATE: 02/18/17 TIME: 12:58 Assessment/Plan VTE Prophylaxis VTE Prophylaxis Intervention: heparin Assessment/Plan Chief Complaint/Hosp Course 1. Acute respiratory failure secondary to pulmonary edema from normal and deconditioning- bipap as needed CT chest does show extensive bilateral pulmonary edema, continue diuresis Pulmonology and cardiology following Follow-up with chest x-ray from today 2. Acute severe decompensated diastolic congestive heart failure Echo shows normal EF Continue diuresis 3. Reported severe pulmonary hypertension 4. Acute kidney injury secondary to possible obstructive uropathy Patient has history of hematuria but left AMA prior to cystoscopy in 2014, patient also has a history of hydronephrosis of the right kidney noted on ultrasound in August of this year Consult with Dr. Cadet appreciated, follow-up with recommendations Currently patient is anxious about any procedures being done CT abdomen pelvis shows severe right-sided hydronephrosis, follow-up with urology recommendations, currently patient unstable for any procedure Renal following 5. Constipation Continue Colace and senna 6. Morbid obesity with debility and likely sleep apnea Lifestyle changes advised Pulmonology following 7. Thyroid nodule noted on CT chest Ultrasound of thyroid shows mass recommendation is for biopsy, discussed option of biopsy with patient states that she does not want any procedures done at this time, patient understands the risk that this mass may be a malignancy and hence the risk of but she still does not want to proceed with biopsy of the thyroid mass 8. Resistant hypertension-BP improved Continue lisinopril, Coreg, Procardia, Imdur hydralazine and clonidine Cardiology and nephrology following 9. Chronic lymphedema secondary to obesity and deconditioning 10. Subclinical hypothyroidism 11. Diffuse bronchoconstriction / wheezing-resolved Prophylaxis: Heparin / PPI Problems: Subjective 24 Hr Interval Summary Respiratory: shortness of breath Genitourinary: other (Vaginal itching) Exam/Review of Systems Vital Signs Vitals Vital Signs Date Time Temp Pulse Resp B/P Pulse Ox O2 Delivery O2 Flow Rate FiO2 02/18/17 12:09 63 02/18/17 12:07 97.8 19 154/77 98 02/18/17 08:36 Nasal Cannula 4.0 02/18/17 03:53 40 Intake and Output 02/17/17 02/17/17 02/18/17 15:00 23:00 07:00 Intake Total 1080 ml 800 ml Output Total 1800 ml 2100 ml Balance -720 ml -1300 ml Exam Constitutional: alert Respiratory: clear to auscultation Cardiovascular: regular rate and rhythm Gastrointestinal: soft, No distended Extremities: edema Results Result Diagram: 02/18/17 0748 02/18/17 0748 Results 24 hrs Laboratory Tests Test 02/17/17 17:08 02/17/17 20:18 02/18/17 07:48 02/18/17 08:37 Bedside Glucose 132 198 151 White Blood Count 7.1 # Red Blood Count 3.73 L Hemoglobin 10.3 L Hematocrit 34.5 L Mean Corpuscular Volume 92.5 Mean Corpuscular Hemoglobin 27.6 L Mean Corpuscular Hemoglobin Concent 29.9 L Red Cell Distribution Width 16.9 H Platelet Count 249 Mean Platelet Volume 11.0 H Neutrophils % 72.2 Lymphocytes % 17.0 Monocytes % 7.7 Eosinophils % 2.1 Basophils % 0.6 Nucleated Red Blood Cells % 0.0 Neutrophils # 5.1 Lymphocytes # 1.2 Monocytes # 0.6 Eosinophils # 0.2 Basophils # 0.0 Nucleated Red Blood Cells # 0.0 Sodium Level 139 Potassium Level 3.8 Chloride Level 92 L Carbon Dioxide Level 34 H Anion Gap 17 H Blood Urea Nitrogen 48 H Creatinine 1.34 H Glucose Level 153 Calcium Level 9.4 Test 02/18/17 12:34 Bedside Glucose 133 Medications Medications Current Medications Acetaminophen (Tylenol Tab) 650 mg Q6H PRN PO PAIN LEVEL 1-3 OR FEVER Last administered on 02/15/17 05:56; Admin Dose 650 MG; Start 02/11/17 at 03:30 Phenol (Cepastat Lozenge) 1 lozenge Q2H PRN MT THROATE IRRITATION Last administered on 02/17/17 08:57; Admin Dose 1 LOZENGE; Start 02/11/17 at 04:30 Diagnostic Test (Pha) (Accu-Chek) 1 ea 02 XX ; Start 02/12/17 at 02:00 Miscellaneous Information 1 ea NOTE XX ; Start 02/11/17 at 11:00 Glucose (Glutose) 15 gm Q15M PRN PO DECREASED GLUCOSE; Start 02/11/17 at 11:00 Glucose (Glutose) 22.5 gm Q15M PRN PO DECREASED GLUCOSE; Start 02/11/17 at 11: 00 Dextrose (D50w Syringe) 25 ml Q15M PRN IV DECREASED GLUCOSE; Start 02/11/17 at 11:00 Dextrose (D50w Syringe) 50 ml Q15M PRN IV DECREASED GLUCOSE; Start 02/11/17 at 11:00 Glucagon (Glucagen) 1 mg Q15M PRN IM DECREASED GLUCOSE; Start 02/11/17 at 11:00 Glucose (Glutose) 15 gm Q15M PRN BUCCAL DECREASED GLUCOSE; Start 02/11/17 at 11 :00 Nitroglycerin (Nitroglycerin (Sl Tab) 0.4 Mg) 1 tab Q5M PRN SL CHEST PAIN; Start 02/11/17 at 14:30 Acetaminophen/ Hydrocodone Bitart ([place] (5/325)) 1 tab Q6H PRN PO PAIN LEVEL 8 -10 Last administered on 02/17/17 22:47; Admin Dose 1 TAB; Start 02/12/17 at 00 :30 Hydralazine HCl (Apresoline) 10 mg Q4H PRN IV ELEVATED BLOOD PRESSURE Last administered on 02/13/17 16:45; Admin Dose 10 MG; Start 02/12/17 at 13:00 Hydralazine HCl (Apresoline) 100 mg Q8 PO Last administered on 02/18/17 12:37 ; Admin Dose 100 MG; Start 02/12/17 at 22:00 Clonidine HCl (Catapres-Tts 3 Patch) 1 patch Q7D TRANSDERM Last administered on 02/12/17 16:44; Admin Dose 1 PATCH; Start 02/12/17 at 17:00 Clonidine (Catapres) 0.2 mg Q4H PRN PO ELEVATED SYSTOLIC BP Last administered on 02/13/17 11:38; Admin Dose 0.2 MG; Start 02/12/17 at 19:00 Isosorbide Mononitrate (Imdur) 60 mg DAILY PO Last administered on 02/18/17 08 :46; Admin Dose 60 MG; Start 02/13/17 at 09:00 Carvedilol (Coreg) 25 mg BID PO Last administered on 02/18/17 08:46; Admin Dose 25 MG; Start 02/13/17 at 14:30 Nifedipine (Procardia Xl) 30 mg BID PO Last administered on 02/18/17 08:50; Admin Dose 30 MG; Start 02/13/17 at 21:00 Ondansetron HCl (Zofran Inj) 4 mg Q6H PRN IV NAUSEA AND/OR VOMITING; Start at 15:00 Enoxaparin Sodium (Lovenox) 60 mg BID SC Last administered on 02/18/17 08:49; Admin Dose 60 MG; Start 02/13/17 at 21:00 Lisinopril (Zestril) 20 mg DAILY PO Last administered on 02/18/17 08:46; Admin Dose 20 MG; Start 02/15/17 at 09:00 Docusate Sodium (Colace) 200 mg BID PO Last administered on 02/18/17 08:45; Admin Dose 200 MG; Start 02/14/17 at 21:00 Senna (Senokot) 1 tab BID PO Last administered on 02/18/17 08:45; Admin Dose 1 TAB; Start 02/14/17 at 21:00 Magnesium Hydroxide (Milk Of Mag) 30 ml DAILY PRN PO CONSTIPATION; Start at 16:00 Furosemide (Lasix) 60 mg Q8 IV Last administered on 02/18/17 12:36; Admin Dose 60 MG; Start 02/14/17 at 22:00 Pantoprazole (Protonix Tab) 40 mg DAILY@06 PO Last administered on 02/18/17 05 :42; Admin Dose 40 MG; Start 02/17/17 at 06:00 BENOIT PARISI Feb 18, 2017 12:59
--- NOTE | 2017-02-18 13:42 | CONS ---
Date/Time of Note Date/Time of Note DATE: 02/18/17 TIME: 13:37 Assessment/Plan Assessment/Plan Additional Assessment/Plan Diastolic heart failure Pleural effusion Pulmonary HTN resolved Resp failure AF-rate controlled HTN Renal failure Hydronephrosis Continue diuresis with Lasix Continue current antihypertensive regimen Continue Lovenox Replete K>4.0 and mg>2.0 Continue Insulin Bipap PRN Consultation Date/Type/Reason Admit Date/Time Feb 11, 2017 at 00:44 Constitutional: no complaints Eyes: no complaints ENT: no complaints Respiratory: shortness of breath Cardiovascular: No chest pain, No edema Gastrointestinal: no complaints, No nausea, No vomiting Genitourinary: other (Vaginal itching) Musculoskeletal: no complaints Skin: no complaints Neurologic: No confusion, No headache, No syncope Endocrine: no complaints Lymphatic: no complaints Psychological: no complaints Past Medical History Medical History: cancer, congestive heart failure, hypertension, other (Right hydronephrosis, chronic kidney disease, pulmonary hypertension, morbid obesity) Past Surgical History Past Surgical Hx: bowel resection, other (Hysterectomy followed by radiation, colon resection for cancer) Social History Alcohol Use: none Smoking Status: Former smoker (Half pack per year 11 years, she quit 20 years ago) Drug Use: none Exam/Review of Systems Vital Signs Vitals Vital Signs Date Time Temp Pulse Resp B/P Pulse Ox O2 Delivery O2 Flow Rate FiO2 02/18/17 12:09 63 02/18/17 12:07 97.8 19 154/77 98 02/18/17 08:36 Nasal Cannula 4.0 02/18/17 03:53 40 Intake and Output 02/17/17 02/17/17 02/18/17 15:00 23:00 07:00 Intake Total 1080 ml 800 ml Output Total 1800 ml 2100 ml Balance -720 ml -1300 ml Exam Constitutional: alert Head: atraumatic, normocephalic Neck: non-tender, supple Respiratory: diminished breath sounds Cardiovascular: irregular rhythm Gastrointestinal: nl liver, spleen, non-tender, soft Extremities: normal pulses Results Result Diagram: 02/18/17 0748 02/18/17 0748 Results 24 hrs Laboratory Tests Test 02/17/17 17:08 02/17/17 20:18 02/18/17 07:48 02/18/17 08:37 Bedside Glucose 132 198 151 White Blood Count 7.1 # Red Blood Count 3.73 L Hemoglobin 10.3 L Hematocrit 34.5 L Mean Corpuscular Volume 92.5 Mean Corpuscular Hemoglobin 27.6 L Mean Corpuscular Hemoglobin Concent 29.9 L Red Cell Distribution Width 16.9 H Platelet Count 249 Mean Platelet Volume 11.0 H Neutrophils % 72.2 Lymphocytes % 17.0 Monocytes % 7.7 Eosinophils % 2.1 Basophils % 0.6 Nucleated Red Blood Cells % 0.0 Neutrophils # 5.1 Lymphocytes # 1.2 Monocytes # 0.6 Eosinophils # 0.2 Basophils # 0.0 Nucleated Red Blood Cells # 0.0 Sodium Level 139 Potassium Level 3.8 Chloride Level 92 L Carbon Dioxide Level 34 H Anion Gap 17 H Blood Urea Nitrogen 48 H Creatinine 1.34 H Glucose Level 153 Calcium Level 9.4 Test 02/18/17 12:34 Bedside Glucose 133 Medications Medications Current Medications Acetaminophen (Tylenol Tab) 650 mg Q6H PRN PO PAIN LEVEL 1-3 OR FEVER Last administered on 02/15/17 05:56; Admin Dose 650 MG; Start 02/11/17 at 03:30 Phenol (Cepastat Lozenge) 1 lozenge Q2H PRN MT THROATE IRRITATION Last administered on 02/17/17 08:57; Admin Dose 1 LOZENGE; Start 02/11/17 at 04:30 Diagnostic Test (Pha) (Accu-Chek) 1 ea 02 XX ; Start 02/12/17 at 02:00 Miscellaneous Information 1 ea NOTE XX ; Start 02/11/17 at 11:00 Glucose (Glutose) 15 gm Q15M PRN PO DECREASED GLUCOSE; Start 02/11/17 at 11:00 Glucose (Glutose) 22.5 gm Q15M PRN PO DECREASED GLUCOSE; Start 02/11/17 at 11: 00 Dextrose (D50w Syringe) 25 ml Q15M PRN IV DECREASED GLUCOSE; Start 02/11/17 at 11:00 Dextrose (D50w Syringe) 50 ml Q15M PRN IV DECREASED GLUCOSE; Start 02/11/17 at 11:00 Glucagon (Glucagen) 1 mg Q15M PRN IM DECREASED GLUCOSE; Start 02/11/17 at 11:00 Glucose (Glutose) 15 gm Q15M PRN BUCCAL DECREASED GLUCOSE; Start 02/11/17 at 11 :00 Nitroglycerin (Nitroglycerin (Sl Tab) 0.4 Mg) 1 tab Q5M PRN SL CHEST PAIN; Start 02/11/17 at 14:30 Acetaminophen/ Hydrocodone Bitart ([place] (5/325)) 1 tab Q6H PRN PO PAIN LEVEL 8 -10 Last administered on 02/17/17 22:47; Admin Dose 1 TAB; Start 02/12/17 at 00 :30 Hydralazine HCl (Apresoline) 10 mg Q4H PRN IV ELEVATED BLOOD PRESSURE Last administered on 02/13/17 16:45; Admin Dose 10 MG; Start 02/12/17 at 13:00 Hydralazine HCl (Apresoline) 100 mg Q8 PO Last administered on 02/18/17 12:37 ; Admin Dose 100 MG; Start 02/12/17 at 22:00 Clonidine HCl (Catapres-Tts 3 Patch) 1 patch Q7D TRANSDERM Last administered on 02/12/17 16:44; Admin Dose 1 PATCH; Start 02/12/17 at 17:00 Clonidine (Catapres) 0.2 mg Q4H PRN PO ELEVATED SYSTOLIC BP Last administered on 02/13/17 11:38; Admin Dose 0.2 MG; Start 02/12/17 at 19:00 Isosorbide Mononitrate (Imdur) 60 mg DAILY PO Last administered on 02/18/17 08 :46; Admin Dose 60 MG; Start 02/13/17 at 09:00 Carvedilol (Coreg) 25 mg BID PO Last administered on 02/18/17 08:46; Admin Dose 25 MG; Start 02/13/17 at 14:30 Nifedipine (Procardia Xl) 30 mg BID PO Last administered on 02/18/17 08:50; Admin Dose 30 MG; Start 02/13/17 at 21:00 Ondansetron HCl (Zofran Inj) 4 mg Q6H PRN IV NAUSEA AND/OR VOMITING; Start at 15:00 Enoxaparin Sodium (Lovenox) 60 mg BID SC Last administered on 02/18/17 08:49; Admin Dose 60 MG; Start 02/13/17 at 21:00 Lisinopril (Zestril) 20 mg DAILY PO Last administered on 02/18/17 08:46; Admin Dose 20 MG; Start 02/15/17 at 09:00 Docusate Sodium (Colace) 200 mg BID PO Last administered on 02/18/17 08:45; Admin Dose 200 MG; Start 02/14/17 at 21:00 Senna (Senokot) 1 tab BID PO Last administered on 02/18/17 08:45; Admin Dose 1 TAB; Start 02/14/17 at 21:00 Magnesium Hydroxide (Milk Of Mag) 30 ml DAILY PRN PO CONSTIPATION; Start at 16:00 Furosemide (Lasix) 60 mg Q8 IV Last administered on 02/18/17 12:36; Admin Dose 60 MG; Start 02/14/17 at 22:00 Pantoprazole (Protonix Tab) 40 mg DAILY@06 PO Last administered on 02/18/17 05 :42; Admin Dose 40 MG; Start 02/17/17 at 06:00 Nystatin/ Triamcinolone Acetonide (Mycolog Oint) 1 applic BID TOP ; Start at 14:00 SARITA DING M.D. Feb 18, 2017 13:42
--- NOTE | 2017-02-18 13:48 | RADRPT ---
PROCEDURE: XR Chest. CLINICAL INDICATION: Shortness of breath. TECHNIQUE: Single frontal view. COMPARISON: 02/16/2017. FINDINGS: The right arm PICC line remains in satisfactory position. Interstitial pulmonary edema is slightly improved. Mild atelectasis at the lung bases is improved on the right and unchanged on the left. Th e lungs are otherwise clear. The heart is enlarged. There is calcification in the aorta consistent with atherosclerosis. There are small bilateral pleural effusions. There is no pneumothorax. IMPRESSION: 1. Slightly improved appearance of pulmonary edema and right basilar atelectasis. 2. No other change from 02/16/2017. RPTAT: QQ .Avinash Kinney MD, MD Date Time Electronically viewed and signed by .Avinash Kinney MD, on 02/18/2017 13:47 .R/
[2017-02-18] MEDS: NYSTATIN/TRIAMCINOLONE 15 GM OINT TOP SCH ×2 (14:00→20:50)
[2017-02-18] MEDS ORDERED: CALCIUM CARBONATE 500 MG CHEW TAB PO PRN (15:00)
[2017-02-18] MEDS ORDERED: VITAMIN A & D 5 GM OINT PACKET TOP ONE (20:46)
[2017-02-18] MEDS: HYDROCODONE/APAP (5/325) TAB PO PRN (21:23)
[2017-02-19] VITALS (13 sets, daily range): BP systolic 130–159; BP diastolic 63–79; PULSE 62–89; RESP 16–28
[2017-02-19] MEDS: ALBUTEROL/IPRATROPIUM (NEB) 3 ML AMP HHN SCH ×4 (01:42→19:16)
[2017-02-19] MEDS: ACCU-CHEK XX SCH (02:00)
[2017-02-19] MEDS: PANTOPRAZOLE (EC) 40 MG TAB PO SCH (06:25)
[2017-02-19] MEDS: FUROSEMIDE 20 MG INJ IV SCH ×3 (06:25→21:38)
[2017-02-19] MEDS: HYDROCODONE/APAP (5/325) TAB PO PRN ×3 (06:39→21:39)
[2017-02-19] MEDS: NYSTATIN/TRIAMCINOLONE 15 GM OINT TOP SCH ×2 (07:40→21:52)
[2017-02-19 08:03] LABS: CALCIUM 9.3 mg/dl (8.4-10.2); CREATININE 1.62 mg/dl (0.44-1.00); PHOSPHORUS 4.8 mg/dl (2.5-4.9)
[2017-02-19] MEDS: INSULIN ASPART [NOVOLOG] 3 ML PEN SC SCH ×4 (08:49→21:00)
[2017-02-19] MEDS: DOCUSATE SODIUM 100 MG CAP PO SCH ×2 (09:46→21:39)
[2017-02-19] MEDS: NIFEdipine (XL) 30 MG TAB PO SCH ×2 (09:47→21:39)
[2017-02-19] MEDS: ISOSORBIDE MONONITRATE(SR)60 MG TAB PO SCH (09:47)
[2017-02-19] MEDS: LISINOPRIL 20 MG TAB PO SCH (09:47)
[2017-02-19] MEDS: SENNA TAB PO SCH ×2 (09:47→21:38)
[2017-02-19] MEDS: ENOXAPARIN 60 MG/0.6 ML SYG SC SCH ×2 (09:49→21:43)
[2017-02-19] MEDS: CEPASTAT LOZENGE MT PRN (09:58)
--- NOTE | 2017-02-19 12:09 | CONS ---
Date/Time of Note Date/Time of Note DATE: 02/19/17 TIME: 12:08 Assessment/Plan Assessment/Plan Additional Assessment/Plan Chest x-ray was reviewed from yesterday evening which is showing very minimal interstitial prominence. Assessment recommendations; 1. Patient admitted with CHF exacerbation with significant clinical improvement. 2. Chronic lower extremity lymphedema. 3. Renal insufficiency. Continue current treatment. Consultation Date/Type/Reason Admit Date/Time Feb 11, 2017 at 00:44 Initial Consult Date 02/14/17 Type of Consultation: Pulmonary Referring Provider: KYLEE MORALES 24 HR Interval Summary Free Text/Dictation Patient condition stable. Denies any shortness of breath. Lower extremity edema is improving. General exam; elderly woman, awake alert currently in no distress. Exam/Review of Systems Vital Signs Vitals Vital Signs Date Time Temp Pulse Resp B/P Pulse Ox O2 Delivery O2 Flow Rate FiO2 02/19/17 11:34 98.2 65 20 146/70 98 02/19/17 07:36 4.0 02/19/17 07:35 Nasal Cannula 02/19/17 03:49 40 Intake and Output 02/18/17 02/18/17 02/19/17 15:00 23:00 07:00 Intake Total 1400 ml 350 ml Output Total 2300 ml 1350 ml Balance -900 ml -1000 ml Exam HEENT exam; supple neck, no JVD. No lymphadenopathy. Midline trachea. No thyromegaly. Chest exam; clear to auscultation. S1-S2 audible, no murmurs. Regular rhythm. Abdomen exam; soft, nontender. No organomegaly. Bowel sounds audible. Extremity exam; decreased lower extremity edema. Patient does have chronic lymphedema involving feet bilaterally. 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 Results Result Diagram: 02/18/17 0748 02/19/17 0631 Results 24 hrs Laboratory Tests Test 02/18/17 12:34 02/18/17 17:19 02/18/17 20:43 02/19/17 02:37 Bedside Glucose 133 149 211 154 Test 02/19/17 06:31 02/19/17 08:43 Sodium Level 138 Potassium Level 4.0 Chloride Level 91 L Carbon Dioxide Level 33 H Anion Gap 18 H Blood Urea Nitrogen 54 H Creatinine 1.62 H Glucose Level 157 Calcium Level 9.3 Phosphorus Level 4.8 Magnesium Level 2.0 Bedside Glucose 157 Medications Medications Current Medications Acetaminophen (Tylenol Tab) 650 mg Q6H PRN PO PAIN LEVEL 1-3 OR FEVER Last administered on 02/15/17 05:56; Admin Dose 650 MG; Start 02/11/17 at 03:30 Phenol (Cepastat Lozenge) 1 lozenge Q2H PRN MT THROATE IRRITATION Last administered on 02/19/17 09:58; Admin Dose 1 LOZENGE; Start 02/11/17 at 04:30 Diagnostic Test (Pha) (Accu-Chek) 1 ea 02 XX ; Start 02/12/17 at 02:00 Miscellaneous Information 1 ea NOTE XX ; Start 02/11/17 at 11:00 Glucose (Glutose) 15 gm Q15M PRN PO DECREASED GLUCOSE; Start 02/11/17 at 11:00 Glucose (Glutose) 22.5 gm Q15M PRN PO DECREASED GLUCOSE; Start 02/11/17 at 11: 00 Dextrose (D50w Syringe) 25 ml Q15M PRN IV DECREASED GLUCOSE; Start 02/11/17 at 11:00 Dextrose (D50w Syringe) 50 ml Q15M PRN IV DECREASED GLUCOSE; Start 02/11/17 at 11:00 Glucagon (Glucagen) 1 mg Q15M PRN IM DECREASED GLUCOSE; Start 02/11/17 at 11:00 Glucose (Glutose) 15 gm Q15M PRN BUCCAL DECREASED GLUCOSE; Start 02/11/17 at 11 :00 Nitroglycerin (Nitroglycerin (Sl Tab) 0.4 Mg) 1 tab Q5M PRN SL CHEST PAIN; Start 02/11/17 at 14:30 Acetaminophen/ Hydrocodone Bitart ([place] (5/325)) 1 tab Q6H PRN PO PAIN LEVEL 8 -10 Last administered on 02/19/17 06:39; Admin Dose 1 TAB; Start 02/12/17 at 00 :30 Hydralazine HCl (Apresoline) 10 mg Q4H PRN IV ELEVATED BLOOD PRESSURE Last administered on 02/13/17 16:45; Admin Dose 10 MG; Start 02/12/17 at 13:00 Hydralazine HCl (Apresoline) 100 mg Q8 PO Last administered on 02/19/17 06:25 ; Admin Dose 100 MG; Start 02/12/17 at 22:00 Clonidine HCl (Catapres-Tts 3 Patch) 1 patch Q7D TRANSDERM Last administered on 02/12/17 16:44; Admin Dose 1 PATCH; Start 02/12/17 at 17:00 Clonidine (Catapres) 0.2 mg Q4H PRN PO ELEVATED SYSTOLIC BP Last administered on 02/13/17 11:38; Admin Dose 0.2 MG; Start 02/12/17 at 19:00 Isosorbide Mononitrate (Imdur) 60 mg DAILY PO Last administered on 02/19/17 09 :47; Admin Dose 60 MG; Start 02/13/17 at 09:00 Carvedilol (Coreg) 25 mg BID PO Last administered on 02/19/17 09:47; Admin Dose 25 MG; Start 02/13/17 at 14:30 Nifedipine (Procardia Xl) 30 mg BID PO Last administered on 02/19/17 09:47; Admin Dose 30 MG; Start 02/13/17 at 21:00 Ondansetron HCl (Zofran Inj) 4 mg Q6H PRN IV NAUSEA AND/OR VOMITING; Start at 15:00 Enoxaparin Sodium (Lovenox) 60 mg BID SC Last administered on 02/19/17 09:49; Admin Dose 60 MG; Start 02/13/17 at 21:00 Lisinopril (Zestril) 20 mg DAILY PO Last administered on 02/19/17 09:47; Admin Dose 20 MG; Start 02/15/17 at 09:00 Docusate Sodium (Colace) 200 mg BID PO Last administered on 02/19/17 09:46; Admin Dose 200 MG; Start 02/14/17 at 21:00 Senna (Senokot) 1 tab BID PO Last administered on 02/19/17 09:47; Admin Dose 1 TAB; Start 02/14/17 at 21:00 Magnesium Hydroxide (Milk Of Mag) 30 ml DAILY PRN PO CONSTIPATION; Start at 16:00 Furosemide (Lasix) 60 mg Q8 IV Last administered on 02/19/17 06:25; Admin Dose 60 MG; Start 02/14/17 at 22:00 Pantoprazole (Protonix Tab) 40 mg DAILY@06 PO Last administered on 02/19/17 06 :25; Admin Dose 40 MG; Start 02/17/17 at 06:00 Nystatin/ Triamcinolone Acetonide (Mycolog Oint) 1 applic BID TOP Last administered on 02/18/17 20:50; Admin Dose 1 APPLIC; Start 02/18/17 at 14:00 Simethicone (Mylicon) 80 mg QID PRN PO DISTENSION/GAS/BLOATING Last administered on 02/19/17 10:01; Admin Dose 80 MG; Start 02/18/17 at 15:00 SARA NATARAJAN Feb 19, 2017 12:09
--- NOTE | 2017-02-19 13:12 | CONS ---
Date/Time of Note Date/Time of Note DATE: 02/19/17 TIME: 13:09 Assessment/Plan Assessment/Plan Additional Assessment/Plan Diastolic heart failure Pleural effusion Pulmonary HTN resolved Resp failure AF-rate controlled HTN Renal failure Hydronephrosis Anemia Diuresing well, renal function getting worse Hold Lasix Continue current antihypertensive regimen Continue Lovenox Replete K>4.0 and mg>2.0 Continue Insulin Bipap PRN CXR AM Consultation Date/Type/Reason Admit Date/Time Feb 11, 2017 at 00:44 Initial Consult Date 02/14/17 Type of Consultation: Pulmonary Referring Provider: KYLEE MORALES Exam/Review of Systems Vital Signs Vitals Vital Signs Date Time Temp Pulse Resp B/P Pulse Ox O2 Delivery O2 Flow Rate FiO2 02/19/17 12:20 76 02/19/17 11:34 98.2 20 146/70 98 02/19/17 08:00 Nasal Cannula 2.0 02/19/17 03:49 40 Intake and Output 02/18/17 02/18/17 02/19/17 15:00 23:00 07:00 Intake Total 1400 ml 350 ml Output Total 2300 ml 1350 ml Balance -900 ml -1000 ml Exam Constitutional: alert Head: atraumatic, normocephalic Neck: non-tender, supple Respiratory: diminished breath sounds Cardiovascular: regular rate and rhythm Gastrointestinal: nl liver, spleen, non-tender, soft Extremities: pitting pedal edema Results Result Diagram: 02/18/17 0748 02/19/17 0631 Results 24 hrs Laboratory Tests Test 02/18/17 17:19 02/18/17 20:43 02/19/17 02:37 02/19/17 06:31 Bedside Glucose 149 211 154 Sodium Level 138 Potassium Level 4.0 Chloride Level 91 L Carbon Dioxide Level 33 H Anion Gap 18 H Blood Urea Nitrogen 54 H Creatinine 1.62 H Glucose Level 157 Calcium Level 9.3 Phosphorus Level 4.8 Magnesium Level 2.0 Test 02/19/17 08:43 02/19/17 12:16 Bedside Glucose 157 128 Medications Medications Current Medications Acetaminophen (Tylenol Tab) 650 mg Q6H PRN PO PAIN LEVEL 1-3 OR FEVER Last administered on 02/15/17t 05:56; Admin Dose 650 MG; Start 02/11/17 at 03:30 Phenol (Cepastat Lozenge) 1 lozenge Q2H PRN MT THROATE IRRITATION Last administered on 02/19/17 09:58; Admin Dose 1 LOZENGE; Start 02/11/17 at 04:30 Diagnostic Test (Pha) (Accu-Chek) 1 ea 02 XX ; Start 02/12/17 at 02:00 Miscellaneous Information 1 ea NOTE XX ; Start 02/11/17 at 11:00 Glucose (Glutose) 15 gm Q15M PRN PO DECREASED GLUCOSE; Start 02/11/17 at 11:00 Glucose (Glutose) 22.5 gm Q15M PRN PO DECREASED GLUCOSE; Start 02/11/17 at 11: 00 Dextrose (D50w Syringe) 25 ml Q15M PRN IV DECREASED GLUCOSE; Start 02/11/17 at 11:00 Dextrose (D50w Syringe) 50 ml Q15M PRN IV DECREASED GLUCOSE; Start 02/11/17 at 11:00 Glucagon (Glucagen) 1 mg Q15M PRN IM DECREASED GLUCOSE; Start 02/11/17 at 11:00 Glucose (Glutose) 15 gm Q15M PRN BUCCAL DECREASED GLUCOSE; Start 02/11/17 at 11 :00 Nitroglycerin (Nitroglycerin (Sl Tab) 0.4 Mg) 1 tab Q5M PRN SL CHEST PAIN; Start 02/11/17 at 14:30 Acetaminophen/ Hydrocodone Bitart ([place] (5/325)) 1 tab Q6H PRN PO PAIN LEVEL 8 -10 Last administered on 02/19/17 06:39; Admin Dose 1 TAB; Start 02/12/17 at 00 :30 Hydralazine HCl (Apresoline) 10 mg Q4H PRN IV ELEVATED BLOOD PRESSURE Last administered on 02/13/17 16:45; Admin Dose 10 MG; Start 02/12/17 at 13:00 Hydralazine HCl (Apresoline) 100 mg Q8 PO Last administered on 02/19/17 06:25 ; Admin Dose 100 MG; Start 02/12/17 at 22:00 Clonidine HCl (Catapres-Tts 3 Patch) 1 patch Q7D TRANSDERM Last administered on 02/12/17 16:44; Admin Dose 1 PATCH; Start 02/12/17 at 17:00 Clonidine (Catapres) 0.2 mg Q4H PRN PO ELEVATED SYSTOLIC BP Last administered on 02/13/17 11:38; Admin Dose 0.2 MG; Start 02/12/17 at 19:00 Isosorbide Mononitrate (Imdur) 60 mg DAILY PO Last administered on 02/19/17 09 :47; Admin Dose 60 MG; Start 02/13/17 at 09:00 Carvedilol (Coreg) 25 mg BID PO Last administered on 02/19/17 09:47; Admin Dose 25 MG; Start 02/13/17 at 14:30 Nifedipine (Procardia Xl) 30 mg BID PO Last administered on 02/19/17 09:47; Admin Dose 30 MG; Start 02/13/17 at 21:00 Ondansetron HCl (Zofran Inj) 4 mg Q6H PRN IV NAUSEA AND/OR VOMITING; Start at 15:00 Enoxaparin Sodium (Lovenox) 60 mg BID SC Last administered on 02/19/17 09:49; Admin Dose 60 MG; Start 02/13/17 at 21:00 Lisinopril (Zestril) 20 mg DAILY PO Last administered on 02/19/17 09:47; Admin Dose 20 MG; Start 02/15/17 at 09:00 Docusate Sodium (Colace) 200 mg BID PO Last administered on 02/19/17 09:46; Admin Dose 200 MG; Start 02/14/17 at 21:00 Senna (Senokot) 1 tab BID PO Last administered on 02/19/17 09:47; Admin Dose 1 TAB; Start 02/14/17 at 21:00 Magnesium Hydroxide (Milk Of Mag) 30 ml DAILY PRN PO CONSTIPATION; Start at 16:00 Furosemide (Lasix) 60 mg Q8 IV Last administered on 02/19/17 06:25; Admin Dose 60 MG; Start 02/14/17 at 22:00 Pantoprazole (Protonix Tab) 40 mg DAILY@06 PO Last administered on 02/19/17 06 :25; Admin Dose 40 MG; Start 02/17/17 at 06:00 Nystatin/ Triamcinolone Acetonide (Mycolog Oint) 1 applic BID TOP Last administered on 02/18/17 20:50; Admin Dose 1 APPLIC; Start 02/18/17 at 14:00 Simethicone (Mylicon) 80 mg QID PRN PO DISTENSION/GAS/BLOATING Last administered on 02/19/17t 10:01; Admin Dose 80 MG; Start 02/18/17 at 15:00 SARITA DING M.D. Feb 19, 2017 13:12
--- NOTE | 2017-02-19 17:09 | RADRPT ---
PROCEDURE: US Lower extremity Arteries. CLINICAL INDICATION: Lower extremity ulcer TECHNIQUE: Multiple longitudinal and transverse images of the bilateral lower extremity arteries w ere obtained with ramos scale and color Doppler imaging. COMPARISON: No prior studies are available for comparison. FINDINGS: Peak systolic velocities are as follows: Location RightLeft waveforms [id number] cm/xlq038 cm/sec triphasic/triphasic [id number] cm/bcx462 cm/sec triphasic/triphasic OMAV329 cm/puj990 cm/sec triphasic/triphasic [id number] cm/pgr224 cm/sec triphasic/triphasic POP45 cm/sec95 cm/sec triphasic/triphasic Peroneal0 cm/sec0 cm/sec occluded/occluded ATA69 cm/sec0 cm/sec triphasic/occluded PTA0 cm/ecb836 cm/sec occluded/triphasic Because of severe pain, ankle brachial indices are unable to be acquired RPTAT:HJJR IMPRESSION: 1. No blood flow visualized within the peroneal arteries bilaterally, left anterior tibial artery an d right posterior tibial artery concerning for segmental occlusion. 2. No evidence of focal hemodynamically significant stenosis in either thigh or popliteal artery. Physician Hari Date Time Electronically viewed and signed by Physician Hari on 02/19/2017 17:09 /
--- NOTE | 2017-02-19 17:40 | RADRPT ---
PROCEDURE: XR Chest. CLINICAL INDICATION: Shortness of breath. TECHNIQUE: Single frontal view. COMPARISON: 02/18/2017. FINDINGS: The right arm PICC line remains in satisfactory position. Interstitial pulmonary edema is slightly i mproved. Mild atelectasis at the lung bases is unchanged. The lungs are otherwise clear. The heart is enlarged. There is calcification in the aorta consistent with atherosclerosis. There are small bilateral pleural effusions. There is no pneumothorax. IMPRESSION: 1. No change from 02/18/2017. RPTAT: QQ .Avinash Kinney MD, MD Date Time Electronically viewed and signed by .Avinash Kinney MD, MD on 02/19/2017 17:39 .R/
[2017-02-19] MEDS: CLONIDINE 0.3 MG/24 HR PATCH TRANSDERM SCH (17:53)
--- NOTE | 2017-02-19 17:59 | PN ---
Date/Time of Note Date/Time of Note DATE: 02/19/17 TIME: 17:56 Assessment/Plan VTE Prophylaxis VTE Prophylaxis Intervention: heparin Assessment/Plan Chief Complaint/Hosp Course 1. Acute respiratory failure secondary to pulmonary edema from normal and deconditioning- bipap as needed CT chest does show extensive bilateral pulmonary edema, continue diuresis Pulmonology and cardiology following Chest x-ray from yesterday shows improvement, chest x-ray from today is unchanged 2. Acute severe decompensated diastolic congestive heart failure Echo shows normal EF Continue diuresis 3. Reported severe pulmonary hypertension 4. Acute kidney injury secondary to possible obstructive uropathy Patient has history of hematuria but left AMA prior to cystoscopy in 2014, patient also has a history of hydronephrosis of the right kidney noted on ultrasound in August of this year Consult with Dr. Helio hutton, follow-up with recommendations Currently patient is anxious about any procedures being done CT abdomen pelvis shows severe right-sided hydronephrosis, follow-up with urology recommendations, currently patient unstable for any procedure Renal following 5. Constipation Continue Colace and senna 6. Morbid obesity with debility and likely sleep apnea Lifestyle changes advised Pulmonology following 7. Thyroid nodule noted on CT chest Ultrasound of thyroid shows mass recommendation is for biopsy, discussed option of biopsy with patient states that she does not want any procedures done at this time, patient understands the risk that this mass may be a malignancy and hence the risk of but she still does not want to proceed with biopsy of the thyroid mass 8. Resistant hypertension-BP improved Continue lisinopril, Coreg, Procardia, Imdur hydralazine and clonidine Cardiology and nephrology following 9. Bilateral lower extremity atherosclerosis with chronic lymphedema secondary to obesity and deconditioning Vascular surgery workup in progress 10. Subclinical hypothyroidism 11. Diffuse bronchoconstriction / wheezing-resolved 12. Dysuria-resolved 13. Abdominal pain secondary to gas-resolved with simethicone Prophylaxis: Heparin / PPI Discharge planning: Continue diuresis, anticipate DC home in 2-3 days, patient has a caregiver at home but will require home health for home safety eval and PT Problems: Subjective 24 Hr Interval Summary Respiratory: shortness of breath Exam/Review of Systems Vital Signs Vitals Vital Signs Date Time Temp Pulse Resp B/P Pulse Ox O2 Delivery O2 Flow Rate FiO2 02/19/17 16:00 68 02/19/17 16:00 98.8 19 136/68 98 02/19/17 13:54 Nasal Cannula 3.0 02/19/17 03:49 40 Intake and Output 02/18/17 02/18/17 02/19/17 15:00 23:00 07:00 Intake Total 1400 ml 350 ml Output Total 2300 ml 1350 ml Balance -900 ml -1000 ml Exam Constitutional: alert Respiratory: clear to auscultation Cardiovascular: regular rate and rhythm Gastrointestinal: soft, No distended Extremities: edema Results Result Diagram: 02/18/17 0748 02/19/17 0631 Results 24 hrs Laboratory Tests Test 02/18/17 20:43 02/19/17 02:37 02/19/17 06:31 02/19/17 08:43 Bedside Glucose 211 154 157 Sodium Level 138 Potassium Level 4.0 Chloride Level 91 L Carbon Dioxide Level 33 H Anion Gap 18 H Blood Urea Nitrogen 54 H Creatinine 1.62 H Glucose Level 157 Calcium Level 9.3 Phosphorus Level 4.8 Magnesium Level 2.0 Test 02/19/17 12:16 02/19/17 17:23 Bedside Glucose 128 148 Medications Medications Current Medications Acetaminophen (Tylenol Tab) 650 mg Q6H PRN PO PAIN LEVEL 1-3 OR FEVER Last administered on 02/15/17 05:56; Admin Dose 650 MG; Start 02/11/17 at 03:30 Phenol (Cepastat Lozenge) 1 lozenge Q2H PRN MT THROATE IRRITATION Last administered on 02/19/17 09:58; Admin Dose 1 LOZENGE; Start 02/11/17 at 04:30 Diagnostic Test (Pha) (Accu-Chek) 1 ea 02 XX ; Start 02/12/17 at 02:00 Miscellaneous Information 1 ea NOTE XX ; Start 02/11/17 at 11:00 Glucose (Glutose) 15 gm Q15M PRN PO DECREASED GLUCOSE; Start 02/11/17 at 11:00 Glucose (Glutose) 22.5 gm Q15M PRN PO DECREASED GLUCOSE; Start 02/11/17 at 11: 00 Dextrose (D50w Syringe) 25 ml Q15M PRN IV DECREASED GLUCOSE; Start 02/11/17 at 11:00 Dextrose (D50w Syringe) 50 ml Q15M PRN IV DECREASED GLUCOSE; Start 02/11/17 at 11:00 Glucagon (Glucagen) 1 mg Q15M PRN IM DECREASED GLUCOSE; Start 02/11/17 at 11:00 Glucose (Glutose) 15 gm Q15M PRN BUCCAL DECREASED GLUCOSE; Start 02/11/17 at 11 :00 Nitroglycerin (Nitroglycerin (Sl Tab) 0.4 Mg) 1 tab Q5M PRN SL CHEST PAIN; Start 02/11/17 at 14:30 Acetaminophen/ Hydrocodone Bitart ([place] (5/325)) 1 tab Q6H PRN PO PAIN LEVEL 8 -10 Last administered on 02/19/17 13:33; Admin Dose 1 TAB; Start 02/12/17 at 00 :30 Hydralazine HCl (Apresoline) 10 mg Q4H PRN IV ELEVATED BLOOD PRESSURE Last administered on 02/13/17 16:45; Admin Dose 10 MG; Start 02/12/17 at 13:00 Hydralazine HCl (Apresoline) 100 mg Q8 PO Last administered on 02/19/17 13:34 ; Admin Dose 100 MG; Start 02/12/17 at 22:00 Clonidine HCl (Catapres-Tts 3 Patch) 1 patch Q7D TRANSDERM Last administered on 02/19/17 17:53; Admin Dose 1 PATCH; Start 02/12/17 at 17:00 Clonidine (Catapres) 0.2 mg Q4H PRN PO ELEVATED SYSTOLIC BP Last administered on 02/13/17 11:38; Admin Dose 0.2 MG; Start 02/12/17 at 19:00 Isosorbide Mononitrate (Imdur) 60 mg DAILY PO Last administered on 02/19/17 09 :47; Admin Dose 60 MG; Start 02/13/17 at 09:00 Carvedilol (Coreg) 25 mg BID PO Last administered on 02/19/17 09:47; Admin Dose 25 MG; Start 02/13/17 at 14:30 Nifedipine (Procardia Xl) 30 mg BID PO Last administered on 02/19/17 09:47; Admin Dose 30 MG; Start 02/13/17 at 21:00 Ondansetron HCl (Zofran Inj) 4 mg Q6H PRN IV NAUSEA AND/OR VOMITING; Start at 15:00 Enoxaparin Sodium (Lovenox) 60 mg BID SC Last administered on 02/19/17 09:49; Admin Dose 60 MG; Start 02/13/17 at 21:00 Lisinopril (Zestril) 20 mg DAILY PO Last administered on 02/19/17 09:47; Admin Dose 20 MG; Start 02/15/17 at 09:00 Docusate Sodium (Colace) 200 mg BID PO Last administered on 02/19/17 09:46; Admin Dose 200 MG; Start 02/14/17 at 21:00 Senna (Senokot) 1 tab BID PO Last administered on 02/19/17 09:47; Admin Dose 1 TAB; Start 02/14/17 at 21:00 Magnesium Hydroxide (Milk Of Mag) 30 ml DAILY PRN PO CONSTIPATION; Start at 16:00 Furosemide (Lasix) 60 mg Q8 IV Last administered on 02/19/17 13:33; Admin Dose 60 MG; Start 02/14/17 at 22:00 Pantoprazole (Protonix Tab) 40 mg DAILY@06 PO Last administered on 02/19/17 06 :25; Admin Dose 40 MG; Start 02/17/17 at 06:00 Nystatin/ Triamcinolone Acetonide (Mycolog Oint) 1 applic BID TOP Last administered on 02/18/17 20:50; Admin Dose 1 APPLIC; Start 02/18/17 at 14:00 Simethicone (Mylicon) 80 mg QID PRN PO DISTENSION/GAS/BLOATING Last administered on 02/19/17 10:01; Admin Dose 80 MG; Start 02/18/17 at 15:00 BENOIT PARISI Feb 19, 2017 17:59
[2017-02-20] VITALS (16 sets, daily range): BP systolic 106–149; BP diastolic 55–70; PULSE 62–85; RESP 18–20
[2017-02-20] MEDS: ALBUTEROL/IPRATROPIUM (NEB) 3 ML AMP HHN SCH ×4 (01:00→19:24)
[2017-02-20] MEDS: ACCU-CHEK XX SCH (02:00)
[2017-02-20] MEDS: PANTOPRAZOLE (EC) 40 MG TAB PO SCH (06:45)
[2017-02-20] MEDS: FUROSEMIDE 20 MG INJ IV SCH (06:45)
[2017-02-20 07:57] LABS: CALCIUM 9.6 mg/dl (8.4-10.2); CREATININE 1.73 mg/dl (0.44-1.00); PHOSPHORUS 5.2 mg/dl (2.5-4.9); POTASSIUM 3.8 mmol/L (3.5-5.1)
[2017-02-20] MEDS: INSULIN ASPART [NOVOLOG] 3 ML PEN SC SCH ×4 (08:27→21:00)
[2017-02-20] MEDS: NYSTATIN/TRIAMCINOLONE 15 GM OINT TOP SCH ×2 (09:00→21:00)
[2017-02-20] MEDS: DOCUSATE SODIUM 100 MG CAP PO SCH ×2 (10:07→20:50)
[2017-02-20] MEDS: NIFEdipine (XL) 30 MG TAB PO SCH ×2 (10:08→21:00)
[2017-02-20] MEDS: LISINOPRIL 20 MG TAB PO SCH (10:08)
[2017-02-20] MEDS: SENNA TAB PO SCH ×2 (10:08→20:50)
[2017-02-20] MEDS: ISOSORBIDE MONONITRATE(SR)60 MG TAB PO SCH (10:08)
[2017-02-20] MEDS: ENOXAPARIN 60 MG/0.6 ML SYG SC SCH ×2 (10:10→21:00)
--- NOTE | 2017-02-20 10:52 | PN ---
Date/Time of Note Date/Time of Note DATE: 02/20/17 TIME: 10:49 Assessment/Plan Lines/Catheters IV [facility] Type (from [facility]): PICC Line Assessment/Plan Chief Complaint/Hosp Course Nonoliguric acute kidney with baseline creatinine of 1.0 mg/dL -Etiology of [place] likely hemodynamics, obstructive uropathy -Renal ultrasound shows right-sided hydronephrosis Renal function has declined in the last 2-3 days likely from diuretic therapy We will hold Lasix at this time Urology's evaluated patient recommending eventual cystoscopy Continue current treatment plan, renally dose all meds Right-sided hydronephrosis Was evaluated by urology Pending cystoscopy once clinically stable Hypokalemia Improved Continue to monitor acute respiratory distress secondary CHF Improving all diuretics in the setting of worsening renal function #3 severe pulmonary hypertension: -Follow-up with pulmonary #4 chronic lymphedema: T Continue medical manage #6 Coagulase-negative bacteremia: Patient was treated with antibiotics -Cultures reviewed #7 morbid obesity: #8 hypertension: -Continue medical management. -Medications being adjusted by cardiology #9 DVT and GI prophylaxis: Heparin, Protonix # Problems: Subjective 24 Hr Interval Summary Free Text/Dictation Patient seen and examined No acute events overnight noted Exam/Review of Systems Vital Signs Vitals Vital Signs Date Time Temp Pulse Resp B/P Pulse Ox O2 Delivery O2 Flow Rate FiO2 02/20/17 08:56 3.0 02/20/17 08:56 72 18 98 02/20/17 07:49 98.6 132/68 02/19/17 21:00 Nasal Cannula 02/19/17 03:49 40 Intake and Output 02/19/17 02/19/17 02/20/17 15:00 23:00 07:00 Intake Total 1300 ml Output Total 1300 ml Balance 0 ml Exam HEENT: Head is normocephalic, NECK: Supple. HEART: Regular LUNGS: Show diminished breath sounds at base. ABDOMEN: Soft, nontender to palpation without rebound or guarding. EXTREMITIES: Negative for clubbing, cyanosis. DERMATOLOGIC: No rashes. MUSCULOSKELETAL: No joint effusions, NEUROLOGIC: No change in exam. Results Result Diagram: 02/18/17 0748 02/20/17 0650 Results 24 hrs Laboratory Tests Test 02/19/17 12:16 02/19/17 17:23 02/19/17 21:36 02/20/17 06:50 Bedside Glucose 128 148 156 Sodium Level 139 Potassium Level 3.8 Chloride Level 91 L Carbon Dioxide Level 34 H Anion Gap 18 H Blood Urea Nitrogen 59 H Creatinine 1.73 H Glucose Level 146 Calcium Level 9.6 Phosphorus Level 5.2 H Magnesium Level 2.0 Test 02/20/17 08:25 Bedside Glucose 161 Medications Medications Current Medications Acetaminophen (Tylenol Tab) 650 mg Q6H PRN PO PAIN LEVEL 1-3 OR FEVER Last administered on 02/15/17 05:56; Admin Dose 650 MG; Start 02/11/17 at 03:30 Phenol (Cepastat Lozenge) 1 lozenge Q2H PRN MT THROATE IRRITATION Last administered on 02/19/17 09:58; Admin Dose 1 LOZENGE; Start 02/11/17 at 04:30 Diagnostic Test (Pha) (Accu-Chek) 1 ea 02 XX ; Start 02/12/17 at 02:00 Miscellaneous Information 1 ea NOTE XX ; Start 02/11/17 at 11:00 Glucose (Glutose) 15 gm Q15M PRN PO DECREASED GLUCOSE; Start 02/11/17 at 11:00 Glucose (Glutose) 22.5 gm Q15M PRN PO DECREASED GLUCOSE; Start 02/11/17 at 11: 00 Dextrose (D50w Syringe) 25 ml Q15M PRN IV DECREASED GLUCOSE; Start 02/11/17 at 11:00 Dextrose (D50w Syringe) 50 ml Q15M PRN IV DECREASED GLUCOSE; Start 02/11/17 at 11:00 Glucagon (Glucagen) 1 mg Q15M PRN IM DECREASED GLUCOSE; Start 02/11/17 at 11:00 Glucose (Glutose) 15 gm Q15M PRN BUCCAL DECREASED GLUCOSE; Start 02/11/17 at 11 :00 Nitroglycerin (Nitroglycerin (Sl Tab) 0.4 Mg) 1 tab Q5M PRN SL CHEST PAIN; Start 02/11/17 at 14:30 Acetaminophen/ Hydrocodone Bitart ([place] (5/325)) 1 tab Q6H PRN PO PAIN LEVEL 8 -10 Last administered on 02/19/17 21:39; Admin Dose 1 TAB; Start 02/12/17 at 00 :30 Hydralazine HCl (Apresoline) 10 mg Q4H PRN IV ELEVATED BLOOD PRESSURE Last administered on 02/13/17 16:45; Admin Dose 10 MG; Start 02/12/17 at 13:00 Hydralazine HCl (Apresoline) 100 mg Q8 PO Last administered on 02/20/17 06:46 ; Admin Dose 100 MG; Start 02/12/17 at 22:00 Clonidine HCl (Catapres-Tts 3 Patch) 1 patch Q7D TRANSDERM Last administered on 02/19/17 17:53; Admin Dose 1 PATCH; Start 02/12/17 at 17:00 Clonidine (Catapres) 0.2 mg Q4H PRN PO ELEVATED SYSTOLIC BP Last administered on 02/13/17 11:38; Admin Dose 0.2 MG; Start 02/12/17 at 19:00 Isosorbide Mononitrate (Imdur) 60 mg DAILY PO Last administered on 02/20/17 10 :08; Admin Dose 60 MG; Start 02/13/17 at 09:00 Carvedilol (Coreg) 25 mg BID PO Last administered on 02/20/17 10:09; Admin Dose 25 MG; Start 02/13/17 at 14:30 Nifedipine (Procardia Xl) 30 mg BID PO Last administered on 02/20/17 10:08; Admin Dose 30 MG; Start 02/13/17 at 21:00 Ondansetron HCl (Zofran Inj) 4 mg Q6H PRN IV NAUSEA AND/OR VOMITING; Start at 15:00 Enoxaparin Sodium (Lovenox) 60 mg BID SC Last administered on 02/20/17 10:10; Admin Dose 60 MG; Start 02/13/17 at 21:00 Lisinopril (Zestril) 20 mg DAILY PO Last administered on 02/20/17 10:08; Admin Dose 20 MG; Start 02/15/17 at 09:00 Docusate Sodium (Colace) 200 mg BID PO Last administered on 02/20/17 10:07; Admin Dose 200 MG; Start 02/14/17 at 21:00 Senna (Senokot) 1 tab BID PO Last administered on 02/20/17 10:08; Admin Dose 1 TAB; Start 02/14/17 at 21:00 Magnesium Hydroxide (Milk Of Mag) 30 ml DAILY PRN PO CONSTIPATION; Start at 16:00 Furosemide (Lasix) 60 mg Q8 IV Last administered on 02/20/17 06:45; Admin Dose 60 MG; Start 02/14/17 at 22:00 Pantoprazole (Protonix Tab) 40 mg DAILY@06 PO Last administered on 02/20/17 06 :45; Admin Dose 40 MG; Start 02/17/17 at 06:00 Nystatin/ Triamcinolone Acetonide (Mycolog Oint) 1 applic BID TOP Last administered on 02/20/17 09:00; Admin Dose 1 APPLIC; Start 02/18/17 at 14:00 Simethicone (Mylicon) 80 mg QID PRN PO DISTENSION/GAS/BLOATING Last administered on 02/19/17 21:39; Admin Dose 80 MG; Start 02/18/17 at 15:00 OPAL ESCALANTE DO Feb 20, 2017 10:52
[2017-02-20] MEDS: HYDROCODONE/APAP (5/325) TAB PO PRN (13:23)
--- NOTE | 2017-02-20 13:58 | CONS ---
Date/Time of Note Date/Time of Note DATE: 02/20/17 TIME: 13:57 Assessment/Plan Assessment/Plan Chief Complaint/Hosp Course IMP: 1.CHF-Diastolic acute on chronic by most recent echo-significantly improved volume status 2.PHTN 3.Resp failure on BIPAP 4. Bacteremia at OSH. Bld cultures thus far here negative. No definite vegetations by echo done here this admit 5.lymphedema 6.chest pain-negative trop x 3 7. AF-rate controlled 8. HTN-urgency/emergency-? component of discomfort-improving on oral anti- hypertensives 9. H/O PHTN-not significantly elevated by most recent echo 10.REnal failure -improving 11.hydronephrosis 12. NSVT-NL EF by echo REcc: -Tele -serial ecg's -Continue abx's and f/u cx data -Continue hydralazine/clonidine TTS/zestril/procardia xl -Use PRN anti-hypertensives as necessary -Continue lasix diuresis and follow creatnine closely -Continue BIPAP as necessary -Replete K>4.0 and mg>2.0 Problems: Consultation Date/Type/Reason Admit Date/Time Feb 11, 2017 at 00:44 Initial Consult Date 02/11/17 Type of Consultation: cardiology Reason for Consultation CHF/AF Referring Provider: KYLEE MORALES Exam/Review of Systems Vital Signs Vitals Vital Signs Date Time Temp Pulse Resp B/P Pulse Ox O2 Delivery O2 Flow Rate FiO2 02/20/17 12:03 76 02/20/17 11:53 98.2 19 136/70 97 02/20/17 08:56 3.0 02/19/17 21:00 Nasal Cannula 02/19/17 03:49 40 Intake and Output 02/19/17 02/19/17 02/20/17 15:00 23:00 07:00 Intake Total 1300 ml Output Total 1300 ml Balance 0 ml Exam Review of Systems: CONSTITUTIONAL: No fevers, chills. PULMONARY: No sob CARDIOVASCULAR: No chest pain/palpitations GASTROINTESTINAL: No nausea/vomiting. GENITOURINARY: No hematuria/dysuria. MUSCULOSKELETAL: No myagias/arthalgias. PSYCHIATRIC: The patient denies depression. NEUROLOGIC: No weakness Constitutional: alert Psych: no complaints Head: normocephalic ENMT: mucosa pink and moist Neck: jvd (9 cm water), supple Cardiovascular: regular rate and rhythm Gastrointestinal: non-tender, soft Musculoskeletal: muscle weakness (generalized) Extremities: edema (trace/B) Neurological: lethargic Results Result Diagram: 02/18/17 0748 02/20/17 0650 Results 24 hrs Laboratory Tests Test 02/19/17 17:23 02/19/17 21:36 02/20/17 06:50 02/20/17 08:25 Bedside Glucose 148 156 161 Sodium Level 139 Potassium Level 3.8 Chloride Level 91 L Carbon Dioxide Level 34 H Anion Gap 18 H Blood Urea Nitrogen 59 H Creatinine 1.73 H Glucose Level 146 Calcium Level 9.6 Phosphorus Level 5.2 H Magnesium Level 2.0 Test 02/20/17 12:13 Bedside Glucose 121 Medications Medications Current Medications Acetaminophen (Tylenol Tab) 650 mg Q6H PRN PO PAIN LEVEL 1-3 OR FEVER Last administered on 02/15/17 05:56; Admin Dose 650 MG; Start 02/11/17 at 03:30 Phenol (Cepastat Lozenge) 1 lozenge Q2H PRN MT THROATE IRRITATION Last administered on 02/19/17 09:58; Admin Dose 1 LOZENGE; Start 02/11/17 at 04:30 Diagnostic Test (Pha) (Accu-Chek) 1 ea 02 XX ; Start 02/12/17 at 02:00 Miscellaneous Information 1 ea NOTE XX ; Start 02/11/17 at 11:00 Glucose (Glutose) 15 gm Q15M PRN PO DECREASED GLUCOSE; Start 02/11/17 at 11:00 Glucose (Glutose) 22.5 gm Q15M PRN PO DECREASED GLUCOSE; Start 02/11/17 at 11: 00 Dextrose (D50w Syringe) 25 ml Q15M PRN IV DECREASED GLUCOSE; Start 02/11/17 at 11:00 Dextrose (D50w Syringe) 50 ml Q15M PRN IV DECREASED GLUCOSE; Start 02/11/17 at 11:00 Glucagon (Glucagen) 1 mg Q15M PRN IM DECREASED GLUCOSE; Start 02/11/17 at 11:00 Glucose (Glutose) 15 gm Q15M PRN BUCCAL DECREASED GLUCOSE; Start 02/11/17 at 11 :00 Nitroglycerin (Nitroglycerin (Sl Tab) 0.4 Mg) 1 tab Q5M PRN SL CHEST PAIN; Start 02/11/17 at 14:30 Acetaminophen/ Hydrocodone Bitart ([place] (5/325)) 1 tab Q6H PRN PO PAIN LEVEL 8 -10 Last administered on 02/20/17 13:23; Admin Dose 1 TAB; Start 02/12/17 at 00 :30 Hydralazine HCl (Apresoline) 10 mg Q4H PRN IV ELEVATED BLOOD PRESSURE Last administered on 02/13/17 16:45; Admin Dose 10 MG; Start 02/12/17 at 13:00 Hydralazine HCl (Apresoline) 100 mg Q8 PO Last administered on 02/20/17 13:23 ; Admin Dose 100 MG; Start 02/12/17 at 22:00 Clonidine HCl (Catapres-Tts 3 Patch) 1 patch Q7D TRANSDERM Last administered on 02/19/17 17:53; Admin Dose 1 PATCH; Start 02/12/17 at 17:00 Clonidine (Catapres) 0.2 mg Q4H PRN PO ELEVATED SYSTOLIC BP Last administered on 02/13/17 11:38; Admin Dose 0.2 MG; Start 02/12/17 at 19:00 Isosorbide Mononitrate (Imdur) 60 mg DAILY PO Last administered on 02/20/17 10 :08; Admin Dose 60 MG; Start 02/13/17 at 09:00 Carvedilol (Coreg) 25 mg BID PO Last administered on 02/20/17 10:09; Admin Dose 25 MG; Start 02/13/17 at 14:30 Nifedipine (Procardia Xl) 30 mg BID PO Last administered on 02/20/17 10:08; Admin Dose 30 MG; Start 02/13/17 at 21:00 Ondansetron HCl (Zofran Inj) 4 mg Q6H PRN IV NAUSEA AND/OR VOMITING; Start at 15:00 Enoxaparin Sodium (Lovenox) 60 mg BID SC Last administered on 02/20/17 10:10; Admin Dose 60 MG; Start 02/13/17 at 21:00 Lisinopril (Zestril) 20 mg DAILY PO Last administered on 02/20/17 10:08; Admin Dose 20 MG; Start 02/15/17 at 09:00 Docusate Sodium (Colace) 200 mg BID PO Last administered on 02/20/17 10:07; Admin Dose 200 MG; Start 02/14/17 at 21:00 Senna (Senokot) 1 tab BID PO Last administered on 02/20/17 10:08; Admin Dose 1 TAB; Start 02/14/17 at 21:00 Magnesium Hydroxide (Milk Of Mag) 30 ml DAILY PRN PO CONSTIPATION; Start at 16:00 Furosemide (Lasix) 60 mg Q8 IV Last administered on 02/20/17 06:45; Admin Dose 60 MG; Start 02/14/17 at 22:00; Status Future Hold Pantoprazole (Protonix Tab) 40 mg DAILY@06 PO Last administered on 02/20/17 06 :45; Admin Dose 40 MG; Start 02/17/17 at 06:00 Nystatin/ Triamcinolone Acetonide (Mycolog Oint) 1 applic BID TOP Last administered on 02/20/17 09:00; Admin Dose 1 APPLIC; Start 02/18/17 at 14:00 Simethicone (Mylicon) 80 mg QID PRN PO DISTENSION/GAS/BLOATING Last administered on 02/19/17 21:39; Admin Dose 80 MG; Start 02/18/17 at 15:00 ASHLEY CONNOR Feb 20, 2017 13:58
--- NOTE | 2017-02-20 14:52 | PN ---
Date/Time of Note Date/Time of Note DATE: 02/20/17 TIME: 14:50 Assessment/Plan VTE Prophylaxis VTE Prophylaxis Intervention: heparin Lines/Catheters IV Catheter Type (from Nrsg): [place] Assessment/Plan Assessment/Plan 1. Acute respiratory failure secondary to pulmonary edema from normal and deconditioning- bipap as needed CT chest does show extensive bilateral pulmonary edema, continue diuresis Pulmonology and cardiology following Chest x-ray from yesterday shows improvement, chest x-ray from today is unchanged 2. Acute severe decompensated diastolic congestive heart failure Echo shows normal EF Continue diuresis 3. Reported severe pulmonary hypertension 4. Acute kidney injury secondary to possible obstructive uropathy Patient has history of hematuria but left AMA prior to cystoscopy in 2014, patient also has a history of hydronephrosis of the right kidney noted on ultrasound in August of this year Consult with Dr. Helio hutton, follow-up with recommendations Currently patient is anxious about any procedures being done CT abdomen pelvis shows severe right-sided hydronephrosis, follow-up with urology recommendations, currently patient unstable for any procedure Renal following 5. Constipation Continue Colace and senna 6. Morbid obesity with debility and likely sleep apnea Lifestyle changes advised Pulmonology following 7. Thyroid nodule noted on CT chest Ultrasound of thyroid shows mass recommendation is for biopsy, discussed option of biopsy with patient states that she does not want any procedures done at this time, patient understands the risk that this mass may be a malignancy and hence the risk of but she still does not want to proceed with biopsy of the thyroid mass 8. Resistant hypertension-BP improved Continue lisinopril, Coreg, Procardia, Imdur hydralazine and clonidine Cardiology and nephrology following 9. Bilateral lower extremity atherosclerosis with chronic lymphedema secondary to obesity and deconditioning Vascular surgery workup in progress 10. Subclinical hypothyroidism 11. Diffuse bronchoconstriction / wheezing-resolved 12. Dysuria-resolved 13. Abdominal pain secondary to gas-resolved with simethicone 14. Back pain, muscular, norco prn Prophylaxis: Heparin / PPI Subjective 24 Hr Interval Summary Free Text/Dictation less SOB, some pain on left back Exam/Review of Systems Vital Signs Vitals Vital Signs Date Time Temp Pulse Resp B/P Pulse Ox O2 Delivery O2 Flow Rate FiO2 02/20/17 14:09 77 18 95 02/20/17 11:53 98.2 136/70 02/20/17 08:56 3.0 02/19/17 21:00 Nasal Cannula 02/19/17 03:49 40 Intake and Output 02/19/17 02/19/17 02/20/17 15:00 23:00 07:00 Intake Total 1300 ml Output Total 1300 ml Balance 0 ml Exam Constitutional: alert, obese, oriented Psych: nl mood/affect, no complaints Head: atraumatic, normocephalic Eyes: EOMI, PERRL, nl conjunctiva, nl sclera ENMT: nl external ears & nose, nl lips & teeth, nl nasal mucosa & septum Neck: non-tender, supple Respiratory: clear to auscultation, normal air movement Cardiovascular: nl pulses, regular rate and rhythm Gastrointestinal: nl liver, spleen, non-tender, soft Musculoskeletal: nl extremities to inspection Extremities: edema Neurological: [employer] II-XII intact, nl mental status, nl speech, nl strength Skin: nl turgor Lymph: nl lymph nodes Results Result Diagram: 02/18/17 0748 02/20/17 0650 Results 24 hrs Laboratory Tests Test 02/19/17 17:23 02/19/17 21:36 02/20/17 06:50 02/20/17 08:25 Bedside Glucose 148 156 161 Sodium Level 139 Potassium Level 3.8 Chloride Level 91 L Carbon Dioxide Level 34 H Anion Gap 18 H Blood Urea Nitrogen 59 H Creatinine 1.73 H Glucose Level 146 Calcium Level 9.6 Phosphorus Level 5.2 H Magnesium Level 2.0 Test 02/20/17 12:13 Bedside Glucose 121 Medications Medications Current Medications Acetaminophen (Tylenol Tab) 650 mg Q6H PRN PO PAIN LEVEL 1-3 OR FEVER Last administered on 02/15/17 05:56; Admin Dose 650 MG; Start 02/11/17 at 03:30 Phenol (Cepastat Lozenge) 1 lozenge Q2H PRN MT THROATE IRRITATION Last administered on 02/19/17 09:58; Admin Dose 1 LOZENGE; Start 02/11/17 at 04:30 Diagnostic Test (Pha) (Accu-Chek) 1 ea 02 XX ; Start 02/12/17 at 02:00 Miscellaneous Information 1 ea NOTE XX ; Start 02/11/17 at 11:00 Glucose (Glutose) 15 gm Q15M PRN PO DECREASED GLUCOSE; Start 02/11/17 at 11:00 Glucose (Glutose) 22.5 gm Q15M PRN PO DECREASED GLUCOSE; Start 02/11/17 at 11: 00 Dextrose (D50w Syringe) 25 ml Q15M PRN IV DECREASED GLUCOSE; Start 02/11/17 at 11:00 Dextrose (D50w Syringe) 50 ml Q15M PRN IV DECREASED GLUCOSE; Start 02/11/17 at 11:00 Glucagon (Glucagen) 1 mg Q15M PRN IM DECREASED GLUCOSE; Start 02/11/17 at 11:00 Glucose (Glutose) 15 gm Q15M PRN BUCCAL DECREASED GLUCOSE; Start 02/11/17 at 11 :00 Nitroglycerin (Nitroglycerin (Sl Tab) 0.4 Mg) 1 tab Q5M PRN SL CHEST PAIN; Start 02/11/17 at 14:30 Acetaminophen/ Hydrocodone Bitart ([place] (5/325)) 1 tab Q6H PRN PO PAIN LEVEL 8 -10 Last administered on 02/20/17 13:23; Admin Dose 1 TAB; Start 02/12/17 at 00 :30 Hydralazine HCl (Apresoline) 10 mg Q4H PRN IV ELEVATED BLOOD PRESSURE Last administered on 02/13/17 16:45; Admin Dose 10 MG; Start 02/12/17 at 13:00 Hydralazine HCl (Apresoline) 100 mg Q8 PO Last administered on 02/20/17 13:23 ; Admin Dose 100 MG; Start 02/12/17 at 22:00 Clonidine HCl (Catapres-Tts 3 Patch) 1 patch Q7D TRANSDERM Last administered on 02/19/17 17:53; Admin Dose 1 PATCH; Start 02/12/17 at 17:00 Clonidine (Catapres) 0.2 mg Q4H PRN PO ELEVATED SYSTOLIC BP Last administered on 02/13/17 11:38; Admin Dose 0.2 MG; Start 02/12/17 at 19:00 Isosorbide Mononitrate (Imdur) 60 mg DAILY PO Last administered on 02/20/17 10 :08; Admin Dose 60 MG; Start 02/13/17 at 09:00 Carvedilol (Coreg) 25 mg BID PO Last administered on 02/20/17 10:09; Admin Dose 25 MG; Start 02/13/17 at 14:30 Nifedipine (Procardia Xl) 30 mg BID PO Last administered on 02/20/17 10:08; Admin Dose 30 MG; Start 02/13/17 at 21:00 Ondansetron HCl (Zofran Inj) 4 mg Q6H PRN IV NAUSEA AND/OR VOMITING; Start at 15:00 Enoxaparin Sodium (Lovenox) 60 mg BID SC Last administered on 02/20/17 10:10; Admin Dose 60 MG; Start 02/13/17 at 21:00 Lisinopril (Zestril) 20 mg DAILY PO Last administered on 02/20/17 10:08; Admin Dose 20 MG; Start 02/15/17 at 09:00 Docusate Sodium (Colace) 200 mg BID PO Last administered on 02/20/17 10:07; Admin Dose 200 MG; Start 02/14/17 at 21:00 Senna (Senokot) 1 tab BID PO Last administered on 02/20/17 10:08; Admin Dose 1 TAB; Start 02/14/17 at 21:00 Magnesium Hydroxide (Milk Of Mag) 30 ml DAILY PRN PO CONSTIPATION; Start at 16:00 Furosemide (Lasix) 60 mg Q8 IV Last administered on 02/20/17 06:45; Admin Dose 60 MG; Start 02/14/17 at 22:00; Status Future Hold Pantoprazole (Protonix Tab) 40 mg DAILY@06 PO Last administered on 02/20/17 06 :45; Admin Dose 40 MG; Start 02/17/17 at 06:00 Nystatin/ Triamcinolone Acetonide (Mycolog Oint) 1 applic BID TOP Last administered on 02/20/17 09:00; Admin Dose 1 APPLIC; Start 02/18/17 at 14:00 Simethicone (Mylicon) 80 mg QID PRN PO DISTENSION/GAS/BLOATING Last administered on 02/19/17 21:39; Admin Dose 80 MG; Start 02/18/17 at 15:00 MICHELE COLINDRES MD Feb 20, 2017 14:52
--- NOTE | 2017-02-20 16:07 | CONS ---
Date/Time of Note Date/Time of Note DATE: 02/20/17 TIME: 16:05 Consult Date/Type/Reason Admit Date/Time Feb 11, 2017 at 00:44 Initial Consult Date 02/11/17 Type of Consultation: Pulmonary Ordering Provider: KYLEE MORALES Subjective Remains stable this morning on room air complaining of mild abdominal discomfort but tolerating p.o. diet.She was ambulating with assistance this morning Objective Vital Signs Date Time Temp Pulse Resp B/P Pulse Ox O2 Delivery O2 Flow Rate FiO2 02/20/17 15:46 98.9 84 20 133/60 98 02/20/17 08:56 3.0 02/19/17 21:00 Nasal Cannula 02/19/17 03:49 40 Intake and Output 02/19/17 02/19/17 02/20/17 15:00 23:00 07:00 Intake Total 1300 ml Output Total 1300 ml Balance 0 ml Exam GENERAL: Chronically ill-appearing currently on room air VITAL SIGNS: per chart NECK: Supple. No JVD or lymphadenopathy. CARDIAC EXAM: S1, S2. No added sounds or murmurs. CHEST: clear bilaterally, No added sounds, rales or wheezes ABDOMEN: Soft, nontender. No guarding or rebound. EXTREMITIES: No cyanosis, clubbing edema +1 NEUROLOGIC: Generalized weakness but no focal deficits Results/Medications Result Diagram: 02/18/17 0748 02/20/17 0650 Results 24 hrs Laboratory Tests Test 02/19/17 17:23 02/19/17 21:36 02/20/17 06:50 02/20/17 08:25 Bedside Glucose 148 156 161 Sodium Level 139 Potassium Level 3.8 Chloride Level 91 L Carbon Dioxide Level 34 H Anion Gap 18 H Blood Urea Nitrogen 59 H Creatinine 1.73 H Glucose Level 146 Calcium Level 9.6 Phosphorus Level 5.2 H Magnesium Level 2.0 Test 02/20/17 12:13 Bedside Glucose 121 Medications Current Medications Acetaminophen (Tylenol Tab) 650 mg Q6H PRN PO PAIN LEVEL 1-3 OR FEVER Last administered on 02/15/17 05:56; Admin Dose 650 MG; Start 02/11/17 at 03:30 Phenol (Cepastat Lozenge) 1 lozenge Q2H PRN MT THROATE IRRITATION Last administered on 02/19/17 09:58; Admin Dose 1 LOZENGE; Start 02/11/17 at 04:30 Diagnostic Test (Pha) (Accu-Chek) 1 ea 02 XX ; Start 02/12/17 at 02:00 Miscellaneous Information 1 ea NOTE XX ; Start 02/11/17 at 11:00 Glucose (Glutose) 15 gm Q15M PRN PO DECREASED GLUCOSE; Start 02/11/17 at 11:00 Glucose (Glutose) 22.5 gm Q15M PRN PO DECREASED GLUCOSE; Start 02/11/17 at 11: 00 Dextrose (D50w Syringe) 25 ml Q15M PRN IV DECREASED GLUCOSE; Start 02/11/17 at 11:00 Dextrose (D50w Syringe) 50 ml Q15M PRN IV DECREASED GLUCOSE; Start 02/11/17 at 11:00 Glucagon (Glucagen) 1 mg Q15M PRN IM DECREASED GLUCOSE; Start 02/11/17 at 11:00 Glucose (Glutose) 15 gm Q15M PRN BUCCAL DECREASED GLUCOSE; Start 02/11/17 at 11 :00 Nitroglycerin (Nitroglycerin (Sl Tab) 0.4 Mg) 1 tab Q5M PRN SL CHEST PAIN; Start 02/11/17 at 14:30 Acetaminophen/ Hydrocodone Bitart ([place] (5/325)) 1 tab Q6H PRN PO PAIN LEVEL 8 -10 Last administered on 02/20/17 13:23; Admin Dose 1 TAB; Start 02/12/17 at 00 :30 Hydralazine HCl (Apresoline) 10 mg Q4H PRN IV ELEVATED BLOOD PRESSURE Last administered on 02/13/17 16:45; Admin Dose 10 MG; Start 02/12/17 at 13:00 Hydralazine HCl (Apresoline) 100 mg Q8 PO Last administered on 02/20/17 13:23 ; Admin Dose 100 MG; Start 02/12/17 at 22:00 Clonidine HCl (Catapres-Tts 3 Patch) 1 patch Q7D TRANSDERM Last administered on 02/19/17 17:53; Admin Dose 1 PATCH; Start 02/12/17 at 17:00 Clonidine (Catapres) 0.2 mg Q4H PRN PO ELEVATED SYSTOLIC BP Last administered on 02/13/17 11:38; Admin Dose 0.2 MG; Start 02/12/17 at 19:00 Isosorbide Mononitrate (Imdur) 60 mg DAILY PO Last administered on 02/20/17 10 :08; Admin Dose 60 MG; Start 02/13/17 at 09:00 Carvedilol (Coreg) 25 mg BID PO Last administered on 02/20/17 10:09; Admin Dose 25 MG; Start 02/13/17 at 14:30 Nifedipine (Procardia Xl) 30 mg BID PO Last administered on 02/20/17 10:08; Admin Dose 30 MG; Start 02/13/17 at 21:00 Ondansetron HCl (Zofran Inj) 4 mg Q6H PRN IV NAUSEA AND/OR VOMITING; Start at 15:00 Enoxaparin Sodium (Lovenox) 60 mg BID SC Last administered on 02/20/17 10:10; Admin Dose 60 MG; Start 02/13/17 at 21:00 Lisinopril (Zestril) 20 mg DAILY PO Last administered on 02/20/17 10:08; Admin Dose 20 MG; Start 02/15/17 at 09:00 Docusate Sodium (Colace) 200 mg BID PO Last administered on 02/20/17 10:07; Admin Dose 200 MG; Start 02/14/17 at 21:00 Senna (Senokot) 1 tab BID PO Last administered on 02/20/17 10:08; Admin Dose 1 TAB; Start 02/14/17 at 21:00 Magnesium Hydroxide (Milk Of Mag) 30 ml DAILY PRN PO CONSTIPATION; Start at 16:00 Furosemide (Lasix) 60 mg Q8 IV Last administered on 02/20/17 06:45; Admin Dose 60 MG; Start 02/14/17 at 22:00; Status Future Hold Pantoprazole (Protonix Tab) 40 mg DAILY@06 PO Last administered on 02/20/17 06 :45; Admin Dose 40 MG; Start 02/17/17 at 06:00 Nystatin/ Triamcinolone Acetonide (Mycolog Oint) 1 applic BID TOP Last administered on 02/20/17 09:00; Admin Dose 1 APPLIC; Start 02/18/17 at 14:00 Simethicone (Mylicon) 80 mg QID PRN PO DISTENSION/GAS/BLOATING Last administered on 7/23/17at 21:39; Admin Dose 80 MG; Start 02/18/17 at 15:00 Assessment/Plan Chief Complaint/Hosp Course assessment 1. Hypoxemic respiratory failure, clinically improved Multifactorial likely secondary to diastolic dysfunction with pulmonary edema and underlying pulmonary hypertension. Cardiology consult. Stable on nasal cannula/room air Outpatient sleep study Outpatient pulmonary function testing 2. Chronic kidney disease with unclear etiology Renal recommendations. 3. Severe pulmonary hypertension likely combination of sleep apnea and possible valvular heart disease. Unlikely primary pulmonary hypertension. Likely multifactorial secondary to underlying chronic lung disease and obstructive sleep apnea in addition to structural heart disease. 4. Coag negative bacteremia currently on antibiotics consider de-escalation WBCs improved 5. Severe systemic hypertension. Improved today. 6. Severe obstructive uropathy. CT abdomen pelvis noted. Discharge planning okay from pulmonary standpoint Problems: GLEN BUSTILLOS MD, [facility] Feb 20, 2017 16:07
[2017-02-21] VITALS (14 sets, daily range): BP systolic 117–155; BP diastolic 58–78; PULSE 62–80; RESP 17–20
[2017-02-21] MEDS: ACCU-CHEK XX SCH (02:00)
[2017-02-21] MEDS: ALBUTEROL/IPRATROPIUM (NEB) 3 ML AMP HHN SCH ×4 (02:41→21:22)
[2017-02-21] MEDS: PANTOPRAZOLE (EC) 40 MG TAB PO SCH (06:01)
[2017-02-21 07:39] LABS: BASOPHIL # 0.1 10^3/ul (0.0-0.1); BASOPHILS % 0.7 % (0.0-2.0); EOSINOPHILS # 0.1 10^3/ul (0.0-0.5); EOSINOPHILS % 1.8 % (0.0-7.0); HEMATOCRIT 30.8 % (37.0-47.0); HEMOGLOBIN 9.3 g/dl (12.0-16.0); LYMPHOCYTES # 1.4 10^3/ul (0.8-2.9); LYMPHOCYTES % 19.7 % (15.0-51.0); MEAN CORPUSCULAR HEMOGLOBIN 27.8 pg (29.0-33.0); MEAN CORPUSCULAR HGB CONC 30.2 g/dl (32.0-37.0); MEAN CORPUSCULAR VOLUME 92.2 fl (82.0-101.0); MEAN PLATELET VOLUME 11.4 fl (7.4-10.4); MONOCYTE # 0.5 10^3/ul (0.3-0.9); MONOCYTES % 6.6 % (0.0-11.0); NEUTROPHIL # 5.2 10^3/ul (1.6-7.5); NEUTROPHILS % 70.5 % (39.0-77.0); PLATELET COUNT 254 10^3/UL (140-415); RED BLOOD COUNT 3.34 10^6/ul (4.20-5.40); RED CELL DISTRIBUTION WIDTH 17.3 % (11.5-14.5); WHITE BLOOD COUNT 7.3 10^3/ul (4.8-10.8)
[2017-02-21 08:04] LABS: CALCIUM 9.4 mg/dl (8.4-10.2); CREATININE 1.66 mg/dl (0.44-1.00); MAGNESIUM 1.9 mg/dl (1.7-2.5); PHOSPHORUS 4.6 mg/dl (2.5-4.9); POTASSIUM 3.6 mmol/L (3.5-5.1)
[2017-02-21] MEDS: ISOSORBIDE MONONITRATE(SR)60 MG TAB PO SCH (08:50)
[2017-02-21] MEDS: DOCUSATE SODIUM 100 MG CAP PO SCH ×2 (08:51→22:46)
[2017-02-21] MEDS: LISINOPRIL 20 MG TAB PO SCH (08:51)
[2017-02-21] MEDS: SENNA TAB PO SCH ×2 (08:51→22:46)
[2017-02-21] MEDS: NIFEdipine (XL) 30 MG TAB PO SCH ×2 (08:51→22:47)
[2017-02-21] MEDS: ENOXAPARIN 60 MG/0.6 ML SYG SC SCH ×2 (08:52→22:49)
[2017-02-21] MEDS: INSULIN ASPART [NOVOLOG] 3 ML PEN SC SCH ×4 (08:59→21:00)
[2017-02-21] MEDS: NYSTATIN/TRIAMCINOLONE 15 GM OINT TOP SCH ×2 (09:00→22:49)
--- NOTE | 2017-02-21 10:44 | CONS ---
Date/Time of Note Date/Time of Note DATE: 02/21/17 TIME: 10:42 Assessment/Plan Assessment/Plan Additional Assessment/Plan Assessment and recommendations; 1. Patient admitted for shortness of breath due to CHF with clinical improvement. 2. Right obstructive uropathy. 3. Pulmonary hypertension. 4. Stomach hypertension. 5. Renal insufficiency. With improving serum creatinine. Continue current treatment. Anticipate discharge home soon. Consultation Date/Type/Reason Admit Date/Time Feb 11, 2017 at 00:44 Initial Consult Date 02/14/17 Type of Consultation: Pulmonary Referring Provider: KYLEE MORALES 24 HR Interval Summary Free Text/Dictation Patient condition is stable. Denies any shortness of breath. Any chest pain. Fever or chills. Denies any abdominal pain. General exam; elderly woman, awake alert, currently in no distress. Sitting in a chair by bedside. Exam/Review of Systems Vital Signs Vitals Vital Signs Date Time Temp Pulse Resp B/P Pulse Ox O2 Delivery O2 Flow Rate FiO2 02/21/17 08:03 67 02/21/17 08:01 98.9 20 131/78 96 02/21/17 07:54 21 02/20/17 08:56 3.0 02/19/17 21:00 Nasal Cannula Intake and Output 02/20/17 02/20/17 02/21/17 15:00 23:00 07:00 Intake Total 400 ml Output Total 1200 ml Balance -800 ml Exam HEENT exam; supple neck, no JVD. No lymphadenopathy. Midline trachea. No thyromegaly. Pharynx is clear. Patient has fair dentition. Chest exam; clear to auscultation. S1-S2 audible, no murmurs. Regular rhythm. Abdomen exam; soft, protuberant. Nontender. No organomegaly. Bowel sounds audible. Extremity exam; chronic appearing lymphedema involving the feet bilaterally. Trace lower extremity edema. 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 Results Result Diagram: 02/21/17 0650 02/21/17 0650 Results 24 hrs Laboratory Tests Test 02/20/17 12:13 02/20/17 17:04 02/20/17 20:48 02/21/17 06:50 Bedside Glucose 121 136 179 White Blood Count 7.3 Red Blood Count 3.34 L Hemoglobin 9.3 L Hematocrit 30.8 L Mean Corpuscular Volume 92.2 Mean Corpuscular Hemoglobin 27.8 L Mean Corpuscular Hemoglobin Concent 30.2 L Red Cell Distribution Width 17.3 H Platelet Count 254 Mean Platelet Volume 11.4 H Neutrophils % 70.5 Lymphocytes % 19.7 Monocytes % 6.6 Eosinophils % 1.8 Basophils % 0.7 Nucleated Red Blood Cells % 0.0 Neutrophils # 5.2 Lymphocytes # 1.4 Monocytes # 0.5 Eosinophils # 0.1 Basophils # 0.1 Nucleated Red Blood Cells # 0.0 Sodium Level 136 Potassium Level 3.6 Chloride Level 90 L Carbon Dioxide Level 31 Anion Gap 19 H Blood Urea Nitrogen 64 H Creatinine 1.66 H Glucose Level 180 Calcium Level 9.4 Phosphorus Level 4.6 Magnesium Level 1.9 Test 02/21/17 08:13 Bedside Glucose 167 Medications Medications Current Medications Acetaminophen (Tylenol Tab) 650 mg Q6H PRN PO PAIN LEVEL 1-3 OR FEVER Last administered on 02/15/17 05:56; Admin Dose 650 MG; Start 02/11/17 at 03:30 Phenol (Cepastat Lozenge) 1 lozenge Q2H PRN MT THROATE IRRITATION Last administered on 02/19/17 09:58; Admin Dose 1 LOZENGE; Start 02/11/17 at 04:30 Diagnostic Test (Pha) (Accu-Chek) 1 ea 02 XX ; Start 02/12/17 at 02:00 Miscellaneous Information 1 ea NOTE XX ; Start 02/11/17 at 11:00 Glucose (Glutose) 15 gm Q15M PRN PO DECREASED GLUCOSE; Start 02/11/17 at 11:00 Glucose (Glutose) 22.5 gm Q15M PRN PO DECREASED GLUCOSE; Start 02/11/17 at 11: 00 Dextrose (D50w Syringe) 25 ml Q15M PRN IV DECREASED GLUCOSE; Start 02/11/17 at 11:00 Dextrose (D50w Syringe) 50 ml Q15M PRN IV DECREASED GLUCOSE; Start 02/11/17 at 11:00 Glucagon (Glucagen) 1 mg Q15M PRN IM DECREASED GLUCOSE; Start 02/11/17 at 11:00 Glucose (Glutose) 15 gm Q15M PRN BUCCAL DECREASED GLUCOSE; Start 02/11/17 at 11 :00 Nitroglycerin (Nitroglycerin (Sl Tab) 0.4 Mg) 1 tab Q5M PRN SL CHEST PAIN; Start 02/11/17 at 14:30 Acetaminophen/ Hydrocodone Bitart ([place] (5/325)) 1 tab Q6H PRN PO PAIN LEVEL 8 -10 Last administered on 02/20/17 13:23; Admin Dose 1 TAB; Start 02/12/17 at 00 :30 Hydralazine HCl (Apresoline) 10 mg Q4H PRN IV ELEVATED BLOOD PRESSURE Last administered on 02/13/17 16:45; Admin Dose 10 MG; Start 02/12/17 at 13:00 Hydralazine HCl (Apresoline) 100 mg Q8 PO Last administered on 02/21/17 06:01 ; Admin Dose 100 MG; Start 02/12/17 at 22:00 Clonidine HCl (Catapres-Tts 3 Patch) 1 patch Q7D TRANSDERM Last administered on 02/19/17 17:53; Admin Dose 1 PATCH; Start 02/12/17 at 17:00 Clonidine (Catapres) 0.2 mg Q4H PRN PO ELEVATED SYSTOLIC BP Last administered on 02/13/17 11:38; Admin Dose 0.2 MG; Start 02/12/17 at 19:00 Isosorbide Mononitrate (Imdur) 60 mg DAILY PO Last administered on 02/21/17 08 :50; Admin Dose 60 MG; Start 02/13/17 at 09:00 Carvedilol (Coreg) 25 mg BID PO Last administered on 02/21/17 08:51; Admin Dose 25 MG; Start 02/13/17 at 14:30 Nifedipine (Procardia Xl) 30 mg BID PO Last administered on 02/21/17 08:51; Admin Dose 30 MG; Start 02/13/17 at 21:00 Ondansetron HCl (Zofran Inj) 4 mg Q6H PRN IV NAUSEA AND/OR VOMITING; Start at 15:00 Enoxaparin Sodium (Lovenox) 60 mg BID SC Last administered on 02/21/17 08:52; Admin Dose 60 MG; Start 02/13/17 at 21:00 Lisinopril (Zestril) 20 mg DAILY PO Last administered on 02/21/17 08:51; Admin Dose 20 MG; Start 02/15/17 at 09:00 Docusate Sodium (Colace) 200 mg BID PO Last administered on 02/21/17 08:51; Admin Dose 200 MG; Start 02/14/17 at 21:00 Senna (Senokot) 1 tab BID PO Last administered on 02/21/17 08:51; Admin Dose 1 TAB; Start 02/14/17 at 21:00 Magnesium Hydroxide (Milk Of Mag) 30 ml DAILY PRN PO CONSTIPATION; Start at 16:00 Furosemide (Lasix) 60 mg Q8 IV Last administered on 02/20/17 06:45; Admin Dose 60 MG; Start 02/14/17 at 22:00; Status Future Hold Pantoprazole (Protonix Tab) 40 mg DAILY@06 PO Last administered on 02/21/17 06 :01; Admin Dose 40 MG; Start 02/17/17 at 06:00 Nystatin/ Triamcinolone Acetonide (Mycolog Oint) 1 applic BID TOP Last administered on 02/21/17 09:00; Admin Dose 1 APPLIC; Start 02/18/17 at 14:00 Simethicone (Mylicon) 80 mg QID PRN PO DISTENSION/GAS/BLOATING Last administered on 02/19/17 21:39; Admin Dose 80 MG; Start 02/18/17 at 15:00 SARA NATARAJAN Feb 21, 2017 10:44
--- NOTE | 2017-02-21 11:13 | PN ---
Date/Time of Note Date/Time of Note DATE: 02/21/17 TIME: 11:04 Assessment/Plan Lines/Catheters IV [facility] (from [facility]): [facility] [facility] Assessment/Plan Chief Complaint/Hosp Course -Bilateral lower extremity atherosclerosis: It seems the patient has some component of infrainguinal atherosclerotic disease, although the patient has significant edema it is difficult to ascertain her pedal pulses is contributed to that. Upon her arterial ultrasound she has infrapopliteal disease. She currently does not any wounds therefore will continue to monitor her progress with vascular surveillance -Bilateral lower extremity lymphedema: It seems the patient has a chronic history of lymphedema, and will schedule for reflux ultrasound as outpt -Unfortunately the patient is non-compliant and doesn't allow two-layer compression dressings to be applied -Optimize vascular status (blood pressure medications, diet, nutrition, exercise , sugar control, antiplatelets). -Discussed findings, plan and management with the patient. She understands. -Thank you for allowing us to partake in the care of your patient. Please call with any questions. Problems: Subjective 24 Hr Interval Summary no new vascular events overnight, pt refuses to have compression dressings placed, non-compliant Exam/Review of Systems Vital Signs Vitals Vital Signs Date Time Temp Pulse Resp B/P Pulse Ox O2 Delivery O2 Flow Rate FiO2 02/21/17 08:03 67 02/21/17 08:01 98.9 20 131/78 96 02/21/17 07:54 21 02/20/17 08:56 3.0 02/19/17 21:00 Nasal Cannula Intake and Output 02/20/17 02/20/17 02/21/17 15:00 23:00 07:00 Intake Total 400 ml Output Total 1200 ml Balance -800 ml Exam Free Text/Dictation GENERAL: She is alert, oriented x3. LUNGS: Coarse breath sounds bilaterally with crackles at the bases. The patient currently on BiPAP. HEART: S1, S2 present ABDOMEN: Soft, nontender, nondistended. Bowel sounds positive. Large truncal obesity. Large pannus. EXTREMITIES: -RLE: Unable to palpate a femoral pulse secondary to body habitus. Unable to palpate the pedal pulse secondary to edema. Motor and sensory seemed to be intact. Capillary refill about 3 seconds. Bilateral large legs, near elephantiasis, and edema that is 4+, extends all the way up to the thigh. Results Result Diagram: 02/21/17 0650 02/21/17 0650 LILIAN OATES MD Feb 21, 2017 11:13
--- NOTE | 2017-02-21 17:20 | PN ---
Date/Time of Note Date/Time of Note DATE: 02/21/17 TIME: 17:14 Assessment/Plan VTE Prophylaxis VTE Prophylaxis Intervention: heparin Lines/Catheters IV Catheter Type (from Nrs): PICC Line Central line still needed: Yes Urinary Cath still in place: No Assessment/Plan Assessment/Plan 1. Decompensated diastolic congestive heart failure with pulmonary edema, improving, on diuretics 2. Acute respiratory failure secondary to pulmonary edema, improving 3. Pulmonary hypertension 4. Acute kidney injury secondary to possible obstructive uropathy Patient has history of hematuria but left AMA prior to cystoscopy in 2014, patient also has a history of hydronephrosis of the right kidney noted on ultrasound in August of this year 5. Constipation Continue Colace and senna 6. Morbid obesity with debility and likely sleep apnea, on BiPAP 7. Thyroid nodule noted on CT chest Ultrasound of thyroid shows mass recommendation is for biopsy, discussed option of biopsy with patient states that she does not want any procedures done at this time, patient understands the risk that this mass may be a malignancy and hence the risk of but she still does not want to proceed with biopsy of the thyroid mass 8. Resistant hypertension-BP improved 9. Bilateral lower extremity atherosclerosis with chronic lymphedema secondary to obesity and deconditioning 10. Subclinical hypothyroidism 11. Abdominal pain secondary to gas-resolved with simethicone 12. Back pain, muscular, norco prn Prophylaxis: Heparin / PPI Subjective 24 Hr Interval Summary Free Text/Dictation off of O2, less shortness of breath Exam/Review of Systems Vital Signs Vitals Vital Signs Date Time Temp Pulse Resp B/P Pulse Ox O2 Delivery O2 Flow Rate FiO2 02/21/17 16:14 71 02/21/17 16:07 98.5 19 140/60 96 02/21/17 13:19 21 02/20/17 08:56 3.0 02/19/17 21:00 Nasal Cannula Intake and Output 02/20/17 02/20/17 02/21/17 15:00 23:00 07:00 Intake Total 400 ml Output Total 1200 ml Balance -800 ml Exam Constitutional: alert, obese, oriented, well developed Head: atraumatic, normocephalic Eyes: EOMI, nl conjunctiva, nl lids ENMT: nl external ears & nose, nl lips & teeth, nl nasal mucosa & septum Neck: non-tender, supple Respiratory: clear to auscultation, normal air movement, No congested cough, No crackles/rales, No diminished breath sounds, No intercostal retraction, No labored breathing, No other, No respirations, No tactile fremitus, No wheezing Cardiovascular: nl pulses, regular rate and rhythm, No S3, No S4, No bruits, No diastolic murmur, No edema, No gallop, No irregular rhythm, No jugular venous distention (JVD), No murmurs/extra sounds, No other, No rub, No systolic murmur Gastrointestinal: nl liver, spleen, soft Musculoskeletal: nl extremities to inspection Extremities: edema (edema on both lower extremities) Neurological: AGRICULTURAL SERVICES DIRECTOR II-XII intact, nl mental status, nl speech, nl strength Results Result Diagram: 02/21/17 0650 02/21/17 0650 Results 24 hrs Laboratory Tests Test 02/20/17 20:48 02/21/17 06:50 02/21/17 08:13 02/21/17 12:00 Bedside Glucose 179 167 152 White Blood Count 7.3 Red Blood Count 3.34 L Hemoglobin 9.3 L Hematocrit 30.8 L Mean Corpuscular Volume 92.2 Mean Corpuscular Hemoglobin 27.8 L Mean Corpuscular Hemoglobin Concent 30.2 L Red Cell Distribution Width 17.3 H Platelet Count 254 Mean Platelet Volume 11.4 H Neutrophils % 70.5 Lymphocytes % 19.7 Monocytes % 6.6 Eosinophils % 1.8 Basophils % 0.7 Nucleated Red Blood Cells % 0.0 Neutrophils # 5.2 Lymphocytes # 1.4 Monocytes # 0.5 Eosinophils # 0.1 Basophils # 0.1 Nucleated Red Blood Cells # 0.0 Sodium Level 136 Potassium Level 3.6 Chloride Level 90 L Carbon Dioxide Level 31 Anion Gap 19 H Blood Urea Nitrogen 64 H Creatinine 1.66 H Glucose Level 180 Calcium Level 9.4 Phosphorus Level 4.6 Magnesium Level 1.9 Medications Medications Current Medications Acetaminophen (Tylenol Tab) 650 mg Q6H PRN PO PAIN LEVEL 1-3 OR FEVER Last administered on 02/15/17 05:56; Admin Dose 650 MG; Start 02/11/17 at 03:30 Phenol (Cepastat Lozenge) 1 lozenge Q2H PRN MT THROATE IRRITATION Last administered on 02/19/17 09:58; Admin Dose 1 LOZENGE; Start 02/11/17 at 04:30 Diagnostic Test (Pha) (Accu-Chek) 1 ea 02 XX ; Start 02/12/17 at 02:00 Miscellaneous Information 1 ea NOTE XX ; Start 02/11/17 at 11:00 Glucose (Glutose) 15 gm Q15M PRN PO DECREASED GLUCOSE; Start 02/11/17 at 11:00 Glucose (Glutose) 22.5 gm Q15M PRN PO DECREASED GLUCOSE; Start 02/11/17 at 11: 00 Dextrose (D50w Syringe) 25 ml Q15M PRN IV DECREASED GLUCOSE; Start 02/11/17 at 11:00 Dextrose (D50w Syringe) 50 ml Q15M PRN IV DECREASED GLUCOSE; Start 02/11/17 at 11:00 Glucagon (Glucagen) 1 mg Q15M PRN IM DECREASED GLUCOSE; Start 02/11/17 at 11:00 Glucose (Glutose) 15 gm Q15M PRN BUCCAL DECREASED GLUCOSE; Start 02/11/17 at 11 :00 Nitroglycerin (Nitroglycerin (Sl Tab) 0.4 Mg) 1 tab Q5M PRN SL CHEST PAIN; Start 02/11/17 at 14:30 Acetaminophen/ Hydrocodone Bitart ([place] (5/325)) 1 tab Q6H PRN PO PAIN LEVEL 8 -10 Last administered on 02/20/17 13:23; Admin Dose 1 TAB; Start 02/12/17 at 00 :30 Hydralazine HCl (Apresoline) 10 mg Q4H PRN IV ELEVATED BLOOD PRESSURE Last administered on 02/13/17 16:45; Admin Dose 10 MG; Start 02/12/17 at 13:00 Hydralazine HCl (Apresoline) 100 mg Q8 PO Last administered on 02/21/17 06:01 ; Admin Dose 100 MG; Start 02/12/17 at 22:00 Clonidine HCl (Catapres-Tts 3 Patch) 1 patch Q7D TRANSDERM Last administered on 02/19/17 17:53; Admin Dose 1 PATCH; Start 02/12/17 at 17:00 Clonidine (Catapres) 0.2 mg Q4H PRN PO ELEVATED SYSTOLIC BP Last administered on 02/13/17 11:38; Admin Dose 0.2 MG; Start 02/12/17 at 19:00 Isosorbide Mononitrate (Imdur) 60 mg DAILY PO Last administered on 02/21/17 08 :50; Admin Dose 60 MG; Start 02/13/17 at 09:00 Carvedilol (Coreg) 25 mg BID PO Last administered on 02/21/17 08:51; Admin Dose 25 MG; Start 02/13/17 at 14:30 Nifedipine (Procardia Xl) 30 mg BID PO Last administered on 02/21/17 08:51; Admin Dose 30 MG; Start 02/13/17 at 21:00 Ondansetron HCl (Zofran Inj) 4 mg Q6H PRN IV NAUSEA AND/OR VOMITING; Start at 15:00 Enoxaparin Sodium (Lovenox) 60 mg BID SC Last administered on 02/21/17 08:52; Admin Dose 60 MG; Start 02/13/17 at 21:00 Lisinopril (Zestril) 20 mg DAILY PO Last administered on 02/21/17 08:51; Admin Dose 20 MG; Start 02/15/17 at 09:00 Docusate Sodium (Colace) 200 mg BID PO Last administered on 02/21/17 08:51; Admin Dose 200 MG; Start 02/14/17 at 21:00 Senna (Senokot) 1 tab BID PO Last administered on 02/21/17 08:51; Admin Dose 1 TAB; Start 02/14/17 at 21:00 Magnesium Hydroxide (Milk Of Mag) 30 ml DAILY PRN PO CONSTIPATION; Start at 16:00 Furosemide (Lasix) 60 mg Q8 IV Last administered on 02/20/17 06:45; Admin Dose 60 MG; Start 02/14/17 at 22:00; Status Future Hold Pantoprazole (Protonix Tab) 40 mg DAILY@06 PO Last administered on 02/21/17 06 :01; Admin Dose 40 MG; Start 02/17/17 at 06:00 Nystatin/ Triamcinolone Acetonide (Mycolog Oint) 1 applic BID TOP Last administered on 02/21/17 09:00; Admin Dose 1 APPLIC; Start 02/18/17 at 14:00 Simethicone (Mylicon) 80 mg QID PRN PO DISTENSION/GAS/BLOATING Last administered on 02/19/17 21:39; Admin Dose 80 MG; Start 02/18/17 at 15:00 MICHELE COLINDRES MD Feb 21, 2017 17:20
--- NOTE | 2017-02-21 17:50 | CONS ---
Date/Time of Note Date/Time of Note DATE: 02/21/17 TIME: 17:46 Assessment/Plan Assessment/Plan Chief Complaint/Hosp Course IMP: 1.CHF-Diastolic acute on chronic by most recent echo-significantly improved volume status 2.PHTN 3.Resp failure on BIPAP 4. Bacteremia at OSH. Bld cultures thus far here negative. No definite vegetations by echo done here this admit 5.lymphedema 6.chest pain-negative trop x 3 7. AF-rate controlled 8. HTN-urgency/emergency-? component of discomfort-improving on oral anti- hypertensives 9. H/O PHTN-not significantly elevated by most recent echo 10.REnal failure -ongoing 11.hydronephrosis 12. NSVT-NL EF by echo 14.PAD by le arterial vignesh REcc: -Tele -serial ecg's -Continue abx's and f/u cx data -Continue hydralazine/clonidine TTS/zestril/procardia xl -Use PRN anti-hypertensives as necessary -would change lasix to PO and follow creatnine/volume status closely -Continue BIPAP as necessary -Replete K>4.0 and mg>2.0 -D/C planning Problems: Consultation Date/Type/Reason Admit Date/Time Feb 11, 2017 at 00:44 Initial Consult Date 02/11/17 Type of Consultation: cardiology Reason for Consultation CHF Referring Provider: KYLEE MORALES Exam/Review of Systems Vital Signs Vitals Vital Signs Date Time Temp Pulse Resp B/P Pulse Ox O2 Delivery O2 Flow Rate FiO2 02/21/17 16:14 71 02/21/17 16:07 98.5 19 140/60 96 02/21/17 13:19 21 02/20/17 08:56 3.0 02/19/17 21:00 Nasal Cannula Intake and Output 02/20/17 02/20/17 02/21/17 15:00 23:00 07:00 Intake Total 400 ml Output Total 1200 ml Balance -800 ml Exam Review of Systems: CONSTITUTIONAL: No fevers, chills. PULMONARY: mild sob-improving CARDIOVASCULAR: No chest pain/palpitations GASTROINTESTINAL: No nausea/vomiting. GENITOURINARY: No hematuria/dysuria. MUSCULOSKELETAL: No myagias/arthalgias. PSYCHIATRIC: The patient denies depression. NEUROLOGIC: No weakness Constitutional: alert Psych: no complaints Head: normocephalic ENMT: mucosa pink and moist Neck: jvd (9 cm water), supple Respiratory: diminished breath sounds (at bases/B) Cardiovascular: regular rate and rhythm Gastrointestinal: non-tender, soft Musculoskeletal: muscle tone (normal) Extremities: other (Chronic lymphedema) Results Result Diagram: 02/21/17 0650 02/21/17 0650 Results 24 hrs Laboratory Tests Test 02/20/17 20:48 02/21/17 06:50 02/21/17 08:13 02/21/17 12:00 Bedside Glucose 179 167 152 White Blood Count 7.3 Red Blood Count 3.34 L Hemoglobin 9.3 L Hematocrit 30.8 L Mean Corpuscular Volume 92.2 Mean Corpuscular Hemoglobin 27.8 L Mean Corpuscular Hemoglobin Concent 30.2 L Red Cell Distribution Width 17.3 H Platelet Count 254 Mean Platelet Volume 11.4 H Neutrophils % 70.5 Lymphocytes % 19.7 Monocytes % 6.6 Eosinophils % 1.8 Basophils % 0.7 Nucleated Red Blood Cells % 0.0 Neutrophils # 5.2 Lymphocytes # 1.4 Monocytes # 0.5 Eosinophils # 0.1 Basophils # 0.1 Nucleated Red Blood Cells # 0.0 Sodium Level 136 Potassium Level 3.6 Chloride Level 90 L Carbon Dioxide Level 31 Anion Gap 19 H Blood Urea Nitrogen 64 H Creatinine 1.66 H Glucose Level 180 Calcium Level 9.4 Phosphorus Level 4.6 Magnesium Level 1.9 Test 02/21/17 17:27 Bedside Glucose 135 Medications Medications Current Medications Acetaminophen (Tylenol Tab) 650 mg Q6H PRN PO PAIN LEVEL 1-3 OR FEVER Last administered on 02/15/17 05:56; Admin Dose 650 MG; Start 02/11/17 at 03:30 Phenol (Cepastat Lozenge) 1 lozenge Q2H PRN MT THROATE IRRITATION Last administered on 02/19/17 09:58; Admin Dose 1 LOZENGE; Start 02/11/17 at 04:30 Diagnostic Test (Pha) (Accu-Chek) 1 ea 02 XX ; Start 02/12/17 at 02:00 Miscellaneous Information 1 ea NOTE XX ; Start 02/11/17 at 11:00 Glucose (Glutose) 15 gm Q15M PRN PO DECREASED GLUCOSE; Start 02/11/17 at 11:00 Glucose (Glutose) 22.5 gm Q15M PRN PO DECREASED GLUCOSE; Start 02/11/17 at 11: 00 Dextrose (D50w Syringe) 25 ml Q15M PRN IV DECREASED GLUCOSE; Start 02/11/17 at 11:00 Dextrose (D50w Syringe) 50 ml Q15M PRN IV DECREASED GLUCOSE; Start 02/11/17 at 11:00 Glucagon (Glucagen) 1 mg Q15M PRN IM DECREASED GLUCOSE; Start 02/11/17 at 11:00 Glucose (Glutose) 15 gm Q15M PRN BUCCAL DECREASED GLUCOSE; Start 02/11/17 at 11 :00 Nitroglycerin (Nitroglycerin (Sl Tab) 0.4 Mg) 1 tab Q5M PRN SL CHEST PAIN; Start 02/11/17 at 14:30 Acetaminophen/ Hydrocodone Bitart ([place] (5/325)) 1 tab Q6H PRN PO PAIN LEVEL 8 -10 Last administered on 02/20/17 13:23; Admin Dose 1 TAB; Start 02/12/17 at 00 :30 Hydralazine HCl (Apresoline) 10 mg Q4H PRN IV ELEVATED BLOOD PRESSURE Last administered on 02/13/17 16:45; Admin Dose 10 MG; Start 02/12/17 at 13:00 Hydralazine HCl (Apresoline) 100 mg Q8 PO Last administered on 02/21/17 06:01 ; Admin Dose 100 MG; Start 02/12/17 at 22:00 Clonidine HCl (Catapres-Tts 3 Patch) 1 patch Q7D TRANSDERM Last administered on 02/19/17 17:53; Admin Dose 1 PATCH; Start 02/12/17 at 17:00 Clonidine (Catapres) 0.2 mg Q4H PRN PO ELEVATED SYSTOLIC BP Last administered on 02/13/17 11:38; Admin Dose 0.2 MG; Start 02/12/17 at 19:00 Isosorbide Mononitrate (Imdur) 60 mg DAILY PO Last administered on 02/21/17 08 :50; Admin Dose 60 MG; Start 02/13/17 at 09:00 Carvedilol (Coreg) 25 mg BID PO Last administered on 02/21/17 08:51; Admin Dose 25 MG; Start 02/13/17 at 14:30 Nifedipine (Procardia Xl) 30 mg BID PO Last administered on 02/21/17 08:51; Admin Dose 30 MG; Start 02/13/17 at 21:00 Ondansetron HCl (Zofran Inj) 4 mg Q6H PRN IV NAUSEA AND/OR VOMITING; Start at 15:00 Enoxaparin Sodium (Lovenox) 60 mg BID SC Last administered on 02/21/17 08:52; Admin Dose 60 MG; Start 02/13/17 at 21:00 Lisinopril (Zestril) 20 mg DAILY PO Last administered on 02/21/17 08:51; Admin Dose 20 MG; Start 02/15/17 at 09:00 Docusate Sodium (Colace) 200 mg BID PO Last administered on 02/21/17 08:51; Admin Dose 200 MG; Start 02/14/17 at 21:00 Senna (Senokot) 1 tab BID PO Last administered on 02/21/17 08:51; Admin Dose 1 TAB; Start 02/14/17 at 21:00 Magnesium Hydroxide (Milk Of Mag) 30 ml DAILY PRN PO CONSTIPATION; Start at 16:00 Furosemide (Lasix) 60 mg Q8 IV Last administered on 02/20/17 06:45; Admin Dose 60 MG; Start 02/14/17 at 22:00; Status Future Hold Pantoprazole (Protonix Tab) 40 mg DAILY@06 PO Last administered on 02/21/17 06 :01; Admin Dose 40 MG; Start 02/17/17 at 06:00 Nystatin/ Triamcinolone Acetonide (Mycolog Oint) 1 applic BID TOP Last administered on 02/21/17 09:00; Admin Dose 1 APPLIC; Start 02/18/17 at 14:00 Simethicone (Mylicon) 80 mg QID PRN PO DISTENSION/GAS/BLOATING Last administered on 02/19/17 21:39; Admin Dose 80 MG; Start 02/18/17 at 15:00 ASHLEY CONNOR Feb 21, 2017 17:50
[2017-02-21] MEDS: FUROSEMIDE 40 MG TAB PO SCH (18:04)
[2017-02-22] VITALS (17 sets, daily range): BP systolic 100–160; BP diastolic 56–83; PULSE 56–92; RESP 17–19
[2017-02-22] MEDS: ACCU-CHEK XX SCH (02:00)
[2017-02-22] MEDS: ALBUTEROL/IPRATROPIUM (NEB) 3 ML AMP HHN SCH ×4 (02:49→19:50)
--- NOTE | 2017-02-22 05:10 | PN ---
DATE: 02/14/2017 SUBJECTIVE DATA: The patient continues to be short of breath requiring nasal cannula 4 liters. The patient remains on diuretic therapy. Good urinary output. No other events noted. OBJECTIVE DATA: VITAL SIGNS: Blood pressure 173/78, respirations 19, pulse 102, and temperature 97.2. HEENT: Head is normocephalic. NECK: Supple. HEART: Regular rate. LUNGS: Showed diminished breath sounds at the base. ABDOMEN: Soft, nontender to palpation. No rebound or guarding. EXTREMITIES: Negative for clubbing or cyanosis. Positive edema. DERMATOLOGICAL: No rashes. MUSCULOSKELETAL: No joint effusion. NEUROLOGIC: No change in exam. MEDICATIONS: The patient's medications have been reviewed. LABORATORY AND DIAGNOSTIC DATA: The patient had a CT scan of the chest, which showed extensive bilateral pulmonary edema and atelectasis, cardiomegaly, and mediastinal lymphadenopathy. The patient's sodium 137, potassium 4, chloride [____], BUN 47, and creatinine 1.28. ASSESSMENT AND PLAN: 1. Nonoliguric acute kidney injury with a previous baseline creatinine 1.0 mg. Etiology of acute kidney injury (JOSE [place]) was secondary to hemodynamics, cardiorenal syndrome. A possibility of obstructive uropathy as an contributing component in a consideration. The patient's renal ultrasound did show right sided hydronephrosis. The patient's renal function has been stable with diuretic therapy. Plan is to continue current treatment plan. We will give him a dose of [____] and monitor his renal function closely. 2. Hyperkalemia secondary to diuretic therapy. Continue to replete potassium chloride. 3. Hydronephrosis right side. Would consider Urology evaluation and a CT scan of the abdomen pelvis. 4. Congestive heart failure (CHF) exacerbation. The patient is volume overloaded. Continue diuretic therapy. Followup with Cardiology. 5. Acute respiratory failure secondary to congestive heart failure (CHF), possible pulmonary hypertension. Continue current medical management. Continue PAP and followup with Pulmonary. 6. Chronic lymphadenopathy. Continue to monitor. 7. Bacteremia. Continue current antibiotic regimen. 8. Morbid obesity. Continue dietary modification. 9. Hypertension. Etiology in part due to increased [____]. Continue current diuretic regimen. 10. Hypothyroidism. 11. Alkalosis. Etiology may be due to chloride deficiency and hyperkalemia. Continue to monitor closely. Would consider Diamox. Dictated By: Jose Castelan DO /liv/black /Document#: [id number]
[2017-02-22] MEDS: PANTOPRAZOLE (EC) 40 MG TAB PO SCH (06:35)
[2017-02-22] MEDS: FUROSEMIDE 40 MG TAB PO SCH (06:36)
[2017-02-22 06:46] LABS: BASOPHILS % 0.6 % (0.0-2.0); EOSINOPHILS # 0.1 10^3/ul (0.0-0.5); EOSINOPHILS % 1.4 % (0.0-7.0); HEMATOCRIT 28.7 % (37.0-47.0); HEMOGLOBIN 8.9 g/dl (12.0-16.0); LYMPHOCYTES # 1.4 10^3/ul (0.8-2.9); LYMPHOCYTES % 20.1 % (15.0-51.0); MEAN CORPUSCULAR HEMOGLOBIN 28.3 pg (29.0-33.0); MEAN CORPUSCULAR VOLUME 91.1 fl (82.0-101.0); MEAN PLATELET VOLUME 10.8 fl (7.4-10.4); MONOCYTE # 0.5 10^3/ul (0.3-0.9); MONOCYTES % 7.2 % (0.0-11.0); NEUTROPHIL # 4.8 10^3/ul (1.6-7.5); NEUTROPHILS % 70.1 % (39.0-77.0); PLATELET COUNT 213 10^3/UL (140-415); RED BLOOD COUNT 3.15 10^6/ul (4.20-5.40); RED CELL DISTRIBUTION WIDTH 17.3 % (11.5-14.5); WHITE BLOOD COUNT 6.9 10^3/ul (4.8-10.8)
[2017-02-22] MEDS: HYDROCODONE/APAP (5/325) TAB PO PRN ×2 (06:51→23:01)
[2017-02-22 07:04] LABS: CALCIUM 9.3 mg/dl (8.4-10.2); CREATININE 1.88 mg/dl (0.44-1.00); PHOSPHORUS 5.1 mg/dl (2.5-4.9); POTASSIUM 3.6 mmol/L (3.5-5.1)
[2017-02-22] MEDS: SENNA TAB PO SCH ×2 (08:06→20:31)
[2017-02-22] MEDS: NIFEdipine (XL) 30 MG TAB PO SCH ×2 (08:07→20:32)
[2017-02-22] MEDS: ISOSORBIDE MONONITRATE(SR)60 MG TAB PO SCH (08:07)
[2017-02-22] MEDS: DOCUSATE SODIUM 100 MG CAP PO SCH ×2 (08:07→20:33)
[2017-02-22] MEDS: NYSTATIN/TRIAMCINOLONE 15 GM OINT TOP SCH ×2 (08:08→21:00)
[2017-02-22] MEDS: LISINOPRIL 20 MG TAB PO SCH (08:08)
[2017-02-22] MEDS: INSULIN ASPART [NOVOLOG] 3 ML PEN SC SCH ×4 (08:17→20:39)
[2017-02-22] MEDS: ENOXAPARIN 60 MG/0.6 ML SYG SC SCH ×2 (08:18→20:35)
--- NOTE | 2017-02-22 10:21 | CONS ---
Date/Time of Note Date/Time of Note DATE: 02/22/17 TIME: 10:19 Assessment/Plan Assessment/Plan Additional Assessment/Plan Assessment recommendations; 1. Patient admitted with shortness of breath due to CHF and pulmonary edema with significant clinical improvement. 2. Renal insufficiency. With stable serum creatinine. 3. Right obstructive nephropathy. 4. Systemic hypertension. 5. Pulmonary hypertension. Continue current treatment. Consider discharge. Consultation Date/Type/Reason Admit Date/Time Feb 11, 2017 at 00:44 Initial Consult Date 02/14/17 Type of Consultation: Pulmonary Referring Provider: KYLEE MORALES 24 HR Interval Summary Free Text/Dictation Patient condition stable. Remains awake and alert. Denies any shortness of breath. General exam; elderly woman, awake alert currently in no distress. Exam/Review of Systems Vital Signs Vitals Vital Signs Date Time Temp Pulse Resp B/P Pulse Ox O2 Delivery O2 Flow Rate FiO2 02/22/17 09:09 86 20 98 21 02/22/17 07:47 98.8 127/56 02/20/17 08:56 3.0 02/19/17 21:00 Nasal Cannula Intake and Output 02/21/17 02/21/17 02/22/17 15:00 23:00 07:00 Intake Total 1100 ml 950 ml Output Total 900 ml Balance 200 ml 950 ml Exam HEENT exam; supple neck, no JVD. No lymphadenopathy. Midline trachea. No thyromegaly. Pharynx is clear. Patient has fair dentition. Chest exam; clear to auscultation. S1-S2 audible, no murmurs. Regular rhythm. Abdomen exam; soft, nontender. No organomegaly. Bowel sounds audible. Next Extremity exam; trace lower extremity edema. Patient is a chronic appearing lymphedema involving feet bilaterally. RECEPTION SPECIALIST exam; no focal deficit. Results Result Diagram: 02/22/17 0616 02/22/17 0602 Results 24 hrs Laboratory Tests Test 02/21/17 12:00 02/21/17 17:27 02/21/17 22:41 02/22/17 06:02 Bedside Glucose 152 135 145 Sodium Level 137 Potassium Level 3.6 Chloride Level 94 L Carbon Dioxide Level 30 Anion Gap 17 H Blood Urea Nitrogen 66 H Creatinine 1.88 H Glucose Level 131 # Calcium Level 9.3 Phosphorus Level 5.1 H Magnesium Level 2.0 Test 02/22/17 06:16 02/22/17 07:58 White Blood Count 6.9 Red Blood Count 3.15 L Hemoglobin 8.9 L Hematocrit 28.7 L Mean Corpuscular Volume 91.1 Mean Corpuscular Hemoglobin 28.3 L Mean Corpuscular Hemoglobin Concent 31.0 L Red Cell Distribution Width 17.3 H Platelet Count 213 Mean Platelet Volume 10.8 H Neutrophils % 70.1 Lymphocytes % 20.1 Monocytes % 7.2 Eosinophils % 1.4 Basophils % 0.6 Nucleated Red Blood Cells % 0.0 Neutrophils # 4.8 Lymphocytes # 1.4 Monocytes # 0.5 Eosinophils # 0.1 Basophils # 0.0 Nucleated Red Blood Cells # 0.0 Bedside Glucose 206 Medications Medications Current Medications Acetaminophen (Tylenol Tab) 650 mg Q6H PRN PO PAIN LEVEL 1-3 OR FEVER Last administered on 02/15/17 05:56; Admin Dose 650 MG; Start 02/11/17 at 03:30 Phenol (Cepastat Lozenge) 1 lozenge Q2H PRN MT THROATE IRRITATION Last administered on 02/19/17 09:58; Admin Dose 1 LOZENGE; Start 02/11/17 at 04:30 Diagnostic Test (Pha) (Accu-Chek) 1 ea 02 XX ; Start 02/12/17 at 02:00 Miscellaneous Information 1 ea NOTE XX ; Start 02/11/17 at 11:00 Glucose (Glutose) 15 gm Q15M PRN PO DECREASED GLUCOSE; Start 02/11/17 at 11:00 Glucose (Glutose) 22.5 gm Q15M PRN PO DECREASED GLUCOSE; Start 02/11/17 at 11: 00 Dextrose (D50w Syringe) 25 ml Q15M PRN IV DECREASED GLUCOSE; Start 02/11/17 at 11:00 Dextrose (D50w Syringe) 50 ml Q15M PRN IV DECREASED GLUCOSE; Start 02/11/17 at 11:00 Glucagon (Glucagen) 1 mg Q15M PRN IM DECREASED GLUCOSE; Start 02/11/17 at 11:00 Glucose (Glutose) 15 gm Q15M PRN BUCCAL DECREASED GLUCOSE; Start 02/11/17 at 11 :00 Nitroglycerin (Nitroglycerin (Sl Tab) 0.4 Mg) 1 tab Q5M PRN SL CHEST PAIN; Start 02/11/17 at 14:30 Acetaminophen/ Hydrocodone Bitart ([place] (5/325)) 1 tab Q6H PRN PO PAIN LEVEL 8 -10 Last administered on 02/22/17 06:51; Admin Dose 1 TAB; Start 02/12/17 at 00 :30 Hydralazine HCl (Apresoline) 10 mg Q4H PRN IV ELEVATED BLOOD PRESSURE Last administered on 02/13/17 16:45; Admin Dose 10 MG; Start 02/12/17 at 13:00 Hydralazine HCl (Apresoline) 100 mg Q8 PO Last administered on 02/21/17 22:47 ; Admin Dose 100 MG; Start 02/12/17 at 22:00 Clonidine HCl (Catapres-Tts 3 Patch) 1 patch Q7D TRANSDERM Last administered on 02/19/17 17:53; Admin Dose 1 PATCH; Start 02/12/17 at 17:00 Clonidine (Catapres) 0.2 mg Q4H PRN PO ELEVATED SYSTOLIC BP Last administered on 02/13/17 11:38; Admin Dose 0.2 MG; Start 02/12/17 at 19:00 Isosorbide Mononitrate (Imdur) 60 mg DAILY PO Last administered on 02/22/17 08 :07; Admin Dose 60 MG; Start 02/13/17 at 09:00 Carvedilol (Coreg) 25 mg BID PO Last administered on 02/22/17 08:08; Admin Dose 25 MG; Start 02/13/17 at 14:30 Nifedipine (Procardia Xl) 30 mg BID PO Last administered on 02/22/17 08:07; Admin Dose 30 MG; Start 02/13/17 at 21:00 Ondansetron HCl (Zofran Inj) 4 mg Q6H PRN IV NAUSEA AND/OR VOMITING; Start at 15:00 Enoxaparin Sodium (Lovenox) 60 mg BID SC Last administered on 02/22/17 08:18; Admin Dose 60 MG; Start 02/13/17 at 21:00 Lisinopril (Zestril) 20 mg DAILY PO Last administered on 02/22/17 08:08; Admin Dose 20 MG; Start 02/15/17 at 09:00; Status Future Hold Docusate Sodium (Colace) 200 mg BID PO Last administered on 02/22/17 08:07; Admin Dose 200 MG; Start 02/14/17 at 21:00 Senna (Senokot) 1 tab BID PO Last administered on 02/22/17 08:06; Admin Dose 1 TAB; Start 02/14/17 at 21:00 Magnesium Hydroxide (Milk Of Mag) 30 ml DAILY PRN PO CONSTIPATION; Start at 16:00 Furosemide (Lasix) 60 mg Q8 IV Last administered on 02/20/17 06:45; Admin Dose 60 MG; Start 02/14/17 at 22:00; Status Future Hold Pantoprazole (Protonix Tab) 40 mg DAILY@06 PO Last administered on 02/22/17 06 :35; Admin Dose 40 MG; Start 02/17/17 at 06:00 Nystatin/ Triamcinolone Acetonide (Mycolog Oint) 1 applic BID TOP Last administered on 02/22/17 08:08; Admin Dose 1 APPLIC; Start 02/18/17 at 14:00 Simethicone (Mylicon) 80 mg QID PRN PO DISTENSION/GAS/BLOATING Last administered on 02/19/17 21:39; Admin Dose 80 MG; Start 02/18/17 at 15:00 SARA NATARAJAN Feb 22, 2017 10:21
--- NOTE | 2017-02-22 13:45 | PN ---
DATE: SUBJECTIVE DATA: The patient remains short of breath on nasal cannula. The patient remains on diuretic therapy, diuresing well. No other events noted. OBJECTIVE DATA: VITAL SIGNS: Blood pressure is 129/58, respiratory rate 19, pulse 81, temperature 98.0. HEENT: Head is normocephalic. Neck is supple. CARDIAC: Heart was regular rate. RESPIRATORY: Lungs show diminished breath sounds at the based. ABDOMEN: Soft, nontender to palpation. No rebound or guarding. EXTREMITIES: No clubbing or cyanosis. No edema. DERMATOLOGY: No rashes. MUSCULOSKELETAL: No joint effusion. NEUROLOGIC: No change in exam. MEDICATIONS: Medications were reviewed. LABORATORY AND DIAGNOSTIC DATA: Laboratory data from 02/14 shows sodium 137, potassium 3.4, BUN 47, creatinine 1.28. White count 5.5, hemoglobin 8.1, hematocrit 26.7, platelet count is 133. ASSESSMENT AND PLAN: 1. Nonoliguric acute kidney injury with previous baseline creatinine 1.0 mg/dL. Etiology of acute kidney injury secondary to hemodynamics with possible obstructive uropathy. The patient's renal ultrasound shows right side hydronephrosis. At this point, I would recommend continuing with the current treatment plan. renally dose all meds. Consider a urologic evaluation. 2. Right side hydronephrosis. The underlying etiology is unclear. We will continue to monitor. We will consider repeat renal ultrasound. Consider a CT scan of the abdomen and pelvis. Consider a urology evaluation. 3. Hyperkalemia. Continue to monitor and replete. 4. Respiratory failure secondary to congestive heart failure. The is clinically improving. Continue diuretic regimen. Continue nasal cannula. 5. Pulmonary hypertension. Continue to monitor and follow up with pulmonary. 6. Chronic lymphedema, etiology is unclear. Continue medical management, diuretic therapy. 7. Bacteremia. Continue antibiotic regimen. 8. Hypertension. Continue current blood pressure regimen. 9. Hypothyroidism. Continue to monitor. 10. Obesity. Reviewed dietary modification. Dictated By: Jose Castelan DO /liv/zane /Document#: [id number]
--- NOTE | 2017-02-22 13:48 | PN ---
Date/Time of Note Date/Time of Note DATE: 02/22/17 TIME: 13:43 Assessment/Plan VTE Prophylaxis VTE Prophylaxis Intervention: heparin Lines/Catheters IV Catheter Type (from Nrs): PICC Line Central line still needed: Yes Urinary Cath still in place: No Assessment/Plan Assessment/Plan 1. Decompensated diastolic congestive heart failure with pulmonary edema, improving, on diuretics 2. Acute respiratory failure secondary to pulmonary edema, improved 3. Pulmonary hypertension 4. Acute kidney injury secondary to possible obstructive uropathy, worsening BUN/Cr, decrease lasix Patient has history of hematuria but left AMA prior to cystoscopy in 2014, patient also has a history of hydronephrosis of the right kidney noted on ultrasound in August of this year 5. Constipation Continue Colace and senna 6. Morbid obesity with debility and likely sleep apnea, on BiPAP 7. Thyroid nodule noted on CT chest Ultrasound of thyroid shows mass recommendation is for biopsy, discussed option of biopsy with patient states that she does not want any procedures done at this time, patient understands the risk that this mass may be a malignancy and hence the risk of but she still does not want to proceed with biopsy of the thyroid mass 8. Resistant hypertension-BP improved 9. Bilateral lower extremity atherosclerosis with chronic lymphedema secondary to obesity and deconditioning 10. Subclinical hypothyroidism 11. Abdominal pain secondary to gas-resolved with simethicone 12. Back pain, muscular, norco prn 13. DVT prophylaxis: heparin Subjective 24 Hr Interval Summary Free Text/Dictation no shortness of breath Exam/Review of Systems Vital Signs Vitals Vital Signs Date Time Temp Pulse Resp B/P Pulse Ox O2 Delivery O2 Flow Rate FiO2 02/22/17 13:12 65 02/22/17 11:44 99.1 19 102/59 99 02/22/17 09:09 21 02/20/17 08:56 3.0 02/19/17 21:00 Nasal Cannula Intake and Output 02/21/17 02/21/17 02/22/17 15:00 23:00 07:00 Intake Total 1100 ml 950 ml Output Total 900 ml Balance 200 ml 950 ml Exam Constitutional: alert, oriented, well developed Psych: nl mood/affect, no complaints Head: atraumatic, normocephalic Eyes: EOMI, PERRL, nl conjunctiva, nl lids ENMT: mucosa pink and moist, nl external ears & nose, nl lips & teeth, nl nasal mucosa & septum Neck: non-tender, supple Respiratory: clear to auscultation, normal air movement, No congested cough, No crackles/rales, No diminished breath sounds, No intercostal retraction, No labored breathing, No other, No respirations, No tactile fremitus, No wheezing Cardiovascular: nl pulses, regular rate and rhythm, No S3, No S4, No bruits, No diastolic murmur, No edema, No gallop, No irregular rhythm, No jugular venous distention (JVD), No murmurs/extra sounds, No other, No rub, No systolic murmur Gastrointestinal: nl liver, spleen, non-tender, soft Musculoskeletal: nl extremities to inspection Extremities: edema (chronic stasis dermatitis on both lower extremities) Neurological: STAMP CLERK II-XII intact, nl mental status, nl speech, nl strength Results Result Diagram: 02/22/17 0616 02/22/17 0602 Results 24 hrs Laboratory Tests Test 02/21/17 17:27 02/21/17 22:41 02/22/17 06:02 02/22/17 06:16 Bedside Glucose 135 145 Sodium Level 137 Potassium Level 3.6 Chloride Level 94 L Carbon Dioxide Level 30 Anion Gap 17 H Blood Urea Nitrogen 66 H Creatinine 1.88 H Glucose Level 131 # Calcium Level 9.3 Phosphorus Level 5.1 H Magnesium Level 2.0 White Blood Count 6.9 Red Blood Count 3.15 L Hemoglobin 8.9 L Hematocrit 28.7 L Mean Corpuscular Volume 91.1 Mean Corpuscular Hemoglobin 28.3 L Mean Corpuscular Hemoglobin Concent 31.0 L Red Cell Distribution Width 17.3 H Platelet Count 213 Mean Platelet Volume 10.8 H Neutrophils % 70.1 Lymphocytes % 20.1 Monocytes % 7.2 Eosinophils % 1.4 Basophils % 0.6 Nucleated Red Blood Cells % 0.0 Neutrophils # 4.8 Lymphocytes # 1.4 Monocytes # 0.5 Eosinophils # 0.1 Basophils # 0.0 Nucleated Red Blood Cells # 0.0 Test 02/22/17 07:58 02/22/17 11:51 Bedside Glucose 206 126 Medications Medications Current Medications Acetaminophen (Tylenol Tab) 650 mg Q6H PRN PO PAIN LEVEL 1-3 OR FEVER Last administered on 02/15/17t 05:56; Admin Dose 650 MG; Start 02/11/17 at 03:30 Phenol (Cepastat Lozenge) 1 lozenge Q2H PRN MT THROATE IRRITATION Last administered on 02/19/17 09:58; Admin Dose 1 LOZENGE; Start 02/11/17 at 04:30 Diagnostic Test (Pha) (Accu-Chek) 1 ea 02 XX ; Start 02/12/17 at 02:00 Miscellaneous Information 1 ea NOTE XX ; Start 02/11/17 at 11:00 Glucose (Glutose) 15 gm Q15M PRN PO DECREASED GLUCOSE; Start 02/11/17 at 11:00 Glucose (Glutose) 22.5 gm Q15M PRN PO DECREASED GLUCOSE; Start 02/11/17 at 11: 00 Dextrose (D50w Syringe) 25 ml Q15M PRN IV DECREASED GLUCOSE; Start 02/11/17 at 11:00 Dextrose (D50w Syringe) 50 ml Q15M PRN IV DECREASED GLUCOSE; Start 02/11/17 at 11:00 Glucagon (Glucagen) 1 mg Q15M PRN IM DECREASED GLUCOSE; Start 02/11/17 at 11:00 Glucose (Glutose) 15 gm Q15M PRN BUCCAL DECREASED GLUCOSE; Start 02/11/17 at 11 :00 Nitroglycerin (Nitroglycerin (Sl Tab) 0.4 Mg) 1 tab Q5M PRN SL CHEST PAIN; Start 02/11/17 at 14:30 Acetaminophen/ Hydrocodone Bitart ([place] (5/325)) 1 tab Q6H PRN PO PAIN LEVEL 8 -10 Last administered on 02/22/17 06:51; Admin Dose 1 TAB; Start 02/12/17 at 00 :30 Hydralazine HCl (Apresoline) 10 mg Q4H PRN IV ELEVATED BLOOD PRESSURE Last administered on 02/13/17 16:45; Admin Dose 10 MG; Start 02/12/17 at 13:00 Hydralazine HCl (Apresoline) 100 mg Q8 PO Last administered on 02/21/17 22:47 ; Admin Dose 100 MG; Start 02/12/17 at 22:00 Clonidine HCl (Catapres-Tts 3 Patch) 1 patch Q7D TRANSDERM Last administered on 02/19/17 17:53; Admin Dose 1 PATCH; Start 02/12/17 at 17:00 Clonidine (Catapres) 0.2 mg Q4H PRN PO ELEVATED SYSTOLIC BP Last administered on 02/13/17 11:38; Admin Dose 0.2 MG; Start 02/12/17 at 19:00 Isosorbide Mononitrate (Imdur) 60 mg DAILY PO Last administered on 02/22/17 08 :07; Admin Dose 60 MG; Start 02/13/17 at 09:00 Carvedilol (Coreg) 25 mg BID PO Last administered on 02/22/17 08:08; Admin Dose 25 MG; Start 02/13/17 at 14:30 Nifedipine (Procardia Xl) 30 mg BID PO Last administered on 02/22/17 08:07; Admin Dose 30 MG; Start 02/13/17 at 21:00 Ondansetron HCl (Zofran Inj) 4 mg Q6H PRN IV NAUSEA AND/OR VOMITING; Start at 15:00 Enoxaparin Sodium (Lovenox) 60 mg BID SC Last administered on 02/22/17 08:18; Admin Dose 60 MG; Start 02/13/17 at 21:00 Lisinopril (Zestril) 20 mg DAILY PO Last administered on 02/22/17 08:08; Admin Dose 20 MG; Start 02/15/17 at 09:00; Status Future Hold Docusate Sodium (Colace) 200 mg BID PO Last administered on 02/22/17 08:07; Admin Dose 200 MG; Start 02/14/17 at 21:00 Senna (Senokot) 1 tab BID PO Last administered on 02/22/17 08:06; Admin Dose 1 TAB; Start 02/14/17 at 21:00 Magnesium Hydroxide (Milk Of Mag) 30 ml DAILY PRN PO CONSTIPATION; Start at 16:00 Pantoprazole (Protonix Tab) 40 mg DAILY@06 PO Last administered on 02/22/17 06 :35; Admin Dose 40 MG; Start 02/17/17 at 06:00 Nystatin/ Triamcinolone Acetonide (Mycolog Oint) 1 applic BID TOP Last administered on 02/22/17 08:08; Admin Dose 1 APPLIC; Start 02/18/17 at 14:00 Simethicone (Mylicon) 80 mg QID PRN PO DISTENSION/GAS/BLOATING Last administered on 02/19/17t 21:39; Admin Dose 80 MG; Start 02/18/17 at 15:00 MICHELE COLINDRES MD Feb 22, 2017 13:48
[2017-02-22] MEDS: FUROSEMIDE 40 MG INJ IV SCH (17:57)
[2017-02-23] VITALS (14 sets, daily range): BP systolic 131–141; BP diastolic 60–78; PULSE 62–100; RESP 17–18
[2017-02-23] MEDS: ACCU-CHEK XX SCH (02:00)
[2017-02-23] MEDS: ALBUTEROL/IPRATROPIUM (NEB) 3 ML AMP HHN SCH ×4 (02:05→20:56)
[2017-02-23] MEDS: FUROSEMIDE 40 MG INJ IV SCH (06:00)
[2017-02-23] MEDS: PANTOPRAZOLE (EC) 40 MG TAB PO SCH (06:31)
[2017-02-23 07:33] LABS: CREATININE 1.9 mg/dl (0.44-1.00); POTASSIUM 3.5 mmol/L (3.5-5.1)
[2017-02-23] MEDS: INSULIN ASPART [NOVOLOG] 3 ML PEN SC SCH ×4 (08:24→22:00)
[2017-02-23] MEDS: ENOXAPARIN 60 MG/0.6 ML SYG SC SCH ×2 (08:25→20:38)
[2017-02-23] MEDS: NIFEdipine (XL) 30 MG TAB PO SCH ×2 (08:26→20:28)
[2017-02-23] MEDS: ISOSORBIDE MONONITRATE(SR)60 MG TAB PO SCH (08:26)
[2017-02-23] MEDS: SENNA TAB PO SCH (08:26)
[2017-02-23] MEDS: DOCUSATE SODIUM 100 MG CAP PO SCH (08:27)
[2017-02-23] MEDS: NYSTATIN/TRIAMCINOLONE 15 GM OINT TOP SCH ×2 (08:30→22:01)
--- NOTE | 2017-02-23 08:54 | PN ---
DATE: 02/16/2017 SUBJECTIVE DATA: The patient remains in mild respiratory distress and was stable on 4 liters nasal cannula. The patient appears to have good urinary output. No other acute events noted. OBJECTIVE DATA: VITAL SIGNS: Blood pressure 147/71, respirations 22, pulse 72, temperature 97.9. HEENT: Normocephalic. NECK: Supple. CARDIAC: Regular rate. LUNGS: Diminished breath sounds at the base. ABDOMEN: Soft and nontender to palpation, no rebound or guarding. EXTREMITIES: Negative for clubbing or cyanosis, positive edema. DERMATOLOGIC: No rashes. MUSCULOSKELETAL: No joint effusions. NEUROLOGIC: Unchanged exam. MEDICATIONS: Reviewed. LABORATORY AND DIAGNOSTIC DATA: Sodium 137, potassium 3.8, chloride 90, BUN 49, creatinine 1.41. White count 5.8, hemoglobin 9.4, hematocrit 30.8, platelet count 244,000. The patient's imaging studies show CT scan of the abdomen and pelvis with severe right hydroureteronephrosis with diffuse cortical thinning of the right kidney, as well as proximal ureter measuring 2.7 cm lesion which could be a mass versus hemorrhage. Adenopathy is noted. ASSESSMENT AND PLAN: 1. Non-oliguric acute kidney injury on top of chronic kidney disease. Etiology of acute kidney injury is multifactorial, secondary to obstructive uropathy, hemodynamics, cardiorenal syndrome. The patient's CT scan shows severe right sided hydronephrosis. The patient has been receiving diuretic therapy during the hospital course and has had fluctuations of renal function. At this point will continue current treatment plan, continue diuretic therapy. Will follow up with Dr. Cadet of urology for any further recommendations. The patient may require underlying cystoscopy. 2. Volume overload secondary to acute congestive heart failure exacerbation. The patient is currently on a diuretic regimen, diuresing well. We will continue to monitor renal function and electrolytes closely. 3. Hypertension. Continue current blood pressure regimen. 4. Acute hypoxemic respiratory failure secondary to congestive heart failure exacerbation and pulmonary hypertension. Continue current medical management. Continue diuretic therapy. Follow up with pulmonary for recommendations. 5. Sepsis secondary to bacteremia. Continue current antibiotic regimen. 6. Morbid obesity. Continue dietary modifications. 7. Hypokalemia, improved. Continue to observe. 8. Pulmonary hypertension. Continue current medical management as stated above. Dictated By: Jose Castelan DO /[email or web address] /Document#: [id number]
--- NOTE | 2017-02-23 09:41 | PN ---
Date/Time of Note Date/Time of Note DATE: 02/23/17 TIME: 09:40 Assessment/Plan Lines/Catheters IV [facility]ter Type (from [facility]): PICC Line Urinary Cath still in place: No Assessment/Plan Chief Complaint/Hosp Course Nonoliguric acute kidney with baseline creatinine of 1.0 mg/dL -Etiology of [place] likely hemodynamics, obstructive uropathy -Renal ultrasound shows right-sided hydronephrosis Renal function has declined in the last 2-3 days likely from diuretic therapy Monitor closely and diuretic therapy Urology's evaluated patient recommending eventual cystoscopy Continue current treatment plan, renally dose all meds Right-sided hydronephrosis Was evaluated by urology Pending cystoscopy once clinically stable Hypokalemia Improved Continue to monitor acute respiratory distress secondary CHF Improving all diuretics in the setting of worsening renal function #3 severe pulmonary hypertension: -Follow-up with pulmonary #4 chronic lymphedema: T Continue medical manage #6 Coagulase-negative bacteremia: Patient was treated with antibiotics -Cultures reviewed #7 morbid obesity: #8 hypertension: -Continue medical management. -Medications being adjusted by cardiology #9 DVT and GI prophylaxis: Heparin, Protonix # Problems: Subjective 24 Hr Interval Summary Free Text/Dictation Patient seen and examined No other events noted overnight Urinary output has been adequate Exam/Review of Systems Vital Signs Vitals Vital Signs Date Time Temp Pulse Resp B/P Pulse Ox O2 Delivery O2 Flow Rate FiO2 02/23/17 08:06 74 20 96 21 02/23/17 07:48 98.1 141/78 02/20/17 08:56 3.0 02/19/17 21:00 Nasal Cannula Intake and Output 02/22/17 02/22/17 02/23/17 15:00 23:00 07:00 Intake Total 1000 ml 800 ml Output Total 1200 ml Balance -200 ml 800 ml Exam EENT: Head is normocephalic. NECK: Supple. HEART: Regular rate LUNGS: Show diminished breath sounds at base. ABDOMEN: Soft, nontender to palpation without rebound or guarding. EXTREMITIES: Negative for clubbing, cyanosis. DERMATOLOGIC: No rashes. MUSCULOSKELETAL: No joint effusions, NEUROLOGIC: No change in exam. Results Result Diagram: 02/22/17 0616 02/23/17 0639 Results 24 hrs Laboratory Tests Test 02/22/17 11:51 02/22/17 17:33 02/22/17 20:30 02/23/17 06:39 Bedside Glucose 126 143 150 Sodium Level 138 Potassium Level 3.5 Chloride Level 93 L Carbon Dioxide Level 29 Anion Gap 20 H Blood Urea Nitrogen 71 H Creatinine 1.90 H Glucose Level 143 Calcium Level 10.0 Test 02/23/17 08:23 Bedside Glucose 165 Medications Medications Current Medications Acetaminophen (Tylenol Tab) 650 mg Q6H PRN PO PAIN LEVEL 1-3 OR FEVER Last administered on 02/15/17 05:56; Admin Dose 650 MG; Start 02/11/17 at 03:30 Phenol (Cepastat Lozenge) 1 lozenge Q2H PRN MT THROATE IRRITATION Last administered on 02/19/17 09:58; Admin Dose 1 LOZENGE; Start 02/11/17 at 04:30 Diagnostic Test (Pha) (Accu-Chek) 1 ea 02 XX ; Start 02/12/17 at 02:00 Miscellaneous Information 1 ea NOTE XX ; Start 02/11/17 at 11:00 Glucose (Glutose) 15 gm Q15M PRN PO DECREASED GLUCOSE; Start 02/11/17 at 11:00 Glucose (Glutose) 22.5 gm Q15M PRN PO DECREASED GLUCOSE; Start 02/11/17 at 11: 00 Dextrose (D50w Syringe) 25 ml Q15M PRN IV DECREASED GLUCOSE; Start 02/11/17 at 11:00 Dextrose (D50w Syringe) 50 ml Q15M PRN IV DECREASED GLUCOSE; Start 02/11/17 at 11:00 Glucagon (Glucagen) 1 mg Q15M PRN IM DECREASED GLUCOSE; Start 02/11/17 at 11:00 Glucose (Glutose) 15 gm Q15M PRN BUCCAL DECREASED GLUCOSE; Start 02/11/17 at 11 :00 Nitroglycerin (Nitroglycerin (Sl Tab) 0.4 Mg) 1 tab Q5M PRN SL CHEST PAIN; Start 02/11/17 at 14:30 Acetaminophen/ Hydrocodone Bitart ([place] (5/325)) 1 tab Q6H PRN PO PAIN LEVEL 8 -10 Last administered on 02/22/17 23:01; Admin Dose 1 TAB; Start 02/12/17 at 00 :30 Hydralazine HCl (Apresoline) 10 mg Q4H PRN IV ELEVATED BLOOD PRESSURE Last administered on 02/13/17 16:45; Admin Dose 10 MG; Start 02/12/17 at 13:00 Hydralazine HCl (Apresoline) 100 mg Q8 PO Last administered on 02/23/17 06:31 ; Admin Dose 100 MG; Start 02/12/17 at 22:00 Clonidine HCl (Catapres-Tts 3 Patch) 1 patch Q7D TRANSDERM Last administered on 02/19/17 17:53; Admin Dose 1 PATCH; Start 02/12/17 at 17:00 Clonidine (Catapres) 0.2 mg Q4H PRN PO ELEVATED SYSTOLIC BP Last administered on 02/13/17 11:38; Admin Dose 0.2 MG; Start 02/12/17 at 19:00 Isosorbide Mononitrate (Imdur) 60 mg DAILY PO Last administered on 02/23/17 08 :26; Admin Dose 60 MG; Start 02/13/17 at 09:00 Carvedilol (Coreg) 25 mg BID PO Last administered on 02/23/17 08:26; Admin Dose 25 MG; Start 02/13/17 at 14:30 Nifedipine (Procardia Xl) 30 mg BID PO Last administered on 02/23/17 08:26; Admin Dose 30 MG; Start 02/13/17 at 21:00 Ondansetron HCl (Zofran Inj) 4 mg Q6H PRN IV NAUSEA AND/OR VOMITING; Start at 15:00 Enoxaparin Sodium (Lovenox) 60 mg BID SC Last administered on 02/23/17 08:25; Admin Dose 60 MG; Start 02/13/17 at 21:00 Lisinopril (Zestril) 20 mg DAILY PO Last administered on 02/22/17 08:08; Admin Dose 20 MG; Start 02/15/17 at 09:00; Status Future Hold Docusate Sodium (Colace) 200 mg BID PO Last administered on 02/22/17 20:33; Admin Dose 200 MG; Start 02/14/17 at 21:00 Senna (Senokot) 1 tab BID PO Last administered on 02/22/17 20:31; Admin Dose 1 TAB; Start 02/14/17 at 21:00 Magnesium Hydroxide (Milk Of Mag) 30 ml DAILY PRN PO CONSTIPATION; Start at 16:00 Pantoprazole (Protonix Tab) 40 mg DAILY@06 PO Last administered on 02/23/17 06 :31; Admin Dose 40 MG; Start 02/17/17 at 06:00 Nystatin/ Triamcinolone Acetonide (Mycolog Oint) 1 applic BID TOP Last administered on 02/23/17 08:30; Admin Dose 1 APPLIC; Start 02/18/17 at 14:00 Simethicone (Mylicon) 80 mg QID PRN PO DISTENSION/GAS/BLOATING Last administered on 02/19/17 21:39; Admin Dose 80 MG; Start 02/18/17 at 15:00 OPAL ESCALANTE DO Feb 23, 2017 09:41
[2017-02-23] MEDS: HYDROCODONE/APAP (5/325) TAB PO PRN ×2 (10:25→20:28)
--- NOTE | 2017-02-23 11:12 | CONS ---
Date/Time of Note Date/Time of Note DATE: 02/23/17 TIME: 11:10 Assessment/Plan Assessment/Plan Chief Complaint/Hosp Course IMP: 1.CHF-Diastolic acute on chronic by most recent echo-significantly improved volume status 2.PHTN 3.Resp failure on BIPAP 4. Bacteremia at OSH. Bld cultures thus far here negative. No definite vegetations by echo done here this admit 5.lymphedema 6.chest pain-negative trop x 3 7. AF-rate controlled 8. HTN-urgency/emergency-? component of discomfort-improving on oral anti- hypertensives 9. H/O PHTN-not significantly elevated by most recent echo 10.REnal failure -ongoing 11.hydronephrosis 12. NSVT-NL EF by echo 14.PAD by le arterial vignesh REcc: -Tele -serial ecg's -Continue abx's and f/u cx data -Continue hydralazine/clonidine TTS/zestril/procardia xl with reasonable BP control -would change lasix to PO and follow creatnine/volume status closely -Continue BIPAP as necessary -Replete K>4.0 and mg>2.0 -D/C planning with outpatient f/u Problems: Consultation Date/Type/Reason Admit Date/Time Feb 11, 2017 at 00:44 Initial Consult Date 02/11/17 Type of Consultation: cardiology Reason for Consultation sob Referring Provider: KYLEE MORALES Exam/Review of Systems Vital Signs Vitals Vital Signs Date Time Temp Pulse Resp B/P Pulse Ox O2 Delivery O2 Flow Rate FiO2 02/23/17 08:55 85 02/23/17 08:06 20 96 21 02/23/17 07:48 98.1 141/78 02/20/17 08:56 3.0 02/19/17 21:00 Nasal Cannula Intake and Output 02/22/17 02/22/17 02/23/17 15:00 23:00 07:00 Intake Total 1000 ml 800 ml Output Total 1200 ml Balance -200 ml 800 ml Exam Review of Systems: CONSTITUTIONAL: No fevers, chills. PULMONARY: ongoing mild sob CARDIOVASCULAR: No chest pain/palpitations GASTROINTESTINAL: No nausea/vomiting. GENITOURINARY: No hematuria/dysuria. MUSCULOSKELETAL: No myagias/arthalgias. PSYCHIATRIC: The patient denies depression. NEUROLOGIC: No weakness Psych: no complaints Head: normocephalic ENMT: mucosa pink and moist Neck: jvd (9 cm water), supple Respiratory: diminished breath sounds (at bases/B) Cardiovascular: regular rate and rhythm Gastrointestinal: non-tender, soft Musculoskeletal: muscle tone (normal) Extremities: other (lymphedema) Neurological: other (No focal deficits) Results Result Diagram: 02/22/17 0616 02/23/17 0639 Results 24 hrs Laboratory Tests Test 02/22/17 11:51 02/22/17 17:33 02/22/17 20:30 02/23/17 06:39 Bedside Glucose 126 143 150 Sodium Level 138 Potassium Level 3.5 Chloride Level 93 L Carbon Dioxide Level 29 Anion Gap 20 H Blood Urea Nitrogen 71 H Creatinine 1.90 H Glucose Level 143 Calcium Level 10.0 Test 02/23/17 08:23 Bedside Glucose 165 Medications Medications Current Medications Acetaminophen (Tylenol Tab) 650 mg Q6H PRN PO PAIN LEVEL 1-3 OR FEVER Last administered on 02/15/17 05:56; Admin Dose 650 MG; Start 02/11/17 at 03:30 Phenol (Cepastat Lozenge) 1 lozenge Q2H PRN MT THROATE IRRITATION Last administered on 02/19/17 09:58; Admin Dose 1 LOZENGE; Start 02/11/17 at 04:30 Diagnostic Test (Pha) (Accu-Chek) 1 ea 02 XX ; Start 02/12/17 at 02:00 Miscellaneous Information 1 ea NOTE XX ; Start 02/11/17 at 11:00 Glucose (Glutose) 15 gm Q15M PRN PO DECREASED GLUCOSE; Start 02/11/17 at 11:00 Glucose (Glutose) 22.5 gm Q15M PRN PO DECREASED GLUCOSE; Start 02/11/17 at 11: 00 Dextrose (D50w Syringe) 25 ml Q15M PRN IV DECREASED GLUCOSE; Start 02/11/17 at 11:00 Dextrose (D50w Syringe) 50 ml Q15M PRN IV DECREASED GLUCOSE; Start 02/11/17 at 11:00 Glucagon (Glucagen) 1 mg Q15M PRN IM DECREASED GLUCOSE; Start 02/11/17 at 11:00 Glucose (Glutose) 15 gm Q15M PRN BUCCAL DECREASED GLUCOSE; Start 02/11/17 at 11 :00 Nitroglycerin (Nitroglycerin (Sl Tab) 0.4 Mg) 1 tab Q5M PRN SL CHEST PAIN; Start 02/11/17 at 14:30 Acetaminophen/ Hydrocodone Bitart ([place] (5/325)) 1 tab Q6H PRN PO PAIN LEVEL 8 -10 Last administered on 02/23/17 10:25; Admin Dose 1 TAB; Start 02/12/17 at 00 :30 Hydralazine HCl (Apresoline) 10 mg Q4H PRN IV ELEVATED BLOOD PRESSURE Last administered on 02/13/17 16:45; Admin Dose 10 MG; Start 02/12/17 at 13:00 Hydralazine HCl (Apresoline) 100 mg Q8 PO Last administered on 02/23/17 06:31 ; Admin Dose 100 MG; Start 02/12/17 at 22:00 Clonidine HCl (Catapres-Tts 3 Patch) 1 patch Q7D TRANSDERM Last administered on 02/19/17 17:53; Admin Dose 1 PATCH; Start 02/12/17 at 17:00 Clonidine (Catapres) 0.2 mg Q4H PRN PO ELEVATED SYSTOLIC BP Last administered on 02/13/17 11:38; Admin Dose 0.2 MG; Start 02/12/17 at 19:00 Isosorbide Mononitrate (Imdur) 60 mg DAILY PO Last administered on 02/23/17 08 :26; Admin Dose 60 MG; Start 02/13/17 at 09:00 Carvedilol (Coreg) 25 mg BID PO Last administered on 02/23/17 08:26; Admin Dose 25 MG; Start 02/13/17 at 14:30 Nifedipine (Procardia Xl) 30 mg BID PO Last administered on 02/23/17 08:26; Admin Dose 30 MG; Start 02/13/17 at 21:00 Ondansetron HCl (Zofran Inj) 4 mg Q6H PRN IV NAUSEA AND/OR VOMITING; Start at 15:00 Enoxaparin Sodium (Lovenox) 60 mg BID SC Last administered on 02/23/17 08:25; Admin Dose 60 MG; Start 02/13/17 at 21:00 Lisinopril (Zestril) 20 mg DAILY PO Last administered on 02/22/17 08:08; Admin Dose 20 MG; Start 02/15/17 at 09:00; Status Future Hold Docusate Sodium (Colace) 200 mg BID PO Last administered on 02/22/17 20:33; Admin Dose 200 MG; Start 02/14/17 at 21:00 Senna (Senokot) 1 tab BID PO Last administered on 02/22/17 20:31; Admin Dose 1 TAB; Start 02/14/17 at 21:00 Magnesium Hydroxide (Milk Of Mag) 30 ml DAILY PRN PO CONSTIPATION; Start at 16:00 Pantoprazole (Protonix Tab) 40 mg DAILY@06 PO Last administered on 02/23/17 06 :31; Admin Dose 40 MG; Start 02/17/17 at 06:00 Nystatin/ Triamcinolone Acetonide (Mycolog Oint) 1 applic BID TOP Last administered on 02/23/17 08:30; Admin Dose 1 APPLIC; Start 02/18/17 at 14:00 Simethicone (Mylicon) 80 mg QID PRN PO DISTENSION/GAS/BLOATING Last administered on 02/19/17 21:39; Admin Dose 80 MG; Start 02/18/17 at 15:00 ASHLEY CONNOR Feb 23, 2017 11:12
--- NOTE | 2017-02-23 12:59 | PN ---
DATE: 02/21/2017 SUBJECTIVE DATA: The patient is stable. No acute events overnight. OBJECTIVE DATA: VITAL SIGNS: Blood pressure 131/78, respirations 20, pulse 71, temperature 98.9. HEENT: Head is normocephalic. NECK: Supple. HEART: Regular rate. LUNGS: Diminished breath sounds at the base. ABDOMEN: Soft, nontender to palpation. No rebound or guarding. EXTREMITIES: Negative for clubbing or cyanosis. Trace edema. DERMATOLOGIC: No rashes. MUSCULOSKELETAL: No joint effusions. NEUROLOGIC: No change in exam. MEDICATIONS: Reviewed. LABORATORY AND DIAGNOSTIC DATA: Sodium 136, potassium 3.6, BUN 64, creatinine 1.66. White count 7.3, hemoglobin 9.3, hematocrit 30.8, platelet count 254,000. ASSESSMENT AND PLAN: 1. Nonoliguric acute kidney injury. Previous baseline creatinine 1 mg/dL. Etiology likely secondary to hemodynamics, obstructive uropathy. The patient's renal function has been fluctuating, improved. Diuretic therapy was held. At this point, continue to hold diuretic therapy for another 24 hours. Likely reintroduce Lasix at a lower level starting tomorrow. Additionally, patient has obstructive uropathy with follow up with urology for recommendations. 2. Right-sided hydronephrosis. The patient is pending cystoscopy once clinically stable. 3. Hypokalemia, improved. 4. Acute respiratory failure secondary to congestive heart failure, improving. Continue intermittent diuretic therapy, currently on hold secondary to worsening renal failure. 5. Severe pulmonary hypertension. Continue medical management. 6. . 7. Bacteremia. The patient is completing antibiotic course. 8. Hypertension. Continue current blood pressure regimen. Dictated By: Jose Castelan DO /liv/azul /Document#: [id number]
--- NOTE | 2017-02-23 15:35 | PN ---
DATE: 02/22/2017 SUBJECTIVE DATA: The patient is stable. No acute events overnight. No fevers, chills, nausea or vomiting. OBJECTIVE DATA: VITAL SIGNS: Blood pressure 127/56, respirations 19, pulse 77, temperature 98.8. Input and output; 2 liters in with 900 mL out. HEENT: Head is normocephalic. NECK: Supple. HEART: Regular rate. LUNGS: Diminished breath sounds at the base. ABDOMEN: Soft and nontender to palpable. No guarding. EXTREMITIES: No clubbing or cyanosis, positive edema. DERMATOLOGIC: No rashes. MUSCULOSKELETAL: No joint effusion. NEUROLOGIC: No change in exam. MEDICATIONS: Reviewed. LABORATORY AND DIAGNOSTIC DATA: Sodium 137, potassium 3.6, chloride 94, BUN 66, creatinine 1.88. White count 6.9, hemoglobin 8.9, hematocrit 28.7, platelet count 213,000. ASSESSMENT AND PLAN: 1. Non-oliguric acute kidney injury with previous baseline creatinine of 1.0 mg. Etiology multifactorial secondary to obstructive uropathy and hemodynamics, OPAL inhibitor effect. The patient was previously on IV Lasix which was held. The patient was resumed on oral Lasix yesterday and had an increase in creatinine. Our plan at this point is to hold OPAL inhibitor. Will monitor closely on his current diuretic therapy. Otherwise continue renal dose meds. The patient was evaluated by urology and recommended a cystoscopy. 2. Hydronephrosis. Will follow up with urology for further recommendations. 3. Hypokalemia, improved. 4. Acute respiratory failure secondary to congestive heart failure, improving. Continue current medical management. 5. Severe pulmonary hypertension. Follow up with pulmonary. 6. Chronic lymphedema. 7. Bacteremia. The patient is completing antibiotic course. 8. Morbid obesity. 9. Hypertension. Continue blood pressure regimen. Dictated By: Jose Castelan DO /liv/arslan /Document#: [id number]
[2017-02-23] MEDS ORDERED: FUROSEMIDE 40 MG TAB PO SCH (18:00)
--- NOTE | 2017-02-23 18:07 | PN ---
Date/Time of Note Date/Time of Note DATE: 02/23/17 TIME: 18:06 Assessment/Plan VTE Prophylaxis VTE Prophylaxis Intervention: SCD's Lines/Catheters IV Catheter Type (from Nrsg): PICC Line Central line still needed: No Urinary Cath still in place: No Assessment/Plan Assessment/Plan 61 yo F admitted for SOB 2/2 acute on chronic systolic HF with resultant pulm edema, also now with JOSE GUADALUPE on CKD. 1. Decompensated diastolic congestive heart failure with pulmonary edema, largely improved, hold lasix given JOSE GUADALUPE on CKD 2. Acute respiratory failure secondary to pulmonary edema, improved 3. Pulmonary hypertension 4. Acute kidney injury secondary to possible obstructive uropathy, worsening BUN/Cr, decrease lasix Patient has history of hematuria but left AMA prior to cystoscopy in 2014, patient also has a history of hydronephrosis of the right kidney noted on ultrasound in August of this year renal following 6. Morbid obesity with debility and likely sleep apnea, on BiPAP 7. Thyroid nodule noted on CT chest Ultrasound of thyroid shows mass recommendation is for biopsy, discussed option of biopsy with patient states that she does not want any procedures done at this time, patient understands the risk that this mass may be a malignancy and hence the risk of but she still does not want to proceed with biopsy of the thyroid mass -f/u as outpatient 8. Resistant hypertension-BP improved 9. Bilateral lower extremity atherosclerosis with chronic lymphedema secondary to obesity and deconditioning sp vascular surgery eval, can f/u as outpatient 10. Subclinical hypothyroidism 11. Back pain, muscular, norco prn 12. DVT prophylaxis: heparin Subjective 24 Hr Interval Summary Free Text/Dictation Feeling a little better. Excited for her new BiPap to arrive Exam/Review of Systems Vital Signs Vitals Vital Signs Date Time Temp Pulse Resp B/P Pulse Ox O2 Delivery O2 Flow Rate FiO2 02/23/17 16:53 98.0 94 18 131/60 94 02/23/17 14:31 21 02/23/17 11:19 Nasal Cannula 4.0 Intake and Output 02/22/17 02/22/17 02/23/17 15:00 23:00 07:00 Intake Total 1000 ml 800 ml Output Total 1200 ml Balance -200 ml 800 ml Exam nad, sitting up in bed getting neb no mrg lungs clear anteriorly abd soft legs with lymphadema skin changes Cr noted Results Result Diagram: 02/22/17 0616 02/23/17 0639 Results 24 hrs Laboratory Tests Test 02/22/17 20:30 02/23/17 06:39 02/23/17 08:23 02/23/17 12:02 Bedside Glucose 150 165 136 Sodium Level 138 Potassium Level 3.5 Chloride Level 93 L Carbon Dioxide Level 29 Anion Gap 20 H Blood Urea Nitrogen 71 H Creatinine 1.90 H Glucose Level 143 Calcium Level 10.0 Test 02/23/17 16:41 Bedside Glucose 142 Medications Medications Current Medications Acetaminophen (Tylenol Tab) 650 mg Q6H PRN PO PAIN LEVEL 1-3 OR FEVER Last administered on 02/15/17 05:56; Admin Dose 650 MG; Start 02/11/17 at 03:30 Phenol (Cepastat Lozenge) 1 lozenge Q2H PRN MT THROATE IRRITATION Last administered on 02/19/17 09:58; Admin Dose 1 LOZENGE; Start 02/11/17 at 04:30 Diagnostic Test (Pha) (Accu-Chek) 1 ea 02 XX ; Start 02/12/17 at 02:00 Miscellaneous Information 1 ea NOTE XX ; Start 02/11/17 at 11:00 Glucose (Glutose) 15 gm Q15M PRN PO DECREASED GLUCOSE; Start 02/11/17 at 11:00 Glucose (Glutose) 22.5 gm Q15M PRN PO DECREASED GLUCOSE; Start 02/11/17 at 11: 00 Dextrose (D50w Syringe) 25 ml Q15M PRN IV DECREASED GLUCOSE; Start 02/11/17 at 11:00 Dextrose (D50w Syringe) 50 ml Q15M PRN IV DECREASED GLUCOSE; Start 02/11/17 at 11:00 Glucagon (Glucagen) 1 mg Q15M PRN IM DECREASED GLUCOSE; Start 02/11/17 at 11:00 Glucose (Glutose) 15 gm Q15M PRN BUCCAL DECREASED GLUCOSE; Start 02/11/17 at 11 :00 Nitroglycerin (Nitroglycerin (Sl Tab) 0.4 Mg) 1 tab Q5M PRN SL CHEST PAIN; Start 02/11/17 at 14:30 Acetaminophen/ Hydrocodone Bitart ([place] (5/325)) 1 tab Q6H PRN PO PAIN LEVEL 8 -10 Last administered on 02/23/17 10:25; Admin Dose 1 TAB; Start 02/12/17 at 00 :30 Hydralazine HCl (Apresoline) 10 mg Q4H PRN IV ELEVATED BLOOD PRESSURE Last administered on 02/13/17 16:45; Admin Dose 10 MG; Start 02/12/17 at 13:00 Hydralazine HCl (Apresoline) 100 mg Q8 PO Last administered on 02/23/17 13:20 ; Admin Dose 100 MG; Start 02/12/17 at 22:00 Clonidine HCl (Catapres-Tts 3 Patch) 1 patch Q7D TRANSDERM Last administered on 02/19/17 17:53; Admin Dose 1 PATCH; Start 02/12/17 at 17:00 Clonidine (Catapres) 0.2 mg Q4H PRN PO ELEVATED SYSTOLIC BP Last administered on 02/13/17 11:38; Admin Dose 0.2 MG; Start 02/12/17 at 19:00 Isosorbide Mononitrate (Imdur) 60 mg DAILY PO Last administered on 02/23/17 08 :26; Admin Dose 60 MG; Start 02/13/17 at 09:00 Carvedilol (Coreg) 25 mg BID PO Last administered on 02/23/17 08:26; Admin Dose 25 MG; Start 02/13/17 at 14:30 Nifedipine (Procardia Xl) 30 mg BID PO Last administered on 02/23/17 08:26; Admin Dose 30 MG; Start 02/13/17 at 21:00 Ondansetron HCl (Zofran Inj) 4 mg Q6H PRN IV NAUSEA AND/OR VOMITING; Start at 15:00 Enoxaparin Sodium (Lovenox) 60 mg BID SC Last administered on 02/23/17 08:25; Admin Dose 60 MG; Start 02/13/17 at 21:00 Lisinopril (Zestril) 20 mg DAILY PO Last administered on 02/22/17 08:08; Admin Dose 20 MG; Start 02/15/17 at 09:00; Status Future Hold Magnesium Hydroxide (Milk Of Mag) 30 ml DAILY PRN PO CONSTIPATION; Start at 16:00 Pantoprazole (Protonix Tab) 40 mg DAILY@06 PO Last administered on 02/23/17 06 :31; Admin Dose 40 MG; Start 02/17/17 at 06:00 Nystatin/ Triamcinolone Acetonide (Mycolog Oint) 1 applic BID TOP Last administered on 02/23/17 08:30; Admin Dose 1 APPLIC; Start 02/18/17 at 14:00 Simethicone (Mylicon) 80 mg QID PRN PO DISTENSION/GAS/BLOATING Last administered on 02/19/17 21:39; Admin Dose 80 MG; Start 02/18/17 at 15:00 Loperamide HCl (Imodium Cap) 2 mg QID PRN PO DIARRHEA; Start 02/23/17 at 14:30 ANAYA PÉREZ MD Feb 23, 2017 18:07
[2017-02-23] MEDS: LOPERAMIDE 2 MG CAP PO PRN (20:28)
[2017-02-23] MEDS ORDERED: MENTHOL/METH SALICYLATE 30 GM OINT TOP PRN (20:30)
[2017-02-24] VITALS (11 sets, daily range): BP systolic 113–142; BP diastolic 55–66; PULSE 59–84; RESP 17–18
[2017-02-24] MEDS: ACCU-CHEK XX SCH (02:24)
[2017-02-24] MEDS: ALBUTEROL/IPRATROPIUM (NEB) 3 ML AMP HHN SCH ×3 (02:26→14:55)
[2017-02-24] MEDS: HYDROCODONE/APAP (5/325) TAB PO PRN ×2 (04:14→10:28)
[2017-02-24] MEDS: PANTOPRAZOLE (EC) 40 MG TAB PO SCH (05:03)
--- NOTE | 2017-02-24 06:34 | PN ---
DATE: 02/18/2017 SUBJECTIVE DATA: The patient is stable. No acute events overnight. No fevers, chills, nausea, or vomiting. OBJECTIVE DATA: VITAL SIGNS: Blood pressure is 137/73, respirations 20, pulse 73, temperature 97.9. HEENT: Head is normocephalic. NECK: Supple. HEART: Regular rate. LUNGS: Diminished breath sounds at the base. ABDOMEN: Soft. Nontender to palpation. No rebound or guarding. EXTREMITIES: Negative for clubbing, cyanosis. Positive for edema. DERMATOLOGIC: No rashes. MUSCULOSKELETAL: No joint effusions. NEUROLOGIC: No change in exam. The patient's medications have been reviewed. LABORATORY DATA: Shows a sodium 139, potassium 3.9, chloride 92. BUN 48, creatinine 1.34. White count 7.1, hemoglobin 10.3, hematocrit 34.5. Platelet count is 249. ASSESSMENT AND PLAN: 1. Nonoliguric acute kidney injury with a baseline creatinine of 1.0 mg/dL. Etiology of acute kidney injury (JOSE GUADALUPE) is secondary to hemodynamics and obstructive uropathy. The patient's renal ultrasound shows severe right-sided hydronephrosis. The patient's renal function has been fluctuating but overall stable. At this point continue current treatment plan and supportive care. Renally dose all medications. Recommend urologic evaluation for cystoscopy. 2. Right-sided hydronephrosis. The patient has been seen by urology, pending cystoscopy once clinically stable. 3. Hyperkalemia, improved. Continue to monitor. 4. Acute respiratory failure secondary to congestive heart failure (CHF), improving. Continue diuretic regimen. 5. Severe pulmonary hypertension. Continue to monitor. Follow up with pulmonary. 6. Chronic lymphedema. Continue current medical management. 7. Bacteremia. Patient completed antibiotic course. 8. Hypertension. Continue current blood pressure regimen. Dictated By: Jose Castelan DO /liv/chloe /Document#: [id number]
[2017-02-24] MEDS: ISOSORBIDE MONONITRATE(SR)60 MG TAB PO SCH (08:36)
[2017-02-24] MEDS: LOPERAMIDE 2 MG CAP PO PRN (08:37)
[2017-02-24] MEDS: NIFEdipine (XL) 30 MG TAB PO SCH (08:37)
[2017-02-24] MEDS: INSULIN ASPART [NOVOLOG] 3 ML PEN SC SCH ×3 (08:39→16:41)
[2017-02-24] MEDS: ENOXAPARIN 60 MG/0.6 ML SYG SC SCH (08:39)
[2017-02-24 08:40] LABS: CALCIUM 9.1 mg/dl (8.4-10.2); CREATININE 1.81 mg/dl (0.44-1.00); POTASSIUM 3.1 mmol/L (3.5-5.1)
[2017-02-24] MEDS: NYSTATIN/TRIAMCINOLONE 15 GM OINT TOP SCH (08:40)
[2017-02-24] MEDS ORDERED: POTASSIUM CHLORIDE (SR) 20 MEQ TAB PO STA (09:01)
--- NOTE | 2017-02-24 14:06 | CONS ---
DATE OF ADMISSION: 02/11/2017 DATE OF CONSULTATION: 02/11/2017 REASON FOR CONSULTATION: Shortness of breath, congestive heart failure. REQUESTING PHYSICIAN: from the Hospital Service. HISTORY OF PRESENT ILLNESS: Ms. Deleon is a 61-year-old female with a history of pulmonary hypertension, chronic lymphedema, morbid obesity, hypertension, diastolic congestive heart failure with most recent echo from August 2016 revealing a preserved ejection fraction of 65 percent with trace tricuspid and mitral regurgitation, who presents with complaints of shortness of breath. Upon arrival, temperature 98 degrees, blood pressure 122/63, pulse 79, respiratory rate 24, 98 percent. White count 7.6, hemoglobin 9.4, platelet count 221,000. Sodium 131, potassium 3.6, creatinine 1.44, BUN 49. AST 14, ALT 22. BNP 5,142. TSH 0.288. ABG revealing pH 7.455, PaO2 114, pCO2 41. The patient did not have a chest x-ray for my assessment at this time. The patient does not have an electrocardiogram for my review at this time. The patient has been admitted to the floor and since being admitted to the floor has had ongoing shortness of breath and subsequent chest pain. The patient was transferred from [place] where she had a chest x-ray that revealed congestive heart failure and then underwent repeat echo there that revealed an ejection fraction of 65 percent with diastolic dysfunction and history of pulmonary hypertension. At [place] the patient was on a Lasix drip. PAST MEDICAL HISTORY: As above in HPI. MEDICATION: 1. Clonidine patch. 2. Hydralazine 25 mg p.o. every eight hours. 3. Lasix 40 mg IV b.i.d. 4. Protonix 40 mg IV daily. 5. Heparin 5,000 subcutaneous every eight hours. 6. Bronchodilator therapy with DuoNebs. ALLERGIES: NORVASC. CODEINE. MILK. SOCIAL HISTORY: No tobacco, alcohol, illicit drug use. FAMILY HISTORY: No history of sudden cardiac , . REVIEW OF SYSTEMS: CONSTITUTIONAL: No fever, chills. PULMONARY: Shortness of breath, hypertension. GASTROINTESTINAL: No vomiting. GENITOURINARY: No hematuria. MUSCULOSKELETAL: Stable joints. PSYCHIATRIC: No documented psychiatric history. NEUROLOGIC: No documented CVA. ENDOCRINE: Diabetes mellitus. PHYSICAL EXAMINATION: VITAL SIGNS: Temperature 98 degrees, blood pressure 122/63, pulse 64, saturating 97 percent on three liters. GENERAL APPEARANCE: The patient is alert, awake, complaining of shortness of breath and chest pain. NECK: JVP . LUNGS: Decreased breath sounds at the bases bilaterally. HEART: Regular rate and rhythm. Normal S1, increased S2. One out of 6 systolic murmur. Nondisplaced PMI. ABDOMEN: Positive bowel sounds. Soft. EXTREMITIES: No pitting edema. One-plus pulses bilaterally, posterior tibial. LABORATORY: As per HPI with most recently from today: Sodium 131, potassium 3.6, creatinine 1.44, BUN 49. AST 14, ALT 22. TSH 0.288. White blood cell count 7.6, hemoglobin 9.4, platelet count 221,000. IMAGING: No further imaging studies for review at this time. EKG for review at this time. IMPRESSION: 1. Congestive heart failure exacerbation from outside hospital, diastolic, acute on chronic. 2. Pulmonary hypertension. 3. Hypertension under reasonable control. 4. Chest pain, assess for acute coronary syndrome. 5. Renal failure. 6. Possible diabetes mellitus. 7. Chronic lymphedema. 8. Possible bacteremia from outside hospital. PLAN: 1. At this time would maintain the patient on telemetry monitoring to follow rhythm and rates. 2. Complete workup for myocardial infarction to ensure the patient's chest pain is not due acute coronary syndrome or acute myocardial infarction. 3. Continue the patient's current clonidine patch and hydralazine for control of blood pressure. 4. Continue the patient's Lasix diuresis. 5. Continue the patient's bronchodilator therapy, follow respiratory status closely. 6. Check repeat blood cultures to assess for any possible ongoing bacteremia and need for further evaluation and assessment of endocarditis. 7. Check free T4 to further assess the patient's current thyroid state. 8. Check fasting lipid panel for diabetes clarification. Thank you for allowing me to take part in the care of this patient. I will continue to follow him very closely with you for recommendations made . Dictated By: Scot Matos, Medical /fnt/clp /Document#: [id number]
[2017-02-24] MEDS ORDERED: CLON1PAT3 TRANSDERM (14:45)
[2017-02-24] MEDS ORDERED: ISOS60TA PO (14:45)
[2017-02-24] MEDS ORDERED: NIFE30TA2 PO (14:45)
--- NOTE | 2017-02-24 14:47 | DS ---
Date/Time of Note Date/Time of Note DATE: 02/24/17 TIME: 14:47 Discharge Summary Admission/Discharge Info Admit Date/Time Feb 11, 2017 at 00:44 Discharge Date/Time Discharge Diagnosis LEELA, chronic renal insufficiency, hypertension, lymphedema, chronic diastolic heart failure Patient Condition: Stable Consults cardiology, nephrology, vascular surgery, pulmonology Procedures TTE 7.16 Conclusions 1. Normal left ventricular systolic function. Normal left ventricular cavity size. Moderate concentric left ventricular hypertrophy. Ejection fraction is visually estimated at 60-65 %. Abnormal Diastolic Function. 2. There is mild enlargement of left atrium. 3. Mitral valve leaflets appear moderately thickened. Moderate mitral annular calcification. Trace mitral regurgitation. Mild to moderate mitral stenosis. mmHg. MeanPG 5.00 mmHg. Mitral Valve Area by Continuity1.71 cm2. 4. There is mild tricuspid regurgitation. 5. There is trace pulmonic regurgitation. 6. Normal pericardium with no significant pericardial effusion. 7. Mild aortic stenosis. NCCT Chest 7.17 IMPRESSION: 1. Extensive bilateral pulmonary edema and atelectasis in the mid and lower lung zones posteriorly. Superimposed pneumonia cannot be excluded. 2. Enlarged right lobe of thyroid. Right lobe thyroid nodule measuring 3.2 cm. 3. Anterior and middle mediastinal lymphadenopathy which may be reactive or neoplastic. 4. Mild cardiomegaly. 5. Extensive calcification of the mitral valve annulus. 6. Degenerative changes of the spine. 7. Mild thoracic scoliosis convex right. Thyroid US 7.18 IMPRESSION: 1. Large mass in the right lobe measuring 3.4 x 3.0 x 5.2 cm. Ultrasound- guided biopsy should be considered. 2. Benign cyst in the left lobe measuring 0.5 cm. 3. Enlarged thyroid. 4. Otherwise unremarkable study. CT AP 7.19 IMPRESSION: 1. Severe right hydroureteronephrosis with diffuse cortical thinning of the right kidney. Hyperdense material is identified in the right proximal ureter measures up to 2.2 cm in AP dimension. This could represent a mass versus hemorrhage. Mid/distal right ureter is not distended. Consider CT IVP for further evaluation. 2. Mildly enlarged aortocaval lymphadenopathy measures up to 1.3 cm in short axis. 3. Tubular structures at the GE junction suggesting para esophageal varices versus enlarged lymph nodes. This can also be further evaluated on the contrast study. 4. Unchanged left adrenal adenoma. 5. Fat containing periumbilical hernia. 6. Moderate to large right and small to moderate left pleural effusions with partial lower lobe atelectasis. Improved interstitial pulmonary edema. Persistent patchy airspace disease in the anterior left lower lobe which could represent resolving confluent pulmonary edema versus pneumonia. 7. Aortoiliac atherosclerosis. UE LE arteries 7.23 IMPRESSION: 1. No blood flow visualized within the peroneal arteries bilaterally, left anterior tibial artery and right posterior tibial artery concerning for segmental occlusion. 2. No evidence of focal hemodynamically significant stenosis in either thigh or popliteal artery. Hx of Present Illness Chief complaint: Shortness of breath, CHF exacerbation, possible bacteremia This is a 61-year-old female who was transferred over from [facility] after being treated for hypertensive emergency diastolic heart failure acute respiratory failure and possible bacteremia. Patient was admitted proximally on the for shortness of breath, dry cough, orthopnea 1 week. She had a complicated hospital course there which entailed her being taken to the ICU to be put on a nitro drip secondary to hypertensive emergency as well as a Lasix drip secondary to volume overload. Patient also was found to have coagulase-negative staph and was on a course of antibiotics however it was later thought that this may be could have been a contaminant. Patient also had thoracic ultrasound performed which showed an ejection fraction of 60-65% with moderate concentric hypertrophy. Of note patient also was found to have a small echodensity in the with independent motion attached to the base of the anterior mitral valve leaflet along the ventricular surface this is thought maybe to be a vegetation or calcification. Also of note patient was noted to have an R VSP at 60-65% consistent with severe pulmonary hypertension. Her blood pressure was subsequently stabilized though she remained on BiPAP. Patient was deemed stable to transfer and she was sent to [facility]. Of note patient also diuresed approximately 8 L of fluid as per [facility] documentation. At the current time patient is on BiPAP. She does not appear in any acute respiratory distress. She does have a history of chronic lymphedema for which she does not know the cause of. She does state that she previously has surgeries however this lymphedema was prior to her surgeries. Her previous surgeries consisted of hysterectomy and colon cancer tumor removal. Allergies: Amlodipine, codeine, Medications: See MAR Hospital Course Pt admitted for SOB from acute on chronic diastolic HF. Responded well to diuretics, however had an JOSE GUADALUPE on CKD. Nephrology consulted, dieretic dose decreased and acei was held. Home alpha adalgisa (clonidine) changed from PO to patch to facilitate compliance. CCB and imdur added to BP regimen. W/u of pt's SOB also notable for incidental finding of thyroid nodule. US guided biopsy to evaluate for cancer offered repeatedly during pt's stay including by me personally with patient on date of discharge. Pt declined inpatient thyroid biopsy. Dw pt that rationale was to rule out malignancy. Pt stated she wanted to seek a second opinion in the outpatient setting. Thyroid labs notable for subclinical hyperthyroid (TSH low, ft4 nl) W/u of SOB also notable for discover of R kidney hydro. consult offered for further eval including by me personally on date of discharge. Pt refused, stating she wanted to seek second opinion in the outpatient setting. Regarding her LE lymphedema, pt seen by vascular surgery which advised outpatient follow up Pt also received a new BiPap machine prior to discharge. Home Meds Active Scripts Nifedipine (Procardia Xl) 30 Mg Tab.er.24, 30 MG PO DAILY for 14 Days, #14 TAB Prov:ANAYA PÉREZ MD 02/24/17 Clonidine Patch (CLONIDINE PATCH) 0.3 Mg/24 Hr Patch, 1 PATCH TRANSDERM Q7D for 14 Days, #2 Prov:ANAYA PÉREZ MD 02/24/17 Isosorbide Mononitrate* (Isosorbide Mononitrate*) 60 Mg Tab.er.24h, 60 MG PO DAILY for 14 Days, #14 Prov:ANAYA PÉREZ MD 02/24/17 Docusate Sodium* (Colace*) 100 Mg Capsule, 100 MG PO DAILY, #30 CAP Prov:AUGUSTO RILEY MD 09/05/16 Sennosides* (Senna Lax*) 8.6 Mg Tablet, 1 TAB PO DAILY, #30 TAB Prov:AUGUSTO RILEY MD 09/05/16 Polyethylene Glycol* (Miralax*) 17 Gm Powd.pack, 17 GM PO DAILY Y for CONSTIPATION, #20 Prov:AUGUSTO RILEY MD 09/05/16 Hydralazine Hcl* (Hydralazine Hcl*) 50 Mg Tab, 100 MG PO TID, #90 TAB Prov:AUGUSTO RILEY MD 09/05/16 Furosemide (Lasix) 20 Mg Tab, 20 MG PO BID DIURETICS, #60 TAB Prov:AUGUSTO RILEY MD 09/05/16 Docusate Sodium (Dok) 100 Mg Capsule, 100 MG PO DAILY, #30 CAP Prov:AUGUSTO RILEY MD 09/05/16 Carvedilol* (Carvedilol*) 25 Mg Tablet, 25 MG PO BID, #60 TAB Prov:AUGUSTO RILEY MD 09/05/16 Aspirin (Aspirin) 81 Mg Chew, 81 MG PO DAILY, #30 TAB Prov:AUGUSTO RILEY MD 09/05/16 Clonidine Hcl* (Clonidine Hcl*) 0.3 Mg Tablet, 0.3 MG PO TID, #90 TAB Prov:AUGUSTO RILEY MD 09/05/16 Benazepril Hcl* (Benazepril Hcl*) 40 Mg Tablet, 40 MG PO DAILY for 30 Days Prov:AUGUSTO RILEY MD 09/05/16 Follow-up Plan cardiology, renal, PCP, vascular at pt's discretion Endo/IR at patient's discretion Primary Care Provider Mik Ty DO Time spent on discharge: > 30 minutes Pending Labs Laboratory Tests Test 02/23/17 16:41 02/23/17 21:45 02/24/17 02:16 02/24/17 05:54 Bedside Glucose 142mg/dL (70-220) 189mg/dL (70-220) 151mg/dL (70-220) Sodium Level 136mmol/L (135-144) Potassium Level 3.1mmol/L (3.5-5.1) Chloride Level 96mmol/L (97-110) Carbon Dioxide Level 24mmol/L (21-31) Anion Gap 19 (8-16) Blood Urea Nitrogen 64mg/dl (7-20) Creatinine 1.81mg/dl (0.44-1.00) Glucose Level 133mg/dl (70-220) Calcium Level 9.1mg/dl (8.4-10.2) Test 02/24/17 08:35 02/24/17 11:28 Bedside Glucose 142mg/dL (70-220) 195mg/dL (70-220) Copies To: CC: ASHLEY CONNOR; MIK TY DO; OPAL ESCALANTE ELLEN MD Feb 24, 2017 14:47
--- NOTE | 2017-02-24 15:05 | PDOCDIS ---
Discharge Instructions DIAGNOSIS Discharge Diagnosis LEELA, chronic renal insufficiency, hypertension, lymphedema, chronic diastolic heart failure CONDITION Patient Condition: Stable HOME CARE INSTRUCTIONS: Special Diet: carb controlled. FOLLOW UP/APPOINTMENTS Follow-up Plan As we discussed, you have a lesion on your thyroid gland which could be cancer. You did not want a biopsy in the hospital but you need to discuss this with your regular doctor. You also have some swelling around your right kidney, the cause of which is unknown. You declined to have the urologists/kidney surgeons in the hospital so you should ask your regular doctor for a referral to a new one. Follow ups: vascular surgery/leg swelling=Dr Shelton: [address] [place] [address] Cardiology: Dr Scot Matos Address: [address], [place] [address] Nephrology/Kidneys: Dr Jose Castelan [id number] [place] [address] Pulmonary Hypertension: Dr Bart Solis Office Address [address] [place] [address] Office CHANGES FROM ADMISSION MEDS: hold your benazepril until you see the kidney doctor stop taking clonidine pills, start using the clonidine patches start taking nifedipine and isosorbide use the BiPap machine nightly ANAYA PÉREZ MD Feb 24, 2017 15:05
[2017-02-24] MEDS ORDERED: [UNRECOGNIZED DRUG - CODE] MC (15:16)
--- NOTE | 2017-02-24 15:32 | CONS ---
Date/Time of Note Date/Time of Note DATE: 02/24/17 TIME: 15:31 Assessment/Plan Assessment/Plan Chief Complaint/Hosp Course IMP: 1.CHF-Diastolic acute on chronic by most recent echo-significantly improved volume status 2.PHTN 3.Resp failure on BIPAP 4. Bacteremia at OSH. Bld cultures thus far here negative. No definite vegetations by echo done here this admit 5.lymphedema 6.chest pain-negative trop x 3 7. AF-rate controlled 8. HTN-urgency/emergency-? component of discomfort-improving on oral anti- hypertensives 9. H/O PHTN-not significantly elevated by most recent echo 10.REnal failure -ongoing 11.hydronephrosis 12. NSVT-NL EF by echo 14.PAD by le arterial vignesh REcc: -Tele -serial ecg's -Continue abx's and f/u cx data -Continue hydralazine/clonidine TTS/zestril/procardia xl with reasonable BP control -Continue lasix PO and follow creatnine/volume status closely -Continue BIPAP as necessary -Replete K>4.0 and mg>2.0 -D/C planning with outpatient f/u Problems: Consultation Date/Type/Reason Admit Date/Time Feb 11, 2017 at 00:44 Initial Consult Date 02/11/17 Type of Consultation: cardiology Reason for Consultation CHF Referring Provider: KYLEE MORALES Exam/Review of Systems Vital Signs Vitals Vital Signs Date Time Temp Pulse Resp B/P Pulse Ox O2 Delivery O2 Flow Rate FiO2 02/24/17 14:55 74 20 96 21 02/24/17 12:02 98.2 113/55 02/23/17 11:19 Nasal Cannula 4.0 Intake and Output 02/23/17 02/23/17 02/24/17 15:00 23:00 07:00 Intake Total 500 ml 250 ml Balance 500 ml 250 ml Exam Review of Systems: CONSTITUTIONAL: No fevers, chills. PULMONARY: improved sob CARDIOVASCULAR: No chest pain/palpitations GASTROINTESTINAL: No nausea/vomiting. GENITOURINARY: No hematuria/dysuria. MUSCULOSKELETAL: No myagias/arthalgias. PSYCHIATRIC: The patient denies depression. NEUROLOGIC: No weakness Constitutional: alert, oriented Psych: no complaints Head: normocephalic ENMT: mucosa pink and moist Neck: jvd (9 cm water), supple Respiratory: diminished breath sounds (at bases/B) Cardiovascular: regular rate and rhythm Extremities: edema (lymphedema chronic) Neurological: other (No focal deficits) Results Result Diagram: 02/22/17 0616 02/24/17 0554 Results 24 hrs Laboratory Tests Test 02/23/17 16:41 02/23/17 21:45 02/24/17 02:16 02/24/17 05:54 Bedside Glucose 142 189 151 Sodium Level 136 Potassium Level 3.1 L Chloride Level 96 L Carbon Dioxide Level 24 Anion Gap 19 H Blood Urea Nitrogen 64 H Creatinine 1.81 H Glucose Level 133 Calcium Level 9.1 Test 02/24/17 08:35 02/24/17 11:28 Bedside Glucose 142 195 Medications Medications Current Medications Acetaminophen (Tylenol Tab) 650 mg Q6H PRN PO PAIN LEVEL 1-3 OR FEVER Last administered on 02/15/17 05:56; Admin Dose 650 MG; Start 02/11/17 at 03:30 Phenol (Cepastat Lozenge) 1 lozenge Q2H PRN MT THROATE IRRITATION Last administered on 02/19/17 09:58; Admin Dose 1 LOZENGE; Start 02/11/17 at 04:30 Diagnostic Test (Pha) (Accu-Chek) 1 ea 02 XX Last administered on 02/24/17 02: 24; Admin Dose 1 EA; Start 02/12/17 at 02:00 Miscellaneous Information 1 ea NOTE XX ; Start 02/11/17 at 11:00 Glucose (Glutose) 15 gm Q15M PRN PO DECREASED GLUCOSE; Start 02/11/17 at 11:00 Glucose (Glutose) 22.5 gm Q15M PRN PO DECREASED GLUCOSE; Start 02/11/17 at 11: 00 Dextrose (D50w Syringe) 25 ml Q15M PRN IV DECREASED GLUCOSE; Start 02/11/17 at 11:00 Dextrose (D50w Syringe) 50 ml Q15M PRN IV DECREASED GLUCOSE; Start 02/11/17 at 11:00 Glucagon (Glucagen) 1 mg Q15M PRN IM DECREASED GLUCOSE; Start 02/11/17 at 11:00 Glucose (Glutose) 15 gm Q15M PRN BUCCAL DECREASED GLUCOSE; Start 02/11/17 at 11 :00 Nitroglycerin (Nitroglycerin (Sl Tab) 0.4 Mg) 1 tab Q5M PRN SL CHEST PAIN; Start 02/11/17 at 14:30 Acetaminophen/ Hydrocodone Bitart ([place]ne (5/325)) 1 tab Q6H PRN PO PAIN LEVEL 8 -10 Last administered on 02/24/17 10:28; Admin Dose 1 TAB; Start 02/12/17 at 00 :30 Hydralazine HCl (Apresoline) 10 mg Q4H PRN IV ELEVATED BLOOD PRESSURE Last administered on 02/13/17 16:45; Admin Dose 10 MG; Start 02/12/17 at 13:00 Hydralazine HCl (Apresoline) 100 mg Q8 PO Last administered on 02/24/17 05:02 ; Admin Dose 100 MG; Start 02/12/17 at 22:00 Clonidine HCl (Catapres-Tts 3 Patch) 1 patch Q7D TRANSDERM Last administered on 02/19/17 17:53; Admin Dose 1 PATCH; Start 02/12/17 at 17:00 Clonidine (Catapres) 0.2 mg Q4H PRN PO ELEVATED SYSTOLIC BP Last administered on 02/13/17 11:38; Admin Dose 0.2 MG; Start 02/12/17 at 19:00 Isosorbide Mononitrate (Imdur) 60 mg DAILY PO Last administered on 02/24/17 08 :36; Admin Dose 60 MG; Start 02/13/17 at 09:00 Carvedilol (Coreg) 25 mg BID PO Last administered on 02/24/17 08:36; Admin Dose 25 MG; Start 02/13/17 at 14:30 Nifedipine (Procardia Xl) 30 mg BID PO Last administered on 02/24/17 08:37; Admin Dose 30 MG; Start 02/13/17 at 21:00 Ondansetron HCl (Zofran Inj) 4 mg Q6H PRN IV NAUSEA AND/OR VOMITING; Start at 15:00 Enoxaparin Sodium (Lovenox) 60 mg BID SC Last administered on 02/24/17 08:39; Admin Dose 60 MG; Start 02/13/17 at 21:00 Lisinopril (Zestril) 20 mg DAILY PO Last administered on 02/22/17 08:08; Admin Dose 20 MG; Start 02/15/17 at 09:00; Status Future Hold Magnesium Hydroxide (Milk Of Mag) 30 ml DAILY PRN PO CONSTIPATION; Start at 16:00 Pantoprazole (Protonix Tab) 40 mg DAILY@06 PO Last administered on 02/24/17 05 :03; Admin Dose 40 MG; Start 02/17/17 at 06:00 Nystatin/ Triamcinolone Acetonide (Mycolog Oint) 1 applic BID TOP Last administered on 02/24/17 08:40; Admin Dose 1 APPLIC; Start 02/18/17 at 14:00 Simethicone (Mylicon) 80 mg QID PRN PO DISTENSION/GAS/BLOATING Last administered on 02/19/17 21:39; Admin Dose 80 MG; Start 02/18/17 at 15:00 Loperamide HCl (Imodium Cap) 2 mg QID PRN PO DIARRHEA Last administered on 02/24 08:37; Admin Dose 2 MG; Start 02/23/17 at 14:30 Menthol/Methyl Salicylate (Melchor Dupont) 1 applic TID PRN TOP PAIN Last administered on 02/24/17 04:14; Admin Dose 1 APPLIC; Start 02/23/17 at 20:30 ASHLEY CONNOR Feb 24, 2017 15:32
--- NOTE | 2017-02-25 10:06 | PN ---
DATE: 02/24/2017 SUBJECTIVE DATA: The patient is stable. No events overnight. No fever or chills. No nausea or vomiting. No shortness of breath. OBJECTIVE DATA: Blood pressure 142/57, respirations 18, pulse 80, temperature 97.4. I and Os: The patient had 1800 in, 1200 out. HEENT: Head is normocephalic. Neck supple. Heart: Regular rate. Lungs show diminished breath sounds at the bases. Abdomen soft, nontender on palpation. No rebound or guarding. Extremities negative for clubbing, cyanosis. edema. Dermatologic: No rashes. Musculoskeletal: No joint effusion. Neurological: No change. MEDICATIONS: The patient's medications have been reviewed. LABORATORY AND DIAGNOSTIC DATA: The sodium is 136, potassium 4.1, chloride 96, BUN 64, creatinine 1.81. ASSESSMENT AND PLAN: 1. Nonoliguric acute kidney injury with previous baseline creatinine of 1.0 mg/dL. Etiology is secondary to obstructive uropathy, hemodynamics, OPAL inhibitor effect. The patient's renal function has been fluctuating between creatinine 1.6 to 1.9 mg/dL. At this point, will continue current treatment plan. Continue current diuretic regimen. Continue to hold OPAL inhibitor. Will monitor I and Os closely. Please also note that patient has underlying right-sided hydronephrosis that needs definitive treatment or therapy by Urology, which is pending once the patient is more clinically stable. 2. Right-sided hydronephrosis. The patient was seen by Urology. Pending possible cystoscopy once clinically stable. 3. Hypokalemia. Will monitor and replete. 4. Volume overload secondary to acute congestive heart failure exacerbation. Continue current medical management. Follow up with Cardiology. 5. Acute respiratory failure secondary to congestive heart failure exacerbation. Clinically improving. Continue current medical management. 6. Chronic lymphedema. Continue to monitor. 7. Pulmonary hypertension. Continue current medical management. 8. Bacteremia. The patient is completing antibiotic course. 9. Hypertension. Continue current blood pressure regimen. 10. Morbid obesity. Dictated By: Jose Castelan DO /liv/shree /Document#: [id number]
--- NOTE | 2017-02-27 11:40 | PN ---
DATE: 02/19/2017 SUBJECTIVE DATA: The patient is stable. No acute events overnight. No fevers, chills, nausea, vomiting. OBJECTIVE DATA: VITAL SIGNS: Blood pressure 156/79, respirations 20, pulse 78, temperature 98.4 degrees. HEENT: Head is normocephalic. NECK: Supple. CARDIAC: Heart is regular rate. RESPIRATORY: Lungs show diminished breath sounds at bases. ABDOMEN: Soft, nontender to palpation. No guarding. EXTREMITIES: Negative for clubbing, cyanosis. Positive edema. DERMATOLOGIC: No rashes. MUSCULOSKELETAL: No joint effusion. NEUROLOGIC: No change in exam. The patient's medications reviewed. LABORATORY AND DIAGNOSTIC DATA: Sodium 138, potassium 4, chloride 91, BUN 54, creatinine 1.62. CBC was reviewed. Chest x- ray shows improvement in pulmonary congestion, mildly. ASSESSMENT AND PLAN: 1. Nonoliguric acute kidney injury with previous baseline creatinine 1.2 mg/dL. Etiology of JOSE GUADALUPE secondary to hemodynamics, obstructive uropathy. The patient's renal ultrasound continues to show right-sided hydronephrosis. The patient's renal function has been fluctuating recently likely from diuretic therapy. At this point, will continue current diuretic regimen, monitor renal function closely. Would recommend to continue to follow up with Urology for definitive therapy and possible cystoscopy. 2. Right-side hydronephrosis. The patient is followed by Urology, pending possible cystoscopy once more clinically stable. 3. Hyperkalemia, improved. 4. Acute respiratory failure secondary to congestive heart failure. Continue current diuretic regimen. 5. Severe pulmonary hypertension. Follow up with Pulmonary. 6. Chronic lymph edema. No change. Continue to monitor. 7. Bacteremia. Th patient completed antibiotic course. 8. Hypertension. Continue current blood pressure regimen. 9. Morbid obesity. Continue dietary modification. Dictated By: Jose Castelan DO /liv/jennifer /Document#: [id number]
== END 2017-02-24 18:34 | disposition home health service (06) | DRG 291 ==
LOC: MS4 02-11 00:44
PROVIDERS: ADMIT Internal Medicine; ATTEND Internal Medicine
PROC: 5A09557 Assistance with Respiratory Ventilation, Greater than 96 Consecutive Hours, Continuous Positive Airway Pressure (ICD-10-PCS; principal; 2017-02-13)
DX: I13.0 Hypertensive heart and chronic kidney disease with heart failure and stage 1 through stage 4 chronic kidney disease, or unspecified chronic kidney disease (principal); J96.01 Acute respiratory failure with hypoxia; N17.9 Acute kidney failure, unspecified; J18.9 Pneumonia, unspecified organism; I27.2 Other secondary pulmonary hypertension; I85.00 Esophageal varices without bleeding; R78.81 Bacteremia; E66.2 Morbid (severe) obesity with alveolar hypoventilation; I50.33 Acute on chronic diastolic (congestive) heart failure; N13.30 Unspecified hydronephrosis; Z68.41 Body mass index [BMI] 40.0-44.9, adult; I89.0 Lymphedema, not elsewhere classified; E66.01 Morbid (severe) obesity due to excess calories; Z85.038 Personal history of other malignant neoplasm of large intestine; Z87.891 Personal history of nicotine dependence; E02 Subclinical iodine-deficiency hypothyroidism; J44.9 Chronic obstructive pulmonary disease, unspecified; N18.9 Chronic kidney disease, unspecified; G47.30 Sleep apnea, unspecified; F41.9 Anxiety disorder, unspecified; K59.00 Constipation, unspecified; E04.1 Nontoxic single thyroid nodule; E65 Localized adiposity; I70.203 Unspecified atherosclerosis of native arteries of extremities, bilateral legs; R59.1 Generalized enlarged lymph nodes
CPT/HCPCS: 36600; 71010; 71250; 74176; 76536; 76775; 80048; 80053; 80061; 81001; 81003; 82550; 82553; 82803; 82962; 83036; 83735; 83880; 84100; 84155; 84300; 84439; 84443; 84484; 85025; 87040; 87081; 87086; 88104; 89190; 93005; 93306; 93922; 94640; 94660; 94664; 97110; 97116; 97162; 97530; J1940; C9113; J0360; J0696; J1644; J1815; J1885; J2060; J3475; J3480